=== PATIENT | female | born 1935 | race Caucasian/White ===

== ENCOUNTER 2019-02-15 20:57 | Emergency (ER) | payer MEDICARE ==
[2019-02-15] MEDS ORDERED: ONDANSETRON 4 MG/2 ML VIAL IVP STA (21:10)
[2019-02-15] MEDS ORDERED: MECLIZINE 12.5 MG TAB PO STA (21:29)
--- NOTE | 2019-02-15 21:36 | ED ---
Dizziness HPI - General Chief Complaint: Dizziness Stated Complaint: NVD Time Seen by Provider: 02/15/19 21:09 Source: EMS Mode of arrival: EMS Limitations: no limitations - History of Present Illness Initial Comments: This patient is 83-year-old woman who presents with complaint that she is having a severe feeling of spinning that started tonight. She states that it has caused her to have multiple rounds of vomiting as well as nausea. She does feel better if she closes her eyes remains still. She states that symptoms are worse if she moves her head. The patient states that she had moved into a new residence earlier today and she states she has been little fatigued over the past couple days. Patient denies headache. She denies any other neurologic symptoms. She has not had change in vision, speech or swallowing, hearing, any weakness or numbness of the extremities. No fever or chills. No chest or abdominal pain. No change in bowel movements or urination. MD Complaint: dizziness -: hour(s) Timing: sudden onset Description: "room spinning", off-balance, nausea History of Same: No History of Trauma: Yes (Patient had fall with head injury approximately 2 weeks ago) Severity: severe Improves With: remaining still Worsens With: movement Associated Symptoms: denies other symptoms - Related Data Home Medications Medication Instructions Recorded Confirmed ALPRAZolam [Xanax] 0.25 mg PO DAILY PRN 02/15/19 02/15/19 Atorvastatin [Lipitor] 20 mg PO DAILY 02/15/19 02/15/19 Carvedilol [Coreg] 25 mg PO BID-W/MEALS 02/15/19 02/15/19 FLUoxetine HCL [PROzac] 40 mg PO DAILY 02/15/19 02/15/19 Gabapentin 800 mg PO QID 02/15/19 02/15/19 Levothyroxine Sodium [Synthroid] 100 mcg PO DAILY 02/15/19 02/15/19 Lisinopril [Prinivil] 10 mg PO DAILY 02/15/19 02/15/19 Pantoprazole [Protonix] 40 mg PO BID 02/15/19 02/15/19 Primidone [Mysoline] 100 mg PO HS 02/15/19 02/15/19 cloNIDine HCL [Catapres] 0.1 mg PO HS 02/15/19 02/15/19 metFORMIN HCL 500 mg PO BID 02/15/19 02/15/19 Previous Rx's Medication Instructions Recorded Meclizine [Antivert] 25 mg PO TID PRN #15 tab 02/16/19 Allergies Allergy/AdvReac Type Severity Reaction Status Date / Time No Known Allergies Allergy Verified 02/15/19 23:20 Review of Systems ROS Statement: Those systems with pertinent positive or pertinent negative responses have been documented in the HPI. ROS Other: All systems not noted in ROS Statement are negative. Constitutional: Denies: fever, chills Eyes: Denies: vision change Respiratory: Denies: cough, dyspnea, wheezes Cardiovascular: Denies: chest pain, palpitations, edema Gastrointestinal: Reports: nausea, vomiting. Denies: abdominal pain, diarrhea, constipation, hematemesis Genitourinary: Denies: dysuria, frequency Musculoskeletal: Denies: back pain Skin: Denies: rash Neurological: Reports: vertigo. Denies: headache, weakness, numbness, paresthesias, confusion General Exam Limitations: no limitations General appearance: alert, in no apparent distress Head exam: Present: atraumatic, normocephalic Eye exam: Present: normal appearance. Absent: scleral icterus, conjunctival injection ENT exam: Present: normal oropharynx Neck exam: Present: normal inspection, full ROM. Absent: tenderness, meningismus Respiratory exam: Present: normal lung sounds bilaterally. Absent: respiratory distress, wheezes, rales, rhonchi, stridor Cardiovascular Exam: Present: regular rate, irregular rhythm, normal heart sounds. Absent: systolic murmur, diastolic murmur, rubs, gallop GI/Abdominal exam: Present: soft. Absent: distended, tenderness, guarding, rebound, rigid, mass Extremities exam: Present: normal inspection, normal capillary refill. Absent: pedal edema, calf tenderness Back exam: Present: normal inspection. Absent: CVA tenderness (R), CVA tenderness (L) Neurological exam: Present: alert, oriented X3, CN II-XII intact. Absent: motor sensory deficit Skin exam: Present: warm, dry, intact, normal color. Absent: rash Course Vital Signs 02/15/19 02/15/19 20:58 22:10 Temperature 97.8 F 98.6 F Pulse Rate 80 88 Respiratory 18 18 Rate Blood Pressure 122/68 129/87 O2 Sat by Pulse 92 L 98 Oximetry EKG Findings - EKG Results: EKG: interpreted by ERMD, normal axis EKG shows: atrial fibrillation (Rate approximately 83 bpm.) - Blocks, [place], Hypertrophy, ST Abn: Repolarization changes or abnormalities: nonspecific abnormality, ST segment, and/or T wave, Q-T interval prolongation Medical Decision Making - Lab Data Result diagrams: 02/15/19 21:32 02/15/19 21:32 Lab Results 02/15/19 02/15/19 02/15/19 Range/Units 21:32 21:32 23:50 WBC 6.2 (3.8-10.6) k/uL RBC 3.68 L (3.80-5.40) m/uL Hgb 8.7 L (11.4-16.0) gm/dL Hct 28.6 L (34.0-46.0) % MCV 77.9 L (80.0-100.0) fL MCH 23.8 L (25.0-35.0) pg MCHC 30.5 L (31.0-37.0) g/dL RDW 16.6 H (11.5-15.5) % Plt Count 157 (150-450) k/uL Neutrophils % 78 % Lymphocytes % 11 % Monocytes % 7 % Eosinophils % 2 % Basophils % 1 % Neutrophils # 4.9 (1.3-7.7) k/uL Lymphocytes # 0.7 L (1.0-4.8) k/uL Monocytes # 0.4 (0-1.0) k/uL Eosinophils # 0.1 (0-0.7) k/uL Basophils # 0.0 (0-0.2) k/uL Hypochromasia Marked Anisocytosis Slight Microcytosis Slight Sodium 140 (137-145) mmol/L Potassium 4.1 (3.5-5.1) mmol/L Chloride 107 (98-107) mmol/L Carbon Dioxide 27 (22-30) mmol/L Anion Gap 6 mmol/L BUN 19 H (7-17) mg/dL Creatinine 0.75 (0.52-1.04) mg/dL Est GFR (CKD-EPI)AfAm 84 (>60 ml/min/1.73 sqM) Est GFR (CKD-EPI)NonAf 73 (>60 ml/min/1.73 sqM) Glucose 149 H (74-99) mg/dL Calcium 8.6 (8.4-10.2) mg/dL Total Bilirubin 0.4 (0.2-1.3) mg/dL AST 24 (14-36) U/L ALT 28 (9-52) U/L Alkaline Phosphatase 56 (38-126) U/L Total Protein 6.4 (6.3-8.2) g/dL Albumin 3.8 (3.5-5.0) g/dL Amylase <30 L (30-110) U/L Lipase 105 (23-300) U/L Urine Color Yellow Urine Appearance Clear (Clear) Urine pH 5.5 (5.0-8.0) Ur Specific [place] 1.016 (1.001-1.035) Urine Protein Negative (Negative) Urine Glucose (UA) Negative (Negative) Urine Ketones Negative (Negative) Urine Blood Negative (Negative) Urine Nitrite Negative (Negative) Urine Bilirubin Negative (Negative) Urine Urobilinogen <2.0 (<2.0) mg/dL Ur Leukocyte Esterase Negative (Negative) Disposition Clinical Impression: Vertigo Disposition: HOME SELF-CARE Condition: Fair Instructions (If sedation given, give patient instructions): Vertigo (ED) Prescriptions: Meclizine [Antivert] 25 mg PO TID PRN #15 tab PRN Reason: Vertigo Is patient prescribed a controlled substance at d/c from ED?: No Referrals: None,Stated [Primary Care Provider] - 1-2 days Ching Chan MD [STAFF PHYSICIAN] - 1-2 days Shahid Christopher MD [STAFF PHYSICIAN] - 1-2 days
--- NOTE | 2019-02-15 21:45 | XR ---
EXAMINATION TYPE: XR chest 1V portable DATE OF EXAM: 02/15/2019 COMPARISON: NONE HISTORY: Dizziness TECHNIQUE: Single frontal view of the chest is obtained. FINDINGS: There is no heart failure nor confluent pneumonic infiltrate. Heart is enlarged. There are sternal wires. There are chest leads. There is no definite pleural effusion. IMPRESSION: Mild cardiomegaly. No acute lung disease.
[2019-02-15 21:50] LABS: Anisocytosis Slight; Basophils % (A) 1 %; Eosinophils # (A) 0.1 k/uL (0-0.7); Eosinophils % (A) 2 %; HCT 28.6 % (34.0-46.0); HGB 8.7 gm/dL (11.4-16.0); Hypochromasia Marked; Lymphocytes # (A) 0.7 k/uL (1.0-4.8); Lymphocytes % (A) 11 %; MCH 23.8 pg (25.0-35.0); MCHC 30.5 g/dL (31.0-37.0); MCV 77.9 fL (80.0-100.0); Mean Platelet Volume 6.8; Microcytosis Slight; Monocytes # (A) 0.4 k/uL (0-1.0); Monocytes % (A) 7 %; Neutrophils # (A) 4.9 k/uL (1.3-7.7); Neutrophils % (A) 78 %; Platelet Count 157 k/uL (150-450); RBC 3.68 m/uL (3.80-5.40); RDW 16.6 % (11.5-15.5); WBC 6.2 k/uL (3.8-10.6)
[2019-02-15 21:59] LABS: ALT 28 U/L (9-52); AST 24 U/L (14-36); African American GFR (CKD) 84 (>60 ml/min/1.73 sqM); Albumin 3.8 g/dL (3.5-5.0); Alkaline Phosphatase 56 U/L (38-126); Amylase <30 U/L (30-110); Anion Gap 6 mmol/L; Blood Urea Nitrogen 19 mg/dL (7-17); Calcium 8.6 mg/dL (8.4-10.2); Carbon Dioxide 27 mmol/L (22-30); Chloride 107 mmol/L (98-107); Glucose 149 mg/dL (74-99); Potassium 4.1 mmol/L (3.5-5.1); Sodium 140 mmol/L (137-145); Total Bilirubin 0.4 mg/dL (0.2-1.3); Total Protein 6.4 g/dL (6.3-8.2)
[2019-02-15 23:59] LABS: Appearance,Urine Clear (Clear); Bilirubin,Urine Negative (Negative); Blood,Urine Negative (Negative); Color,Urine Yellow; Glucose,Urine (UA) Negative (Negative); Ketones,Urine Negative (Negative); Leukocyte Esterase,Urine Negative (Negative); Nitrite,Urine Negative (Negative); PH, Urine 5.5 (5.0-8.0); Protein,Urine Negative (Negative); Specific Gravity,Urine 1.016 (1.001-1.035); Urobilinogen,Urine <2.0 mg/dL (<2.0)
--- NOTE | 2019-02-16 00:43 | CT ---
EXAMINATION TYPE: CT angio head DATE OF EXAM: 02/16/2019 COMPARISON: None HISTORY: vertigo CT DLP: 2110.9 mGycm Automated exposure control for dose reduction was used. CONTRAST: Performed with IV Contrast, patient injected with 100 mL of Isovue 370. FINDINGS: There are 3-D post processed images. There is arterial flow in the vertebrobasilar artery system. The re is arterial flow in both distal vertebral arteries. There is arterial flow in the distal internal carotid arteries bilaterally. There is arterial flow in the anterior middle and posterior cerebral ar teries. I see no evidence of hemodynamic stenosis. There is no mass effect. There is no evidence of i ntracranial aneurysm or neovascularity. There is normal contrast opacification of the venous sinuses. IMPRESSION: NEGATIVE CT ANGIOGRAM OF THE BRAIN.
[2019-02-16 02:30] VITALS: BP 120/73; PULSE 80; RESP 17; TEMP 97.6
== END 2019-02-16 03:45 | disposition home or self-care (01) ==
LOC: EC 20:57
DX: R42 Dizziness and giddiness (principal); R11.2 Nausea with vomiting, unspecified; R53.83 Other fatigue; Z79.890 Hormone replacement therapy; Z79.84 Long term (current) use of oral hypoglycemic drugs; Z79.899 Other long term (current) drug therapy
CPT/HCPCS: 36415; 80053; 82150; 83690; 85025; 81003; 71045; 70496; 99285; 96374; J2405; Q9967

== ENCOUNTER → 2019-03-18 | Outpatient (CLI) | payer MEDICARE ==
--- NOTE | 2019-03-18 13:05 | MR ---
EXAMINATION TYPE: MR brain wo/w con DATE OF EXAM: 03/18/2019 COMPARISON: CT angiogram of the head dated 02/16/2019 HISTORY: ezra carotid disease TECHNIQUE: Multiplanar, multisequence images of the brain and brainstem is performed without and with IV contras t, utilizing 9 mL intravenous Gadavist . FINDINGS: Exam limited by motion and artifact. Diffusion weighted images demonstrate no evidence of a recent infarct or other diffusion abnormality. There is is a intraconal lesion of the right orbit with enhancement along the medial margin measuring 1.2 cm. Cavernous sinus enhances symmetrically. There is mild to moderate generalized degenerative change. Diffuse periventricular and multiple focal areas of abnormal signal are seen in the white matter bilaterally which are nonspecific. No enhancem ent. Mild to moderate generalized degenerative changes. Abnormal signal in the basal ganglia may been the basis of prominent Virchow-Alex spaces or tiny rem ote lacunar infarctions. Changes of chronic sinusitis are noted. No midline shift or mass effect. Craniocervical junction is m aintained and sella turcica has a normal appearance. Intracranial atherosclerotic changes are suspect ed within the cavernous segment of the bilateral internal carotid artery. Degenerative disc disease C 2-C3 hypertrophic spurring. IMPRESSION: 1. There is a intraconal right orbital enhancing lesion measuring 1.2 cm along the medial margin of t he right orbit. 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 Other etiologies not excluded. MRI of the orbits recommended to exclude mass. 2. Intracranial atherosclerotic changes with no evidence of acute ischemia. 3. Degenerative and nonspecific white matter changes most typical remote microvascular ischemia.
--- NOTE | 2019-03-18 13:20 | MR ---
EXAMINATION TYPE: MR angio head wo DATE OF EXAM: 03/18/2019 COMPARISON: CTA 02/16/2019 HISTORY: Stenosis TECHNIQUE: Utilizing 3-D [id number] intracranial MRA of the [place] was performed. FINDINGS: The vertebrobasilar and carotid systems are patent. There is no sizable aneurysm or vascular malform ation. There is intracranial atherosclerotic disease. Intermediate signal along the medial margin the right orbit again noted. A varix versus neoplasm in the differential diagnosis. IMPRESSION: 1. No evidence of vascular malformation or sizable aneurysm. Intracranial atherosclerotic changes of the cavernous segment of the internal carotid arteries bilaterally. 2. There appears to be a 1.2 cm mass along the medial margin of the right orbit. EXAMINATION TYPE: MR angio neck wo/w con DATE OF EXAM: 03/18/2019 COMPARISON: CT 02/16/2019 HISTORY: Stenosis CONTRAST: Standard multiplanar, multisequence MRI departmental protocol utilizing 9 mL intravenous Gadavist darlyn olinium contrast. FINDINGS: Exam limited by motion artifact. There is atherosclerotic change of the left carotid bifurcation and proximal 60-70% stenosis. There i s additional atherosclerotic disease involving the mid and distal left common carotid artery with ecc entric 40-50% stenosis. IMPRESSION: 1. The level the left carotid bifurcation there is an approximate 60-70% stenosis. Correlation with c arotid Doppler ultrasound recommended. Additional atherosclerotic changes are seen eccentrically invo lving the mid and distal common carotid artery on the left measuring 50% or less.
== END | disposition home or self-care (01) ==
LOC: RADMRIMAIN 09:06
PROVIDERS: ATTEND Internal Medicine Cardiovascular Disease
DX: I65.23 Occlusion and stenosis of bilateral carotid arteries (principal); I67.82 Cerebral ischemia; R09.89 Other specified symptoms and signs involving the circulatory and respiratory systems; G93.89 Other specified disorders of brain; R22.0 Localized swelling, mass and lump, head
CPT/HCPCS: 70544; 70549; 70553; A9585

== ENCOUNTER → 2019-04-01 | Outpatient (CLI) | payer MEDICARE ==
--- NOTE | 2019-04-01 13:32 | MR ---
EXAMINATION TYPE: MR orbits wo/w con DATE OF EXAM: 04/01/2019 COMPARISON: MR brain dated 03/18/2019 HISTORY: Rt. orbital mass TECHNIQUE: Multiplanar, multisequence images of the orbits is performed without and with IV contrast, utilizing 9 mL intravenous Gadavist . FINDINGS: There is redemonstration of a T2 isointense and T1 isointense intraconal 1.2 cm enhancing oval mass j ust inferior to the medial rectus muscle. This does not demonstrate a flow void. There is homogeneous enhancement throughout with avid enhancement. Enhancement is similar to the degree of the extraocula r muscles. There is slight mass effect on the orbital nerve. There is no dilation of the superior oph thalmic veins. Extraocular muscles are symmetric. In the visualized portions of the brain there is symmetric atrophy demonstrated with multiple promine nt perivascular spaces at the level of the inferior basal ganglia. Scant mucosal thickening of the et hmoid and sinuses. 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 CT orbits with Valsalva could demonstrate increased s ize of a varix with Valsalva maneuver confirming varix as an etiology.
== END | disposition home or self-care (01) ==
LOC: RADMRIMAIN 11:37
PROVIDERS: ATTEND Internal Medicine Cardiovascular Disease
DX: R22.0 Localized swelling, mass and lump, head (principal); G45.9 Transient cerebral ischemic attack, unspecified
CPT/HCPCS: 70543; A9585

== ENCOUNTER 2019-05-23 10:03 | Inpatient (IN) | payer MEDICARE ==
[2019-05-23] MEDS ORDERED: SODIUM CHLORIDE 0.9% 1,000 ML IV STA ×2 (10:32)
[2019-05-23] MEDS ORDERED: GABAPENTIN 300 MG CAP PO STA (10:33)
--- NOTE | 2019-05-23 10:36 | ED ---
Weakness HPI - General Chief complaint: Weakness Stated complaint: Weakness Time Seen by Provider: 05/23/19 10:21 Source: patient, RN notes reviewed, old records reviewed Mode of arrival: EMS Limitations: no limitations - History of Present Illness Initial comments: Patient is an 83-year-old female who presents emergency department today with chief complaint of generalized weakness and shakiness over the past week. Patient reports that she initially attributed this to decreasing her Neurontin prescription. She states she normally would take it 4 times a day but was running about out of her prescription. She states that she none decided to take it just once a day. Patient states that she is concerned that she is going through withdrawals as regards her shakiness. She states that she's had has had some near falling episodes that she's had lower extremity weakness. Patient states that she has had no specific pains including chest pain or abdominal pain. Denies any saddle anesthesias. Patient states that she has no headache. Patient reports that she has not a primary care doctor locally at this time and she is recently moved into her daughter's home within the past few months. 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 [place] [facility] [place] states she has history of A. fib. Did not s imply prescribes her medications including Neurontin. Patient states that she was unable to get her prescription filled due to the holiday and her prescriber being on vacation. - Related Data Home Medications Medication Instructions Recorded Confirmed ALPRAZolam [Xanax] 0.25 mg PO DAILY PRN 02/15/19 02/15/19 Atorvastatin [Lipitor] 20 mg PO DAILY 02/15/19 02/15/19 Carvedilol [Coreg] 25 mg PO BID-W/MEALS 02/15/19 02/15/19 FLUoxetine HCL [PROzac] 40 mg PO DAILY 02/15/19 02/15/19 Gabapentin 800 mg PO QID 02/15/19 02/15/19 Levothyroxine Sodium [Synthroid] 100 mcg PO DAILY 02/15/19 02/15/19 Lisinopril [Prinivil] 10 mg PO DAILY 02/15/19 02/15/19 Pantoprazole [Protonix] 40 mg PO BID 02/15/19 02/15/19 Primidone [Mysoline] 100 mg PO HS 02/15/19 02/15/19 cloNIDine HCL [Catapres] 0.1 mg PO HS 02/15/19 02/15/19 metFORMIN HCL 500 mg PO BID 02/15/19 02/15/19 Previous Rx's Medication Instructions Recorded Meclizine [Antivert] 25 mg PO TID PRN #15 tab 02/16/19 Allergies Allergy/AdvReac Type Severity Reaction Status Date / Time No Known Allergies Allergy Verified 02/15/19 23:20 Review of Systems ROS Statement: Those systems with pertinent positive or pertinent negative responses have been documented in the HPI. ROS Other: All systems not noted in ROS Statement are negative. 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 History of Any Multi-Drug Resistant Organisms: None Reported Past Psychological History: Depression Smoking Status: Current every day smoker Past Alcohol Use History: None Reported Past Drug Use History: None Reported General Exam - General Exam Comments Initial Comments: Pleasant 83-year-old female. Alert and oriented 3. Limitations: no limitations General appearance: alert, in no apparent distress Head exam: Present: atraumatic, normocephalic, normal inspection Eye exam: Present: normal appearance, PERRL, EOMI. Absent: scleral icterus, conjunctival injection, periorbital swelling ENT exam: Present: normal exam, mucous membranes moist Neck exam: Present: normal inspection. Absent: tenderness, meningismus, lymphadenopathy Respiratory exam: Present: normal lung sounds bilaterally. Absent: respiratory distress, wheezes, rales, rhonchi, stridor Cardiovascular Exam: Present: regular rate, normal rhythm, normal heart sounds. Absent: systolic murmur, diastolic murmur, rubs, gallop, clicks GI/Abdominal exam: Present: soft, normal bowel sounds. Absent: distended, tenderness, guarding, rebound, rigid Extremities exam: Present: normal inspection, full ROM, normal capillary refill, other (Mak has tremor in upper and lower extremity.). Absent: tenderness, pedal edema, joint swelling, calf tenderness Back exam: Present: normal inspection Neurological exam: Present: alert, oriented X3, CN II-XII intact Expanded Patient oriented to: Present: person, place, time Speech: Present: fluid speech Cranial nerves: EOM's Intact: Normal, Facial Sensation: Normal Cerebellar function: Finger to Nose: Normal Upper motor neuron: Henry Neglect: Normal Sensory exam: Upper Extremity Light Touch: Normal, Lower Extremity Light Touch: Normal Motor strength exam: RUE: 4 (tremors, shaking), LUE: 5, RLE: 4 (tremor), LLE: 5 Eye Response: (4) open spontaneously Motor Response: (6) obeys commands Verbal Response: (5) oriented [place] Total: 15 Psychiatric exam: Present: normal affect, normal mood Skin exam: Present: warm, dry, intact, normal color. Absent: rash Course Vital Signs 05/23/19 05/23/19 05/23/19 10:05 11:27 13:03 Temperature 98.2 F Pulse Rate 66 87 104 H Respiratory 18 16 16 Rate Blood Pressure 154/131 149/84 170/96 O2 Sat by Pulse 94 L 94 L 96 Oximetry - Reevaluation(s) Reevaluation #1: 05/23/19 12:18 Patient required full cyst to get to the bathroom. She was able to transfer short distance. Medical Decision Making - Medical Decision Making Patient is an afebrile female presents today with progressive weakness shakiness or the past week. She initially thought related to her decreasing her Neurontin. At this time Patient does have some tremors. No focal neurological deficits. At this time Patient has CT of her brain which was negative for any acute process. Blood work was reviewed and unremarkable. Patient did require 2 people assist with ambulation due to her unsteadiness on her legs and shaking. I discussed could be related to withdrawal from Neurontin. I discussed case with Dr. Muhammad. Ventilator discussed the case with Dr. Ortega does accept admission for falls, inability to ambulate tremors. Patient is and family are agreeable to treatment plan. - Lab Data Result diagrams: 05/23/19 10:23 05/23/19 10:23 Lab Results 05/23/19 05/23/19 05/23/19 Range/Units 10:23 10:23 10:23 WBC 5.4 (3.8-10.6) k/uL RBC 4.58 (3.80-5.40) m/uL Hgb 10.0 L (11.4-16.0) gm/dL Hct 35.2 (34.0-46.0) % MCV 76.8 L (80.0-100.0) fL MCH 21.8 L (25.0-35.0) pg MCHC 28.4 L (31.0-37.0) g/dL RDW 15.4 (11.5-15.5) % Plt Count 217 (150-450) k/uL Neutrophils % 79 % Lymphocytes % 12 % Monocytes % 6 % Eosinophils % 1 % Basophils % 1 % Neutrophils # 4.3 (1.3-7.7) k/uL Lymphocytes # 0.6 L (1.0-4.8) k/uL Monocytes # 0.3 (0-1.0) k/uL Eosinophils # 0.0 (0-0.7) k/uL Basophils # 0.0 (0-0.2) k/uL Hypochromasia Marked Microcytosis Slight PT (9.0-12.0) sec INR (<1.2) APTT (22.0-30.0) sec Sodium 142 (137-145) mmol/L Potassium 4.3 (3.5-5.1) mmol/L Chloride 109 H (98-107) mmol/L Carbon Dioxide 25 (22-30) mmol/L Anion Gap 8 mmol/L BUN 15 (7-17) mg/dL Creatinine 0.74 (0.52-1.04) mg/dL Est GFR (CKD-EPI)AfAm 86 (>60 ml/min/1.73 sqM) Est GFR (CKD-EPI)NonAf 75 (>60 ml/min/1.73 sqM) Glucose 133 H (74-99) mg/dL Plasma Lactic Acid Doug 1.3 (0.7-2.0) mmol/L Calcium 9.2 (8.4-10.2) mg/dL Magnesium 1.5 L (1.6-2.3) mg/dL Total Bilirubin 0.7 (0.2-1.3) mg/dL AST 24 (14-36) U/L ALT 12 (4-34) U/L Alkaline Phosphatase 62 (38-126) U/L Troponin I (0.000-0.034) ng/mL Total Protein 6.8 (6.3-8.2) g/dL Albumin 4.1 (3.5-5.0) g/dL Urine Color Urine Appearance (Clear) Urine pH (5.0-8.0) Ur Specific [place] (1.001-1.035) Urine Protein (Negative) Urine Glucose (UA) (Negative) Urine Ketones (Negative) Urine Blood (Negative) Urine Nitrite (Negative) Urine Bilirubin (Negative) Urine Urobilinogen (<2.0) mg/dL Ur Leukocyte Esterase (Negative) Urine WBC (0-5) /hpf Urine Bacteria (None) /hpf Hyaline Casts (0-2) /lpf Urine Mucus (None) /hpf 05/23/19 05/23/19 05/23/19 Range/Units 10:23 10:23 13:01 WBC (3.8-10.6) k/uL RBC (3.80-5.40) m/uL Hgb (11.4-16.0) gm/dL Hct (34.0-46.0) % MCV (80.0-100.0) fL MCH (25.0-35.0) pg MCHC (31.0-37.0) g/dL RDW (11.5-15.5) % Plt Count (150-450) k/uL Neutrophils % % Lymphocytes % % Monocytes % % Eosinophils % % Basophils % % Neutrophils # (1.3-7.7) k/uL Lymphocytes # (1.0-4.8) k/uL Monocytes # (0-1.0) k/uL Eosinophils # (0-0.7) k/uL Basophils # (0-0.2) k/uL Hypochromasia Microcytosis PT 11.5 (9.0-12.0) sec INR 1.1 (<1.2) APTT 27.4 (22.0-30.0) sec Sodium (137-145) mmol/L Potassium (3.5-5.1) mmol/L Chloride (98-107) mmol/L Carbon Dioxide (22-30) mmol/L Anion Gap mmol/L BUN (7-17) mg/dL Creatinine (0.52-1.04) mg/dL Est GFR (CKD-EPI)AfAm (>60 ml/min/1.73 sqM) Est GFR (CKD-EPI)NonAf (>60 ml/min/1.73 sqM) Glucose (74-99) mg/dL Plasma Lactic Acid Doug (0.7-2.0) mmol/L Calcium (8.4-10.2) mg/dL Magnesium (1.6-2.3) mg/dL Total Bilirubin (0.2-1.3) mg/dL AST (14-36) U/L ALT (4-34) U/L Alkaline Phosphatase (38-126) U/L Troponin I <0.012 (0.000-0.034) ng/mL Total Protein (6.3-8.2) g/dL Albumin (3.5-5.0) g/dL Urine Color Yellow Urine Appearance Clear (Clear) Urine pH 6.5 (5.0-8.0) Ur Specific [place] 1.015 (1.001-1.035) Urine Protein Negative (Negative) Urine Glucose (UA) Negative (Negative) Urine Ketones Trace H (Negative) Urine Blood Negative (Negative) Urine Nitrite Negative (Negative) Urine Bilirubin Negative (Negative) Urine Urobilinogen <2.0 (<2.0) mg/dL Ur Leukocyte Esterase Trace H (Negative) Urine WBC 1 (0-5) /hpf Urine Bacteria Moderate H (None) /hpf Hyaline Casts 1 (0-2) /lpf Urine Mucus Rare H (None) /hpf 05/23/19 10:35 EKG shows atrial fibrillation with RVR, nonspecific ST and amount. 104 beats are minute ventricular rate. Normal distal checked. She adventist 90 no seconds. QT QTc is 362/476 most seconds. - Radiology Data Radiology results: report reviewed Chest x-ray shows mild cardiomegaly. Possible underlying COPD. Interstitial changes appear in part chronic. Correlate for possible bronchitis or asthma. CT of the brain shows no acute intracranial abnormality seen. No evidence of hemorrhage mass changes. No effacement or sulci. Paranasal sinuses and mastoid air cells. Normal. Benign basal ganglionic calcifications are present. Vascular spaces. Neither old lacunar infarcts within the by bilateral basal ganglia change from prior. Disposition Clinical Impression: Shakiness, Generalized weakness, History of atrial fibrillation, Drug withdrawal Disposition: ADMITTED IP TO THIS HOSP Condition: Stable Is patient prescribed a controlled substance at d/c from ED?: No Referrals: None,Stated [Primary Care Provider] - 1-2 days Time of Disposition: 15:16
[2019-05-23 10:56] LABS: Basophils % (A) 1 %; Eosinophils % (A) 1 %; HCT 35.2 % (34.0-46.0); Hypochromasia Marked; Lymphocytes # (A) 0.6 k/uL (1.0-4.8); Lymphocytes % (A) 12 %; MCH 21.8 pg (25.0-35.0); MCHC 28.4 g/dL (31.0-37.0); MCV 76.8 fL (80.0-100.0); Mean Platelet Volume 7.3; Microcytosis Slight; Monocytes # (A) 0.3 k/uL (0-1.0); Monocytes % (A) 6 %; Neutrophils # (A) 4.3 k/uL (1.3-7.7); Neutrophils % (A) 79 %; Platelet Count 217 k/uL (150-450); RBC 4.58 m/uL (3.80-5.40); RDW 15.4 % (11.5-15.5); WBC 5.4 k/uL (3.8-10.6)
--- NOTE | 2019-05-23 10:56 | XR ---
EXAMINATION TYPE: XR chest 2V DATE OF EXAM: 05/23/2019 COMPARISON: 02/15/2019 HISTORY: 83-year-old female with weakness TECHNIQUE: AP and lateral views FINDINGS: Median sternotomy wires are present. Annuloplasty ring. Heart mildly enlarged. Diffuse interstitial p rominence and mild hyperinflation. No consolidation or pleural effusion. IMPRESSION: 1. Mild cardiomegaly. 2. Possible underlying COPD. 3. Interstitial changes appear in part chronic. Correlate for possible bronchitis or asthma.
[2019-05-23 11:00] LABS: Albumin 4.1 g/dL (3.5-5.0); Calcium 9.2 mg/dL (8.4-10.2); Magnesium 1.5 mg/dL (1.6-2.3); Potassium 4.3 mmol/L (3.5-5.1); Total Bilirubin 0.7 mg/dL (0.2-1.3); Total Protein 6.8 g/dL (6.3-8.2)
[2019-05-23 11:35] LABS: INR 1.1 (<1.2); Partial Thromboplastin Time 27.4 sec (22.0-30.0); Prothrombin Time 11.5 sec (9.0-12.0)
[2019-05-23 13:24] LABS: Appearance,Urine Clear (Clear); Bacteria,Urine Moderate /hpf; Bilirubin,Urine Negative (Negative); Blood,Urine Negative (Negative); Color,Urine Yellow; Glucose,Urine (UA) Negative (Negative); Hyaline Casts,Urine 1 /lpf (0-2); Ketones,Urine Trace (Negative); Leukocyte Esterase,Urine Trace (Negative); Mucus,Urine Rare /hpf; Nitrite,Urine Negative (Negative); PH, Urine 6.5 (5.0-8.0); Protein,Urine Negative (Negative); Specific Gravity,Urine 1.015 (1.001-1.035); Urobilinogen,Urine <2.0 mg/dL (<2.0); WBC,Urine 1 /hpf (0-5)
--- NOTE | 2019-05-23 14:23 | CT ---
EXAMINATION TYPE: CT brain wo con DATE OF EXAM: 05/23/2019 COMPARISON: 02/16/2019 HISTORY: 83-year-old female Neuro deficit, acute, stroke TECHNIQUE: Examination was done in axial plane without intravenous contrast. Coronal and sagittal r econstructions performed. CT DLP: 1114.4 mGycm Automated exposure control for dose reduction was used. FINDINGS: There is no evidence of acute intracranial hemorrhage, acute ischemic changes, mass, mass-effect, or extra-axial fluid collection. There is no effacement of cerebral sulci or basal subarachnoid cister ns. There is no hydrocephalus. There is no midline shift. Salas-white matter distinction is preserv ed. Paranasal sinuses and mastoid air cells well pneumatized. Orbits and globes are intact. Benign basal ganglionic calcifications or prominent perivascular spaces. Neither old lacunar infarcts within the bilateral basal ganglia, unchanged from prior. IMPRESSION: No acute intracranial abnormality seen.
[2019-05-23] MEDS ORDERED: MORPHINE SULFATE 4 MG/ML SYRINGE IV PRN (15:17)
[2019-05-23] MEDS ORDERED: ONDANSETRON 4 MG/2 ML VIAL IVP PRN (15:17)
[2019-05-23] MEDS ORDERED: KETOROLAC 30 MG/ML 1 ML VIAL IVP PRN (15:17)
[2019-05-23] MEDS ORDERED: ACETAMINOPHEN TAB 325 MG TAB PO PRN (15:17)
[2019-05-23] MEDS ORDERED: NALOXONE 0.4 MG/ML 1 ML VIAL IV PRN (15:17)
[2019-05-23] MEDS ORDERED: IBUPROFEN 400 MG TAB PO PRN (15:17)
[2019-05-23] MEDS ORDERED: MECLIZINE 25 MG TAB PO PRN (15:19)
[2019-05-23] MEDS ORDERED: ALPRAZolam 0.25 MG TAB PO PRN (15:19)
[2019-05-23] MEDS ORDERED: SODIUM CHLORIDE 0.9% 1,000 ML IV SCH (15:30)
[2019-05-23] MEDS ORDERED: Magnesium Replacement Protocol 1 EACH MISC MISCELLANE PRN (16:45)
[2019-05-23] MEDS ORDERED: Potassium Replacement Protocol 1 EACH MISC MISCELLANE PRN (16:45)
[2019-05-23] MEDS ORDERED: HYDROcodone/APAP 5-325MG 1 EACH TAB PO PRN (16:47)
[2019-05-23] MEDS: SODIUM CHLORIDE 0.9% 1,000 ML IV SCH (17:40)
[2019-05-23 17:53] LABS: Glucose,Whole Blood 97 mg/dL (75-99)
[2019-05-23] MEDS ORDERED: guaiFENesin 600 MG TABLET.ER PO PRN (18:39)
[2019-05-23] MEDS ORDERED: traMADol 50 MG TAB PO PRN (18:39)
[2019-05-23] MEDS ORDERED: cloNIDine HCL 0.1 MG TAB PO PRN (18:41)
[2019-05-23] MEDS: INSULIN ASPART (NovoLOG) 100 UNIT/ML VIAL SQ SCH ×2 (18:50→21:35)
[2019-05-23] MEDS: APIXABAN 2.5 MG TABLET PO SCH (19:05)
[2019-05-23] MEDS: CARVEDILOL 12.5 MG TAB PO SCH (19:05)
[2019-05-23] MEDS: GABAPENTIN 400 MG CAP PO SCH ×2 (19:05→23:20)
[2019-05-23] MEDS: metFORMIN 500 MG TAB PO SCH (19:05)
[2019-05-23] MEDS: PANTOPRAZOLE 40 MG TABLET PO SCH (19:05)
--- NOTE | 2019-05-23 19:47 | HP ---
HISTORY AND PHYSICAL DATE OF SERVICE: 05/23/2019. CHIEF COMPLAINTS: Increasing weakness. HISTORY OF PRESENT ILLNESS: This 83-year-old woman with a past medical history of multiple medical problems including atrial fibrillation, diabetes, hypertension, hyperlipidemia, Guillain Orosi syndrome, depression, history of DJD, history of nicotine dependence, being followed by primary physician elsewhere, was recently moved with her daughter in [place]. The patient had cardiology, Dr. Shay and the patient recently apparently diagnosed to have Guillain Orosi syndrome. Patient also taking Neurontin high dose about 800 mg 4 times a day for the last several months per the primary physician, which the patient has not taken for the last 2 weeks. Currently the patient is complaining of weakness, tiredness and increased inability to walk and shakiness. The patient was admitted for further evaluation and treatment. Partial withdrawal syndrome is considered. There is no history any fever, rigors or chills. No history of headache, loss of consciousness or seizures. PAST MEDICAL HISTORY: Atrial fibrillation, history of diabetes type 2, hypertension, hyperlipidemia, Guillain Orosi syndrome, depression, nicotine dependence. MEDICATIONS: Home medications are: 1. Metformin 500 mg p.o. b.i.d. 2. Clonidine 0.1 mg q.h.s. 3. Mysoline 100 mg q.h.s. 4. Protonix 40 mg p.o. b.i.d. 5. Antivert 25 mg t.i.d. p.r.n. 6. Prinivil 10 mg p.o. daily. 7. Synthroid 100 mcg p.o. daily. 8. Gabapentin 800 mg p.o. q.i.d. 9. Prozac 40 mg p.o. daily. 10.Coreg 25 mg b.i.d. with meals. 11.Lipitor 20 mg p.o. daily. 12.Xanax 0.5 daily p.r.n. ALLERGIES: None. FAMILY HISTORY: No history of heart disease or strokes in the family. SOCIAL HISTORY: History of smoking, ongoing. REVIEW OF SYSTEMS: ENT: Diminished vision. Diminished hearing. CARDIOVASCULAR: No angina or palpitations. RESPIRATION: No cough or hemoptysis. GI no nausea or vomiting. no dysuria or hematuria. NERVOUS SYSTEM: As mentioned earlier. ALLERGY/IMMUNOLOGY: No asthma or hayfever. MUSCULOSKELETAL as mentioned earlier. HEMATOLOGY/ONCOLOGY: No history of anemia. ENDOCRINE: Hypothyroidism and diabetes. CONSTITUTIONAL: As mentioned earlier. DERMATOLOGY: Negative. RHEUMATOLOGY: Negative. PSYCHIATRIC: As mentioned earlier. PHYSICAL EXAMINATION: Alert and oriented times three. Pulse is 102. Blood pressure 171/68, respiration 16, temperature 97.9, pulse ox 97% on room air. HEENT: Conjunctivae normal. Oral mucosa moist. NECK is no jugular venous distention. No carotid bruit. No lymph node enlargement. Facial puffiness present. CARDIOVASCULAR: S1, S2 muffled. RESPIRATORY: Breath sounds diminished in the bases. Scattered rhonchi. No crackles. ABDOMEN: Soft, obese, nontender. No mass palpable. LEGS no edema. No swelling. NERVOUS SYSTEM higher functions as mentioned earlier. Moves all 4 limbs. Mild diffuse weakness. Mild diffuse tremors also present. LYMPHATICS: No lymph nodes palpable in the neck, axillae or groin. SKIN: No ulcers. No rashes and no bleeding. JOINTS: No active deforming arthropathy. LAB STUDIES: WBC 5.5, hemoglobin is 10, MCV 76.8, sodium 142, potassium 4.3, glucose 133, magnesium 1.5. UA noted. ASSESSMENT: 1. Generalized gait dysfunction and weakness possibly gabapentin withdrawal. 2. Rule out Guillain Orosi syndrome exacerbation. 3. Hypertension. 4. Anemia, microcytic anemia of chronic disease of undetermined etiology. 5. Hypomagnesemia. 6. Severe degenerative joint disease. 7. Gait dysfunction. 8. Obesity. 9. Atrial fibrillation, chronic. 10.Diabetes mellitus type 2. 11.Hypertension. 12.Hyperlipidemia. 13.History of depression. 14.History of continued ongoing nicotine dependence. 15.FULL CODE. RECOMMENDATIONS AND DISCUSSION: In this 83-year-old woman who presented with multiple complex medical issues, we will monitor the patient closely, continue the current medications, symptomatic treatment, management and we will initiate home medication including Neurontin. Otherwise monitor blood sugars closely. PT/OT evaluation. I would also monitor blood pressure closely. The Catapres will be reinitiated. P.r.n. medication also will be used. Prognosis guarded because of multiple complex medical issues. Cut down the IV fluids. I would also obtain a Cardiology consultation for evaluation of the atrial fibrillation. The patient was taking Eliquis before according to her. Once again, the prognosis guarded. Further recommendations to follow. Also recommend the patient follow up with primary physician closely after discharge also. MMODL / IJN: [id number] /
[2019-05-23] MEDS ORDERED: HEPARIN SODIUM,PORCINE 5,000 UNIT/ML 1 ML VIAL SQ SCH (21:00)
[2019-05-23 21:32] LABS: Glucose,Whole Blood 100 mg/dL (75-99)
[2019-05-23] MEDS: LISINOPRIL 10 MG TAB PO SCH (21:35)
[2019-05-23] MEDS: PRIMIDONE 50 MG TAB PO SCH (21:35)
[2019-05-23] MEDS: ARTIFICIAL TEARS-HYPROMELLOSE DROPS 15 ML BTL BOTH EYES SCH (21:35)
[2019-05-23] MEDS: cloNIDine HCL 0.1 MG TAB PO SCH (21:35)
[2019-05-24 07:10] LABS: Glucose,Whole Blood 126 mg/dL (75-99)
[2019-05-24 08:11] LABS: Basophils % (A) 0 %; Eosinophils # (A) 0.1 k/uL (0-0.7); Eosinophils % (A) 1 %; HCT 32.4 % (34.0-46.0); Hypochromasia Marked; Lymphocytes % (A) 22 %; MCH 21.9 pg (25.0-35.0); MCHC 27.9 g/dL (31.0-37.0); MCV 78.5 fL (80.0-100.0); Mean Platelet Volume 8.2; Monocytes # (A) 0.3 k/uL (0-1.0); Monocytes % (A) 6 %; Neutrophils % (A) 67 %; Platelet Count 188 k/uL (150-450); RBC 4.13 m/uL (3.80-5.40); RDW 15.5 % (11.5-15.5); WBC 4.5 k/uL (3.8-10.6)
[2019-05-24 08:24] LABS: Calcium 8.7 mg/dL (8.4-10.2); Magnesium 1.6 mg/dL (1.6-2.3); Potassium 3.9 mmol/L (3.5-5.1)
[2019-05-24] MEDS: INSULIN ASPART (NovoLOG) 100 UNIT/ML VIAL SQ SCH ×4 (08:41→21:50)
[2019-05-24] MEDS ORDERED: LISINOPRIL 10 MG TAB PO SCH (09:00)
[2019-05-24] MEDS: LISINOPRIL 10 MG TAB PO SCH (09:37)
[2019-05-24] MEDS: THIAMINE 100 MG TAB PO SCH (09:37)
[2019-05-24] MEDS: FOLIC ACID 1 MG TAB PO SCH (09:37)
[2019-05-24] MEDS: PANTOPRAZOLE 40 MG TABLET PO SCH ×2 (09:37→17:59)
[2019-05-24] MEDS: ATORVASTATIN 20 MG TAB PO SCH (09:37)
[2019-05-24] MEDS: metFORMIN 500 MG TAB PO SCH ×2 (09:38→17:59)
[2019-05-24] MEDS: APIXABAN 2.5 MG TABLET PO SCH ×2 (09:38→21:50)
[2019-05-24] MEDS: GABAPENTIN 400 MG CAP PO SCH ×4 (09:38→21:50)
[2019-05-24] MEDS: MULTIVITAMINS, THERA 1 EACH TAB PO SCH (09:38)
[2019-05-24] MEDS: FLUoxetine HCL 20 MG CAP PO SCH (09:39)
[2019-05-24] MEDS: CARVEDILOL 12.5 MG TAB PO SCH ×2 (09:41→17:59)
[2019-05-24] MEDS: ARTIFICIAL TEARS-HYPROMELLOSE DROPS 15 ML BTL BOTH EYES SCH ×3 (09:47→21:50)
[2019-05-24] MEDS: LEVOTHYROXINE 100 MCG TAB PO SCH (09:48)
[2019-05-24 11:04] LABS: Glucose,Whole Blood 136 mg/dL (75-99)
--- NOTE | 2019-05-24 13:31 | P.CRDCN ---
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 Patient presented to [facility] emergency center due to generalized weakness and feeling tired but is been going on for the past week. Patient apparently was running out of her Neurontin in assisted is taking it 4 times a day cut down to one time per day. She apparently had some falling as well at home due to lower extremity weakness. EKG atrial fibrillation with rate controlled. CAT scan of the brain showed no acute intracranial abnormalities. Chest x-ray showed mild cardiomegaly, possible COPD, interstitial changes appear chronic. Correlate for bronchitis or asthma. WBC 5.4, hemoglobin 10, creatinine 0.74, troponin negative on one draw. Patient was admitted to the [facility] floor and cardiology consult requested for atrial fibrillation. Review Of Systems: Constitutional: No fever, no chills, no night sweats. No weight change. Reports generalized weakness. Reports daytime sleepiness. EENT: No headache. No blurred vision or double vision, no loss of vision. No loss of Hearing, no ringing in the ears, no dizziness. No nasal drainage or congestion. No epistaxis. No sore throat. Lungs: No shortness of breath, cough, no sputum production. No wheezing. Cardiovascular: No chest pain, no lower extremity edema. No palpitations. No paroxysmal nocturnal dyspnea. No orthopnea. No lightheadedness or dizziness. No syncopal episodes. Abdominal: No abdominal pain. No nausea, vomiting. No diarrhea. No constipation. No bloody or tarry stools.. No loss of appetite. Genitourinary: No dysuria, increased frequency, urgency. No urinary retention. Musculoskeletal: No myalgias. No muscle weakness, no gait dysfunction, no frequent falls. No back pain. No neck pain. Integumentary: No wounds, no lesions. No rash or pruritus. No unusual bruisi ng. No change in hair or nails. Neurologic: No aphasia. No facial droop. No change in mentation. No head injury. No headache. No paralysis. No paresthesia. Psychiatric: No depression. No anxiety. No mood swings. Endocrine: No abnormal blood sugars. No weight change. No excessive sweating or thirst. No cold intolerance. No weight change. Gen: This is an 83-year-old female. Patient is sleeping a recliner awakens easily to verbal stimuli. HEENT: Head is atraumatic, normocephalic. Pupils equal, round. Sclerae is anicteric. NECK: Supple. No JVD. No lymphadenopathy. No thyromegaly. LUNGS: Clear to auscultation. No wheezes or rhonchi. No intercostal retractions. HEART: Irregularly irregular rate and rhythm. No murmur. ABDOMEN: Soft. Bowel sounds are present. No masses. No tenderness. EXTREMITIES: Trace bilateral pedal edema. No calf tenderness. Dorsalis pedis +2 bilaterally. NEUROLOGICAL: Patient is awake, alert and oriented x3. Cranial nerves 2 through 12 are grossly intact. Assessment: Chronic atrial fibrillation, rate controlled Diabetes mellitus type 2 Hypertension Hyperlipidemia Hypothyroidism [place] for a History of ovarian cancer status post hysterectomy Tobacco use and dependence Plan: Continue eliquis 2.5 mg twice daily, Coreg 25 mg twice daily, lisinopril 10 mg daily, continue pravastatin Patient will have follow-up with Dr. Shay Further recommendations to follow based upon clinical course. Nurse practitioner note has been reviewed, I agree with documented findings and plan of care. Patient was seen and examined. Past Medical History Past Medical History: Atrial Fibrillation, Diabetes Mellitus, Hyperlipidemia, Hypertension, Neurologic Disorder, Thyroid Disorder Additional Past Medical History / Comment(s): guillain-barre syndrome. ovarian cancer with hysterectomy History of Any Multi-Drug Resistant Organisms: None Reported Past Surgical History: Hysterectomy, Orthopedic Surgery Additional Past Surgical History / Comment(s): bilateral knee surgery , right rotor cuff surgery, Past Anesthesia/Blood Transfusion Reactions: No Reported Reaction Past Psychological History: Depression Smoking Status: Current every day smoker Past Alcohol Use History: None Reported Past Drug Use History: None Reported - Past Family History Sister(s) Family Medical History: Cancer Medications and Allergies Home Medications Medication Instructions Recorded Confirmed Type ALPRAZolam [Xanax] 0.25 mg PO DAILY PRN 02/15/19 05/23/19 History Carvedilol [Coreg] 25 mg PO BID 02/15/19 05/23/19 History FLUoxetine HCL [PROzac] 40 mg PO DAILY 02/15/19 05/23/19 History Gabapentin 800 mg PO QID 02/15/19 05/23/19 History Levothyroxine Sodium [Synthroid] 100 mcg PO HS 02/15/19 05/23/19 History Lisinopril [Prinivil] 10 mg PO HS 02/15/19 05/23/19 History Pantoprazole [Protonix] 40 mg PO BID 02/15/19 05/23/19 History Primidone [Mysoline] 100 mg PO HS 02/15/19 05/23/19 History cloNIDine HCL [Catapres] 0.1 mg PO HS 02/15/19 05/23/19 History metFORMIN HCL 500 mg PO BID 02/15/19 05/23/19 History Apixaban [Eliquis] 2.5 mg PO BID 05/23/19 05/23/19 History Artificial Tears-Hypromellose 1 drops BOTH EYES TID 05/23/19 05/23/19 History [Artificial Tear Drops] Pravastatin Sodium [Pravachol] 80 mg PO HS 05/23/19 05/23/19 History guaiFENesin 400 mg PO Q4H PRN 05/23/19 05/23/19 History traMADol HCL 50 mg PO Q8H PRN 05/23/19 05/23/19 History Allergies Allergy/AdvReac Type Severity Reaction Status Date / Time No Known Allergies Allergy Verified 02/15/19 23:20 Physical Exam Vitals: Vital Signs Temp Pulse Pulse Resp BP BP Pulse Ox 05/24/19 11:20 97.7 F 66 16 119/62 97 05/24/19 08:00 128/56 05/24/19 07:30 16 05/24/19 05:58 96.3 F L 71 16 109/62 99 05/23/19 21:34 97.9 F 95 18 175/77 97 05/23/19 18:26 102 H 16 05/23/19 16:41 97.9 F 102 H 16 162/77 97 05/23/19 16:00 102 H 16 171/68 96 05/23/19 13:03 104 H 16 170/96 96 Intake and Output 05/23/19 05/24/19 05/24/19 22:59 06:59 14:59 Intake Total 540 450 Balance 540 450 Intake: Intake, IV Titration 450 Amount Sodium Chloride 0.9% 1, 450 000 ml @ 50 mls/hr IV . Q20H [facility] Rx#:[id number] Oral 540 Other: Voiding Method Bedpan Bedpan Bedpan # Voids 1 1 Weight 88.451 kg Results 05/24/19 07:41 05/24/19 07:41 CBC 05/24/19 Range/Units 07:41 WBC 4.5 (3.8-10.6) k/uL RBC 4.13 (3.80-5.40) m/uL Hgb 9.0 L (11.4-16.0) gm/dL Hct 32.4 L (34.0-46.0) % Plt Count 188 (150-450) k/uL Comprehensive Metabolic Panel 05/24/19 Range/Units 07:41 Sodium 143 (137-145) mmol/L Potassium 3.9 (3.5-5.1) mmol/L Chloride 110 H (98-107) mmol/L Carbon Dioxide 28 (22-30) mmol/L BUN 14 (7-17) mg/dL Creatinine 0.81 (0.52-1.04) mg/dL Glucose 117 H (74-99) mg/dL Calcium 8.7 (8.4-10.2) mg/dL Current Medications Generic Name Dose Route Start Last Admin Trade Name Freq PRN Reason Stop Dose Admin Acetaminophen 650 mg 05/23/19 15:17 Tylenol Tab PO Q6HR PRN Mild Pain or Fever > 100.5 Hydrocodone Bitart/Acetaminophen 1 each 05/23/19 16:47 [place] 5-325 PO Q6HR PRN Pain Alprazolam 0.25 mg 05/23/19 15:19 Xanax PO DAILY PRN Anxiety Apixaban 2.5 mg 05/23/19 21:00 05/24/19 09:38 Eliquis PO 2.5 mg BID [facility] Administration Artificial Tears 1 drops 05/23/19 22:00 05/24/19 09:47 Artificial Tear Drops BOTH EYES Not Given TID [facility] Atorvastatin Calcium 20 mg 05/24/19 09:00 05/24/19 09:37 Lipitor PO 20 mg DAILY [facility] Administration Carvedilol 25 mg 05/23/19 17:30 05/24/19 09:41 Coreg PO 12.5 mg BID-W/MEALS [facility] Administration Clonidine 0.1 mg 05/23/19 21:00 05/23/19 21:35 Catapres PO 0.1 mg HS [facility] Administration Clonidine 0.1 mg 05/23/19 18:41 Catapres PO Q4HR PRN Hypertension Fluoxetine HCl 40 mg 05/24/19 09:00 05/24/19 09:39 Prozac PO 40 mg DAILY [facility] Administration Folic Acid 1 mg 05/24/19 12:00 05/24/19 09:37 Folic Acid PO 1 mg DAILY@1200 [facility] Administration Gabapentin 800 mg 05/23/19 18:00 05/24/19 09:38 Neurontin PO 800 mg QID [facility] Administration Guaifenesin 600 mg 05/23/19 18:39 Mucinex PO Q12H PRN Congestion Sodium Chloride 1,000 mls @ 50 mls/hr 05/23/19 17:15 05/23/19 17:40 Saline 0.9% IV 50 mls/hr .Q20H [facility] Administration Ibuprofen 400 mg 05/23/19 15:17 Motrin PO Q6HR PRN Mild Pain or Fever > 100.5 Insulin Aspart 0 unit 05/23/19 17:30 05/24/19 11:33 Novolog SQ Not Given ACHS [facility] Protocol Ketorolac Tromethamine 30 mg 05/23/19 15:17 Toradol IVP 05/28/19 15:18 Q6HR PRN Moderate Pain Levothyroxine Sodium 100 mcg 05/24/19 09:00 05/24/19 09:48 Synthroid PO 100 mcg DAILY@0630 [facility] Administration Lisinopril 10 mg 05/25/19 09:00 Zestril PO DAILY [facility] Meclizine HCl 25 mg 05/23/19 15:19 Antivert PO TID PRN Vertigo Metformin HCl 500 mg 05/23/19 21:00 05/24/19 09:38 Glucophage PO 500 mg BID-W/MEALS [facility] Administration Miscellaneous Information 1 each 05/23/19 16:45 Magnesium Per Protocol MISCELLANE DAILY PRN Per Protocol Protocol Miscellaneous Information 1 each 05/23/19 16:45 Potassium Per Protocol MISCELLANE DAILY PRN Per Protocol Protocol Morphine Sulfate 4 mg 05/23/19 15:17 Morphine Sulfate (Inj) IV Q4HR PRN Severe Pain Multivitamins 1 each 05/24/19 12:00 05/24/19 09:38 Theragran PO 1 each DAILY@1200 [facility] Administration Naloxone HCl 0.2 mg 05/23/19 15:17 Narcan IV Q2M PRN Opioid Reversal Ondansetron HCl 4 mg 05/23/19 15:17 Zofran IVP Q8HR PRN Nausea And Vomiting Pantoprazole Sodium 40 mg 05/23/19 17:30 05/24/19 09:37 Protonix PO 40 mg AC-BID [facility] Administration Primidone 100 mg 05/23/19 21:00 05/23/19 21:35 Mysoline PO 100 mg HS [facility] Administration Thiamine HCl 100 mg 05/24/19 12:00 05/24/19 09:37 Vitamin B-1 PO 100 mg DAILY@1200 [facility] Administration Tramadol HCl 50 mg 05/23/19 18:39 Ultram PO Q8H PRN Pain Intake and Output 05/23/19 05/24/19 05/24/19 22:59 06:59 14:59 Intake Total 540 450 Balance 540 450 Intake: Intake, IV Titration 450 Amount Sodium Chloride 0.9% 1, 450 000 ml @ 50 mls/hr IV . Q20H [facility] Rx#:[id number] Oral 540 Other: Voiding Method Bedpan Bedpan Bedpan # Voids 1 1 Weight 88.451 kg 05/24/19 07:41 05/24/19 07:41
[2019-05-24] MEDS: SODIUM CHLORIDE 0.9% 1,000 ML IV SCH (15:21)
--- NOTE | 2019-05-24 16:29 | PN ---
PROGRESS NOTE DATE OF SERVICE: 05/24/2019 This 83-year-old woman was admitted with increased weakness, has possibly gabapentin withdrawals. The patient was significantly tremulous and weak yesterday. The patient also seen by Cardiology at this time. A CT scan of the brain was also done. Cardiology has recommended rate control of the chronic atrial fibrillation and recommend to continue with Eliquis, Coreg and lisinopril at this time. The PT/OT is evaluating the patient closely. The patient has recently moved to the area and does not have the primary physician established yet at this time. PAST MEDICAL HISTORY: Reviewed. REVIEW OF SYSTEMS: CARDIOVASCULAR SYSTEM: No angina. RESPIRATORY: As mentioned earlier. GI: As mentioned earlier. : No dysuria. NERVOUS SYSTEM: No numbness, weakness. CURRENT MEDICATIONS: 1. Tylenol 650 q.6h p.r.n. 2. [place] 5 mg q.6h. 3. Xanax 0.25 daily. 4. Eliquis 2.5 mg b.i.d. 5. Artificial Tears. 6. Lipitor 20 mg daily. 7. Coreg 25 mg p.o. b.i.d. 8. Catapres 0.1 q.4h p.r.n. 9. Prozac 40 mg. 10.Folic acid 1 mg. 11.Neurontin 800 mg q.i.d. 12.Mucinex 600 mg p.o. b.i.d. 13.Motrin 400 mg q.6h p.r.n. 14.Toradol. 15.Synthroid 100 mg mcg p.o. daily. 16.Zestril 10 mg p.o. daily. 17.Antivert. 18.Glucophage. 19.Narcan. 20.Protonix 40 mg. 21.Mysoline. 22.Vitamin B1. 23.Ultram. PHYSICAL EXAM: Patient is alert, oriented x3. Pulse 66, blood pressure 119/60, respirations 16, temperature 97.7, pulse ox 97% on room air. HEENT: Conjunctivae normal. Oral mucosa moist. NECK: No jugular venous distention. No lymph node enlargement. CARDIOVASCULAR: S1, S2. RESPIRATORY: Diminished breath sounds at the bases. Scattered rhonchi and crackles. ABDOMEN: Soft, nontender. LEGS: No edema, no swelling. NERVOUS SYSTEM: No focal deficits. LABS: WBC 4.2, hemoglobin is 9, MCV 78.5. ASSESSMENT: 1. Generalized gait dysfunction and weakness, possibly gabapentin withdrawal. 2. Rule out Guillain-[place] syndrome acute exacerbation. 3. Hypertension. 4. Anemia, microcytic anemia of chronic disease of undetermined etiology. 5. Atrial fibrillation, chronic rate controlled. 6. Hypomagnesemia. 7. Severe degenerative joint disease. 8. Gait dysfunction. 9. Obesity. 10.Diabetes mellitus type 2. 11.Hypertension. 12.History of depression. 13.History of continued ongoing nicotine dependence. 14.FULL CODE. RECOMMENDATIONS AND DISCUSSION: I recommend to continue current medications, continue symptomatic treatment. Continue with current dose of gabapentin and will continue to monitor. Other than that, DVT prophylaxis, PT/OT evaluation, possible ECF rehab. Guarded prognosis because of multiple complex medical issues. Further recommendations to follow. MMLINDSAYL / FRANCKN: [id number] /
[2019-05-24 16:59] LABS: Glucose,Whole Blood 95 mg/dL (75-99)
[2019-05-24 20:22] LABS: Glucose,Whole Blood 140 mg/dL (75-99)
[2019-05-24] MEDS: PRIMIDONE 50 MG TAB PO SCH (21:49)
[2019-05-24] MEDS: cloNIDine HCL 0.1 MG TAB PO SCH (21:50)
[2019-05-25] MEDS: LEVOTHYROXINE 100 MCG TAB PO SCH (05:51)
[2019-05-25 07:07] LABS: Glucose,Whole Blood 104 mg/dL (75-99)
[2019-05-25] MEDS: CARVEDILOL 12.5 MG TAB PO SCH ×2 (08:07→18:00)
[2019-05-25] MEDS: INSULIN ASPART (NovoLOG) 100 UNIT/ML VIAL SQ SCH ×4 (08:07→21:13)
[2019-05-25] MEDS: FLUoxetine HCL 20 MG CAP PO SCH (08:08)
[2019-05-25] MEDS: APIXABAN 2.5 MG TABLET PO SCH ×2 (08:08→21:21)
[2019-05-25] MEDS: ATORVASTATIN 20 MG TAB PO SCH (08:08)
[2019-05-25] MEDS: PANTOPRAZOLE 40 MG TABLET PO SCH ×2 (08:08→18:06)
[2019-05-25] MEDS: ARTIFICIAL TEARS-HYPROMELLOSE DROPS 15 ML BTL BOTH EYES SCH ×3 (08:08→21:22)
[2019-05-25] MEDS: metFORMIN 500 MG TAB PO SCH ×2 (08:08→18:06)
[2019-05-25] MEDS: GABAPENTIN 400 MG CAP PO SCH ×3 (08:09→22:27)
[2019-05-25] MEDS: LISINOPRIL 10 MG TAB PO SCH (08:09)
[2019-05-25 08:28] LABS: African American GFR (CKD) >90 (>60 ml/min/1.73 sqM); Anion Gap 7 mmol/L; Blood Urea Nitrogen 16 mg/dL (7-17); Calcium 9.2 mg/dL (8.4-10.2); Carbon Dioxide 27 mmol/L (22-30); Chloride 106 mmol/L (98-107); Glucose 107 mg/dL (74-99); Non-African American GFR(CKD) 79 (>60 ml/min/1.73 sqM); Potassium 4.2 mmol/L (3.5-5.1); Sodium 140 mmol/L (137-145)
[2019-05-25 08:57] LABS: Basophils % (A) 1 %; Eosinophils # (A) 0.1 k/uL (0-0.7); Eosinophils % (A) 3 %; HCT 35.8 % (34.0-46.0); HGB 10.3 gm/dL (11.4-16.0); Hypochromasia Marked; Lymphocytes # (A) 1.2 k/uL (1.0-4.8); Lymphocytes % (A) 23 %; MCHC 28.6 g/dL (31.0-37.0); MCV 76.9 fL (80.0-100.0); Mean Platelet Volume 8.3; Microcytosis Slight; Monocytes # (A) 0.4 k/uL (0-1.0); Monocytes % (A) 7 %; Neutrophils # (A) 3.2 k/uL (1.3-7.7); Neutrophils % (A) 63 %; Platelet Count 188 k/uL (150-450); RBC 4.66 m/uL (3.80-5.40); RDW 15.7 % (11.5-15.5); WBC 5.1 k/uL (3.8-10.6)
[2019-05-25 09:30] LABS: Anisocytosis (M) Present; Crenated RBC Present; Poikilocytosis (M) Present; RBC Fragments Present
[2019-05-25 11:28] LABS: Glucose,Whole Blood 122 mg/dL (75-99)
[2019-05-25] MEDS: MULTIVITAMINS, THERA 1 EACH TAB PO SCH (12:34)
[2019-05-25] MEDS: THIAMINE 100 MG TAB PO SCH (12:34)
[2019-05-25] MEDS: FOLIC ACID 1 MG TAB PO SCH (12:34)
[2019-05-25 17:19] LABS: Glucose,Whole Blood 107 mg/dL (75-99)
--- NOTE | 2019-05-25 17:41 | PN ---
PROGRESS NOTE DATE OF SERVICE: 05/25/2019 This 83-year-old woman who was admitted with generalized gait dysfunction, weakness, possible gabapentin withdrawal is being closely monitored. Patient also had a previous Guillain [place] syndrome history. Cardiology following the patient closely. PT/OT evaluating the patient. No chest pain. No palpitations. No fever. The patient has recently moved to the area. EXAM: Alert and oriented x3. Pulse 66, blood pressure 135/64, respirations 16, temp 98 degrees, pulse ox 99% on room air. HEENT: Conjunctivae normal. NECK: No JVD. CARDIOVASCULAR: S1, S2 muffled. RESPIRATORY: Breath sounds diminished at the bases. A few scattered rhonchi and crackles. ABDOMEN is soft, nontender. LEGS are no edema. No swelling. CENTRAL NERVOUS SYSTEM: Diffusely weak. Mild tremors present. LABS: WBC 5.2, hemoglobin 10.3. UA noted. Cultures are negative so far. ASSESSMENT: 1. Generalized gait dysfunction and weakness possibly gabapentin withdrawal. 2. Rule out Guillain [place], acute exacerbation. 3. Change in mental status acute metabolic encephalopathy, multifactorial. 4. Hypertension. 5. Anemia, microcytic anemia of chronic disease of undetermined etiology. 6. Atrial fibrillation, chronic rate controlled. 7. Hypomagnesemia. 8. Severe degenerative joint disease. 9. Gait dysfunction. 10.Obesity. 11.Diabetes mellitus type 2. 12.Hypertension. 13.History of depression. 14.History of continued ongoing nicotine dependence. 15.FULL CODE. RECOMMENDATIONS AND DISCUSSION: In this 83-year-old woman who presented with multiple complex medical issues, we will monitor the patient closely, continue the current medications. Continue symptomatic treatment. Otherwise, gabapentin has been restarted at a lower dose. PT/OT evaluation, possible ECF rehab. Guarded prognosis because of multiple complex medical issues. DVT prophylaxis. Further recommendations to follow. MMODL / IJN: [id number] /
[2019-05-25 19:53] LABS: Glucose,Whole Blood 114 mg/dL (75-99)
[2019-05-25] MEDS: PRIMIDONE 50 MG TAB PO SCH (21:21)
[2019-05-25] MEDS: cloNIDine HCL 0.1 MG TAB PO SCH (21:21)
[2019-05-26] MEDS: LEVOTHYROXINE 100 MCG TAB PO SCH (05:36)
[2019-05-26 07:18] LABS: Glucose,Whole Blood 108 mg/dL (75-99)
[2019-05-26] MEDS: INSULIN ASPART (NovoLOG) 100 UNIT/ML VIAL SQ SCH ×4 (07:48→20:18)
[2019-05-26] MEDS: PANTOPRAZOLE 40 MG TABLET PO SCH ×2 (07:52→17:47)
[2019-05-26] MEDS: CARVEDILOL 12.5 MG TAB PO SCH ×2 (07:52→17:47)
[2019-05-26] MEDS: metFORMIN 500 MG TAB PO SCH ×2 (07:52→17:47)
[2019-05-26] MEDS: ATORVASTATIN 20 MG TAB PO SCH (07:52)
[2019-05-26] MEDS: ARTIFICIAL TEARS-HYPROMELLOSE DROPS 15 ML BTL BOTH EYES SCH ×3 (07:52→21:44)
[2019-05-26] MEDS: GABAPENTIN 400 MG CAP PO SCH ×3 (07:52→21:44)
[2019-05-26] MEDS: FLUoxetine HCL 20 MG CAP PO SCH (07:52)
[2019-05-26] MEDS: APIXABAN 2.5 MG TABLET PO SCH ×2 (07:52→20:18)
[2019-05-26] MEDS: LISINOPRIL 10 MG TAB PO SCH (07:52)
[2019-05-26 09:13] LABS: Basophils % (A) 1 %; Eosinophils # (A) 0.1 k/uL (0-0.7); Eosinophils % (A) 2 %; HCT 32.5 % (34.0-46.0); HGB 9.3 gm/dL (11.4-16.0); Hypochromasia Marked; Lymphocytes # (A) 0.8 k/uL (1.0-4.8); Lymphocytes % (A) 21 %; MCH 22.2 pg (25.0-35.0); MCHC 28.5 g/dL (31.0-37.0); MCV 78.1 fL (80.0-100.0); Mean Platelet Volume 8.7; Microcytosis Slight; Monocytes # (A) 0.3 k/uL (0-1.0); Monocytes % (A) 7 %; Neutrophils # (A) 2.5 k/uL (1.3-7.7); Neutrophils % (A) 66 %; Platelet Count 173 k/uL (150-450); RBC 4.16 m/uL (3.80-5.40); RDW 15.6 % (11.5-15.5); WBC 3.8 k/uL (3.8-10.6)
[2019-05-26 09:38] LABS: African American GFR (CKD) >90 (>60 ml/min/1.73 sqM); Anion Gap 6 mmol/L; Blood Urea Nitrogen 16 mg/dL (7-17); Calcium 8.8 mg/dL (8.4-10.2); Carbon Dioxide 27 mmol/L (22-30); Chloride 106 mmol/L (98-107); Glucose 134 mg/dL (74-99); Non-African American GFR(CKD) 81 (>60 ml/min/1.73 sqM); Potassium 4.2 mmol/L (3.5-5.1); Sodium 139 mmol/L (137-145)
[2019-05-26 11:53] LABS: Glucose,Whole Blood 95 mg/dL (75-99)
[2019-05-26] MEDS: THIAMINE 100 MG TAB PO SCH (13:02)
[2019-05-26] MEDS: MULTIVITAMINS, THERA 1 EACH TAB PO SCH (13:02)
[2019-05-26] MEDS: FOLIC ACID 1 MG TAB PO SCH (13:02)
[2019-05-26 17:25] LABS: Glucose,Whole Blood 143 mg/dL (75-99)
--- NOTE | 2019-05-26 19:39 | PN ---
PROGRESS NOTE DATE OF SERVICE: 05/26/2019 This 83-year-old woman was admitted with generalized gait dysfunction, possibly gabapentin withdrawal, has been restarted on a lower dose of gabapentin. Patient has less significant gait dysfunction and tremors also. The patient also complains of restless leg syndrome. The ECF rehab is being considered. No chest pain. No palpitations. Cardiology is following the patient closely. EXAM: Alert oriented, oriented x2. Pulse 65, blood pressure 143/77, respirations 16, temperature 97.9, pulse ox 97% on room air. HEENT: Conjunctivae normal. Oral mucosa moist. NECK: No jugular venous distention. No lymph node enlargement. CARDIOVASCULAR: S1, S2. RESPIRATORY: Diminished breath sounds at the bases. Scattered rhonchi and crackles. ABDOMEN: Soft, obese, nontender. LEGS: No edema, no swelling. NERVOUS SYSTEM: No focal deficits. LABS: WBC 3.8, hemoglobin 9.3 sodium 139, potassium 4.2. ASSESSMENT: 1. Generalized gait dysfunction, weakness, possibly gabapentin withdrawal. 2. History of Guillain-[place]. No evidence of an acute exacerbation. 3. Change in mental status, acute metabolic encephalopathy, multifactorial. 4. Hypertension. 5. Anemia, microcytic anemia of chronic disease, undetermined etiology. 6. Atrial fibrillation, chronic, rate controlled. 7. Hypomagnesemia. 8. History of severe degenerative joint disease. 9. Gait dysfunction. 10.Obesity. 11.Diabetes mellitus type 2. 12.Hypertension. 13.History of depression. 14.History of continued ongoing nicotine dependence. 15.FULL CODE. RECOMMENDATIONS AND DISCUSSION: I recommend to continue current medications, continue to monitor, symptomatic treatment. Otherwise, at this time I recommend repeat labs, increase ambulation with PT, OT. Possible ECF rehab. Guarded prognosis. Further recommendation: MMODL / IJN: [id number] /
[2019-05-26] MEDS: cloNIDine HCL 0.1 MG TAB PO SCH (20:18)
[2019-05-26] MEDS: PRIMIDONE 50 MG TAB PO SCH (20:18)
[2019-05-27] MEDS: LEVOTHYROXINE 100 MCG TAB PO SCH (06:07)
[2019-05-27 07:02] LABS: Glucose,Whole Blood 109 mg/dL (75-99)
[2019-05-27] MEDS: INSULIN ASPART (NovoLOG) 100 UNIT/ML VIAL SQ SCH ×4 (07:10→21:30)
[2019-05-27] MEDS: GABAPENTIN 400 MG CAP PO SCH ×3 (09:23→21:29)
[2019-05-27] MEDS: THIAMINE 100 MG TAB PO SCH (09:24)
[2019-05-27] MEDS: MULTIVITAMINS, THERA 1 EACH TAB PO SCH (09:24)
[2019-05-27] MEDS: LISINOPRIL 10 MG TAB PO SCH (09:24)
[2019-05-27] MEDS: FOLIC ACID 1 MG TAB PO SCH (09:24)
[2019-05-27] MEDS: FLUoxetine HCL 20 MG CAP PO SCH (09:24)
[2019-05-27] MEDS: CARVEDILOL 12.5 MG TAB PO SCH ×2 (09:24→17:31)
[2019-05-27] MEDS: PANTOPRAZOLE 40 MG TABLET PO SCH ×2 (09:24→17:30)
[2019-05-27] MEDS: ARTIFICIAL TEARS-HYPROMELLOSE DROPS 15 ML BTL BOTH EYES SCH ×3 (09:25→21:30)
[2019-05-27] MEDS: APIXABAN 2.5 MG TABLET PO SCH ×2 (09:25→21:29)
[2019-05-27] MEDS: metFORMIN 500 MG TAB PO SCH ×2 (09:25→17:31)
[2019-05-27] MEDS: ATORVASTATIN 20 MG TAB PO SCH (09:25)
[2019-05-27 11:27] LABS: Glucose,Whole Blood 93 mg/dL (75-99)
--- NOTE | 2019-05-27 14:04 | PN ---
PROGRESS NOTE DATE OF SERVICE: 05/27/2019 This is an 83-year-old woman who was admitted with generalized gait dysfunction and possibly gabapentin withdrawal is being closely monitored. No chest pain. No palpitations. No fever. ECF rehab is being planned. PHYSICAL EXAMINATION: Alert and oriented x3. Pulse is 81, blood pressure 124/50, respirations 16, temperature 98 degrees, pulse ox 98% on room air. HEENT: Conjunctivae normal. NECK: No jugular venous distension. CARDIOVASCULAR SYSTEM: S1,S2, muffled. RESPIRATORY SYSTEM: Breath sounds diminished at the bases, scattered rhonchi, no crackles. ABDOMEN: Soft, nontender. LEGS: No edema. No swelling. NERVOUS SYSTEM: No focal deficits. LABS: WBC 3.8, hemoglobin is 9.3, glucose 143. ASSESSMENT: 1. Generalized gait dysfunction and weakness with possible acute gabapentin withdrawal. 2. History of Guillain [place]. No evidence of an acute exacerbation. 3. Change in mental status with acute metabolic encephalopathy, multifactorial. 4. Hypertension. 5. Severe gait dysfunction. 6. Anemia, microcytic anemia of chronic disease of undetermined etiology. 7. Atrial fibrillation, chronic rate controlled. 8. Hypomagnesemia. 9. History of severe degenerative joint disease. 10.Gait dysfunction. 11.Obesity. 12.Diabetes mellitus type 2. 13.Hypertension. 14.History of depression. 15.History of continued ongoing nicotine dependence. 16.FULL CODE. RECOMMENDATION AND DISCUSSION: Recommend to continue current management and symptomatic treatment. Otherwise, at this time I recommend continue with current medications. I would also recommend Gastric evaluation as outpatient for microcytic anemia. Otherwise PT, OT evaluation. Continue to monitor. Guarded prognosis. Further recommendations to follow. MMODL / IJN: [id number] /
[2019-05-27 16:56] LABS: Glucose,Whole Blood 121 mg/dL (75-99)
[2019-05-27 19:59] LABS: Glucose,Whole Blood 134 mg/dL (75-99)
[2019-05-27] MEDS: cloNIDine HCL 0.1 MG TAB PO SCH (21:14)
[2019-05-27] MEDS: PRIMIDONE 50 MG TAB PO SCH (21:29)
[2019-05-28] MEDS: LEVOTHYROXINE 100 MCG TAB PO SCH (05:57)
--- NOTE | 2019-05-28 06:41 | CONS ---
CONSULTATION DATE OF SERVICE: 05/27/2019. REASON FOR CONSULTATION: Microcytic anemia. HISTORY OF PRESENT ILLNESS: The patient is an 83-year-old pleasant white female admitted to the hospital because of weakness, fatigue, unable to walk and shakiness for the last few days duration. 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 During this hospitalization, she was noted to have anemia with microcytosis and hence we are consulted in regards to this issue. The patient denies any abdominal pain. Reports no nausea, vomiting. Denies any rectal bleeding or melena. At the time of admission the hospital 3 days ago, she was noted to have a hemoglobin that was 10 g/dL and today is 9.8 g/dL. She was noted to have decreased MCV consistent with microcytosis. She recalls being admitted to [facility] in September of this year and underwent an upper endoscopy as well as colonoscopy, but does not recall any details. She thinks her endoscopic workup was negative. PAST MEDICAL HISTORY: Significant for Guillain-Peetz syndrome diagnosed recently, history of hypertension, diabetes mellitus, hyperlipidemia, degenerative joint disease, anxiety and depression. MEDICATIONS: Medications at home include metformin, clonidine, Neurontin, Prozac, Coreg, Lipitor, Xanax, Synthroid, Prinivil, Antivert, Protonix, Mysoline. ALLERGIES: None. SOCIAL HISTORY: No smoking. No alcohol use. FAMILY HISTORY: Mother had CVA. Father had coronary artery disease. REVIEW OF SYSTEMS: CARDIOPULMONARY: She denies any chest pain or shortness of breath. GENITOURINARY: No dysuria or hematuria. MUSCULOSKELETAL: Unremarkable. SKIN: Unremarkable. ENDOCRINE: Unremarkable. PSYCHIATRIC: Unremarkable. NEUROLOGY: Gait disturbance. ENT/VISION: Unremarkable. CONSTITUTIONAL: No recent weight loss. No fever, chills or night sweats. PHYSICAL EXAMINATION: On physical examination, she appears comfortable. No apparent distress. VITAL SIGNS: Are stable. Blood pressure is 124/57, pulse rate 81, temperature 98. HEENT EXAMINATION: Unremarkable. Conjunctivae pink. Sclerae anicteric. Oral cavity no lesions. NECK: No JVD or lymph node enlargement. CHEST: Clear to auscultation. HEART: Regular rate and rhythm. ABDOMEN: Soft. Bowel sounds are positive. No organomegaly. EXTREMITIES: No pedal edema. SKIN: No rashes. NEURO: Alert and oriented x3. LABS: Labs done at the time of admission to the hospital: WBC 5.4, hemoglobin 10, MCV 76, platelets normal. Basic metabolic panel is within normal limits. PT/INR is within normal limits. BUN and creatinine are normal. IMPRESSION: 1. Microcytic anemia with clinically no evidence of active ongoing bleeding, possibly iron deficiency, but other etiologies need to be considered. 2. History of Guillian-Peetz syndrome with lower extremity weakness. 3. History of hypertension and diabetes mellitus. RECOMMENDATIONS: 1. Will obtain iron studies to see for iron deficiency anemia. 2. Will request for records from [facility] as patient stated that she had an upper endoscopy as well as colonoscopy done in September of this year. 3. Based on the iron studies and after reviewing her old medical records, further recommendations will follow. At this time we have no plans on any endoscopic intervention at the present time. Thank you for this consultation. JUAN JOSE / FRANCKN: [id number] /
[2019-05-28 06:57] LABS: Glucose,Whole Blood 116 mg/dL (75-99)
[2019-05-28 09:01] LABS: Basophils % (A) 1 %; Eosinophils # (A) 0.1 k/uL (0-0.7); Eosinophils % (A) 2 %; HCT 34.2 % (34.0-46.0); HGB 9.7 gm/dL (11.4-16.0); Hypochromasia Marked; Lymphocytes % (A) 22 %; MCH 21.6 pg (25.0-35.0); MCHC 28.4 g/dL (31.0-37.0); MCV 76.3 fL (80.0-100.0); Mean Platelet Volume 8.5; Microcytosis Slight; Monocytes # (A) 0.3 k/uL (0-1.0); Monocytes % (A) 8 %; Neutrophils # (A) 2.8 k/uL (1.3-7.7); Neutrophils % (A) 65 %; Platelet Count 180 k/uL (150-450); RBC 4.48 m/uL (3.80-5.40); WBC 4.3 k/uL (3.8-10.6)
[2019-05-28] MEDS: INSULIN ASPART (NovoLOG) 100 UNIT/ML VIAL SQ SCH ×2 (09:43→13:02)
[2019-05-28] MEDS: CARVEDILOL 12.5 MG TAB PO SCH (09:51)
[2019-05-28] MEDS: FLUoxetine HCL 20 MG CAP PO SCH (09:51)
[2019-05-28] MEDS: LISINOPRIL 10 MG TAB PO SCH (09:52)
[2019-05-28] MEDS: FOLIC ACID 1 MG TAB PO SCH (09:52)
[2019-05-28] MEDS: THIAMINE 100 MG TAB PO SCH (09:52)
[2019-05-28] MEDS: MULTIVITAMINS, THERA 1 EACH TAB PO SCH (09:52)
[2019-05-28] MEDS: PANTOPRAZOLE 40 MG TABLET PO SCH (09:52)
[2019-05-28] MEDS: GABAPENTIN 400 MG CAP PO SCH (09:52)
[2019-05-28] MEDS: metFORMIN 500 MG TAB PO SCH (09:52)
[2019-05-28] MEDS: ATORVASTATIN 20 MG TAB PO SCH (09:52)
[2019-05-28] MEDS: APIXABAN 2.5 MG TABLET PO SCH (09:52)
[2019-05-28] MEDS: ARTIFICIAL TEARS-HYPROMELLOSE DROPS 15 ML BTL BOTH EYES SCH (09:56)
[2019-05-28 11:31] LABS: Glucose,Whole Blood 109 mg/dL (75-99)
--- NOTE | 2019-05-28 11:48 | P.DS ---
Providers Date of admission: 05/25/19 09:20 Attending physician: Claritza Dent Consults: 05/23/19 16:48 Consult Physician Routine Consulting Provider: Curtis Rivera Consult Reason/Comments: afib Do you want consulting provider notified?: Yes 05/27/19 13:05 Consult Physician Routine Consulting Provider: Cheli Edwards Consult Reason/Comments: MICROCYTIC ANEMIA Do you want consulting provider notified?: Yes Primary care physician: Stated None Hospital Course: Final diagnosis Generalized gait dysfunction and weakness with a possible acute gabapentin withdrawal History of Guillain-[place] no evidence of acute exacerbation Change in mental status acute metabolic considerably multifactorial Hypertension Severe gait dysfunction Anemia microcytic of possibly chronic disease of undetermined etiology Atrial fibrillation chronic rate controlled Hypomagnesemia History of severe DJD Gait dysfunction Obesity Diabetes mellitus type 2 Hypertension History depression History of continue ongoing nicotine dependence Full code Discharge disposition patient be discharged in a stable condition with guarded prognosis to [facility] total time taken is 35 minutes History of present illness This 83-year-old woman with a past medical history multiple medical pulse admitted with the gabapentin withdrawal with tremors and weakness and multiple symptoms. Gabapentin was reinstituted the the lowER dose and the patient responded significantly. PTOT was evaluated. ECF rehab is recommended. Also the patient was noted to have microcyte anemia . Dr. Bailey from GI has been consulted rule out the possibility GI bleed. At this time hemoglobin stable. Would recommend to check serial hemoglobin in the ECF and follow up with Dr. Bailey is outpatient for evaluation regarding the possible GI bleed including endoscopes at this time. I would also recommend the outpatient neurology workup because of the we not have a neurologist on the staff this week. Otherwise overall prognosis guarded currently patient is stable. The patient be discharged in a stable condition with guarded prognosis and Dr. Flo Coles will follow in the outpatient setting. Please refer to the medication reconciliation sheet for the list of medications. Patient Condition at Discharge: Stable Plan - Discharge Summary Discharge Rx Participant: Yes New Discharge Prescriptions: New Meclizine [Antivert] 25 mg PO TID PRN tab PRN Reason: Vertigo Folic Acid 1 mg PO DAILY@1200 tab Multivitamins, Thera [Multivitamin (formulary)] 1 each PO DAILY@1200 tab Gabapentin [Neurontin] 400 mg PO TID #12 cap INSULIN ASPART (NovoLOG) [NovoLOG (formulary)] 0 unit SQ ACHS vial Acetaminophen Tab [Tylenol] 650 mg PO Q6HR PRN tab PRN Reason: Mild Pain Or Fever > 100.5 Thiamine [Vitamin B-1] 100 mg PO DAILY@1200 tab Continue Primidone [Mysoline] 100 mg PO HS metFORMIN HCL 500 mg PO BID Pantoprazole [Protonix] 40 mg PO BID Lisinopril [Prinivil] 10 mg PO HS Levothyroxine Sodium [Synthroid] 100 mcg PO HS cloNIDine HCL [Catapres] 0.1 mg PO HS FLUoxetine HCL [PROzac] 40 mg PO DAILY Carvedilol [Coreg] 25 mg PO BID ALPRAZolam [Xanax] 0.25 mg PO DAILY PRN PRN Reason: Anxiety guaiFENesin 400 mg PO Q4H PRN PRN Reason: Congestion Apixaban [Eliquis] 2.5 mg PO BID Pravastatin Sodium [Pravachol] 80 mg PO HS Artificial Tears-Hypromellose [Artificial Tear Drops] 1 drops BOTH EYES TID traMADol HCL 50 mg PO Q8H PRN #10 tab PRN Reason: Pain Discontinued Gabapentin 800 mg PO QID Discharge Medication List ALPRAZolam [Xanax] 0.25 mg PO DAILY PRN 02/15/19 [History] Carvedilol [Coreg] 25 mg PO BID 02/15/19 [History] FLUoxetine HCL [PROzac] 40 mg PO DAILY 02/15/19 [History] Levothyroxine Sodium [Synthroid] 100 mcg PO HS 02/15/19 [History] Lisinopril [Prinivil] 10 mg PO HS 02/15/19 [History] Pantoprazole [Protonix] 40 mg PO BID 02/15/19 [History] Primidone [Mysoline] 100 mg PO HS 02/15/19 [History] cloNIDine HCL [Catapres] 0.1 mg PO HS 02/15/19 [History] metFORMIN HCL 500 mg PO BID 02/15/19 [History] Apixaban [Eliquis] 2.5 mg PO BID 05/23/19 [History] Artificial Tears-Hypromellose [Artificial Tear Drops] 1 drops BOTH EYES TID 05/23/19 [History] Pravastatin Sodium [Pravachol] 80 mg PO HS 05/23/19 [History] guaiFENesin 400 mg PO Q4H PRN 05/23/19 [History] Acetaminophen Tab [Tylenol] 650 mg PO Q6HR PRN tab 05/28/19 [Rx] Folic Acid 1 mg PO DAILY@1200 tab 05/28/19 [Rx] Gabapentin [Neurontin] 400 mg PO TID #12 cap 05/28/19 [Rx] INSULIN ASPART (NovoLOG) [NovoLOG (formulary)] 0 unit SQ ACHS vial 05/28/19 [Rx] Meclizine [Antivert] 25 mg PO TID PRN tab 05/28/19 [Rx] Multivitamins, Thera [Multivitamin (formulary)] 1 each PO DAILY@1200 tab 05/28/19 [Rx] Thiamine [Vitamin B-1] 100 mg PO DAILY@1200 tab 05/28/19 [Rx] traMADol HCL 50 mg PO Q8H PRN #10 tab 05/28/19 [Rx] Follow up Appointment(s)/Referral(s): None,Stated [Primary Care Provider] - 1-2 days Activity/Diet/Wound Care/Special Instructions: Follow up with Dr. Shay in 1-2 weeks after discharge. Diet cardiac Activity as tolerated Follow-up with Dr. Coles on Dr. Rossi in the F
[2019-05-28 12:03] VITALS: BP 128/65; PULSE 72; RESP 17; TEMP 98.3
--- NOTE | 2019-05-28 12:29 | ECHOF ---
Referral Reason:afib MEASUREMENTS -------- HEIGHT: 172.7 cm WEIGHT: 88.5 kg BP: 132/75 RVIDd: 3.8 cm (< 3.3) IVSd: 1.1 cm (0.6 - 1.1) LVIDd: 4.8 cm (3.9 - 5.3) LVPWd: 1.2 cm (0.6 - 1.1) IVSs: 1.4 cm LVIDs: 3.3 cm LVPWs: 1.8 cm LA Diam: 4.4 cm (2.7 - 3.8) LAESV Index (A-L): 41.62 ml/m Ao Diam: 3.4 cm (2.0 - 3.7) AV Cusp: 1.4 cm (1.5 - 2.6) LA Diam: 4.4 cm (2.7 - 3.8) MV EXCURSION: 17.354 mm (> 18.000) MV EF SLOPE: 79 mm/s (70 - 150) EPSS: 0.6 cm MV E Casey: 1.12 m/s MV DecT: 166 ms MV A Casey: 0.00 m/s MV E/A Ratio: 1101 AV maxP.41 mmHg AV meanP.13 mmHg RAP: 5.00 mmHg RVSP: 36.98 mmHg FINDINGS -------- Atrial fibrillation. This was a technically adequate study. The left ventricular size is normal. There is mild concentric left ventricular hypertrophy. Overa ll left ventricular systolic function is low-normal with, an EF between 50 - 55 %. Left ventricular fillimg pressure cannot be estimated due to Atrial fibrillation. The right ventricle is normal in size. The left atrium is markedly dilated. LA is severely dilated >40 ml/m2 The right atrial size is normal. Peak/mean gradient across the Aortic Valve is 31.41mmHg / 16.13mmHg. Normally functioning bioprosth etic valve. 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 There is mild thicknin g of the bioprosthetic aortic valve. Mild mitral annular calcification present. Moderate mitral regurgitation is present. Mild tricuspid regurgitation present. There is mild pulmonary hypertension. The right ventricular systolic pressure, as measured by Doppler, is 36.98mmHg. Trace/mild (physiologic) pulmonic regurgitation. The aortic root size is normal. Echo free space indicative of a pericardial fat pad. CONCLUSIONS -------- 1. Atrial fibrillation. 2. This was a technically adequate study. 3. The left ventricular size is normal. 4. There is mild concentric left ventricular hypertrophy. 5. Overall left ventricular systolic function is low-normal with, an EF between 50 - 55 %. 6. Left ventricular fillimg pressure cannot be estimated due to Atrial fibrillation. 7. The right ventricle is normal in size. 8. The left atrium is markedly dilated. 9. LA is severely dilated >40 ml/m2 10. The right atrial size is normal. 11. Peak/mean gradient across the Aortic Valve is 31.41mmHg / 16.13mmHg. 12. Normally functioning bioprosthetic valve. 13. 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 14. Mild mitral annular calcification present. 15. Moderate mitral regurgitation is present. 16. Mild tricuspid regurgitation present. 17. There is mild pulmonary hypertension. 18. The right ventricular systolic pressure, as measured by Doppler, is 36.98mmHg. 19. Trace/mild (physiologic) pulmonic regurgitation. 20. The aortic root size is normal. 21. Echo free space indicative of a pericardial fat pad. RESEARCH CHEMICAL ENGINEER: Pat Alexander RDCS
[2019-05-28 17:23] LABS: % Iron Saturation 5.36 (12.00-45.00); Ferritin 8.6 ng/mL (10.0-291.0); Folate, Serum 16.6 ng/mL
== END 2019-05-28 15:45 | DRG 896 ==
LOC: EC 10:03 → 5NMEDONC 15:26 → OBSVTOIN 05-25 09:20
PROVIDERS: ADMIT Internal Medicine; ATTEND Internal Medicine
DX: F19.939 Other psychoactive substance use, unspecified with withdrawal, unspecified (principal); G93.41 Metabolic encephalopathy; G61.0 Guillain-Barre syndrome; I48.20 Chronic atrial fibrillation, unspecified; D63.8 Anemia in other chronic diseases classified elsewhere; D50.9 Iron deficiency anemia, unspecified; E03.9 Hypothyroidism, unspecified; E11.9 Type 2 diabetes mellitus without complications; E66.9 Obesity, unspecified; Z68.29 Body mass index [BMI] 29.0-29.9, adult; E78.5 Hyperlipidemia, unspecified; E83.42 Hypomagnesemia; F17.200 Nicotine dependence, unspecified, uncomplicated; G25.81 Restless legs syndrome; I10 Essential (primary) hypertension; M19.90 Unspecified osteoarthritis, unspecified site; R29.6 Repeated falls; Z79.01 Long term (current) use of anticoagulants; Z79.84 Long term (current) use of oral hypoglycemic drugs; Z79.890 Hormone replacement therapy; Z79.899 Other long term (current) drug therapy; Z82.3 Family history of stroke; Z82.49 Family history of ischemic heart disease and other diseases of the circulatory system; Z85.43 Personal history of malignant neoplasm of ovary; Z90.710 Acquired absence of both cervix and uterus; Z79.1 Long term (current) use of non-steroidal anti-inflammatories (NSAID)
CPT/HCPCS: 36415; 70450; 71046; 80048; 80053; 81001; 82607; 82728; 82746; 83540; 83550; 83605; 83735; 84484; 85025; 85610; 85730; 93005; 93306; 96360; 96361; 99285

== ENCOUNTER 2019-06-19 17:00 | Inpatient (IN) | payer MEDICARE ==
[2019-06-19 17:52] LABS: Anisocytosis Slight; Basophils # (A) 0.1 k/uL (0-0.2); Basophils % (A) 1 %; Eosinophils # (A) 0.1 k/uL (0-0.7); Eosinophils % (A) 1 %; HCT 29.1 % (34.0-46.0); HGB 8.6 gm/dL (11.4-16.0); Hypochromasia Marked; Lymphocytes # (A) 0.8 k/uL (1.0-4.8); Lymphocytes % (A) 18 %; MCH 22.4 pg (25.0-35.0); MCHC 29.5 g/dL (31.0-37.0); Mean Platelet Volume 7.3; Microcytosis Slight; Monocytes # (A) 0.4 k/uL (0-1.0); Monocytes % (A) 9 %; Neutrophils # (A) 3.2 k/uL (1.3-7.7); Neutrophils % (A) 67 %; Platelet Count 191 k/uL (150-450); RBC 3.82 m/uL (3.80-5.40); WBC 4.7 k/uL (3.8-10.6)
[2019-06-19 18:00] LABS: INR 1.1 (<1.2); Partial Thromboplastin Time 25.7 sec (22.0-30.0); Prothrombin Time 11.1 sec (9.0-12.0)
[2019-06-19 18:01] LABS: ALT 15 U/L (4-34); AST 23 U/L (14-36); African American GFR (CKD) >90 (>60 ml/min/1.73 sqM); Albumin 3.7 g/dL (3.5-5.0); Alkaline Phosphatase 47 U/L (38-126); Anion Gap 5 mmol/L; Blood Urea Nitrogen 15 mg/dL (7-17); Calcium 8.9 mg/dL (8.4-10.2); Carbon Dioxide 27 mmol/L (22-30); Chloride 106 mmol/L (98-107); Glucose 114 mg/dL (74-99); Non-African American GFR(CKD) 81 (>60 ml/min/1.73 sqM); Potassium 4.4 mmol/L (3.5-5.1); Sodium 138 mmol/L (137-145); Total Bilirubin 0.3 mg/dL (0.2-1.3); Total Protein 6.3 g/dL (6.3-8.2)
--- NOTE | 2019-06-19 20:02 | ED ---
GI Bleed HPI - General Chief complaint: GI Bleed Stated complaint: Low Hemoglobin Time Seen by Provider: 06/19/19 17:26 Source: patient, RN notes reviewed Mode of arrival: ambulatory Limitations: no limitations - History of Present Illness Initial comments: This is a 83-year-old female who was [facility] in from her [facility] with suspicion of GI bleed. She's been trending down and her hemoglobin level is from the tens earlier this month thousand 7.6 today. He denies any abdominal pain lightheadedness dizziness fevers chills nausea vomiting sweats or other symptoms she has not noticed any blood or black colored stools. No other modifying factors at this time. Apparently a Hemoccult was done at the [facility] she presented [facility] at and did show heme positive by guaiac no other modifying factors at this time - Related Data Home Medications Medication Instructions Recorded Confirmed ALPRAZolam [Xanax] 0.25 mg PO DAILY PRN 02/15/19 05/23/19 Carvedilol [Coreg] 25 mg PO BID 02/15/19 05/23/19 FLUoxetine HCL [PROzac] 40 mg PO DAILY 02/15/19 05/23/19 Levothyroxine Sodium [Synthroid] 100 mcg PO HS 02/15/19 05/23/19 Lisinopril [Prinivil] 10 mg PO HS 02/15/19 05/23/19 Pantoprazole [Protonix] 40 mg PO BID 02/15/19 05/23/19 Primidone [Mysoline] 100 mg PO HS 02/15/19 05/23/19 cloNIDine HCL [Catapres] 0.1 mg PO HS 02/15/19 05/23/19 metFORMIN HCL 500 mg PO BID 02/15/19 05/23/19 Apixaban [Eliquis] 2.5 mg PO BID 05/23/19 05/23/19 Artificial Tears-Hypromellose 1 drops BOTH EYES TID 05/23/19 05/23/19 [Artificial Tear Drops] Pravastatin Sodium [Pravachol] 80 mg PO HS 05/23/19 05/23/19 guaiFENesin 400 mg PO Q4H PRN 05/23/19 05/23/19 Previous Rx's Medication Instructions Recorded Acetaminophen Tab [Tylenol] 650 mg PO Q6HR PRN tab 05/28/19 Folic Acid 1 mg PO DAILY@1200 tab 05/28/19 Gabapentin [Neurontin] 400 mg PO TID #12 cap 05/28/19 INSULIN ASPART (NovoLOG) [NovoLOG 0 unit SQ ACHS vial 05/28/19 (formulary)] Meclizine [Antivert] 25 mg PO TID PRN tab 05/28/19 Multivitamins, Thera [Multivitamin 1 each PO DAILY@1200 tab 05/28/19 (formulary)] Thiamine [Vitamin B-1] 100 mg PO DAILY@1200 tab 05/28/19 traMADol HCL 50 mg PO Q8H PRN #10 tab 05/28/19 Allergies Allergy/AdvReac Type Severity Reaction Status Date / Time adhesive tape Allergy Rash/Hives Verified 06/19/19 17:11 influenza virus vaccine, Allergy Unknown Verified 06/19/19 17:11 specific Review of Systems ROS Statement: Those systems with pertinent positive or pertinent negative responses have been documented in the HPI. ROS Other: All systems not noted in ROS Statement are negative. Past Medical History Past Medical History: Atrial Fibrillation, Diabetes Mellitus, GI Bleed, Hyperlipidemia, Hypertension, Neurologic Disorder, Thyroid Disorder Additional Past Medical History / Comment(s): guillain-barre syndrome. ovarian cancer with hysterectomy History of Any Multi-Drug Resistant Organisms: None Reported Past Surgical History: Hysterectomy, Orthopedic Surgery Additional Past Surgical History / Comment(s): bilateral knee surgery , right rotor cuff surgery, Past Anesthesia/Blood Transfusion Reactions: No Reported Reaction Past Psychological History: Depression Smoking Status: Former smoker Past Alcohol Use History: None Reported Past Drug Use History: None Reported - Past Family History Sister(s) Family Medical History: Cancer General Exam - General Exam Comments Initial Comments: This is a well-developed well-nourished awake alert oriented 3 female Limitations: no limitations General appearance: alert, in no apparent distress Head exam: Present: atraumatic, normocephalic, normal inspection Eye exam: Present: normal appearance, PERRL, EOMI. Absent: scleral icterus, conjunctival injection, periorbital swelling ENT exam: Present: normal exam, mucous membranes moist Neck exam: Present: normal inspection. Absent: tenderness, meningismus, lymphadenopathy Respiratory exam: Present: normal lung sounds bilaterally. Absent: respiratory distress, wheezes, rales, rhonchi, stridor Cardiovascular Exam: Present: normal rhythm, tachycardia, normal heart sounds. Absent: systolic murmur, diastolic murmur, rubs, gallop, clicks GI/Abdominal exam: Present: soft, normal bowel sounds. Absent: distended, tenderness, guarding, rebound, rigid Rectal exam: Present: normal inspection (Bleeding hemorrhoids brown stool is heme positive), heme (+) stool Extremities exam: Present: normal inspection, full ROM, normal capillary refill. Absent: tenderness, pedal edema, joint swelling, calf tenderness Back exam: Present: normal inspection Neurological exam: Present: alert, oriented X3, CN II-XII intact Psychiatric exam: Present: normal affect, normal mood Skin exam: Present: warm, dry, intact, normal color. Absent: rash Course Vital Signs 06/19/19 17:12 Temperature 97.5 F L Pulse Rate 104 H Respiratory 18 Rate Blood Pressure 130/66 O2 Sat by Pulse 98 Oximetry Medical Decision Making - Medical Decision Making I did discuss findings with the patient family members. Patient will be admitted case is discussed with Dr. Paz. GI will be consulted the hemoglobin was 8.6 on her examination. Serial ABCs will be accomplished. - Lab Data Result diagrams: 06/19/19 17:30 06/19/19 17:30 Lab Results 06/19/19 06/19/19 06/19/19 Range/Units 17:30 17:30 17:30 WBC 4.7 (3.8-10.6) k/uL RBC 3.82 (3.80-5.40) m/uL Hgb 8.6 L (11.4-16.0) gm/dL Hct 29.1 L (34.0-46.0) % MCV 76.0 L (80.0-100.0) fL MCH 22.4 L (25.0-35.0) pg MCHC 29.5 L (31.0-37.0) g/dL RDW 18.0 H (11.5-15.5) % Plt Count 191 (150-450) k/uL Neutrophils % 67 % Lymphocytes % 18 % Monocytes % 9 % Eosinophils % 1 % Basophils % 1 % Neutrophils # 3.2 (1.3-7.7) k/uL Lymphocytes # 0.8 L (1.0-4.8) k/uL Monocytes # 0.4 (0-1.0) k/uL Eosinophils # 0.1 (0-0.7) k/uL Basophils # 0.1 (0-0.2) k/uL Hypochromasia Marked Anisocytosis Slight Microcytosis Slight PT 11.1 (9.0-12.0) sec INR 1.1 (<1.2) APTT 25.7 (22.0-30.0) sec Sodium (137-145) mmol/L Potassium (3.5-5.1) mmol/L Chloride (98-107) mmol/L Carbon Dioxide (22-30) mmol/L Anion Gap mmol/L BUN (7-17) mg/dL Creatinine (0.52-1.04) mg/dL Est GFR (CKD-EPI)AfAm (>60 ml/min/1.73 sqM) Est GFR (CKD-EPI)NonAf (>60 ml/min/1.73 sqM) Glucose (74-99) mg/dL Calcium (8.4-10.2) mg/dL Total Bilirubin (0.2-1.3) mg/dL AST (14-36) U/L ALT (4-34) U/L Alkaline Phosphatase (38-126) U/L Total Protein (6.3-8.2) g/dL Albumin (3.5-5.0) g/dL Stool Occult Blood (Negative) Blood Type A Negative Blood Type Confirm Blood Type Recheck No Previous Record Bld Type Recheck Status CABO Indicated Antibody Screen POSITIVE Direct Antiglob Test Negative Spec Expiration Date 06/22/2019 - 232906/19/19 06/19/19 06/19/19 Range/Units 17:30 17:40 18:40 WBC (3.8-10.6) k/uL RBC (3.80-5.40) m/uL Hgb (11.4-16.0) gm/dL Hct (34.0-46.0) % MCV (80.0-100.0) fL MCH (25.0-35.0) pg MCHC (31.0-37.0) g/dL RDW (11.5-15.5) % Plt Count (150-450) k/uL Neutrophils % % Lymphocytes % % Monocytes % % Eosinophils % % Basophils % % Neutrophils # (1.3-7.7) k/uL Lymphocytes # (1.0-4.8) k/uL Monocytes # (0-1.0) k/uL Eosinophils # (0-0.7) k/uL Basophils # (0-0.2) k/uL Hypochromasia Anisocytosis Microcytosis PT (9.0-12.0) sec INR (<1.2) APTT (22.0-30.0) sec Sodium 138 (137-145) mmol/L Potassium 4.4 (3.5-5.1) mmol/L Chloride 106 (98-107) mmol/L Carbon Dioxide 27 (22-30) mmol/L Anion Gap 5 mmol/L BUN 15 (7-17) mg/dL Creatinine 0.67 (0.52-1.04) mg/dL Est GFR (CKD-EPI)AfAm >90 (>60 ml/min/1.73 sqM) Est GFR (CKD-EPI)NonAf 81 (>60 ml/min/1.73 sqM) Glucose 114 H (74-99) mg/dL Calcium 8.9 (8.4-10.2) mg/dL Total Bilirubin 0.3 (0.2-1.3) mg/dL AST 23 (14-36) U/L ALT 15 (4-34) U/L Alkaline Phosphatase 47 (38-126) U/L Total Protein 6.3 (6.3-8.2) g/dL Albumin 3.7 (3.5-5.0) g/dL Stool Occult Blood Positive H (Negative) Blood Type Blood Type Confirm A Negative Blood Type Recheck Bld Type Recheck Status Antibody Screen Direct Antiglob Test Spec Expiration Date Disposition Clinical Impression: GI bleed, Anemia Disposition: ADMITTED IP TO THIS [facility] Condition: Fair Referrals: Victor Hugo Coles DO [Primary Care Provider] - 1-2 days
[2019-06-19] MEDS ORDERED: NALOXONE 0.4 MG/ML 1 ML VIAL IV PRN (20:03)
[2019-06-19] MEDS ORDERED: ONDANSETRON 4 MG/2 ML VIAL IVP PRN (20:03)
[2019-06-19] MEDS ORDERED: MECLIZINE 25 MG TAB PO PRN (20:06)
[2019-06-19] MEDS ORDERED: guaiFENesin SYRUP 100MG/5ML 200 MG/10 ML CUP PO PRN (20:06)
[2019-06-19] MEDS ORDERED: traMADol 50 MG TAB PO PRN (20:06)
[2019-06-19] MEDS ORDERED: ACETAMINOPHEN TAB 325 MG TAB PO PRN (20:06)
[2019-06-19] MEDS: SODIUM CHLORIDE 0.9% 1,000 ML IV SCH (20:15)
[2019-06-19 20:30] LABS: Anisocytosis Slight; Basophils % (A) 1 %; Eosinophils # (A) 0.1 k/uL (0-0.7); Eosinophils % (A) 2 %; Hypochromasia Marked; Lymphocytes # (A) 0.8 k/uL (1.0-4.8); Lymphocytes % (A) 18 %; MCH 22.1 pg (25.0-35.0); MCHC 29.4 g/dL (31.0-37.0); MCV 75.2 fL (80.0-100.0); Mean Platelet Volume 7.2; Microcytosis Slight; Monocytes # (A) 0.4 k/uL (0-1.0); Monocytes % (A) 10 %; Neutrophils % (A) 66 %; Platelet Count 198 k/uL (150-450); RBC 3.59 m/uL (3.80-5.40); RDW 17.9 % (11.5-15.5); WBC 4.6 k/uL (3.8-10.6)
[2019-06-19] MEDS: GABAPENTIN 400 MG CAP PO SCH (23:24)
[2019-06-19] MEDS: PRIMIDONE 50 MG TAB PO SCH (23:24)
[2019-06-19] MEDS: cloNIDine HCL 0.1 MG TAB PO SCH (23:25)
[2019-06-19] MEDS: ARTIFICIAL TEARS-HYPROMELLOSE DROPS 15 ML BTL BOTH EYES SCH (23:25)
[2019-06-19] MEDS: ALPRAZolam 0.25 MG TAB PO PRN (23:25)
[2019-06-19] MEDS: CARVEDILOL 12.5 MG TAB PO SCH (23:25)
[2019-06-19] MEDS: LEVOTHYROXINE 100 MCG TAB PO SCH (23:25)
[2019-06-19] MEDS: LISINOPRIL 10 MG TAB PO SCH (23:25)
[2019-06-19] MEDS: PRAVASTATIN SODIUM 80 MG TAB PO SCH (23:25)
[2019-06-19] MEDS: PANTOPRAZOLE 40 MG/10 ML VIAL IV SCH (23:26)
[2019-06-19 23:39] LABS: Glucose,Whole Blood 109 mg/dL (75-99)
[2019-06-20] MEDS: INSULIN ASPART (NovoLOG) 100 UNIT/ML VIAL SQ SCH ×5 (00:11→21:14)
[2019-06-20 07:09] LABS: Glucose,Whole Blood 109 mg/dL (75-99)
[2019-06-20] MEDS: THIAMINE 100 MG TAB PO SCH (09:22)
[2019-06-20] MEDS: FOLIC ACID 1 MG TAB PO SCH (09:22)
[2019-06-20] MEDS: FLUoxetine HCL 20 MG CAP PO SCH (09:22)
[2019-06-20] MEDS: MULTIVITAMINS, THERA 1 EACH TAB PO SCH (09:22)
[2019-06-20] MEDS: PANTOPRAZOLE 40 MG/10 ML VIAL IV SCH ×2 (09:23→20:06)
[2019-06-20] MEDS: CARVEDILOL 12.5 MG TAB PO SCH ×2 (09:23→16:26)
[2019-06-20] MEDS: ARTIFICIAL TEARS-HYPROMELLOSE DROPS 15 ML BTL BOTH EYES SCH ×3 (09:24→20:10)
[2019-06-20] MEDS: GABAPENTIN 400 MG CAP PO SCH ×3 (09:24→21:14)
[2019-06-20] MEDS: SODIUM CHLORIDE 0.9% 1,000 ML IV SCH ×2 (09:26→16:26)
[2019-06-20 11:26] LABS: Glucose,Whole Blood 136 mg/dL (75-99)
--- NOTE | 2019-06-20 11:34 | CONS ---
CONSULTATION DATE OF DICTATION: 06/20/2019 REASON FOR CONSULTATION: Severe symptomatic anemia. HISTORY OF PRESENT ILLNESS: The patient is an 83-year-old pleasant white female who was admitted to the hospital after she was notified by Dr. Coles that her hemoglobin was Apparently she had labs done on an outpatient basis and her hemoglobin 7.6 g/dL. She came into the emergency room complaining of fatigue, lightheadedness, dizziness and some shortness of breath. She denies any abdominal pain. No nausea, vomiting. No rectal bleeding or melena. She recently moved to this area about a year ago. About a year ago she had an acute GI bleed. She was admitted to [facility] in the [place] area and underwent an upper endoscopy as well as colonoscopy, and to her recollection it was unremarkable. She denies any recent NSAID use. No prior history of peptic ulcer disease. PAST MEDICAL HISTORY: Her past medical history is significant for hypertension, hyperlipidemia, GI bleed a year ago, diabetes mellitus, atrial fibrillation, on Eliquis, hypothyroidism, history of Guallian-Smilax syndrome. PAST SURGICAL HISTORY: Hysterectomy for ovarian cancer, bilateral knee surgery, right rotator cuff surgery. MEDICATIONS: Medications at home include Xanax, Coreg, Prozac, Synthroid, Prinivil, Protonix, Mysoline, catapres, Eliquis, metformin, Pravachol and guaifenesin. ALLERGIES: INFLUENZA VACCINE and SOCIAL HISTORY: No smoking. No alcohol use. FAMILY HISTORY: Sister had some kind of cancer. REVIEW OF SYSTEMS: CARDIOPULMONARY: No chest pain or shortness of breath. GENITOURINARY: No dysuria or hematuria. MUSCULOSKELETAL: Unremarkable. SKIN: Unremarkable. ENDOCRINE: Unremarkable. PSYCHIATRIC: Unremarkable. NEUROLOGY: Unremarkable. ENT/VISION: Unremarkable. CONSTITUTIONAL: No recent weight loss. No fever, chills, night sweats. PHYSICAL EXAMINATION: She appears comfortable, in no apparent distress. Blood pressure 132/70, pulse rate 76, temperature 97.9. HEENT examination unremarkable. Conjunctivae pink. Sclerae anicteric. Oral cavity no lesions. NECK: No JVD or lymph node enlargement. CHEST: Clear to auscultation. HEART: Regular rate and rhythm. ABDOMEN: Soft. Bowel sounds are positive. No organomegaly. EXTREMITIES: No pedal edema. SKIN: No rashes. NEUROLOGIC: She is alert and oriented x3. No focal deficits. LABS: Labs done today show WBC 4.6, hemoglobin 8, platelets 198, MCV 75. ALT, AST, T- bilirubin and alkaline phosphatase are normal. PT/INR is within normal limits. Stool occult blood was positive. IMPRESSION: 1. Microcytic hypochromic anemia consistent with iron deficiency secondary to occult gastrointestinal blood loss. Stool Hemoccult was positive. Patient denies any active GI bleeding. No GI symptoms. She states that about a year ago she had an acute GI bleed, for which she underwent an EGD and colonoscopy at [facility] in the [place] area and according to her, it was unremarkable. Clinically she has no active bleeding currently. 2. History of atrial fibrillation, on Eliquis, currently on hold. Her last dose was yesterday. 3. History of coronary artery disease. RECOMMENDATIONS: 1. Clear liquid diet. 2. Since the patient already had an EGD and colonoscopy a year ago, will consider proceeding with a small bowel capsule endoscopy to evaluate further. 3. Continue to hold Eliquis. 4. Repeat CBC in the morning. 5. Obtain iron studies. 6. Will follow with you closely. Thank you for this consultation. MMODL / IJN: [id number] /
--- NOTE | 2019-06-20 17:38 | P.HPIM ---
History of Present Illness H&P Date: 06/20/19 Chief Complaint: Possible GI bleed History of presenting complaint: This is a very pleasant 83-year-old patient of Dr. Coles. Resident of [facility]. Chronic stable medical conditions include atrial fibrillation on eliquis, diabetes, hyperlipidemia, hypertension, Guillain-Preciado syndrome with lower extremity weakness, hypothyroid. At the [facility] patient's h emoglobin has been drifting down slowly. Was a question about positive guaiac stools may be some dark stools. Has patient was sent in for further workup. Per Dr. Leo Hickey patient did have an EGD". About a year ago at [facility] reportedly unremarkable. Patient admitted for the same. Denies any abdominal pain. Review of systems: GEN.: Tired EYES: None HEENT: None NECK: None RESPIRATORY: None CARDIOVASCULAR: None GASTROINTESTINAL: None GENITOURINARY: None MUSCULOSKELETAL: Joint pains LYMPHATICS: None HEMATOLOGICAL: None PSYCHIATRY: None NEUROLOGICAL: Lower extremity weakness Past medical history to include: Atrial fibrillation, diabetes, hyperlipidemia, hypertension, hypothyroid, Guillain-Preciado syndrome, ovarian cancer with hysterectomy in 1972, anemia, depression Social history: Lives at [facility] [place], stopped smoking recently no alcohol Physical examination: VITAL SIGNS: 97.5, 104, 18, 130/66, 98% room air GENERAL: BMI 28.1, laying in bed comfortable. EYES: Pupils equal. Conjunctiva normal. HEENT: External appearance of nose and ears normal, oral cavity grossly normal. NECK: JVD not raised; masses not palpable. HEART: First and second heart sounds are normal; no edema. LUNGS: Respiratory rate normal; clear to auscultation. ABDOMEN: Soft, nontender, liver spleen not palpable, no masses palpable. PSYCH: Alert and oriented x3; mood and affect normal. NEUROLOGICAL: [Cranial nerves grossly intact; no facial asymmetry, weakness of both lower extremities LYMPHATICS: No lymph nodes palpable in the axilla and neck INVESTIGATIONS, reviewed in the clinical context: White count 4.6 hemoglobin 8.6 stool occult blood positive Potassium 4.4 bun 15 creatinine 0.67 Assessment: -Acute on possible chronic GI bleed. Patient did have EEG colonoscope. About a year ago at [facility]. Reportedly negative. 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 The plan is for small bowel capsule study. Other medications are to continue. Eliquis has been held off. Follow H&H. He was discussed with the patient question answered. Past Medical History Past Medical History: Atrial Fibrillation, Diabetes Mellitus, GI Bleed, Hyperlipidemia, Hypertension, Neurologic Disorder, Thyroid Disorder Additional Past Medical History / Comment(s): guillain-barre syndrome. ovarian cancer with hysterectomy 1972. anemia History of Any Multi-Drug Resistant Organisms: None Reported Past Surgical History: Hysterectomy, Orthopedic Surgery Additional Past Surgical History / Comment(s): bilateral knee surgery , right rotor cuff surgery, Past Anesthesia/Blood Transfusion Reactions: No Reported Reaction Past Psychological History: Depression Smoking Status: Former smoker Past Alcohol Use History: None Reported Additional Past Alcohol Use History / Comment(s): Patient quit smoking prior to 05/23/2019 hospital admission Past Drug Use History: None Reported - Past Family History Sister(s) Family Medical History: Cancer Medications and Allergies Home Medications Medication Instructions Recorded Confirmed Type Carvedilol [Coreg] 25 mg PO BID@0800,169902/15/19 06/19/19 History FLUoxetine HCL [PROzac] 40 mg PO DAILY@169902/15/19 06/19/19 History Levothyroxine Sodium [Synthroid] 100 mcg PO DAILY@209902/15/19 06/19/19 History Lisinopril [Prinivil] 10 mg PO DAILY@209902/15/19 06/19/19 History Pantoprazole [Protonix] 40 mg PO BID@0800,169902/15/19 06/19/19 History Primidone [Mysoline] 100 mg PO DAILY@209902/15/19 06/19/19 History cloNIDine HCL [Catapres] 0.1 mg PO DAILY@209902/15/19 06/19/19 History metFORMIN HCL 500 mg PO BID@0800,169902/15/19 06/19/19 History Apixaban [Eliquis] 2.5 mg PO BID@0800,1700 05/23/19 06/19/19 History Artificial Tears-Hypromellose 1 drops BOTH EYES 05/23/19 06/19/19 History [Artificial Tear Drops] TID@0800,1200,1700 Pravastatin Sodium [Pravachol] 80 mg PO DAILY@2100 05/23/19 06/19/19 History guaiFENesin 400 mg PO Q4H PRN 05/23/19 06/19/19 History Acetaminophen Tab [Tylenol] 650 mg PO Q6HR PRN tab 05/28/19 06/19/19 Rx Meclizine [Antivert] 25 mg PO TID PRN tab 05/28/19 06/19/19 Rx Multivitamins, Thera [Multivitamin 1 each PO DAILY@1200 tab 05/28/19 06/19/19 Rx (formulary)] Thiamine [Vitamin B-1] 100 mg PO DAILY@1200 tab 05/28/19 06/19/19 Rx traMADol HCL 50 mg PO Q8H PRN #10 tab 05/28/19 06/19/19 Rx Bisacodyl 10 mg RECTAL DAILY PRN 06/19/19 06/19/19 History Ferrous Sulfate [Feosol] 325 mg PO DAILY@1700 06/19/19 06/19/19 History Folic Acid 1 mg PO DAILY@1700 06/19/19 06/19/19 History Gabapentin [Neurontin] 400 mg PO TID@0600,1400,2200 06/19/19 06/19/19 History INSULIN ASPART (NovoLOG) [NovoLOG See Protocol SQ QID 06/19/19 06/19/19 History (formulary)] Magnesium Hydroxide [Milk of 2,400 mg PO DAILY PRN 06/19/19 06/19/19 History Magnesia] Na Phos,M-B/Na Phos,Di-Ba [Fleet 133 ml RECTAL ONCE PRN 06/19/19 06/19/19 History Adult] Allergies Allergy/AdvReac Type Severity Reaction Status Date / Time adhesive tape Allergy Rash/Hives Verified 06/19/19 22:21 influenza virus vaccine, Allergy Unknown Verified 06/19/19 22:21 specific Physical Exam Vitals: Vital Signs Temp Pulse Pulse Resp BP BP Pulse Ox 06/20/19 05:12 97.9 F 76 16 132/70 96 06/19/19 21:46 97.7 F 107 H 16 172/91 06/19/19 21:02 84 18 146/74 97 06/19/19 17:12 97.5 F L 104 H 18 130/66 98 Intake and Output 06/19/19 06/20/19 06/20/19 22:59 06:59 14:59 Intake Total 100 800 Balance 100 800 Intake: Intake, IV Titration 100 800 Amount Sodium Chloride 0.9% 1, 100 800 000 ml @ 100 mls/hr IV . Q10H [facility]TRAN Rx#:[id number] Other: Voiding Method Toilet Toilet # Voids 1 1 Weight 86.183 kg Results CBC & Chem 7: 06/19/19 20:20 06/19/19 17:30 Labs: Abnormal Lab Results - Last 24 Hours (Table) 06/19/19 06/19/19 06/19/19 Range/Units 17:30 17:30 18:40 RBC (3.80-5.40) m/uL Hgb 8.6 L (11.4-16.0) gm/dL Hct 29.1 L (34.0-46.0) % MCV 76.0 L (80.0-100.0) fL MCH 22.4 L (25.0-35.0) pg MCHC 29.5 L (31.0-37.0) g/dL RDW 18.0 H (11.5-15.5) % Lymphocytes # 0.8 L (1.0-4.8) k/uL Glucose 114 H (74-99) mg/dL POC Glucose (mg/dL) (75-99) mg/dL Stool Occult Blood Positive H (Negative) 06/19/19 06/19/19 06/20/19 Range/Units 20:20 23:38 07:07 RBC 3.59 L (3.80-5.40) m/uL Hgb 8.0 L (11.4-16.0) gm/dL Hct 27.0 L (34.0-46.0) % MCV 75.2 L (80.0-100.0) fL MCH 22.1 L (25.0-35.0) pg MCHC 29.4 L (31.0-37.0) g/dL RDW 17.9 H (11.5-15.5) % Lymphocytes # 0.8 L (1.0-4.8) k/uL Glucose (74-99) mg/dL POC Glucose (mg/dL) 109 H 109 H (75-99) mg/dL Stool Occult Blood (Negative) Thrombosis Risk Factor Assmnt - Choose All That Apply Any of the Below Risk Factors Present?: Yes Each Factor Represents 1 point: Obesity (BMI >25) Other Risk Factors: Yes Each Risk Factor Represents 3 Points: Age 75 years or older Other congenital or acquired thrombophilia - If yes, enter type in comment: No Thrombosis Risk Factor Assessment Total Risk Factor Score: 4 Thrombosis Risk Factor Assessment Level: Moderate Risk
[2019-06-20 17:45] LABS: Glucose,Whole Blood 98 mg/dL (75-99)
[2019-06-20] MEDS ORDERED: MAGNESIUM CITRATE 296 ML BOTTLE PO ONE (19:00)
[2019-06-20] MEDS: LISINOPRIL 10 MG TAB PO SCH (20:06)
[2019-06-20] MEDS: cloNIDine HCL 0.1 MG TAB PO SCH (20:06)
[2019-06-20] MEDS: LEVOTHYROXINE 100 MCG TAB PO SCH (20:07)
[2019-06-20] MEDS: PRIMIDONE 50 MG TAB PO SCH (20:07)
[2019-06-20] MEDS: PRAVASTATIN SODIUM 80 MG TAB PO SCH (20:07)
[2019-06-20 20:50] LABS: Glucose,Whole Blood 155 mg/dL (75-99)
[2019-06-21] MEDS: SODIUM CHLORIDE 0.9% 1,000 ML IV SCH ×3 (00:20→23:52)
[2019-06-21 07:03] LABS: Glucose,Whole Blood 119 mg/dL (75-99)
[2019-06-21] MEDS: INSULIN ASPART (NovoLOG) 100 UNIT/ML VIAL SQ SCH ×4 (07:43→21:09)
[2019-06-21 08:34] LABS: Anisocytosis Slight; Basophils % (A) 1 %; Eosinophils # (A) 0.1 k/uL (0-0.7); Eosinophils % (A) 2 %; HCT 28.7 % (34.0-46.0); HGB 8.2 gm/dL (11.4-16.0); Hypochromasia Marked; Lymphocytes # (A) 0.6 k/uL (1.0-4.8); Lymphocytes % (A) 15 %; MCH 21.9 pg (25.0-35.0); MCHC 28.4 g/dL (31.0-37.0); MCV 77.1 fL (80.0-100.0); Mean Platelet Volume 8.7; Microcytosis Slight; Monocytes # (A) 0.3 k/uL (0-1.0); Monocytes % (A) 8 %; Neutrophils # (A) 2.9 k/uL (1.3-7.7); Neutrophils % (A) 71 %; Platelet Count 164 k/uL (150-450); RBC 3.72 m/uL (3.80-5.40); RDW 17.9 % (11.5-15.5)
[2019-06-21] MEDS: ARTIFICIAL TEARS-HYPROMELLOSE DROPS 15 ML BTL BOTH EYES SCH ×4 (09:36→21:58)
[2019-06-21] MEDS: CARVEDILOL 12.5 MG TAB PO SCH ×3 (09:36→17:16)
[2019-06-21] MEDS: GABAPENTIN 400 MG CAP PO SCH ×3 (09:36→21:58)
--- NOTE | 2019-06-21 10:12 | PN ---
PROGRESS NOTE The patient is an 83-year-old pleasant white female admitted to the hospital with severe symptomatic anemia, severe symptomatic hypochromic microcytic anemia consistent with iron deficiency. She had an EGD and colonoscopy done at [facility] in [place] a year ago and according to the patient was unremarkable. She is hence scheduled for a small bowel capsule endoscopy to evaluate this further. The patient has been on Eliquis for chronic atrial fibrillation, which is on hold for the last 2 days. She is undergoing small bowel capsule endoscopy today. She denies any symptoms. PHYSICAL EXAMINATION: Appears comfortable. No apparent distress. Vital signs stable. Blood pressure 150/68, pulse rate 76, temperature 98.5. HEENT examination unremarkable. Conjunctivae pink. Sclerae anicteric. Oral cavity no lesions. NECK: No JVD or lymph node enlargement. Chest was clear to auscultation. HEART: Regular rate and rhythm. ABDOMEN: Soft. Bowel sounds are positive. No organomegaly. EXTREMITIES: No pedal edema. SKIN no rashes. NEUROLOGIC: Alert and oriented x3. No focal deficits. LABS: From today WBC 4, hemoglobin 8.2, platelets are normal. Basic metabolic panel is within normal limits. Stool occult blood was positive. IMPRESSION: 1. Hypochromic microcytic anemia consistent with iron deficiency most likely secondary to occult gastrointestinal blood loss. EGD and colonoscopy done about a year ago according to the patient at [facility] was negative. She is scheduled for a small bowel capsule endoscopy to evaluate this further. 2. Atrial fibrillation on Eliquis, currently on hold. 3. History of diabetes mellitus/hypertension/hypercholesteremia which are stable. RECOMMENDATIONS: 1. The patient is scheduled for a small bowel capsule endoscopy today. 2. Continue to hold Eliquis for now. 3. Monitor CBC on a daily basis. 4. Obtain iron studies. 5. We will follow with you closely. Thank you for this consultation. MMODL / IJN: [id number] /
[2019-06-21] MEDS ORDERED: SIMETHICONE 40 MG/0.6 ML DROPS 2,000 MG/30 ML BOTTLE PO ONE (10:16)
[2019-06-21] MEDS: PANTOPRAZOLE 40 MG/10 ML VIAL IV SCH ×2 (10:27→21:58)
[2019-06-21 11:38] LABS: Glucose,Whole Blood 99 mg/dL (75-99)
[2019-06-21] MEDS: FOLIC ACID 1 MG TAB PO SCH (13:29)
[2019-06-21] MEDS: THIAMINE 100 MG TAB PO SCH (13:30)
[2019-06-21] MEDS: FLUoxetine HCL 20 MG CAP PO SCH (13:30)
[2019-06-21] MEDS: MULTIVITAMINS, THERA 1 EACH TAB PO SCH (13:30)
[2019-06-21 14:10] VITALS: BMI 28.0
[2019-06-21 17:13] LABS: Glucose,Whole Blood 97 mg/dL (75-99)
[2019-06-21 20:13] LABS: Glucose,Whole Blood 93 mg/dL (75-99)
[2019-06-21] MEDS: PRAVASTATIN SODIUM 80 MG TAB PO SCH (21:58)
[2019-06-21] MEDS: cloNIDine HCL 0.1 MG TAB PO SCH (21:58)
[2019-06-21] MEDS: LISINOPRIL 10 MG TAB PO SCH (21:58)
[2019-06-21] MEDS: ALPRAZolam 0.25 MG TAB PO PRN (21:58)
[2019-06-21] MEDS: PRIMIDONE 50 MG TAB PO SCH (21:58)
[2019-06-21] MEDS: LEVOTHYROXINE 100 MCG TAB PO SCH (21:58)
--- NOTE | 2019-06-21 22:53 | P.PN ---
Progress Note - Text Progress Note Date: 06/21/19 Chief Complaint: Possible GI bleed History of presenting complaint: This is a very pleasant 83-year-old patient of Dr. Coles. Resident of [facility]. Chronic stable medical conditions include atrial fibrillation on eliquis, diabetes, hyperlipidemia, hypertension, Guillain-Preciado syndrome with lower extremity weakness, hypothyroid. At the [facility] patient's hemoglobin has been drifting down slowly. Was a question about positive guaiac stools may be some dark stools. Has patient was sent in for further workup. Per Dr. Leo Hickey patient did have an EGD". About a year ago at [facility] reportedly unremarkable. Patient admitted for the same. Denies any abdominal pain. today-getting a small capsule endoscopy. No outward GI bleed. Sitting up. No abdominal pain. Review of systems: Was done for constitutional, cardiovascular, GI, pulmonary. relevant finding as above Active Medications Acetaminophen (Tylenol Tab) 650 mg PO Q6HR PRN PRN Reason: Mild Pain or Fever > 100.5 Alprazolam (Xanax) 0.25 mg PO DAILY PRN PRN Reason: Anxiety Last Admin: 06/21/19 21:58 Dose: 0.25 mg Documented by: Artificial Tears (Artificial Tear Drops) 1 drops BOTH EYES TID [facility] Last Admin: 06/21/19 21:58 Dose: 1 drops Documented by: Carvedilol (Coreg) 25 mg PO BID-W/MEALS [facility] Last Admin: 06/21/19 17:16 Dose: 25 mg Documented by: Clonidine (Catapres) 0.1 mg PO HS [facility] Last Admin: 06/21/19 21:58 Dose: 0.1 mg Documented by: Fluoxetine HCl (Prozac) 40 mg PO DAILY [facility] Last Admin: 06/21/19 13:30 Dose: 40 mg Documented by: Folic Acid (Folic Acid) 1 mg PO DAILY@1200 [facility] Last Admin: 06/21/19 13:29 Dose: 1 mg Documented by: Gabapentin (Neurontin) 400 mg PO TID [facility] Last Admin: 06/21/19 21:58 Dose: 400 mg Documented by: Guaifenesin (Robitussin) 400 mg PO Q4H PRN PRN Reason: Congestion Sodium Chloride (Saline 0.9%) 1,000 mls @ 100 mls/hr IV .Q10H [facility] Last Admin: 06/21/19 13:30 Dose: 100 mls/hr Documented by: Insulin Aspart (Novolog) 0 unit SQ [facility]; Protocol Last Admin: 06/21/19 21:09 Dose: Not Given Documented by: Levothyroxine Sodium (Synthroid) 100 mcg PO [facility] Last Admin: 06/21/19 21:58 Dose: 100 mcg Documented by: Lisinopril (Zestril) 10 mg PO [facility] Last Admin: 06/21/19 21:58 Dose: 10 mg Documented by: Meclizine HCl (Antivert) 25 mg PO TID PRN PRN Reason: Vertigo Multivitamins (Theragran) 1 each PO DAILY@1200 [facility] Last Admin: 06/21/19 13:30 Dose: 1 each Documented by: Naloxone HCl (Narcan) 0.2 mg IV Q2M PRN PRN Reason: Opioid Reversal Ondansetron HCl (Zofran) 4 mg IVP Q8HR PRN PRN Reason: Nausea And Vomiting Pantoprazole Sodium (Protonix) 40 mg IV BID [facility] Last Admin: 06/21/19 21:58 Dose: 40 mg Documented by: Pravastatin Sodium (Pravachol) 80 mg PO [facility] Last Admin: 06/21/19 21:58 Dose: 80 mg Documented by: Primidone (Mysoline) 100 mg PO [facility] Last Admin: 06/21/19 21:58 Dose: 100 mg Documented by: Thiamine HCl (Vitamin B-1) 100 mg PO DAILY@1200 [facility] Last Admin: 06/21/19 13:30 Dose: 100 mg Documented by: Tramadol HCl (Ultram) 50 mg PO Q8H PRN PRN Reason: Pain Physical examination: VITAL SIGNS: 98.5-76-17-150/68-96% on room air GENERAL:laying in bed, comfortable, capsule lEndoscopy Apparatus Is on EYES: Pupils equal. Conjunctiva normal. HEENT: External appearance of nose and ears normal, oral cavity grossly normal. NECK: JVD not raised; masses not palpable. HEART: First and second heart sounds are normal; no edema. LUNGS: Respiratory rate normal; clear to auscultation. ABDOMEN: Soft, nontender, liver spleen not palpable, no masses palpable. PSYCH: Alert and oriented x3; mood and affect normal. NEUROLOGICAL:, weakness of both lower extremities INVESTIGATIONS, reviewed in the clinical context: White count 4 hemoglobin 8.2 Previous testing White count 4.6 hemoglobin 8.6 stool occult blood positive Potassium 4.4 bun 15 creatinine 0.67 Assessment: -Acute on possible chronic GI bleed. Patient did haveEGD and colonoscope. About a year ago at [facility]. 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 Discussed with the patient. Other medications to continue. Follow
[2019-06-22 06:56] LABS: Glucose,Whole Blood 114 mg/dL (75-99)
[2019-06-22] MEDS: INSULIN ASPART (NovoLOG) 100 UNIT/ML VIAL SQ SCH ×2 (07:19→12:54)
[2019-06-22] MEDS: CARVEDILOL 12.5 MG TAB PO SCH (08:43)
[2019-06-22] MEDS: GABAPENTIN 400 MG CAP PO SCH (08:43)
[2019-06-22] MEDS: FLUoxetine HCL 20 MG CAP PO SCH (08:43)
[2019-06-22] MEDS: PANTOPRAZOLE 40 MG/10 ML VIAL IV SCH (08:44)
[2019-06-22] MEDS: ARTIFICIAL TEARS-HYPROMELLOSE DROPS 15 ML BTL BOTH EYES SCH (08:45)
[2019-06-22] MEDS: SODIUM CHLORIDE 0.9% 1,000 ML IV SCH (08:46)
[2019-06-22 09:48] LABS: % Iron Saturation 6.61 (12.00-45.00); Ferritin 9.6 ng/mL (10.0-291.0)
[2019-06-22 11:06] LABS: Glucose,Whole Blood 140 mg/dL (75-99)
[2019-06-22 11:36] VITALS: BP 137/64; PULSE 82; RESP 18; TEMP 98.2
[2019-06-22] MEDS: THIAMINE 100 MG TAB PO SCH (12:54)
[2019-06-22] MEDS: MULTIVITAMINS, THERA 1 EACH TAB PO SCH (12:54)
[2019-06-22] MEDS: FOLIC ACID 1 MG TAB PO SCH (12:54)
--- NOTE | 2019-06-22 16:14 | PN ---
PROGRESS NOTE DATE OF DICTATION: June 22, 2019 Patient is an 83-year-old pleasant white female admitted to the hospital with severe symptomatic anemia and hemoglobin of 7.5 g/dL. She did have labs done that show iron of 24, TIBC of 368, iron saturation of 6% and ferritin of 9.6. All consistent with iron deficiency anemia. Stool Hemoccult was positive. EGD and colonoscopy about a year ago done in [facility] was unremarkable according to the patient. She is scheduled for a small bowel capsule endoscopy yesterday, Eliquis has been on hold. The patient denies any symptoms. PHYSICAL EXAMINATION: She appears comfortable. No apparent distress. Vital signs stable. Blood pressure 137/64, pulse rate 82, temperature 98.2. HEENT examination unremarkable. Conjunctivae pink. Sclerae anicteric. Oral cavity no lesions. NECK: No JVD. Mild lymph node enlargement. CHEST: Clear to auscultation. HEART: Regular rate and rhythm. ABDOMEN: Soft. Bowel sounds are positive. No organomegaly. EXTREMITIES: No pedal edema. SKIN: No rashes. NEURO: She is alert and oriented x3. No focal deficits. LABS: Done WBC 8.4, hemoglobin 8.2, platelets normal. Basic metabolic panel is within normal limits. IMPRESSION: 1. Iron deficiency anemia with clinically no evidence of active ongoing bleeding. She does have occult blood, most likely related to occult gastrointestinal blood loss, EGD, colonoscopy, according to the patient, at [facility] a year ago was unremarkable. She did have a small bowel capsule endoscopy done yesterday and the results were reviewed. There was no evidence of active bleeding or oozing noted in the small bowel and there was no evidence of angioectasia or any other mucosal pathology. However, most likely we are dealing with occult gastrointestinal blood loss with no obvious sources identified. 2. Atrial fibrillation on Eliquis, currently on hold. RECOMMENDATIONS: Since there is no evidence of active bleeding noted on recent small bowel capsule endoscopy, I suggested that she can resume Eliquis. She can be started on iron supplements twice daily. Monitor CBC on a monthly basis and she was advised to follow up in office in 2 weeks. Thank you for this consultation. MMODL / IJN: [id number] /
--- NOTE | 2019-06-22 22:03 | P.DS ---
Providers Date of admission: 06/20/19 13:58 Expected date of discharge: 06/22/19 Attending physician: Esvin Paz Consults: 06/19/19 20:04 Consult Physician Routine Consulting Provider: Cheli Edwards Consult Reason/Comments: GI bleed Do you want consulting provider notified?: Yes Primary care physician: [facility] Course: Chief Complaint: Possible GI bleed History of presenting complaint: This is a very pleasant 83-year-old patient of Dr. Coles. Resident of [facility]. Chronic stable medical conditions include atrial fibrillation on eliquis, diabetes, hyperlipidemia, hypertension, Guillain-Preciado syndrome with lower extremity weakness, hypothyroid. At the [facility] patient's hemoglobin has been drifting down slowly. Was a question about positive guaiac stools may be some dark stools. Has patient was sent in for further workup. Per Dr. Bailey , patient did have an EGD" colonoscopy,. About a year ago at [facility] reportedly unremarkable. Patient admitted for the same. Denies any abdominal pain. small capsule endoscopy.-Negative for any bleed.. Suspect patient did have a slow GI bleed. Okay to resume anticoagulation. Consultation: Dr. Arnav Edwards from GI Physical examination: VITAL SIGNS: 98.2, 82, 18, 137/64, 93% on room air GENERAL: Laying, comfortable EYES: Pupils equal. Conjunctiva normal. HEENT: External appearance of nose and ears normal, oral cavity grossly normal. NECK: JVD not raised; masses not palpable. HEART: First and second heart sounds are normal; no edema. LUNGS: Respiratory rate normal; clear to auscultation. ABDOMEN: Soft, nontender, liver spleen not palpable, no masses palpable. PSYCH: Alert and oriented x3; mood and affect normal. NEUROLOGICAL:, weakness of both lower extremities INVESTIGATIONS, reviewed in the clinical context: White count 4 hemoglobin 8.2 Previous testing White count 4.6 hemoglobin 8.6 stool occult blood positive Potassium 4.4 bun 15 creatinine 0.67 Assessment: -Possible slow, intermittent GI bleed. Small bowel capsule study negative. 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 -Depression otherwise specified Disposition: Home Patient Condition at Discharge: Fair Plan - Discharge Summary Discharge Rx Participant: No New Discharge Prescriptions: Continue Primidone [Mysoline] 100 mg PO DAILY@2100 metFORMIN HCL 500 mg PO BID@0800,1700 Pantoprazole [Protonix] 40 mg PO BID@0800,1700 Lisinopril [Prinivil] 10 mg PO DAILY@2100 Levothyroxine Sodium [Synthroid] 100 mcg PO DAILY@2100 cloNIDine HCL [Catapres] 0.1 mg PO DAILY@2100 FLUoxetine HCL [PROzac] 40 mg PO DAILY@1700 Carvedilol [Coreg] 25 mg PO BID@0800,1700 guaiFENesin 400 mg PO Q4H PRN PRN Reason: Congestion Apixaban [Eliquis] 2.5 mg PO BID@0800,1700 Pravastatin Sodium [Pravachol] 80 mg PO DAILY@2100 Artificial Tears-Hypromellose [Artificial Tear Drops] 1 drops BOTH EYES TID@ 0800,1200,1700 Meclizine [Antivert] 25 mg PO TID PRN tab PRN Reason: Vertigo Multivitamins, Thera [Multivitamin (formulary)] 1 each PO DAILY@1200 tab Acetaminophen Tab [Tylenol] 650 mg PO Q6HR PRN tab PRN Reason: Mild Pain Or Fever > 100.5 Thiamine [Vitamin B-1] 100 mg PO DAILY@1200 tab traMADol HCL 50 mg PO Q8H PRN #10 tab PRN Reason: Pain Na Phos,M-B/Na Phos,Di-Ba [Fleet Adult] 133 ml RECTAL ONCE PRN PRN Reason: Constipation Bisacodyl 10 mg RECTAL DAILY PRN PRN Reason: Constipation INSULIN ASPART (NovoLOG) [NovoLOG (formulary)] See Protocol SQ QID Gabapentin [Neurontin] 400 mg PO TID@0600,1400,2200 Ferrous Sulfate [Feosol] 325 mg PO DAILY@1700 Folic Acid 1 mg PO DAILY@1700 Magnesium Hydroxide [Milk of Magnesia] 2,400 mg PO DAILY PRN PRN Reason: Constipation Discharge Medication List Carvedilol [Coreg] 25 mg PO BID@0800,1700 02/15/19 [History] FLUoxetine HCL [PROzac] 40 mg PO DAILY@1700 02/15/19 [History] Levothyroxine Sodium [Synthroid] 100 mcg PO DAILY@209902/15/19 [History] Lisinopril [Prinivil] 10 mg PO DAILY@209902/15/19 [History] Pantoprazole [Protonix] 40 mg PO BID@0800,169902/15/19 [History] Primidone [Mysoline] 100 mg PO DAILY@209902/15/19 [History] cloNIDine HCL [Catapres] 0.1 mg PO DAILY@209902/15/19 [History] metFORMIN HCL 500 mg PO BID@0800,169902/15/19 [History] Apixaban [Eliquis] 2.5 mg PO BID@0800,169905/23/19 [History] Artificial Tears-Hypromellose [Artificial Tear Drops] 1 drops BOTH EYES TID@0800,1200,169905/23/19 [History] Pravastatin Sodium [Pravachol] 80 mg PO DAILY@209905/23/19 [History] guaiFENesin 400 mg PO Q4H PRN 05/23/19 [History] Acetaminophen Tab [Tylenol] 650 mg PO Q6HR PRN tab 05/28/19 [Rx] Meclizine [Antivert] 25 mg PO TID PRN tab 05/28/19 [Rx] Multivitamins, Thera [Multivitamin (formulary)] 1 each PO DAILY@1200 tab 05/28/19 [Rx] Thiamine [Vitamin B-1] 100 mg PO DAILY@1200 tab 05/28/19 [Rx] traMADol HCL 50 mg PO Q8H PRN #10 tab 05/28/19 [Rx] Bisacodyl 10 mg RECTAL DAILY PRN 06/19/19 [History] Ferrous Sulfate [Feosol] 325 mg PO DAILY@169906/19/19 [History] Folic Acid 1 mg PO DAILY@169906/19/19 [History] Gabapentin [Neurontin] 400 mg PO TID@0600,1400,22006/19/19 [History] INSULIN ASPART (NovoLOG) [NovoLOG (formulary)] See Protocol SQ QID 06/19/19 [History] Magnesium Hydroxide [Milk of Magnesia] 2,400 mg PO DAILY PRN 06/19/19 [History] Na Phos,M-B/Na Phos,Di-Ba [Fleet Adult] 133 ml RECTAL ONCE PRN 06/19/19 [History] Follow up Appointment(s)/Referral(s): Victor Hugo Coles DO [Primary Care Provider] - 1-2 days Cheli Edwards MD [STAFF PHYSICIAN] - 3 Weeks Patient Instructions/Handouts: Gastrointestinal Bleeding (DC), Anemia (DC) Activity/Diet/Wound Care/Special Instructions: CBC-1 week Discharge Disposition: TRANSFER TO SNF/ECF
== END 2019-06-22 17:53 | DRG 378 ==
LOC: EC 17:00 → 5NMEDONC 20:08 → OBSVTOIN 06-20 13:58
PROVIDERS: ADMIT Hospitalist; ATTEND Hospitalist
DX: K92.2 Gastrointestinal hemorrhage, unspecified (principal); G61.0 Guillain-Barre syndrome; I48.19 Other persistent atrial fibrillation; G83.14 Monoplegia of lower limb affecting left nondominant side; G83.13 Monoplegia of lower limb affecting right nondominant side; F32.9 Major depressive disorder, single episode, unspecified; E78.00 Pure hypercholesterolemia, unspecified; E03.9 Hypothyroidism, unspecified; E11.9 Type 2 diabetes mellitus without complications; D50.9 Iron deficiency anemia, unspecified; E78.5 Hyperlipidemia, unspecified; I10 Essential (primary) hypertension; I25.10 Atherosclerotic heart disease of native coronary artery without angina pectoris; Z85.43 Personal history of malignant neoplasm of ovary; Z79.899 Other long term (current) drug therapy; Z90.710 Acquired absence of both cervix and uterus; Z79.890 Hormone replacement therapy; Z79.4 Long term (current) use of insulin; Z87.891 Personal history of nicotine dependence; Z79.01 Long term (current) use of anticoagulants; Z88.7 Allergy status to serum and vaccine; Z88.8 Allergy status to other drugs, medicaments and biological substances; Z80.8 Family history of malignant neoplasm of other organs or systems
CPT/HCPCS: 36415; 80053; 82272; 82728; 83540; 83550; 85025; 85610; 85730; 86850; 86870; 86880; 86900; 86901; 91110; 99284

== ENCOUNTER 2019-08-28 17:13 | Inpatient (IN) | payer MEDICARE, OTHER ==
[2019-08-28] MEDS ORDERED: IBUPROFEN 600 MG TAB PO STA (17:43)
--- NOTE | 2019-08-28 17:49 | ED ---
General Adult HPI - General Chief complaint: Fever Stated complaint: Fever Time Seen by Provider: 08/28/19 17:14 Source: patient, EMS, RN notes reviewed Mode of arrival: EMS Limitations: no limitations - History of Present Illness Initial comments: Patient is a pleasant 83-year-old female presenting to the emergency department from [facility] for fever. Onset was yesterday. Patient does have mild cough. No dyspnea. Patient's only complaint is fatigue. Patient was tested negative for code red as well as flu earlier today. Patient was given Tylenol a few hours ago. Patient denies dyspnea. Patient does have history of atrial fibrillation. Patient denies any chest pain or palpitations. No leg pain or leg swelling. - Related Data Home Medications Medication Instructions Recorded Confirmed Carvedilol [Coreg] 25 mg PO BID@0800,169902/15/19 08/28/19 FLUoxetine HCL [PROzac] 40 mg PO DAILY@169902/15/19 08/28/19 Levothyroxine Sodium [Synthroid] 100 mcg PO DAILY@209902/15/19 08/28/19 Lisinopril [Prinivil] 10 mg PO DAILY@209902/15/19 08/28/19 Pantoprazole [Protonix] 40 mg PO BID@0800,169902/15/19 08/28/19 Primidone [Mysoline] 100 mg PO DAILY@209902/15/19 08/28/19 cloNIDine HCL [Catapres] 0.1 mg PO DAILY@209902/15/19 08/28/19 metFORMIN HCL 500 mg PO BID@0800,169902/15/19 08/28/19 Apixaban [Eliquis] 2.5 mg PO BID@0800,169905/23/19 08/28/19 Artificial Tears-Hypromellose 1 drops BOTH EYES 05/23/19 08/28/19 [Artificial Tear Drops] TID@0800,1200,1700 Pravastatin Sodium [Pravachol] 80 mg PO DAILY@209905/23/19 08/28/19 guaiFENesin 400 mg PO Q4H PRN 05/23/19 08/28/19 Bisacodyl 10 mg RECTAL DAILY PRN 06/19/19 08/28/19 Ferrous Sulfate [Feosol] 325 mg PO BID@0800,209906/19/19 08/28/19 Folic Acid 1 mg PO DAILY@1700 06/19/19 08/28/19 Gabapentin [Neurontin] 400 mg PO QID@06,12,1700,209906/19/19 08/28/19 Magnesium Hydroxide [Milk of 2,400 mg PO DAILY PRN 06/19/19 08/28/19 Magnesia] Na Phos,M-B/Na Phos,Di-Ba [Fleet 133 ml RECTAL DAILY PRN 06/19/19 08/28/19 Adult] ALPRAZolam [Xanax] 0.25 mg PO DAILY PRN 08/28/19 08/28/19 Ammonium Lactate Cream [Lac-Hydrin 1 applic TOPICAL DAILY PRN 08/28/19 08/28/19 12% Cream] Primidone [Mysoline] 25 mg PO DAILY@0800 08/28/19 08/28/19 Primidone [Mysoline] 25 mg PO ONCE PRN 08/28/19 08/28/19 Previous Rx's Medication Instructions Recorded Acetaminophen Tab [Tylenol] 650 mg PO Q6HR PRN tab 05/28/19 Meclizine [Antivert] 25 mg PO TID PRN tab 05/28/19 Multivitamins, Thera [Multivitamin 1 each PO DAILY@1200 tab 05/28/19 (formulary)] Thiamine [Vitamin B-1] 100 mg PO DAILY@1200 tab 05/28/19 traMADol HCL 50 mg PO Q8H PRN #10 tab 05/28/19 Allergies Allergy/AdvReac Type Severity Reaction Status Date / Time adhesive tape Allergy Rash/Hives Verified 08/28/19 18:09 influenza virus vaccine, Allergy Unknown Verified 08/28/19 18:09 specific Review of Systems ROS Statement: Those systems with pertinent positive or pertinent negative responses have been documented in the HPI. ROS Other: All systems not noted in ROS Statement are negative. Constitutional: Reports: as per HPI, fever Eyes: Denies: eye pain ENT: Denies: ear pain Respiratory: Reports: cough. Denies: dyspnea Cardiovascular: Denies: chest pain, palpitations Endocrine: Reports: fatigue Gastrointestinal: Denies: abdominal pain, nausea, vomiting Genitourinary: Denies: dysuria Musculoskeletal: Denies: back pain Skin: Denies: rash Neurological: Denies: weakness Past Medical History Past Medical History: Atrial Fibrillation, Diabetes Mellitus, GI Bleed, Hyp erlipidemia, Hypertension, Neurologic Disorder, Thyroid Disorder Additional Past Medical History / Comment(s): guillain-barre syndrome. ovarian cancer with hysterectomy 1972. anemia History of Any Multi-Drug Resistant Organisms: None Reported Past Surgical History: Hysterectomy, Orthopedic Surgery Additional Past Surgical History / Comment(s): bilateral knee surgery , right rotor cuff surgery, Past Anesthesia/Blood Transfusion Reactions: No Reported Reaction Past Psychological History: Depression Smoking Status: Former smoker Past Alcohol Use History: None Reported Past Drug Use History: None Reported - Past Family History Sister(s) Family Medical History: Cancer General Exam Limitations: no limitations General appearance: alert, in no apparent distress Head exam: Present: normocephalic Eye exam: Present: normal appearance Neck exam: Present: normal inspection. Absent: meningismus Respiratory exam: Present: normal lung sounds bilaterally Cardiovascular Exam: Present: tachycardia GI/Abdominal exam: Present: soft. Absent: tenderness Extremities exam: Present: normal inspection. Absent: pedal edema, calf tenderness Back exam: Present: normal inspection Neurological exam: Present: alert Psychiatric exam: Present: normal affect, normal mood Skin exam: Present: normal color Course Vital Signs 08/28/19 08/28/19 08/28/19 17:23 19:09 20:25 Temperature 103.1 F H 101.2 F H Pulse Rate 170 H 150 H 118 H Respiratory 26 H 18 18 Rate Blood Pressure 104/71 86/40 74/54 O2 Sat by Pulse 98 99 100 Oximetry 08/28/19 08/28/19 20:48 21:19 Temperature 98.6 F Pulse Rate 120 H 97 Respiratory 18 18 Rate Blood Pressure 88/46 87/46 O2 Sat by Pulse 100 99 Oximetry - Reevaluation(s) Reevaluation #1: 08/28/19 21:26 Case was discussed with Dr. Paz, who will admit for Dr. Coles. He does request plaquinil. Case also discussed with Dr. Saldaña secondary to borderline blood pressures. He does recommend treating patient has sepsis at this point and recommends Zosyn and Levaquin. He would like fluid bolus to be done. Fluid bolus calculated based of ideal body weight is 66 kg of 2 L normal saline has been ordered. Blood culture and lactic acid have been ordered. IV antibiotics have been ordered. Despite negative covid testing I still have moderate to high suspicion for patient being covid Infected. EKG Findings - EKG Comments: EKG Findings:: A. fib with RVR, rate 145. QRS 92. QT to 70. QTc 419. Left axis. Normal QRS. Nonspecific ST Procedures - Central Line Placement Right Femoral Consent Obtained: verbal consent Patient Placed on Monitor/Pulse Ox: Yes MD Prep: mask, gown, gloves Central Line Prep: Chlorhexidine scrub Local Anesthesia Used: Lidocaine 1% Ultrasound Used for Placement: No Central Line Position: good blood return, all ports aspirated, flushed, capped, sutured in place with 3-0 nylon Dressing Applied: Tegaderm Patient Tolerated Procedure: well Complications: none Medical Decision Making - Lab Data Result diagrams: 08/28/19 17:30 08/28/19 17:30 Lab Results 08/28/19 08/28/19 08/28/19 Range/Units 17:30 17:30 17:30 WBC 6.8 (3.8-10.6) k/uL RBC 3.60 L (3.80-5.40) m/uL Hgb 9.1 L (11.4-16.0) gm/dL Hct 29.5 L (34.0-46.0) % MCV 81.9 (80.0-100.0) fL MCH 25.2 (25.0-35.0) pg MCHC 30.7 L (31.0-37.0) g/dL RDW 16.7 H (11.5-15.5) % Plt Count 169 (150-450) k/uL Neutrophils % 92 % Lymphocytes % 3 % Monocytes % 4 % Eosinophils % 0 % Basophils % 0 % Neutrophils # 6.2 (1.3-7.7) k/uL Lymphocytes # 0.2 L (1.0-4.8) k/uL Monocytes # 0.3 (0-1.0) k/uL Eosinophils # 0.0 (0-0.7) k/uL Basophils # 0.0 (0-0.2) k/uL Hypochromasia Marked Anisocytosis Slight Microcytosis Slight PT 11.2 (9.0-12.0) sec INR 1.1 (<1.2) APTT 25.4 (22.0-30.0) sec D-Dimer 1.79 H (<0.60) mg/L FEU Sodium 133 L (137-145) mmol/L Potassium 4.6 (3.5-5.1) mmol/L Chloride 99 (98-107) mmol/L Carbon Dioxide 25 (22-30) mmol/L Anion Gap 9 mmol/L BUN 24 H (7-17) mg/dL Creatinine 0.69 (0.52-1.04) mg/dL Est GFR (CKD-EPI)AfAm >90 (>60 ml/min/1.73 sqM) Est GFR (CKD-EPI)NonAf 80 (>60 ml/min/1.73 sqM) Glucose 123 H (74-99) mg/dL Plasma Lactic Acid Doug (0.7-2.0) mmol/L Calcium 8.8 (8.4-10.2) mg/dL Magnesium 1.6 (1.6-2.3) mg/dL Total Bilirubin 0.6 (0.2-1.3) mg/dL AST 31 (14-36) U/L ALT 24 (4-34) U/L Alkaline Phosphatase 72 (38-126) U/L Lactate Dehydrogenase 645 H (313-618) U/L C-Reactive Protein 136.1 H (<10.0) mg/L Total Protein 6.5 (6.3-8.2) g/dL Albumin 3.8 (3.5-5.0) g/dL Urine Color Urine Appearance (Clear) Urine pH (5.0-8.0) Ur Specific Clarence (1.001-1.035) Urine Protein (Negative) Urine Glucose (UA) (Negative) Urine Ketones (Negative) Urine Blood (Negative) Urine Nitrite (Negative) Urine Bilirubin (Negative) Urine Urobilinogen (<2.0) mg/dL Ur Leukocyte Esterase (Negative) Urine RBC (0-5) /hpf Urine WBC (0-5) /hpf Amorphous Sediment (None) /hpf Urine Bacteria (None) /hpf Hyaline Casts (0-2) /lpf Urine Mucus (None) /hpf Coronavirus (PCR) (Not Detectd) 08/28/19 08/28/19 08/28/19 Range/Units 17:30 17:30 20:22 WBC (3.8-10.6) k/uL RBC (3.80-5.40) m/uL Hgb (11.4-16.0) gm/dL Hct (34.0-46.0) % MCV (80.0-100.0) fL MCH (25.0-35.0) pg MCHC (31.0-37.0) g/dL RDW (11.5-15.5) % Plt Count (150-450) k/uL Neutrophils % % Lymphocytes % % Monocytes % % Eosinophils % % Basophils % % Neutrophils # (1.3-7.7) k/uL Lymphocytes # (1.0-4.8) k/uL Monocytes # (0-1.0) k/uL Eosinophils # (0-0.7) k/uL Basophils # (0-0.2) k/uL Hypochromasia Anisocytosis Microcytosis PT (9.0-12.0) sec INR (<1.2) APTT (22.0-30.0) sec D-Dimer (<0.60) mg/L FEU Sodium (137-145) mmol/L Potassium (3.5-5.1) mmol/L Chloride (98-107) mmol/L Carbon Dioxide (22-30) mmol/L Anion Gap mmol/L BUN (7-17) mg/dL Creatinine (0.52-1.04) mg/dL Est GFR (CKD-EPI)AfAm (>60 ml/min/1.73 sqM) Est GFR (CKD-EPI)NonAf (>60 ml/min/1.73 sqM) Glucose (74-99) mg/dL Plasma Lactic Acid Doug 1.2 (0.7-2.0) mmol/L Calcium (8.4-10.2) mg/dL Magnesium (1.6-2.3) mg/dL Total Bilirubin (0.2-1.3) mg/dL AST (14-36) U/L ALT (4-34) U/L Alkaline Phosphatase (38-126) U/L Lactate Dehydrogenase (313-618) U/L C-Reactive Protein (<10.0) mg/L Total Protein (6.3-8.2) g/dL Albumin (3.5-5.0) g/dL Urine Color Yellow Urine Appearance Cloudy H (Clear) Urine pH 5.5 (5.0-8.0) Ur Specific Clarence 1.021 (1.001-1.035) Urine Protein 1+ H (Negative) Urine Glucose (UA) Negative (Negative) Urine Ketones Negative (Negative) Urine Blood Negative (Negative) Urine Nitrite Negative (Negative) Urine Bilirubin Negative (Negative) Urine Urobilinogen 3.0 (<2.0) mg/dL Ur Leukocyte Esterase Small H (Negative) Urine RBC <1 (0-5) /hpf Urine WBC 4 (0-5) /hpf Amorphous Sediment Rare H (None) /hpf Urine Bacteria Moderate H (None) /hpf Hyaline Casts 2 (0-2) /lpf Urine Mucus Rare H (None) /hpf Coronavirus (PCR) Not Detected (Not Detectd) - Radiology Data Radiology results: report reviewed (Computed tomography scan shows no definite pulmonary embolus. COPD. Possible mild vascular congestion. Right upper lobe pulmonary nodule.), image reviewed (Chest x-ray shows very mild increased lung markings.) Critical Care Time Critical Care Time: Yes Total Critical Care Time: 36 Disposition Clinical Impression: Atrial fibrillation with RVR, Sepsis Disposition: ADMITTED IP TO THIS [facility] Condition: Serious Is patient prescribed a controlled substance at d/c from ED?: No Referrals: Victor Hugo Coles DO [Primary Care Provider] - 1-2 days Decision Time: 21:28
--- NOTE | 2019-08-28 18:08 | XR ---
EXAMINATION TYPE: XR chest 1V portable DATE OF EXAM: 08/28/2019 COMPARISON: 05/23/2019 INDICATION: Suspected Covid 19 pneumonia, fever weakness cough TECHNIQUE: Single frontal view of the chest is obtained. FINDINGS: The heart size is mildly prominent. Sternotomy wires from prior cardiac surgery is evident.. The pulmonary vasculature is normal. Very subtle increased lung markings may be present. A suspicious focal consolidation is not identifie d at this time. IMPRESSION: 1. Very mild increased lung markings diffusely slightly greater upper lung bowman. 2. Cardiomegaly
[2019-08-28] MEDS: DILTIAZEM 125 MG in SODIUM CHLORIDE 0.9% 100 ML IV SCH (18:13)
[2019-08-28 18:19] LABS: Anisocytosis Slight; Basophils % (A) 0 %; Eosinophils % (A) 0 %; HCT 29.5 % (34.0-46.0); HGB 9.1 gm/dL (11.4-16.0); Hypochromasia Marked; Lymphocytes # (A) 0.2 k/uL (1.0-4.8); Lymphocytes % (A) 3 %; MCH 25.2 pg (25.0-35.0); MCHC 30.7 g/dL (31.0-37.0); MCV 81.9 fL (80.0-100.0); Mean Platelet Volume 8.3; Microcytosis Slight; Monocytes # (A) 0.3 k/uL (0-1.0); Monocytes % (A) 4 %; Neutrophils # (A) 6.2 k/uL (1.3-7.7); Neutrophils % (A) 92 %; Platelet Count 169 k/uL (150-450); RDW 16.7 % (11.5-15.5); WBC 6.8 k/uL (3.8-10.6)
[2019-08-28 18:28] LABS: ALT 24 U/L (4-34); AST 31 U/L (14-36); African American GFR (CKD) >90 (>60 ml/min/1.73 sqM); Albumin 3.8 g/dL (3.5-5.0); Alkaline Phosphatase 72 U/L (38-126); Anion Gap 9 mmol/L; Blood Urea Nitrogen 24 mg/dL (7-17); Calcium 8.8 mg/dL (8.4-10.2); Carbon Dioxide 25 mmol/L (22-30); Chloride 99 mmol/L (98-107); Glucose 123 mg/dL (74-99); LDH 645 U/L (313-618); Magnesium 1.6 mg/dL (1.6-2.3); Non-African American GFR(CKD) 80 (>60 ml/min/1.73 sqM); Potassium 4.6 mmol/L (3.5-5.1); Sodium 133 mmol/L (137-145); Total Bilirubin 0.6 mg/dL (0.2-1.3); Total Protein 6.5 g/dL (6.3-8.2)
[2019-08-28 18:29] LABS: INR 1.1 (<1.2); Partial Thromboplastin Time 25.4 sec (22.0-30.0); Prothrombin Time 11.2 sec (9.0-12.0)
[2019-08-28 18:34] LABS: D-Dimer 1.79 mg/L FEU (<0.60)
[2019-08-28 18:52] LABS: C Reactive Protein 136.1 mg/L (<10.0)
[2019-08-28] MEDS: ACETAMINOPHEN TAB 325 MG TAB PO PRN (19:04)
[2019-08-28] MEDS ORDERED: SODIUM CHLORIDE 0.9% 1,000 ML IV ONE (20:29)
[2019-08-28 20:37] LABS: Amorphous Sediment,Urine Rare /hpf; Appearance,Urine Cloudy (Clear); Bacteria,Urine Moderate /hpf; Bilirubin,Urine Negative (Negative); Blood,Urine Negative (Negative); Color,Urine Yellow; Glucose,Urine (UA) Negative (Negative); Hyaline Casts,Urine 2 /lpf (0-2); Ketones,Urine Negative (Negative); Leukocyte Esterase,Urine Small (Negative); Mucus,Urine Rare /hpf; Nitrite,Urine Negative (Negative); PH, Urine 5.5 (5.0-8.0); Protein,Urine 1+ (Negative); RBC,Urine <1 /hpf (0-5); Specific Gravity,Urine 1.021 (1.001-1.035); WBC,Urine 4 /hpf (0-5)
--- NOTE | 2019-08-28 21:04 | CT ---
EXAMINATION TYPE: CT angio chest DATE OF EXAM: 08/28/2019 COMPARISON: Chest radiograph same day HISTORY: 83-year-old female shortness of breath, dyspnea, r/o PE TECHNIQUE: Contiguous axial scanning of the chest performed with IV Contrast, patient injected with 1 00 mL of Isovue 370. Coronal/sagittal MIP reconstructions performed. CT DLP: 501.8 mGycm Automated exposure control for dose reduction was used. FINDINGS: Median sternotomy wires are present with prosthetic aortic valve. Heart is mildly enlarged without pe ricardial effusion. No flattening of the interventricular septum. Aorta normal caliber with moderate atherosclerotic arch calcifications and conventional branching jose maria renata. Scattered nonenlarged mediastinal lymph nodes are present measuring up to 7 mm in the AP window and 1 .3 cm in the subcarinal region. Some prominent but nonenlarged hilar lymph nodes measure up to 7 mm. Mildly enlarged caliber to the main right and the pulmonary arteries measuring up to 2.8 cm suggestin g underlying pulmonary arterial hypertension. Satisfactory opacification of the pulmonary arterial sy stem but with mild motion artifact. No definite pulmonary embolus. Mild emphysematous change. Scattered septal lines in the upper and lower lungs and some subpleural re ticulations throughout. Dependent atelectasis bilaterally. No consolidation or pleural effusion. 4 mm peripheral right upper lobe pulmonary nodule, axial image 40. Bones: Degenerative change of the bilateral shoulders. Full-thickness rotator cuff tears on both side s and moderate degenerative disc disease throughout the thoracic spine. IMPRESSION: 1. SOME MILD BREATHING MOTION. NO DEFINITE PULMONARY EMBOLUS. 2. COPD WITH MILD EMPHYSEMA. PULMONARY ARTERIAL HYPERTENSION IS SUGGESTED. 3. CARDIOMEGALY. GIVEN SOME SMOOTH SEPTAL THICKENING, CORRELATE TO EXCLUDE MILD PULMONARY VASCULAR CO NGESTION. 4. SIX-MONTH FOLLOW-UP CT RECOMMENDED TO REASSESS A 4 MM RIGHT UPPER LOBE PULMONARY NODULE.
[2019-08-28] MEDS ORDERED: SODIUM CHLORIDE 0.9% 1,000 ML IV STA (21:23)
[2019-08-28] MEDS ORDERED: PIPERACILLIN-TAZOBACTAM 3.375 GM in SODIUM CHLORIDE 0.9% 100 ML IVPB STA (21:24)
[2019-08-28] MEDS ORDERED: LEVOFLOXACIN 750MG-D5W PMX 750 MG in DEXTROSE/WATER 1 150ML.BAG IVPB STA (21:24)
[2019-08-28] MEDS ORDERED: PNEUMONIA PROTOCOL UTILIZED 1 EACH MISC PO PRN (21:24)
[2019-08-28] MEDS ORDERED: NALOXONE 0.4 MG/ML 1 ML VIAL IV PRN (22:27)
--- NOTE | 2019-08-28 22:32 | ED ---
Medical Decision Making - Lab Data Result diagrams: 08/28/19 17:30 08/28/19 17:30 Lab Results 08/28/19 08/28/19 08/28/19 Range/Units 17:30 17:30 17:30 WBC 6.8 (3.8-10.6) k/uL RBC 3.60 L (3.80-5.40) m/uL Hgb 9.1 L (11.4-16.0) gm/dL Hct 29.5 L (34.0-46.0) % MCV 81.9 (80.0-100.0) fL MCH 25.2 (25.0-35.0) pg MCHC 30.7 L (31.0-37.0) g/dL RDW 16.7 H (11.5-15.5) % Plt Count 169 (150-450) k/uL Neutrophils % 92 % Lymphocytes % 3 % Monocytes % 4 % Eosinophils % 0 % Basophils % 0 % Neutrophils # 6.2 (1.3-7.7) k/uL Lymphocytes # 0.2 L (1.0-4.8) k/uL Monocytes # 0.3 (0-1.0) k/uL Eosinophils # 0.0 (0-0.7) k/uL Basophils # 0.0 (0-0.2) k/uL Hypochromasia Marked Anisocytosis Slight Microcytosis Slight PT 11.2 (9.0-12.0) sec INR 1.1 (<1.2) APTT 25.4 (22.0-30.0) sec D-Dimer 1.79 H (<0.60) mg/L FEU Sodium 133 L (137-145) mmol/L Potassium 4.6 (3.5-5.1) mmol/L Chloride 99 (98-107) mmol/L Carbon Dioxide 25 (22-30) mmol/L Anion Gap 9 mmol/L BUN 24 H (7-17) mg/dL Creatinine 0.69 (0.52-1.04) mg/dL Est GFR (CKD-EPI)AfAm >90 (>60 ml/min/1.73 sqM) Est GFR (CKD-EPI)NonAf 80 (>60 ml/min/1.73 sqM) Glucose 123 H (74-99) mg/dL Plasma Lactic Acid Doug (0.7-2.0) mmol/L Calcium 8.8 (8.4-10.2) mg/dL Magnesium 1.6 (1.6-2.3) mg/dL Total Bilirubin 0.6 (0.2-1.3) mg/dL AST 31 (14-36) U/L ALT 24 (4-34) U/L Alkaline Phosphatase 72 (38-126) U/L Lactate Dehydrogenase 645 H (313-618) U/L C-Reactive Protein 136.1 H (<10.0) mg/L Total Protein 6.5 (6.3-8.2) g/dL Albumin 3.8 (3.5-5.0) g/dL Urine Color Urine Appearance (Clear) Urine pH (5.0-8.0) Ur Specific [place] (1.001-1.035) Urine Protein (Negative) Urine Glucose (UA) (Negative) Urine Ketones (Negative) Urine Blood (Negative) Urine Nitrite (Negative) Urine Bilirubin (Negative) Urine Urobilinogen (<2.0) mg/dL Ur Leukocyte Esterase (Negative) Urine RBC (0-5) /hpf Urine WBC (0-5) /hpf Amorphous Sediment (None) /hpf Urine Bacteria (None) /hpf Hyaline Casts (0-2) /lpf Urine Mucus (None) /hpf Coronavirus (PCR) (Not Detectd) 08/28/19 08/28/19 08/28/19 Range/Units 17:30 17:30 20:22 WBC (3.8-10.6) k/uL RBC (3.80-5.40) m/uL Hgb (11.4-16.0) gm/dL Hct (34.0-46.0) % MCV (80.0-100.0) fL MCH (25.0-35.0) pg MCHC (31.0-37.0) g/dL RDW (11.5-15.5) % Plt Count (150-450) k/uL Neutrophils % % Lymphocytes % % Monocytes % % Eosinophils % % Basophils % % Neutrophils # (1.3-7.7) k/uL Lymphocytes # (1.0-4.8) k/uL Monocytes # (0-1.0) k/uL Eosinophils # (0-0.7) k/uL Basophils # (0-0.2) k/uL Hypochromasia Anisocytosis Microcytosis PT (9.0-12.0) sec INR (<1.2) APTT (22.0-30.0) sec D-Dimer (<0.60) mg/L FEU Sodium (137-145) mmol/L Potassium (3.5-5.1) mmol/L Chloride (98-107) mmol/L Carbon Dioxide (22-30) mmol/L Anion Gap mmol/L BUN (7-17) mg/dL Creatinine (0.52-1.04) mg/dL Est GFR (CKD-EPI)AfAm (>60 ml/min/1.73 sqM) Est GFR (CKD-EPI)NonAf (>60 ml/min/1.73 sqM) Glucose (74-99) mg/dL Plasma Lactic Acid Doug 1.2 (0.7-2.0) mmol/L Calcium (8.4-10.2) mg/dL Magnesium (1.6-2.3) mg/dL Total Bilirubin (0.2-1.3) mg/dL AST (14-36) U/L ALT (4-34) U/L Alkaline Phosphatase (38-126) U/L Lactate Dehydrogenase (313-618) U/L C-Reactive Protein (<10.0) mg/L Total Protein (6.3-8.2) g/dL Albumin (3.5-5.0) g/dL Urine Color Yellow Urine Appearance Cloudy H (Clear) Urine pH 5.5 (5.0-8.0) Ur Specific [place] 1.021 (1.001-1.035) Urine Protein 1+ H (Negative) Urine Glucose (UA) Negative (Negative) Urine Ketones Negative (Negative) Urine Blood Negative (Negative) Urine Nitrite Negative (Negative) Urine Bilirubin Negative (Negative) Urine Urobilinogen 3.0 (<2.0) mg/dL Ur Leukocyte Esterase Small H (Negative) Urine RBC <1 (0-5) /hpf Urine WBC 4 (0-5) /hpf Amorphous Sediment Rare H (None) /hpf Urine Bacteria Moderate H (None) /hpf Hyaline Casts 2 (0-2) /lpf Urine Mucus Rare H (None) /hpf Coronavirus (PCR) Not Detected (Not Detectd) Disposition Clinical Impression: Atrial fibrillation with RVR, Sepsis Disposition: ADMITTED IP TO THIS HOSP Condition: Serious Is patient prescribed a controlled substance at d/c from ED?: No Referrals: Victor Hugo Coles DO [Primary Care Provider] - 1-2 days Procedures - [place] Protocol (Time Out) Procedure Performed:: cental line insertion Performing Provider: Juan Muhammad Nurse: Rachel Bates Patient Identification (2 identifiers required): Verbal, Arm Band, Name, Birthdate Patient/Legal Director Style has Confirmed: Identity, Site, Procedure, Consent Site: femoral Site Marked: Not Applicable Final Confirmation: Procedure - Sepsis Sepsis Focused Exam #1 Time Sepsis Criteria Met: 21:20 Sepsis Focused Exam Date: 08/28/19 Sepsis Focused Exam Time: 22:31 Sepsis Focused Exam Complete: Yes Vital Signs & RN Notes Reviewed: Yes Capillary Refill: < 2 Seconds: Fingers, Toes Peripheral Pulses: Normal: Radial (R), Radial (L) Skin Color: Normal for Patient Respiratory Exam: normal lung sounds Cardiovascular Exam: tachycardia
[2019-08-28 23:25] LABS: Ferritin 50.6 ng/mL (10.0-291.0)
[2019-08-28 23:39] LABS: Glucose,Whole Blood 160 mg/dL (75-99)
[2019-08-29] MEDS: HYDROXYCHLOROQUINE SULFATE 200 MG TAB PO SCH ×2 (00:07→08:28)
[2019-08-29] MEDS ORDERED: Magnesium Replacement Protocol 1 EACH MISC MISCELLANE PRN (01:00)
[2019-08-29] MEDS: MAGNESIUM SULFATE-D5W PMX 1 GM in DEXTROSE/WATER 1 100ML.BAG IVPB SCH ×2 (01:50→02:42)
[2019-08-29] MEDS: ALPRAZolam 0.25 MG TAB PO PRN ×2 (01:50→19:11)
[2019-08-29] MEDS: SODIUM CHLORIDE 0.9% 1,000 ML IV SCH (01:50)
[2019-08-29] MEDS: PIPERACILLIN-TAZOBACTAM 3.375 GM in SODIUM CHLORIDE 0.9% 100 ML IVPB SCH ×3 (05:03→21:16)
[2019-08-29 05:27] LABS: Anisocytosis Slight; Basophils % (A) 0 %; Eosinophils # (A) 0.1 k/uL (0-0.7); Eosinophils % (A) 1 %; HCT 25.8 % (34.0-46.0); HGB 7.7 gm/dL (11.4-16.0); Hypochromasia Marked; Lymphocytes # (A) 0.7 k/uL (1.0-4.8); Lymphocytes % (A) 7 %; MCH 25.2 pg (25.0-35.0); MCHC 29.9 g/dL (31.0-37.0); MCV 84.3 fL (80.0-100.0); Mean Platelet Volume 8.6; Monocytes # (A) 0.7 k/uL (0-1.0); Monocytes % (A) 7 %; Neutrophils # (A) 8.6 k/uL (1.3-7.7); Neutrophils % (A) 82 %; Platelet Count 156 k/uL (150-450); RBC 3.06 m/uL (3.80-5.40); RDW 16.7 % (11.5-15.5); WBC 10.4 k/uL (3.8-10.6)
[2019-08-29 05:37] LABS: African American GFR (CKD) >90 (>60 ml/min/1.73 sqM); Albumin 3.1 g/dL (3.5-5.0); Anion Gap 7 mmol/L; Blood Urea Nitrogen 22 mg/dL (7-17); Carbon Dioxide 26 mmol/L (22-30); Chloride 101 mmol/L (98-107); Glucose 133 mg/dL (74-99); Non-African American GFR(CKD) 79 (>60 ml/min/1.73 sqM); Potassium 4.3 mmol/L (3.5-5.1); Sodium 134 mmol/L (137-145); Total Protein 5.5 g/dL (6.3-8.2)
[2019-08-29 05:41] LABS: ALT 21 U/L (4-34); AST 29 U/L (14-36); Alkaline Phosphatase 57 U/L (38-126); Creatine Kinase 206 U/L (30-135); LDH 541 U/L (313-618); Total Bilirubin 0.4 mg/dL (0.2-1.3)
[2019-08-29 06:15] LABS: C Reactive Protein 155.5 mg/L (<10.0)
[2019-08-29 06:45] LABS: Glucose,Whole Blood 132 mg/dL (75-99)
--- NOTE | 2019-08-29 06:50 | XR ---
EXAMINATION TYPE: XR chest 1V DATE OF EXAM: 08/29/2019 HISTORY: pneumonia. REFERENCE: Previous study dated 08/28/2019. FINDINGS: There has been a midline sternotomy. The heart is enlarged. There is mild increased interstitial change. This is unchanged from previous. No lobar consolidation is seen. No pleural fluid is seen. IMPRESSION: 1. CARDIOMEGALY. 2. MILD INCREASED INTERSTITIAL PROMINENCE.
[2019-08-29] MEDS ORDERED: VANCOMYCIN IV PER PHARMACY 1 EACH MISC MISCELLANE PRN (07:17)
[2019-08-29] MEDS ORDERED: VANCOMYCIN 1,750 MG in SODIUM CHLORIDE 0.9% 500 ML 500 ML IVPB ONE (08:00)
[2019-08-29] MEDS ORDERED: PANTOPRAZOLE 40 MG/10 ML VIAL IV SCH (09:00)
--- NOTE | 2019-08-29 09:22 | P.CRDCN ---
History of Present Illness History of present illness: HISTORY OF PRESENTING ILLNESS This is a pleasant 83-year-old female past medical history significant for chronic persistent atrial fibrillation on long-term anticoagulation, valvul ar heart disease status post aortic valve replacement 5 years ago, diabetes mellitus, hypertension, dyslipidemia and chronic nicotine dependence. She follows in the office with Dr. Prather. We have been asked to see in consultation for atrial fibrillation with rapid ventricular response. She was sent to the emergency room from [facility] facility for new onset fever, cough and generalized weakness and fatigue. Covera 19 testing negative although high suspicion for disease and she has been initiated on treatment with hydroxychloroquine as well as IV antibiotics for sepsis. She was started on Cardizem infusion the emergency department and her heart rate has come down nicely. She continues to be in atrial fibrillation rates between 80 and 90. She denies chest pain, shortness of breath, dizziness or palpitations. She continues to cough at the upper respiratory type congestion. DIAGNOSTICS EKG reveals atrial fibrillation with rapid ventricular response heart rate 145, left axis deviation. Chest xray on admission reveals increased lung markings, repeat today reveals mild increased interstitial prominence. CTA of the chest reveals no pulmonary embolism, COPD, cardiomegaly and 4 mm right upper lobe pulmonary nodule. Laboratory reviewed, WBC 10.4, hemoglobin 7.7, platelets 156, d-dimer on admission 1.7 9 repeat today 1.09, sodium 134, potassium 4.3, creatinine 0.7, magnesium 1.6, lactate on admission 640 5 repeat today 541, CK 206, C-reactive protein 155 and Propulsid tone and 4.86. Current cardiac medications include Eliquis 2.5 mg twice a day, carvedilol 25 mg twice a day, pravastatin 80 mg daily, lisinopril 10 mg daily and clonidine 0.1 mg daily. Most recent echocardiogram obtained May 2019 reveals preserved LV systolic function with ejection fraction 50-55%, normally functioning bioprosthetic aortic valve, mild aortic stenosis with a mean gradient of 16 mmHg, moderate mitral regurgitation and mild tricuspid regurgitation. REVIEW OF SYSTEMS At the time of my exam: CONSTITUTIONAL: Denies fever or chills. CARDIOVASCULAR: Denies chest pain, shortness of breath, orthopnea, PND or palpitations. RESPIRATORY: Denies cough. GASTROINTESTINAL: Denies abdominal pain, diarrhea, constipation, nausea or vomiting. MUSCULOSKELETAL: Denies myalgias. NEUROLOGIC: Denies numbness, tingling or weakness. ENDOCRINE: Denies fatigue, weight change, polydipsia or polyurina. GENITOURINARY: Denies burning, hematuria or urgency with micturation. HEMATOLOGIC: Denies history of anemia or bleeding. PHYSICAL EXAMINATION Blood pressure 107/67 heart rate 92 afebrile and maintaining oxygen saturation on nasal cannula. CONSTITUTIONAL: No apparent distress. HEENT: Head is normocephalic. Pupils are equal, round. Sclerae anicteric. Mucous membranes of the mouth are moist. No JVD. No carotid bruit. CHEST EXAMINATION: Lungs are clear to auscultation. No chest wall tenderness is noted on palpation or with deep breathing. HEART EXAMINATION: Irregular rate and rhythm. S1, S2 heard. Systolic ejection murmur at the base and left sternal border, no gallops or rub. ABDOMEN: Soft, nontender. Positive bowel sounds. EXTREMITIES: 2+ peripheral pulses, no lower extremity edema and no calf tenderness. NEUROLOGIC EXAMINATION: Patient is awake, alert and oriented x3. ASSESSMENT Atrial fibrillation with rapid ventricular response, chronic persistent. Rates have improved with Cardizem infusion Febrile illness Valvular heart disease status post aortic valve replacement Hypertension Dyslipidemia Diabetes mellitus PLAN Resume Coreg for rate control. Cardizem may be weaned down. Continue with lisinopril, pravastatin and Eliquis as previously ordered. Thank you kindly for this consultation. Nurse Practitioner note has been reviewed, I agree with a documented findings and plan of care. Patient was seen and examined. Past Medical History Past Medical History: Atrial Fibrillation, Diabetes Mellitus, GI Bleed, Hyperlipidemia, Hypertension, Neurologic Disorder, Thyroid Disorder Additional Past Medical History / Comment(s): guillain-barre syndrome. ovarian cancer with hysterectomy 1972. anemia History of Any Multi-Drug Resistant Organisms: None Reported Past Surgical History: Hysterectomy, Orthopedic Surgery Additional Past Surgical History / Comment(s): bilateral knee surgery , right rotor cuff surgery, Past Anesthesia/Blood Transfusion Reactions: No Reported Reaction Past Psychological History: Depression Smoking Status: Former smoker Past Alcohol Use History: None Reported Additional Past Alcohol Use History / Comment(s): Patient quit smoking prior to 05/23/2019 hospital admission Past Drug Use History: None Reported - Past Family History Sister(s) Family Medical History: Cancer Medications and Allergies Home Medications Medication Instructions Recorded Confirmed Type Carvedilol [Coreg] 25 mg PO BID@0800,169902/15/19 08/28/19 History FLUoxetine HCL [PROzac] 40 mg PO DAILY@169902/15/19 08/28/19 History Levothyroxine Sodium [Synthroid] 100 mcg PO DAILY@209902/15/19 08/28/19 History Lisinopril [Prinivil] 10 mg PO DAILY@209902/15/19 08/28/19 History Pantoprazole [Protonix] 40 mg PO BID@0800,169902/15/19 08/28/19 History Primidone [Mysoline] 100 mg PO DAILY@209902/15/19 08/28/19 History cloNIDine HCL [Catapres] 0.1 mg PO DAILY@209902/15/19 08/28/19 History metFORMIN HCL 500 mg PO BID@0800,169902/15/19 08/28/19 History Apixaban [Eliquis] 2.5 mg PO BID@0800,169905/23/19 08/28/19 History Artificial Tears-Hypromellose 1 drops BOTH EYES 05/23/19 08/28/19 History [Artificial Tear Drops] TID@0800,1200,1700 Pravastatin Sodium [Pravachol] 80 mg PO DAILY@209905/23/19 08/28/19 History guaiFENesin 400 mg PO Q4H PRN 05/23/19 08/28/19 History Acetaminophen Tab [Tylenol] 650 mg PO Q6HR PRN tab 05/28/19 08/28/19 Rx Meclizine [Antivert] 25 mg PO TID PRN tab 05/28/19 08/28/19 Rx Multivitamins, Thera [Multivitamin 1 each PO DAILY@1200 tab 05/28/19 08/28/19 Rx (formulary)] Thiamine [Vitamin B-1] 100 mg PO DAILY@1200 tab 05/28/19 08/28/19 Rx traMADol HCL 50 mg PO Q8H PRN #10 tab 05/28/19 08/28/19 Rx Bisacodyl 10 mg RECTAL DAILY PRN 06/19/19 08/28/19 History Ferrous Sulfate [Feosol] 325 mg PO BID@0800,209906/19/19 08/28/19 History Folic Acid 1 mg PO DAILY@1700 06/19/19 08/28/19 History Gabapentin [Neurontin] 400 mg PO QID@06,12,1700,2100 06/19/19 08/28/19 History Magnesium Hydroxide [Milk of 2,400 mg PO DAILY PRN 06/19/19 08/28/19 History Magnesia] Na Phos,M-B/Na Phos,Di-Ba [Fleet 133 ml RECTAL DAILY PRN 06/19/19 08/28/19 History Adult] ALPRAZolam [Xanax] 0.25 mg PO DAILY PRN 08/28/19 08/28/19 History Ammonium Lactate Cream [Lac-Hydrin 1 applic TOPICAL DAILY PRN 08/28/19 08/28/19 History 12% Cream] Primidone [Mysoline] 25 mg PO DAILY@0800 08/28/19 08/28/19 History Primidone [Mysoline] 25 mg PO ONCE PRN 08/28/19 08/28/19 History Allergies Allergy/AdvReac Type Severity Reaction Status Date / Time adhesive tape Allergy Rash/Hives Verified 08/28/19 18:09 influenza virus vaccine, Allergy Unknown Verified 08/28/19 18:09 specific Physical Exam Vitals: Vital Signs Temp Pulse Resp BP Pulse Ox 08/29/19 07:00 92 19 107/67 99 08/29/19 06:00 81 16 111/61 97 08/29/19 05:00 87 14 108/59 99 08/29/19 04:00 97.6 F 75 20 112/62 96 08/29/19 03:00 78 74 H 106/61 100 08/29/19 02:00 80 14 103/57 94 L 08/29/19 01:00 88 20 115/59 100 08/29/19 00:54 98 08/29/19 00:00 97.2 F L 104 H 18 111/59 100 08/28/19 23:12 98.9 F 99 22 98/56 94 L 08/28/19 22:26 98.4 F 96 17 99/60 97 08/28/19 21:19 97 18 87/46 99 08/28/19 20:48 98.6 F 120 H 18 88/46 100 08/28/19 20:25 118 H 18 74/54 100 08/28/19 19:09 101.2 F H 150 H 18 86/40 99 08/28/19 17:23 103.1 F H 170 H 26 H 104/71 98 Intake and Output 08/28/19 08/29/19 08/29/19 22:59 06:59 14:59 Intake Total 140 20 Output Total 760 100 Balance -620 -80 Intake: IV 140 20 0.9 140 20 Output: Urine 760 100 Other: Voiding Method Indwelling Catheter Weight 89.811 kg 93.2 kg Results 08/29/19 05:02 08/29/19 05:02 Cardiac Enzymes 08/28/19 08/29/19 Range/Units 17:30 05:02 AST 31 29 (14-36) U/L Lactate Dehydrogenase 645 H 541 (313-618) U/L Coagulation 08/28/19 Range/Units 17:30 PT 11.2 (9.0-12.0) sec APTT 25.4 (22.0-30.0) sec CBC 08/28/19 08/29/19 Range/Units 17:30 05:02 WBC 6.8 10.4 (3.8-10.6) k/uL RBC 3.60 L 3.06 L (3.80-5.40) m/uL Hgb 9.1 L 7.7 L (11.4-16.0) gm/dL Hct 29.5 L 25.8 L (34.0-46.0) % Plt Count 169 156 (150-450) k/uL Comprehensive Metabolic Panel 08/28/19 08/29/19 Range/Units 17:30 05:02 Sodium 133 L 134 L (137-145) mmol/L Potassium 4.6 4.3 (3.5-5.1) mmol/L Chloride 99 101 (98-107) mmol/L Carbon Dioxide 25 26 (22-30) mmol/L BUN 24 H 22 H (7-17) mg/dL Creatinine 0.69 0.70 (0.52-1.04) mg/dL Glucose 123 H 133 H (74-99) mg/dL Calcium 8.8 8.0 L (8.4-10.2) mg/dL AST 31 29 (14-36) U/L ALT 24 21 (4-34) U/L Alkaline Phosphatase 72 57 (38-126) U/L Total Protein 6.5 5.5 L (6.3-8.2) g/dL Albumin 3.8 3.1 L (3.5-5.0) g/dL Current Medications Generic Name Dose Route Start Last Admin Trade Name Freq PRN Reason Stop Dose Admin Acetaminophen 650 mg 08/28/19 17:41 08/28/19 19:04 Tylenol Tab PO 650 mg Q4HR PRN Administration Fever>101 Alprazolam 0.25 mg 08/29/19 01:46 08/29/19 01:50 Xanax PO 0.25 mg DAILY PRN Administration Anxiety Hydroxychloroquine Sulfate 400 mg 08/28/19 22:30 08/29/19 08:28 Plaquenil PO 08/29/19 09:01 400 mg BID BELTRAN Administration Hydroxychloroquine Sulfate 200 mg 08/29/19 21:00 Plaquenil PO 09/03/19 09:01 BID BELTRAN Diltiazem HCl 125 mg/ Sodium 125 mls @ 5 mls/hr 08/28/19 17:45 08/28/19 18:13 Chloride IV 5 mg/hr .Q24H BELTRAN 5 mls/hr Administration 5 MG/HR Piperacillin Sod/Tazobactam 100 mls @ 25 mls/hr 08/29/19 06:00 08/29/19 05:03 Sod 3.375 gm/ Sodium Chloride IVPB 25 mls/hr Q8H BELTRAN Administration Sodium Chloride 1,000 mls @ 20 mls/hr 08/29/19 01:15 08/29/19 01:50 Saline 0.9% IV 20 mls/hr .Q24H BELTRAN Administration Vancomycin HCl 1,750 mg/ 500 mls @ 167 mls/hr 08/29/19 08:00 08/29/19 08:28 Sodium Chloride IVPB 08/29/19 10:59 167 mls/hr ONCE ONE Administration Miscellaneous Information 1 each 08/28/19 21:24 Pneumonia Protocol Utilized PO ONCE PRN Per Protocol Miscellaneous Information 1 each 08/29/19 01:00 Magnesium Per Protocol MISCELLANE DAILY PRN Per Protocol Protocol Miscellaneous Information 1 each 08/29/19 07:17 Pharmacy To Dose Iv Vancomycin MISCELLANE DIRECTED PRN Per Protocol Protocol Naloxone HCl 0.2 mg 04/10/20 22:27 Narcan IV Q2M PRN Opioid Reversal Pantoprazole Sodium 40 mg 08/29/19 09:00 08/29/19 08:28 Protonix IV 40 mg DAILY BELTRAN Administration Intake and Output 08/28/19 08/29/19 08/29/19 22:59 06:59 14:59 Intake Total 140 20 Output Total 760 100 Balance -620 -80 Intake: IV 140 20 0.9 140 20 Output: Urine 760 100 Other: Voiding Method Indwelling Catheter Weight 89.811 kg 93.2 kg 08/29/19 05:02 08/29/19 05:02
[2019-08-29 11:41] LABS: Glucose,Whole Blood 122 mg/dL (75-99)
--- NOTE | 2019-08-29 12:31 | P.CNPUL ---
History of Present Illness Consult date: 08/29/19 Requesting physician: Esvin Paz Reason for consult: other (fever, sepsis, bacteremia) Chief complaint: fever. History of present illness: this is an 83-year-old female with history of multiple medical problems including chronic atrial fibrillation, on long-term anticoagulation therapy, valvular heart disease and previous aortic valve replacement 5 years ago. No history of hypertension, diabetes, dyslipidemia, chronic nicotine dependence. Patient was sent to the emergency room from [facility] for fever in the last few days. No other symptoms except for generalized weakness fatigue, and occasional cough. Patient was tested covid 19, and the tests came back negative.in the ER, patient was noted to be hypotensive, hence CT angiogram of the chest was done, and it showedno evidence of pulmonary embolism, there was however evidence of cardiomegaly, mild pulmonary vascular congestion, and COPD/emphysema with possible pulmonary arterial hypertension. No evidence of infiltrate was noted on the chest x-ray or CT angiogram of the chest. Patient was given fluid boluses, she was placed on antibiotics empirically, and she was admitted to the intensive care unit. Did not require any pressors. However she was given fluids, and when I evaluated the patient, she remained hemodynamically stable, and she was in no distress. Patient had mostly symptoms of fever for the last few days. But no other symptoms. No headache no blurred vision no dizziness. She had occasional cough, no chest pain, no orthopnea, no PND, she does have history of chronic atrial fibrillation, had no nausea no vomiting no abdominal pain no melena no hematemesis, no dysuria and no frequency no urgency and no hematuria.considering the patient was in atrial fibrillation with RVR, she was placed on Cardizem drip at 5 mg per hour. This morning, her blood cultures were positive for gram-positive cocci in chains. Her pro calcitonin level was 4.86. Patient is presently on 2 L nasal cannula. Review of Systems CONSTITUTIONAL: as noted in HPI, fever, no chills, no weight loss. CARDIOVASCULAR: denies any chest pain orthopnea or PND. RESPIRATORY: ascribes occasional cough.. GASTROINTESTINAL: denies nausea vomiting abdominal pain melena or hematemesis. MUSCULOSKELETAL: no arthralgia, no myalgia. NEUROLOGIC: denies headache blurred vision or dizziness. ENDOCRINE: denies heat or cold intolerance. GENITOURINARY: denies dysuria frequency urgency or hematuria. HEMATOLOGIC: denies any clotting bleeding or bruising. Psychiatric: Denies any depression. Skin: Denies any rashes or ulcers. Past Medical History Past Medical History: Atrial Fibrillation, Diabetes Mellitus, GI Bleed, Hyperlipidemia, Hypertension, Neurologic Disorder, Thyroid Disorder Additional Past Medical History / Comment(s): guillain-barre syndrome. ovarian cancer with hysterectomy 1972. anemia History of Any Multi-Drug Resistant Organisms: None Reported Past Surgical History: Hysterectomy, Orthopedic Surgery Additional Past Surgical History / Comment(s): bilateral knee surgery , right rotor cuff surgery, Past Anesthesia/Blood Transfusion Reactions: No Reported Reaction Past Psychological History: Depression Smoking Status: Former smoker Past Alcohol Use History: None Reported Additional Past Alcohol Use History / Comment(s): Patient quit smoking prior to 05/23/2019 hospital admission Past Drug Use History: None Reported - Past Family History Sister(s) Family Medical History: Cancer Medications and Allergies Home Medications Medication Instructions Recorded Confirmed Type Carvedilol [Coreg] 25 mg PO BID@0800,169902/15/19 08/28/19 History FLUoxetine HCL [PROzac] 40 mg PO DAILY@169902/15/19 08/28/19 History Levothyroxine Sodium [Synthroid] 100 mcg PO DAILY@209902/15/19 08/28/19 History Lisinopril [Prinivil] 10 mg PO DAILY@209902/15/19 08/28/19 History Pantoprazole [Protonix] 40 mg PO BID@0800,169902/15/19 08/28/19 History Primidone [Mysoline] 100 mg PO DAILY@209902/15/19 08/28/19 History cloNIDine HCL [Catapres] 0.1 mg PO DAILY@209902/15/19 08/28/19 History metFORMIN HCL 500 mg PO BID@0800,169902/15/19 08/28/19 History Apixaban [Eliquis] 2.5 mg PO BID@0800,169905/23/19 08/28/19 History Artificial Tears-Hypromellose 1 drops BOTH EYES 05/23/19 08/28/19 History [Artificial Tear Drops] TID@0800,1200,1700 Pravastatin Sodium [Pravachol] 80 mg PO DAILY@209905/23/19 08/28/19 History guaiFENesin 400 mg PO Q4H PRN 05/23/19 08/28/19 History Acetaminophen Tab [Tylenol] 650 mg PO Q6HR PRN tab 05/28/19 08/28/19 Rx Meclizine [Antivert] 25 mg PO TID PRN tab 05/28/19 08/28/19 Rx Multivitamins, Thera [Multivitamin 1 each PO DAILY@1200 tab 05/28/19 08/28/19 Rx (formulary)] Thiamine [Vitamin B-1] 100 mg PO DAILY@1200 tab 05/28/19 08/28/19 Rx traMADol HCL 50 mg PO Q8H PRN #10 tab 05/28/19 08/28/19 Rx Bisacodyl 10 mg RECTAL DAILY PRN 06/19/19 08/28/19 History Ferrous Sulfate [Feosol] 325 mg PO BID@0800,2100 06/19/19 08/28/19 History Folic Acid 1 mg PO DAILY@1700 06/19/19 08/28/19 History Gabapentin [Neurontin] 400 mg PO QID@06,12,1700,209906/19/19 08/28/19 History Magnesium Hydroxide [Milk of 2,400 mg PO DAILY PRN 06/19/19 08/28/19 History Magnesia] Na Phos,M-B/Na Phos,Di-Ba [Fleet 133 ml RECTAL DAILY PRN 06/19/19 08/28/19 History Adult] ALPRAZolam [Xanax] 0.25 mg PO DAILY PRN 08/28/19 08/28/19 History Ammonium Lactate Cream [Lac-Hydrin 1 applic TOPICAL DAILY PRN 08/28/19 08/28/19 History 12% Cream] Primidone [Mysoline] 25 mg PO DAILY@0800 08/28/19 08/28/19 History Primidone [Mysoline] 25 mg PO ONCE PRN 08/28/19 08/28/19 History Allergies Allergy/AdvReac Type Severity Reaction Status Date / Time adhesive tape Allergy Rash/Hives Verified 08/28/19 18:09 influenza virus vaccine, Allergy Unknown Verified 08/28/19 18:09 specific Physical Exam Vitals: Vital Signs Temp Pulse Resp BP Pulse Ox 08/29/19 10:00 80 9 L 120/68 97 08/29/19 09:00 85 11 L 120/76 98 08/29/19 08:00 97.6 F 78 14 121/72 98 08/29/19 07:00 92 19 107/67 99 08/29/19 06:00 81 16 111/61 97 08/29/19 05:00 87 14 108/59 99 08/29/19 04:00 97.6 F 75 20 112/62 96 08/29/19 03:00 78 74 H 106/61 100 08/29/19 02:00 80 14 103/57 94 L 08/29/19 01:00 88 20 115/59 100 08/29/19 00:54 98 08/29/19 00:00 97.2 F L 104 H 18 111/59 100 08/28/19 23:12 98.9 F 99 22 98/56 94 L 08/28/19 22:26 98.4 F 96 17 99/60 97 08/28/19 21:19 97 18 87/46 99 08/28/19 20:48 98.6 F 120 H 18 88/46 100 08/28/19 20:25 118 H 18 74/54 100 08/28/19 19:09 101.2 F H 150 H 18 86/40 99 08/28/19 17:23 103.1 F H 170 H 26 H 104/71 98 Intake and Output 08/28/19 08/29/19 08/29/19 22:59 06:59 14:59 Intake Total 140 540 Output Total 760 450 Balance -620 90 Intake: IV 140 540 0.9 140 40 Vancomycin 1,750 mg In 500 Sodium Chloride 0.9% 500 ml 500 ml @ 167 mls/hr IVPB ONCE ONE Rx#: [id number] Output: Urine 760 450 Other: Voiding Method Indwelling Catheter Indwelling Catheter Weight 89.811 kg 93.2 kg Physical Exam: Revealed 83-year-old female, pleasant, in no form of respiratory distress. Head: Atraumatic, normocephalic. HEENT:[Neck is supple.] [No neck masses.] [No thyromegaly.] [No JVD.]PERRLA, EOMI, no icterus, moist mucous membranes. Chest: [symmetrical chest expansion, clear throughout no crackles or rhonchi or wheezes. Cardiac Exam:irregular irregular rhythm. [Normal S1 and S2, no S3 gallop, 2/6 systolic murmur thought the precordium. Abdomen: obese,[Soft, nontender, no megaly, no rebound, no guarding, normal bowel sounds.] Extremities: [No clubbing, no edema, no cyanosis.] Neurological Exam: [No focal neurologic deficit.]alert and oriented 3. Psychiatric: Normal mood, affect and normal mental status examination. Skin: No rashes. Lymphatics: No lymphadenopathy. Results - Laboratory Findings CBC and BMP: 08/29/19 05:02 08/29/19 05:02 PT/INR, D-dimer PT 11.2 sec (9.0-12.0) 08/28/19 17:30 INR 1.1 (<1.2) 08/28/19 17:30 D-Dimer 1.09 mg/L FEU (<0.60) H 08/29/19 05:02 Abnormal lab findings: Abnormal Labs 08/28/19 08/28/19 08/28/19 17:30 17:30 17:30 RBC 3.60 L Hgb 9.1 L Hct 29.5 L MCHC 30.7 L RDW 16.7 H Neutrophils # Lymphocytes # 0.2 L D-Dimer 1.79 H Sodium 133 L BUN 24 H Glucose 123 H POC Glucose (mg/dL) Calcium Lactate Dehydrogenase 645 H Creatine Kinase C-Reactive Protein 136.1 H Total Protein Albumin Procalcitonin Urine Appearance Urine Protein Ur Leukocyte Esterase Amorphous Sediment Urine Bacteria Urine Mucus 08/28/19 08/28/19 08/28/19 17:30 20:22 23:38 RBC Hgb Hct MCHC RDW Neutrophils # Lymphocytes # D-Dimer Sodium BUN Glucose POC Glucose (mg/dL) 160 H Calcium Lactate Dehydrogenase Creatine Kinase C-Reactive Protein Total Protein Albumin Procalcitonin 4.86 H Urine Appearance Cloudy H Urine Protein 1+ H Ur Leukocyte Esterase Small H Amorphous Sediment Rare H Urine Bacteria Moderate H Urine Mucus Rare H 08/29/19 08/29/19 08/29/19 05:02 05:02 05:02 RBC 3.06 L Hgb 7.7 L Hct 25.8 L MCHC 29.9 L RDW 16.7 H Neutrophils # 8.6 H Lymphocytes # 0.7 L D-Dimer 1.09 H Sodium 134 L BUN 22 H Glucose 133 H POC Glucose (mg/dL) Calcium 8.0 L Lactate Dehydrogenase Creatine Kinase 206 H C-Reactive Protein 155.5 H Total Protein 5.5 L Albumin 3.1 L Procalcitonin Urine Appearance Urine Protein Ur Leukocyte Esterase Amorphous Sediment Urine Bacteria Urine Mucus 08/29/19 08/29/19 06:44 11:40 RBC Hgb Hct MCHC RDW Neutrophils # Lymphocytes # D-Dimer Sodium BUN Glucose POC Glucose (mg/dL) 132 H 122 H Calcium Lactate Dehydrogenase Creatine Kinase C-Reactive Protein Total Protein Albumin Procalcitonin Urine Appearance Urine Protein Ur Leukocyte Esterase Amorphous Sediment Urine Bacteria Urine Mucus - Diagnostic Findings CT scan - chest: image reviewed (as noted in HPI.) Assessment and Plan Assessment: impression: Acute febrile illness with gram-positive bacteremia, exact source is not clear, and it is yet to be determined. Atrial fibrillation with RVR. Gram-positive bacteremia. Acute gram-positive sepsis History of valvular heart disease and previous aortic valve replacement, patient may need to have echocardiogram to look into the possibility of endocarditis. This is being addressed by cardiology. history of moderate mitral regurgitation. Benign essential hypertension. Type 2 diabetes. Dyslipidemia. recommendation: Discontinue hydroxychloroquine. Continue Zosyn and vancomycin. Await final report on the blood cultures. Continue Cardizem as per cardiology or switched to oral treatment of her A. fib with RVR. Consider repeat echocardiogram although she had one in May especially if her cultures come back again positive. Continue to monitor the patient in the intensive care unit Repeat blood cultures in the next 24 hours. GI and DVT prophylaxis. Patient is already on long-term anticoagulations therapy for underlying atrial fibrillation. Resume home meds. We'll continue to follow. Time with Patient: Greater than 30
[2019-08-29] MEDS ORDERED: guaiFENesin SYRUP 100MG/5ML 200 MG/10 ML CUP PO PRN (14:47)
[2019-08-29] MEDS ORDERED: AMMONIUM LACTATE 12% CREAM 140 GM TUBE TOPICAL PRN (14:47)
[2019-08-29] MEDS ORDERED: MAGNESIUM HYDROXIDE 2,400 MG/10 ML CUP PO PRN (14:47)
--- NOTE | 2019-08-29 14:50 | P.HPIM ---
History of Present Illness H&P Date: 08/29/19 Chief Complaint: Fever History of presenting complaint: This is a very pleasant 83-year-old patient of Dr. Coles. Resident of [facility]. Chronic stable medical conditions include atrial fibrillation on eliquis,, hyperlipidemia, hypertension, Guillain-Preciado syndrome with lower extremity weakness, hypothyroid. Patient now presents with 2 weeks of fever or off. Appetite is okay. No change in bowel habits. Has slight dry cough. 2 weeks ago she did fall and has a bump on her head. Patient smoked about a pack and half day for many years stopped ab out a month ago ago. A. fib with a rapid ventricular rate on presentation. Put on a Cardizem drip. Denies any obvious urinary symptoms. No headaches no dizziness. No change in vision. Initial coronavirus PCR was negative. Review of systems: GEN.: Tired, fever EYES: None HEENT: None NECK: None RESPIRATORY: Bit of a dry cough CARDIOVASCULAR: None GASTROINTESTINAL: None GENITOURINARY: None MUSCULOSKELETAL: Joint pains LYMPHATICS: None HEMATOLOGICAL: None PSYCHIATRY: None NEUROLOGICAL: Lower extremity weakness Past medical history to include: Atrial fibrillation, hyperlipidemia, hypertension, hypothyroid, Guillain-Preciado syndrome, ovarian cancer with hysterectomy in 1972, anemia, depression Social history: Lives at [facility], smoked on and off for about 58 years averaged about a pack and half a day. Physical examination: VITAL SIGNS: T-max 103.1, 170, 26, 104/71, 98% on 2 L GENERAL: BMI 30.3, laying in bed a bit tired. EYES: Pupils equal. Conjunctiva normal. HEENT: External appearance of nose and ears normal, oral cavity grossly normal. NECK: JVD not raised; masses not palpable. HEART: Irregular heart sounds; no edema. LUNGS: Respiratory rate increased, decreased breath sounds. Prolonged expiration ABDOMEN: Soft, nontender, liver spleen not palpable, no masses palpable. PSYCH: Alert and oriented x3; mood and affect tired NEUROLOGICAL: [Cranial nerves grossly intact; no facial asymmetry, weakness of both lower extremities LYMPHATICS: No lymph nodes palpable in the axilla and neck INVESTIGATIONS, reviewed in the clinical context: White count 6.8 hemoglobin 9.1 platelets 129 potassium 4.6 creatinine 0.69 d- dimer 1.79 LDH 643 CRP 136 pro calcitonin 4.86 Coronavirus [id number] Chest x-ray film personally reviewed by me--scattered infiltrates EKG tracing personally reviewed by me-atrial fibrillation rate uncontrolled CT chest-negative for PE right upper lobe 4 mm pulmonary nodule Blood cultures positive for gram-positive cocci in chains Assessment: -Sepsis picture, with symptoms present for 2 weeks, with scattered infiltrates on chest x-ray strongly suspicious for COVID 19 pneumonia. Initial PCR test was negative. Strongly suspect this to be false negative. Often times this could be the mechanism with the sample was obtained. 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 Spoke to the nurse to do a repeat nasopharyngeal swab for COVID 19 PCR. Technique was discussed. Home medications reviewed. Patient put on IV Cardizem drip. Pulmonary and cardiology were consulted. Patient started and IV vancomycin, IV Zosyn. Continue eliquis. Cardizem drip. Discussed with patient. Past Medical History Past Medical History: Atrial Fibrillation, Diabetes Mellitus, GI Bleed, Hyperlipidemia, Hypertension, Neurologic Disorder, Thyroid Disorder Additional Past Medical History / Comment(s): guillain-barre syndrome. ovarian cancer with hysterectomy 1972. anemia History of Any Multi-Drug Resistant Organisms: None Reported Past Surgical History: Hysterectomy, Orthopedic Surgery Additional Past Surgical History / Comment(s): bilateral knee surgery , right rotor cuff surgery, Past Anesthesia/Blood Transfusion Reactions: No Reported Reaction Past Psychological History: Depression Smoking Status: Former smoker Past Alcohol Use History: None Reported Additional Past Alcohol Use History / Comment(s): Patient quit smoking prior to 05/23/2019 hospital admission Past Drug Use History: None Reported - Past Family History Sister(s) Family Medical History: Cancer Medications and Allergies Home Medications Medication Instructions Recorded Confirmed Type Carvedilol [Coreg] 25 mg PO BID@0800,1700 02/15/19 08/28/19 History FLUoxetine HCL [PROzac] 40 mg PO DAILY@17002/15/19 08/28/19 History Levothyroxine Sodium [Synthroid] 100 mcg PO DAILY@209902/15/19 08/28/19 History Lisinopril [Prinivil] 10 mg PO DAILY@209902/15/19 08/28/19 History Pantoprazole [Protonix] 40 mg PO BID@0800,169902/15/19 08/28/19 History Primidone [Mysoline] 100 mg PO DAILY@209902/15/19 08/28/19 History cloNIDine HCL [Catapres] 0.1 mg PO DAILY@209902/15/19 08/28/19 History metFORMIN HCL 500 mg PO BID@0800,169902/15/19 08/28/19 History Apixaban [Eliquis] 2.5 mg PO BID@0800,17005/23/19 08/28/19 History Artificial Tears-Hypromellose 1 drops BOTH EYES 05/23/19 08/28/19 History [Artificial Tear Drops] TID@0800,1200,1700 Pravastatin Sodium [Pravachol] 80 mg PO DAILY@209905/23/19 08/28/19 History guaiFENesin 400 mg PO Q4H PRN 05/23/19 08/28/19 History Acetaminophen Tab [Tylenol] 650 mg PO Q6HR PRN tab 05/28/19 08/28/19 Rx Meclizine [Antivert] 25 mg PO TID PRN tab 05/28/19 08/28/19 Rx Multivitamins, Thera [Multivitamin 1 each PO DAILY@1200 tab 05/28/19 08/28/19 Rx (formulary)] Thiamine [Vitamin B-1] 100 mg PO DAILY@1200 tab 05/28/19 08/28/19 Rx traMADol HCL 50 mg PO Q8H PRN #10 tab 05/28/19 08/28/19 Rx Bisacodyl 10 mg RECTAL DAILY PRN 06/19/19 08/28/19 History Ferrous Sulfate [Feosol] 325 mg PO BID@0800,209906/19/19 08/28/19 History Folic Acid 1 mg PO DAILY@169906/19/19 08/28/19 History Gabapentin [Neurontin] 400 mg PO QID@06,12,1700,209906/19/19 08/28/19 History Magnesium Hydroxide [Milk of 2,400 mg PO DAILY PRN 06/19/19 08/28/19 History Magnesia] Na Phos,M-B/Na Phos,Di-Ba [Fleet 133 ml RECTAL DAILY PRN 06/19/19 08/28/19 History Adult] ALPRAZolam [Xanax] 0.25 mg PO DAILY PRN 08/28/19 08/28/19 History Ammonium Lactate Cream [Lac-Hydrin 1 applic TOPICAL DAILY PRN 08/28/19 08/28/19 History 12% Cream] Primidone [Mysoline] 25 mg PO DAILY@0800 08/28/19 08/28/19 History Primidone [Mysoline] 25 mg PO ONCE PRN 08/28/19 08/28/19 History Allergies Allergy/AdvReac Type Severity Reaction Status Date / Time adhesive tape Allergy Rash/Hives Verified 08/28/19 18:09 influenza virus vaccine, Allergy Unknown Verified 08/28/19 18:09 specific Physical Exam Vitals: Vital Signs Temp Pulse Resp BP Pulse Ox 08/29/19 10:00 80 9 L 120/68 97 08/29/19 09:00 85 11 L 120/76 98 08/29/19 08:00 97.6 F 78 14 121/72 98 08/29/19 07:00 92 19 107/67 99 08/29/19 06:00 81 16 111/61 97 08/29/19 05:00 87 14 108/59 99 08/29/19 04:00 97.6 F 75 20 112/62 96 08/29/19 03:00 78 74 H 106/61 100 08/29/19 02:00 80 14 103/57 94 L 08/29/19 01:00 88 20 115/59 100 08/29/19 00:54 98 08/29/19 00:00 97.2 F L 104 H 18 111/59 100 08/28/19 23:12 98.9 F 99 22 98/56 94 L 08/28/19 22:26 98.4 F 96 17 99/60 97 08/28/19 21:19 97 18 87/46 99 08/28/19 20:48 98.6 F 120 H 18 88/46 100 08/28/19 20:25 118 H 18 74/54 100 08/28/19 19:09 101.2 F H 150 H 18 86/40 99 08/28/19 17:23 103.1 F H 170 H 26 H 104/71 98 Intake and Output 08/28/19 08/29/19 08/29/19 22:59 06:59 14:59 Intake Total 140 520 Output Total 760 350 Balance -620 170 Intake: IV 140 520 0.9 140 20 Vancomycin 1,750 mg In 500 Sodium Chloride 0.9% 500 ml 500 ml @ 167 mls/hr IVPB ONCE ONE Rx#: [id number] Output: Urine 760 350 Other: Voiding Method Indwelling Catheter Indwelling Catheter Weight 89.811 kg 93.2 kg Results CBC & Chem 7: 08/29/19 05:02 08/29/19 05:02 Labs: Abnormal Lab Results - Last 24 Hours (Table) 08/28/19 08/28/19 08/28/19 Range/Units 17:30 17:30 17:30 RBC 3.60 L (3.80-5.40) m/uL Hgb 9.1 L (11.4-16.0) gm/dL Hct 29.5 L (34.0-46.0) % MCHC 30.7 L (31.0-37.0) g/dL RDW 16.7 H (11.5-15.5) % Neutrophils # (1.3-7.7) k/uL Lymphocytes # 0.2 L (1.0-4.8) k/uL D-Dimer 1.79 H (<0.60) mg/L FEU Sodium 133 L (137-145) mmol/L BUN 24 H (7-17) mg/dL Glucose 123 H (74-99) mg/dL POC Glucose (mg/dL) (75-99) mg/dL Calcium (8.4-10.2) mg/dL Lactate Dehydrogenase 645 H (313-618) U/L Creatine Kinase (30-135) U/L C-Reactive Protein 136.1 H (<10.0) mg/L Total Protein (6.3-8.2) g/dL Albumin (3.5-5.0) g/dL Procalcitonin (0.02-0.09) ng/mL Urine Appearance (Clear) Urine Protein (Negative) Ur Leukocyte Esterase (Negative) Amorphous Sediment (None) /hpf Urine Bacteria (None) /hpf Urine Mucus (None) /hpf 08/28/19 08/28/1920 Range/Units 17:30 20:22 23:38 RBC (3.80-5.40) m/uL Hgb (11.4-16.0) gm/dL Hct (34.0-46.0) % MCHC (31.0-37.0) g/dL RDW (11.5-15.5) % Neutrophils # (1.3-7.7) k/uL Lymphocytes # (1.0-4.8) k/uL D-Dimer (<0.60) mg/L FEU Sodium (137-145) mmol/L BUN (7-17) mg/dL Glucose (74-99) mg/dL POC Glucose (mg/dL) 160 H (75-99) mg/dL Calcium (8.4-10.2) mg/dL Lactate Dehydrogenase (313-618) U/L Creatine Kinase (30-135) U/L C-Reactive Protein (<10.0) mg/L Total Protein (6.3-8.2) g/dL Albumin (3.5-5.0) g/dL Procalcitonin 4.86 H (0.02-0.09) ng/mL Urine Appearance Cloudy H (Clear) Urine Protein 1+ H (Negative) Ur Leukocyte Esterase Small H (Negative) Amorphous Sediment Rare H (None) /hpf Urine Bacteria Moderate H (None) /hpf Urine Mucus Rare H (None) /hpf 08/29/19 08/29/19 08/29/19 Range/Units 05:02 05:02 05:02 RBC 3.06 L (3.80-5.40) m/uL Hgb 7.7 L (11.4-16.0) gm/dL Hct 25.8 L (34.0-46.0) % MCHC 29.9 L (31.0-37.0) g/dL RDW 16.7 H (11.5-15.5) % Neutrophils # 8.6 H (1.3-7.7) k/uL Lymphocytes # 0.7 L (1.0-4.8) k/uL D-Dimer 1.09 H (<0.60) mg/L FEU Sodium 134 L (137-145) mmol/L BUN 22 H (7-17) mg/dL Glucose 133 H (74-99) mg/dL POC Glucose (mg/dL) (75-99) mg/dL Calcium 8.0 L (8.4-10.2) mg/dL Lactate Dehydrogenase (313-618) U/L Creatine Kinase 206 H (30-135) U/L C-Reactive Protein 155.5 H (<10.0) mg/L Total Protein 5.5 L (6.3-8.2) g/dL Albumin 3.1 L (3.5-5.0) g/dL Procalcitonin (0.02-0.09) ng/mL Urine Appearance (Clear) Urine Protein (Negative) Ur Leukocyte Esterase (Negative) Amorphous Sediment (None) /hpf Urine Bacteria (None) /hpf Urine Mucus (None) /hpf 08/29/19 Range/Units 06:44 RBC (3.80-5.40) m/uL Hgb (11.4-16.0) gm/dL Hct (34.0-46.0) % MCHC (31.0-37.0) g/dL RDW (11.5-15.5) % Neutrophils # (1.3-7.7) k/uL Lymphocytes # (1.0-4.8) k/uL D-Dimer (<0.60) mg/L FEU Sodium (137-145) mmol/L BUN (7-17) mg/dL Glucose (74-99) mg/dL POC Glucose (mg/dL) 132 H (75-99) mg/dL Calcium (8.4-10.2) mg/dL Lactate Dehydrogenase (313-618) U/L Creatine Kinase (30-135) U/L C-Reactive Protein (<10.0) mg/L Total Protein (6.3-8.2) g/dL Albumin (3.5-5.0) g/dL Procalcitonin (0.02-0.09) ng/mL Urine Appearance (Clear) Urine Protein (Negative) Ur Leukocyte Esterase (Negative) Amorphous Sediment (None) /hpf Urine Bacteria (None) /hpf Urine Mucus (None) /hpf Microbiology - Last 24 Hours (Table) 08/28/19 17:30 Blood Culture Gram Stain - Preliminary Blood 08/28/19 17:30 Blood Culture - Final Blood Thrombosis Risk Factor Assmnt - Choose All That Apply Each Factor Represents 1 point: Obesity (BMI >25), Sepsis (< 1month) Other Risk Factors: No Other congenital or acquired thrombophilia - If yes, enter type in comment: No Thrombosis Risk Factor Assessment Total Risk Factor Score: 2 Thrombosis Risk Factor Assessment Level: Low Risk
[2019-08-29] MEDS: ACETAMINOPHEN TAB 325 MG TAB PO PRN (14:56)
[2019-08-29 16:48] LABS: Glucose,Whole Blood 190 mg/dL (75-99)
[2019-08-29 17:14] LABS: Ferritin 54.3 ng/mL (10.0-291.0)
[2019-08-29] MEDS: APIXABAN 2.5 MG TABLET PO SCH (17:16)
[2019-08-29] MEDS: CARVEDILOL 12.5 MG TAB PO SCH (17:16)
[2019-08-29] MEDS: FOLIC ACID 1 MG TAB PO SCH (17:16)
[2019-08-29] MEDS: metFORMIN 500 MG TAB PO SCH (17:17)
[2019-08-29] MEDS: GABAPENTIN 400 MG CAP PO SCH ×2 (17:17→20:01)
[2019-08-29] MEDS: FLUoxetine HCL 20 MG CAP PO SCH (17:17)
[2019-08-29] MEDS: PANTOPRAZOLE 40 MG TABLET PO SCH (17:17)
[2019-08-29] MEDS: ARTIFICIAL TEARS-HYPROMELLOSE DROPS 15 ML BTL BOTH EYES SCH (17:17)
[2019-08-29] MEDS: DILTIAZEM 125 MG in SODIUM CHLORIDE 0.9% 100 ML IV SCH ×2 (18:11→19:59)
[2019-08-29] MEDS: traMADol 50 MG TAB PO PRN (19:11)
[2019-08-29] MEDS: FERROUS SULFATE 325 MG TAB PO SCH (20:01)
[2019-08-29] MEDS: PRIMIDONE 50 MG TAB PO SCH (20:01)
[2019-08-29] MEDS: PRAVASTATIN SODIUM 80 MG TAB PO SCH (20:01)
[2019-08-29] MEDS: LISINOPRIL 10 MG TAB PO SCH (20:01)
[2019-08-29] MEDS ORDERED: HYDROXYCHLOROQUINE SULFATE 200 MG TAB PO SCH (21:00)
[2019-08-29 21:22] LABS: Glucose,Whole Blood 169 mg/dL (75-99)
[2019-08-29] MEDS ORDERED: LEVOFLOXACIN 750MG-D5W PMX 750 MG in DEXTROSE/WATER 1 150ML.BAG IVPB SCH (21:30)
[2019-08-30] MEDS: SODIUM CHLORIDE 0.9% 1,000 ML IV SCH (01:15)
[2019-08-30 05:21] LABS: Anisocytosis Slight; Basophils % (A) 0 %; Eosinophils % (A) 0 %; HCT 26.3 % (34.0-46.0); HGB 7.9 gm/dL (11.4-16.0); Hypochromasia Marked; Lymphocytes # (A) 0.7 k/uL (1.0-4.8); Lymphocytes % (A) 7 %; MCH 25.3 pg (25.0-35.0); MCHC 29.9 g/dL (31.0-37.0); MCV 84.4 fL (80.0-100.0); Mean Platelet Volume 8.9; Monocytes # (A) 0.6 k/uL (0-1.0); Monocytes % (A) 6 %; Neutrophils # (A) 8.2 k/uL (1.3-7.7); Neutrophils % (A) 83 %; Platelet Count 174 k/uL (150-450); RBC 3.12 m/uL (3.80-5.40); RDW 16.8 % (11.5-15.5); WBC 9.8 k/uL (3.8-10.6)
[2019-08-30 05:34] LABS: ALT 22 U/L (4-34); AST 28 U/L (14-36); African American GFR (CKD) >90 (>60 ml/min/1.73 sqM); Albumin 3.1 g/dL (3.5-5.0); Alkaline Phosphatase 64 U/L (38-126); Anion Gap 7 mmol/L; Blood Urea Nitrogen 15 mg/dL (7-17); Calcium 8.2 mg/dL (8.4-10.2); Carbon Dioxide 24 mmol/L (22-30); Chloride 104 mmol/L (98-107); Creatine Kinase 90 U/L (30-135); Glucose 110 mg/dL (74-99); LDH 598 U/L (313-618); Magnesium 2.2 mg/dL (1.6-2.3); Non-African American GFR(CKD) 82 (>60 ml/min/1.73 sqM); Potassium 4.2 mmol/L (3.5-5.1); Sodium 135 mmol/L (137-145); Total Bilirubin 0.5 mg/dL (0.2-1.3); Total Protein 5.7 g/dL (6.3-8.2)
[2019-08-30 05:47] LABS: C Reactive Protein 166.7 mg/L (<10.0)
[2019-08-30] MEDS: GABAPENTIN 400 MG CAP PO SCH ×4 (06:22→20:08)
[2019-08-30] MEDS: LEVOTHYROXINE 100 MCG TAB PO SCH (06:22)
[2019-08-30] MEDS: PIPERACILLIN-TAZOBACTAM 3.375 GM in SODIUM CHLORIDE 0.9% 100 ML IVPB SCH ×3 (06:23→22:07)
[2019-08-30 06:59] LABS: Glucose,Whole Blood 111 mg/dL (75-99)
--- NOTE | 2019-08-30 07:03 | XR ---
EXAMINATION TYPE: XR chest 1V portable DATE OF EXAM: 08/30/2019 HISTORY: Follow up . REFERENCE: Previous study dated 08/29/2019. FINDINGS: Lung volumes are prominent. The heart is enlarged. There are some increased interstitial ma rkings. These increased slightly since yesterday's examination particularly on the right. There is mi nimal blunting of the CP angles. I could not exclude small effusions. Incidental note is made of a previous midline sternotomy. IMPRESSION: 1. CARDIOMEGALY. 2. WORSENING INTERSTITIAL PROMINENCE ON THE RIGHT. 3. I SUSPECT UNDERLYING COPD.
[2019-08-30] MEDS: metFORMIN 500 MG TAB PO SCH ×2 (08:11→16:33)
[2019-08-30] MEDS: APIXABAN 2.5 MG TABLET PO SCH ×2 (08:12→16:33)
[2019-08-30] MEDS: ARTIFICIAL TEARS-HYPROMELLOSE DROPS 15 ML BTL BOTH EYES SCH ×3 (08:12→16:34)
[2019-08-30] MEDS: FERROUS SULFATE 325 MG TAB PO SCH ×2 (08:12→20:08)
[2019-08-30] MEDS: PANTOPRAZOLE 40 MG TABLET PO SCH ×2 (08:12→16:33)
[2019-08-30] MEDS: CARVEDILOL 12.5 MG TAB PO SCH ×2 (08:12→16:32)
[2019-08-30] MEDS: PRIMIDONE 25 MG TAB PO SCH (09:36)
[2019-08-30] MEDS: DILTIAZEM ORAL 30 MG TAB PO SCH ×3 (09:36→22:04)
[2019-08-30 11:50] LABS: Glucose,Whole Blood 103 mg/dL (75-99)
--- NOTE | 2019-08-30 11:51 | P.PN ---
Subjective Progress Note Date: 08/30/19 Principal diagnosis: Acute gram-positive sepsis and bacteremia this is an 83-year-old female with history of multiple medical problems including chronic atrial fibrillation, on long-term anticoagulation therapy, valvular heart disease and previous aortic valve replacement 5 years ago. No history of hypertension, diabetes, dyslipidemia, chronic nicotine dependence. Patient was sent to the emergency room from [facility] for fever in the last few days. No other symptoms except for generalized weakness fatigue, and occasional cough. Patient was tested covid 19, and the tests came back negative.in the ER, patient was noted to be hypotensive, hence CT angiogram of the chest was done, and it showedno evidence of pulmonary embolism, there was however evidence of cardiomegaly, mild pulmonary vascular congestion, and COPD/emphysema with possible pulmonary arterial hypertension. No evidence of infiltrate was noted on the chest x-ray or CT angiogram of the chest. Patient was given fluid boluses, she was placed on antibiotics empirically, and she was admitted to the intensive care unit. Did not require any pressors. However she was given fluids, and when I evaluated the patient, she remained hemodynamically stable, and she was in no distress. Patient had mostly symptoms of fever for the last few days. But no other symptoms. No headache no blurred vision no dizziness. She had occasional cough, no chest pain, no orthopnea, no PND, she does have history of chronic atrial fibrillation, had no nausea no vomiting no abdominal pain no melena no hematemesis, no dysuria and no frequency no urgency and no hematuria.considering the patient was in atrial fibrillation with RVR, she was placed on Cardizem drip at 5 mg per hour. This morning, her blood cultures were positive for gram-positive cocci in chains. Her pro calcitonin level was 4.86. Patient is presently on 2 L nasal cannula. Patient was reevaluated today on 08/30/19, remains in the ICU, however she is on 2 L nasal cannula, asymptomatic, not requiring any pressors. She is on Cardizem at 5 mg per hour which I plan to switch to oral Cardizem at 30 mg by mouth 3 times a day. IV fluid is at 20 mL per hour. Patient is basically asymptomatic. She denies any headache or blurred vision or dizziness denies any cough wheezing or shortness of breath denies any nausea vomiting abdominal pain denies any dysuria frequency or urgency. Denies any hematuria. Denies any skin ulceration or any areas of cellulitis or swelling. Overall the patient looks great. Remains on antibiotics in the form of vancomycin and Zosyn until the final blood culture becomes available, and adjust her antibiotics accordingly. Chest x-ray showed cardiomegaly and minimal interstitial prominence on the rig ht. No clear-cut evidence of pneumonia. Although her pro calcitonin level was elevated on admission. CBC is basically normal except for hemoglobin of 2.9. D-dimer is 2.70. Electrolytes and renal profile are normal. Objective - Vital Signs Vital signs: Vital Signs Temp 97.9 F 08/30/19 08:00 Pulse 79 08/30/19 11:00 Resp 16 08/30/19 11:00 BP 107/71 08/30/19 11:00 Pulse Ox 96 08/30/19 11:00 Intake & Output 08/29/19 08/30/19 08/30/19 18:59 06:59 18:59 Intake Total 231.998 4423 374.209 Output Total 975 920 160 Balance -75.167 435 214.209 Weight 94.5 kg Intake: IV 780 550 200 0.9 180 200 100 Piperacillin-Tazobactam 3 100 100 100 .375 gm In Sodium Chloride 0.9% 100 ml @ 25 mls/hr IVPB Q8H [facility] Rx#: [id number] Vancomycin 1,500 mg In 250 Sodium Chloride 0.9% 250 ml @ 125 mls/hr IVPB Q16H [facility] Rx#:[id number] Vancomycin 1,750 mg In 500 Sodium Chloride 0.9% 500 ml 500 ml @ 167 mls/hr IVPB ONCE ONE Rx#: [id number] Intake, IV Titration 119.833 5 74.209 Amount Diltiazem 125 mg In 119.833 5 74.209 Sodium Chloride 0.9% 100 ml @ 5 MG/HR 5 mls/hr IV .Q24H [facility] Rx#:[id number] Oral 800 100 Output: Urine 975 920 160 Other: Voiding Method Indwelling Catheter Indwelling Catheter Indwelling Catheter - Exam Physical Exam: Revealed 83-year-old female, pleasant, in no form of respiratory distress. On 2 L nasal cannula. Head: Atraumatic, normocephalic. HEENT:[Neck is supple.] [No neck masses.] [No thyromegaly.] [No JVD.]PERRLA, EOMI, no icterus, moist mucous membranes. Chest: [symmetrical chest expansion, clear throughout no crackles or rhonchi or wheezes. Cardiac Exam:irregular irregular rhythm. [Normal S1 and S2, no S3 gallop, 2/6 systolic murmur thought the precordium. Abdomen: obese,[Soft, nontender, no megaly, no rebound, no guarding, normal bowel sounds.] Extremities: [No clubbing, no edema, no cyanosis.] Neurological Exam: [No focal neurologic deficit.]alert and oriented 3. Psychiatric: Normal mood, affect and normal mental status examination. Skin: No rashes. Lymphatics: No lymphadenopathy. - Labs CBC & Chem 7: 08/30/19 04:08/30/19 04:29 Labs: Abnormal Lab Results - Last 24 Hours (Table) 08/29/19 08/29/19 08/30/19 Range/Units 16:45 21:20 04:29 RBC 3.12 L (3.80-5.40) m/uL Hgb 7.9 L (11.4-16.0) gm/dL Hct 26.3 L (34.0-46.0) % MCHC 29.9 L (31.0-37.0) g/dL RDW 16.8 H (11.5-15.5) % Neutrophils # 8.2 H (1.3-7.7) k/uL Lymphocytes # 0.7 L (1.0-4.8) k/uL D-Dimer (<0.60) mg/L FEU Sodium (137-145) mmol/L Glucose (74-99) mg/dL POC Glucose (mg/dL) 190 H 169 H (75-99) mg/dL Calcium (8.4-10.2) mg/dL C-Reactive Protein (<10.0) mg/L Total Protein (6.3-8.2) g/dL Albumin (3.5-5.0) g/dL 08/30/19 08/30/19 08/30/19 Range/Units 04:29 04:29 06:57 RBC (3.80-5.40) m/uL Hgb (11.4-16.0) gm/dL Hct (34.0-46.0) % MCHC (31.0-37.0) g/dL RDW (11.5-15.5) % Neutrophils # (1.3-7.7) k/uL Lymphocytes # (1.0-4.8) k/uL D-Dimer 2.70 H (<0.60) mg/L FEU Sodium 135 L (137-145) mmol/L Glucose 110 H (74-99) mg/dL POC Glucose (mg/dL) 111 H (75-99) mg/dL Calcium 8.2 L (8.4-10.2) mg/dL C-Reactive Protein 166.7 H (<10.0) mg/L Total Protein 5.7 L (6.3-8.2) g/dL Albumin 3.1 L (3.5-5.0) g/dL Microbiology - Last 24 Hours (Table) 08/28/19 17:30 Blood Culture Gram Stain - Preliminary Blood Assessment and Plan Assessment: impression: Acute febrile illness , sepsis with gram-positive bacteremia, exact source is not clear, and it is yet to be determined. Atrial fibrillation with RVR. Gram-positive bacteremia. Acute gram-positive sepsis History of valvular heart disease and previous aortic valve replacement, patient may need to have echocardiogram to look into the possibility of endocarditis. This is being addressed by cardiology. history of moderate mitral regurgitation. Benign essential hypertension. Type 2 diabetes. Dyslipidemia. recommendation: Discontinue hydroxychloroquine. Continue Zosyn and vancomycin. For now until the final culture is available. Continue Cardizem, switched to oral Cardizem 30 mg by mouth 3 times a day and discontinue IV Cardizem. Consider repeat echocardiogram although she had one in May especially if her cultures come back again positive. Continue to monitor the patient in the intensive care unit for the next 24 hours. Repeat blood cultures in the next 24 hours. GI and DVT prophylaxis. Patient is already on long-term anticoagulations therapy for underlying atrial fibrillation. We'll continue to follow. Time with Patient: Less than 30
[2019-08-30] MEDS: THIAMINE 100 MG TAB PO SCH (11:58)
[2019-08-30] MEDS: MULTIVITAMINS, THERA 1 EACH TAB PO SCH (11:58)
[2019-08-30] MEDS ORDERED: VANCOMYCIN 1,500 MG in SODIUM CHLORIDE 0.9% 250 ML IVPB SCH ×3 (12:00)
[2019-08-30] MEDS: traMADol 50 MG TAB PO PRN ×2 (12:09→22:04)
--- NOTE | 2019-08-30 12:11 | PN ---
PROGRESS NOTE Narda is an 83-year-old lady who is admitted to the hospital with suspected Covid even though her PCR test is negative. Because of strong suspicion based on the chest x-ray, she is being treated as Covid. she had atrial fibrillation with poorly controlled ventricular rate. We evaluated her yesterday. She is on intravenous Cardizem and the rates have improved. The patient has history of aortic valve replacement, hypertension, dyslipidemia. This morning she remains in atrial fibrillation with somewhat of a better controlled ventricular rate. She is on IV Cardizem which can be stopped now. Continue the Coreg 25 b.i.d. and give her Cardizem 30 q8 and continue the Eliquis 2.5 b.i.d. PHYSICAL EXAM: Shows that the heart rate is 80 beats per minute. Blood pressure is 109/70, respiratory rate is 16, O2 sat is 98%. LABS: Showed that the hemoglobin is 7.9, creatinine is 0.6. ASSESSMENT: Permanent atrial fibrillation with controlled ventricular rate. PLAN: Continue Coreg 25 b.i.d., Cardizem 30 q.8h. Stop the IV Cardizem. Continue the Eliquis. MMODL / IJN: [id number] /
--- NOTE | 2019-08-30 14:14 | P.PN ---
Progress Note - Text Progress Note Date: 08/30/19 Chief Complaint: Fever History of presenting complaint: This is a very pleasant 83-year-old patient of Dr. Coles. Resident of [facility]. Chronic stable medical conditions include atrial fibrillation on eliquis,, hyperlipidemia, hypertension, Guillain-Preciado syndrome with lower extremity weakness, hypothyroid. Patient now presents with 2 weeks of fever or off. Appetite is okay. No change in bowel habits. Has slight dry cough. 2 weeks ago she did fall and has a bump on her head. Patient smoked about a pack and half day for many years stopped about a month ago ago. A. fib with a rapid ventricular rate on presentation. Put on a Cardizem drip. Denies any obvious urinary symptoms. No headaches no dizziness. No change in vision. Initial coronavirus PCR was negative. Admitted with-pneumonia with blood cultures positive. Also atrial fibrillation with rapid ventricular rate. Started on IV vancomycin and IV Zosyn. IV Cardizem drip. Today-in the ICU. Cardizem drip was discontinued and started on oral Cardizem. Patient feels much better. Had 25% of breakfast Review of systems: Was done for constitutional, cardiovascular, GI, pulmonary. relevant finding as above Active Medications Acetaminophen (Tylenol Tab) 650 mg PO Q4HR PRN PRN Reason: Fever>101 Last Admin: 08/29/19 14:56 Dose: 650 mg Documented by: Alprazolam (Xanax) 0.25 mg PO DAILY PRN PRN Reason: Anxiety Last Admin: 08/29/19 19:11 Dose: 0.25 mg Documented by: Apixaban (Eliquis) 2.5 mg PO BID@0800,1700 [facility] Last Admin: 08/30/19 08:12 Dose: 2.5 mg Documented by: Artificial Tears (Artificial Tear Drops) 1 drops BOTH EYES TID@0800,1200,1700 [facility] Last Admin: 08/30/19 12:00 Dose: 1 drops Documented by: Carvedilol (Coreg) 25 mg PO BID@0800,1700 [facility] Last Admin: 08/30/19 08:12 Dose: 25 mg Documented by: Diltiazem HCl (Cardizem Oral) 30 mg PO TID [facility] Last Admin: 08/30/19 09:36 Dose: 30 mg Documented by: Ferrous Sulfate (Feosol) 325 mg PO BID@0800,2100 [facility] Last Admin: 08/30/19 08:12 Dose: 325 mg Documented by: Fluoxetine HCl (Prozac) 40 mg PO DAILY@170 [facility] Last Admin: 08/29/19 17:17 Dose: 40 mg Documented by: Folic Acid (Folic Acid) 1 mg PO DAILY@1700 [facility] Last Admin: 08/29/19 17:16 Dose: 1 mg Documented by: Gabapentin (Neurontin) 400 mg PO QID@06,12,170,2099 [facility] Last Admin: 08/30/19 12:00 Dose: 400 mg Documented by: Guaifenesin (Robitussin) 400 mg PO Q4H PRN PRN Reason: Congestion Diltiazem HCl 125 mg/ Sodium (Chloride) 125 mls @ 5 mls/hr IV .Q24H [facility] Last Infusion: 08/30/19 11:20 Dose: 0 mg/hr, 0 mls/hr Documented by: Piperacillin Sod/Tazobactam (Sod 3.375 gm/ Sodium Chloride) 100 mls @ 25 mls/hr IVPB Q8H [facility] Last Admin: 08/30/19 14:09 Dose: 25 mls/hr Documented by: Sodium Chloride (Saline 0.9%) 1,000 mls @ 20 mls/hr IV .Q24H [facility] Last Admin: 08/30/19 01:15 Dose: 20 mls/hr Documented by: Vancomycin HCl 1,500 mg/ (Sodium Chloride) 250 mls @ 125 mls/hr IVPB Q12H [facility] Last Admin: 08/30/19 11:59 Dose: 125 mls/hr Documented by: Lactic Acid (Ammonium Lactate) 1 applic TOPICAL DAILY PRN PRN Reason: dry skin on feet Levothyroxine Sodium (Synthroid) 100 mcg PO 0630 [facility] Last Admin: 08/30/19 06:22 Dose: 100 mcg Documented by: Lisinopril (Zestril) 10 mg PO DAILY@2099 [facility] Last Admin: 08/29/19 20:01 Dose: 10 mg Documented by: Magnesium Hydroxide (Milk Of Magnesia) 2,400 mg PO DAILY PRN PRN Reason: Constipation Metformin HCl (Glucophage) 500 mg PO BID@0800,1700 [facility] Last Admin: 08/30/19 08:11 Dose: 500 mg Documented by: Miscellaneous Information (Pneumonia Protocol Utilized) 1 each PO ONCE PRN PRN Reason: Per Protocol Miscellaneous Information (Magnesium Per Protocol) 1 each MISCELLANE DAILY PRN; Protocol PRN Reason: Per Protocol Miscellaneous Information (Vancomycin Trough Due) 1 each MISCELLANE ONCE ONE Stop: 08/31/19 11:01 Multivitamins (Theragran) 1 each PO DAILY@1200 [facility] Last Admin: 08/30/19 11:58 Dose: 1 each Documented by: Naloxone HCl (Narcan) 0.2 mg IV Q2M PRN PRN Reason: Opioid Reversal Pantoprazole Sodium (Protonix) 40 mg PO BID@0800,1700 [facility] Last Admin: 08/30/19 08:12 Dose: 40 mg Documented by: Pravastatin Sodium (Pravachol) 80 mg PO DAILY@2100 [facility] Last Admin: 08/29/19 20:01 Dose: 80 mg Documented by: Primidone (Mysoline) 25 mg PO DAILY@0800 [facility] Last Admin: 08/30/19 09:36 Dose: 25 mg Documented by: Primidone (Mysoline) 100 mg PO DAILY@2100 [facility] Last Admin: 08/29/19 20:01 Dose: 100 mg Documented by: Thiamine HCl (Vitamin B-1) 100 mg PO DAILY@1200 [facility] Last Admin: 08/30/19 11:58 Dose: 100 mg Documented by: Tramadol HCl (Ultram) 50 mg PO Q8H PRN PRN Reason: Pain Last Admin: 08/30/19 12:09 Dose: 50 mg Documented by: Physical examination: VITAL SIGNS: Afebrile, 70, 12, 120 10 69, 40% on 2 L GENERAL: Propped up in bed, looking better. EYES: Pupils equal. Conjunctiva normal. HEENT: External appearance of nose and ears normal, oral cavity grossly normal. NECK: JVD not raised; masses not palpable. HEART: Irregular heart sounds; no edema. LUNGS: Respiratory rate increased, decreased breath sounds. ABDOMEN: Soft, nontender, liver spleen not palpable, no masses palpable. PSYCH: Alert and oriented x3; mood and affect tired INVESTIGATIONS, reviewed in the clinical context: Blood cultures-alpha hemolytic strep Previous testing White count 6.8 hemoglobin 9.1 platelets 129 potassium 4.6 creatinine 0.69 d- dimer 1.79 LDH 643 CRP 136 pro calcitonin 4.86 Coronavirus [id number] Chest x-ray film personally reviewed by me--scattered infiltrates EKG tracing personally reviewed by me-atrial fibrillation rate uncontrolled CT chest-negative for PE right upper lobe 4 mm pulmonary nodule Blood cultures positive for gram-positive cocci in chains Assessment: -Sepsis picture, with symptoms present for 2 weeks, with scattered infiltrates on chest x-ray strongly suspicious for COVID 19 pneumonia. Initial PCR test was negative. Strongly suspect this to be false negative. Often times this could be the mechanism with the sample was obtained. Positive blood culture- alphahemolytic streptococcus. 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 Switched to oral Cardizem. We'll DC vancomycin. Keep on Zosyn. Discussed with patient.
[2019-08-30] MEDS: FLUoxetine HCL 20 MG CAP PO SCH (16:32)
[2019-08-30] MEDS: FOLIC ACID 1 MG TAB PO SCH (16:33)
[2019-08-30 16:40] LABS: Glucose,Whole Blood 124 mg/dL (75-99)
[2019-08-30] MEDS: LISINOPRIL 10 MG TAB PO SCH (20:08)
[2019-08-30] MEDS: PRAVASTATIN SODIUM 80 MG TAB PO SCH (20:08)
[2019-08-30] MEDS: PRIMIDONE 50 MG TAB PO SCH (20:08)
[2019-08-30 20:22] LABS: Glucose,Whole Blood 173 mg/dL (75-99)
[2019-08-30] MEDS: ALPRAZolam 0.25 MG TAB PO PRN (22:05)
[2019-08-31] MEDS: SODIUM CHLORIDE 0.9% 1,000 ML IV SCH (01:14)
[2019-08-31 04:22] LABS: Anisocytosis Slight; Basophils % (A) 1 %; Eosinophils # (A) 0.1 k/uL (0-0.7); Eosinophils % (A) 1 %; HCT 26.6 % (34.0-46.0); HGB 7.8 gm/dL (11.4-16.0); Hypochromasia Marked; Lymphocytes # (A) 0.7 k/uL (1.0-4.8); Lymphocytes % (A) 10 %; MCH 24.9 pg (25.0-35.0); MCHC 29.3 g/dL (31.0-37.0); MCV 85.1 fL (80.0-100.0); Mean Platelet Volume 8.3; Monocytes # (A) 0.5 k/uL (0-1.0); Monocytes % (A) 7 %; Neutrophils # (A) 5.7 k/uL (1.3-7.7); Neutrophils % (A) 79 %; Platelet Count 174 k/uL (150-450); RBC 3.12 m/uL (3.80-5.40); RDW 16.8 % (11.5-15.5); WBC 7.2 k/uL (3.8-10.6)
[2019-08-31 04:35] LABS: ALT 21 U/L (4-34); AST 25 U/L (14-36); African American GFR (CKD) >90 (>60 ml/min/1.73 sqM); Alkaline Phosphatase 57 U/L (38-126); Anion Gap 5 mmol/L; Blood Urea Nitrogen 13 mg/dL (7-17); Calcium 8.2 mg/dL (8.4-10.2); Carbon Dioxide 27 mmol/L (22-30); Chloride 104 mmol/L (98-107); Creatine Kinase 41 U/L (30-135); Glucose 92 mg/dL (74-99); LDH 530 U/L (313-618); Non-African American GFR(CKD) 85 (>60 ml/min/1.73 sqM); Potassium 3.9 mmol/L (3.5-5.1); Sodium 136 mmol/L (137-145); Total Bilirubin 0.4 mg/dL (0.2-1.3); Total Protein 5.6 g/dL (6.3-8.2)
[2019-08-31 05:01] LABS: C Reactive Protein 132.9 mg/L (<10.0)
[2019-08-31] MEDS: LEVOTHYROXINE 100 MCG TAB PO SCH (05:47)
[2019-08-31] MEDS: GABAPENTIN 400 MG CAP PO SCH ×4 (05:47→20:15)
[2019-08-31] MEDS: PIPERACILLIN-TAZOBACTAM 3.375 GM in SODIUM CHLORIDE 0.9% 100 ML IVPB SCH ×3 (05:47→22:07)
[2019-08-31 06:35] LABS: Glucose,Whole Blood 116 mg/dL (75-99)
--- NOTE | 2019-08-31 07:30 | XR ---
EXAMINATION TYPE: XR chest 1V portable DATE OF EXAM: 08/31/2019 HISTORY: Shortness of breath. COMPARISON: 08/30/2019 TECHNIQUE: Single view of the chest is submitted. FINDINGS: Demonstrated are scattered senescent parenchymal change. Scattered interstitial infiltrates persist without significant change. The heart is stable. Hilar and mediastinal structures are within normal limits. Degenerative changes are seen of the dorsal spine. IMPRESSION: 1. Scattered interstitial infiltrates persist without significant change.
[2019-08-31] MEDS: DILTIAZEM ORAL 30 MG TAB PO SCH ×3 (09:37→20:16)
[2019-08-31] MEDS: ARTIFICIAL TEARS-HYPROMELLOSE DROPS 15 ML BTL BOTH EYES SCH ×3 (09:37→17:10)
[2019-08-31] MEDS: FERROUS SULFATE 325 MG TAB PO SCH ×2 (09:37→20:15)
[2019-08-31] MEDS: CARVEDILOL 12.5 MG TAB PO SCH ×2 (09:37→17:09)
[2019-08-31] MEDS: PRIMIDONE 25 MG TAB PO SCH (09:37)
[2019-08-31] MEDS: APIXABAN 2.5 MG TABLET PO SCH ×2 (09:38→17:09)
[2019-08-31] MEDS: metFORMIN 500 MG TAB PO SCH ×2 (09:38→17:09)
[2019-08-31] MEDS: PANTOPRAZOLE 40 MG TABLET PO SCH ×2 (09:38→17:09)
[2019-08-31 10:26] LABS: Ferritin 60.8 ng/mL (10.0-291.0)
[2019-08-31] MEDS ORDERED: VANCOMYCIN TROUGH DUE 1 EACH MISC MISCELLANE ONE (11:00)
[2019-08-31 11:44] LABS: Glucose,Whole Blood 154 mg/dL (75-99)
[2019-08-31 12:27] LABS: Ferritin 62.6 ng/mL (10.0-291.0)
--- NOTE | 2019-08-31 12:33 | ECHOF ---
Referral Reason:sepsis, afib MEASUREMENTS -------- HEIGHT: 175.3 cm WEIGHT: 94.3 kg BP: 129/74 RVIDd: 3.0 cm (< 3.3) IVSd: 1.4 cm (0.6 - 1.1) LVIDd: 4.3 cm (3.9 - 5.3) LVPWd: 1.3 cm (0.6 - 1.1) IVSs: 1.7 cm LVIDs: 3.2 cm LVPWs: 1.5 cm LA Diam: 3.9 cm (2.7 - 3.8) LAESV Index (A-L): 28.27 ml/m Ao Diam: 3.2 cm (2.0 - 3.7) AV Cusp: 1.6 cm (1.5 - 2.6) MV EXCURSION: 18.547 mm (> 18.000) MV EF SLOPE: 85 mm/s (70 - 150) EPSS: 0.7 cm AV maxP.81 mmHg AV meanP.96 mmHg RAP: 15.00 mmHg RVSP: 47.86 mmHg FINDINGS -------- Atrial fibrillation. This was a technically adequate study. The left ventricular size is normal. There is moderate concentric left ventricular hypertrophy. T here is moderate global hypokinesis of LV . Overall left ventricular systolic function is mild-mode rately impaired with, an EF between 40 - 45 %. The right ventricle is normal in size. Normal LA size by volume 22+/-6 ml/m2. The right atrial size is normal. Interatrial and interventricular septum intact. Peak/mean gradient across the Aortic Valve is 39.81mmHg / 22.96mmHg. 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 The mitral valve leaflets are mild to moderately thickened. Efde-yr-rfwrrgyp mitral regurgitation is present. Rbej-nm-sulmewyf tricuspid regurgitation present. There is mild to moderate pulmonary hypertension. The right ventricular systolic pressure, as measured by Doppler, is 47.86mmHg. The pulmonic valve was not well visualized. Trace/mild (physiologic) pulmonic regurgitation. The aortic root size is normal. The inferior vena cava is dilated with poor inspiratory collapse which is consistent with estimated r ight atrial pressure of 15 mmHg. There is no pericardial effusion. CONCLUSIONS -------- 1. There is moderate concentric left ventricular hypertrophy. 2. There is moderate global hypokinesis of LV . 3. Overall left ventricular systolic function is mild-moderately impaired with, an EF between 40 - 45 %. 4. Normal LA size by volume 22+/-6 ml/m2. 5. Peak/mean gradient across the Aortic Valve is 39.81mmHg / 22.96mmHg. 6. 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 7. The mitral valve leaflets are mild to moderately thickened. 8. Food-re-ojjdliaq mitral regurgitation is present. 9. Rwkk-wm-xaagogxy tricuspid regurgitation present. 10. There is mild to moderate pulmonary hypertension. 11. Trace/mild (physiologic) pulmonic regurgitation. 12. The inferior vena cava is dilated with poor inspiratory collapse which is consistent with estimat ed right atrial pressure of 15 mmHg. MANAGER INTERFACE: Kerry Fulton RDCS
[2019-08-31] MEDS: THIAMINE 100 MG TAB PO SCH (12:46)
[2019-08-31] MEDS: MULTIVITAMINS, THERA 1 EACH TAB PO SCH (12:47)
--- NOTE | 2019-08-31 13:01 | PN ---
PROGRESS NOTE This is an 83-year-old lady with a history of sepsis, known to have chronic atrial fib and on anticoagulation. Yesterday she had a rapid ventricular rate, was seen by Dr. Edwards. This morning she is comfortable, resting. She is in atrial fib but the rate is well controlled in the 80s. She is currently on a combination of Coreg and Cardizem, which we will continue. Intravenous Cardizem has been discontinued. Her vitals are stable. Blood pressure is 130/70, pulse rate is 80 per minute. No JVD. S1, S2 heard normally with irregularity rate and rhythm. Lungs reveal bilateral scattered rhonchi. Abdomen is soft, nontender. Lower extremities reveal diminished pulses. Central nervous system grossly no focal deficits. From a cardiac standpoint, patient is stable. Her rate is very well controlled. She is currently anticoagulated with Eliquis 2.5 mg b.i.d. I am recommending that we continue the current medication for rate control and anticoagulation. I will see her as needed from a cardiac standpoint. Thank you very much for the consult. MMODL / IJN: [id number] /
--- NOTE | 2019-08-31 13:06 | P.PN ---
Subjective Progress Note Date: 08/31/19 Principal diagnosis: Acute gram-positive sepsis and bacteremia secondary to alphahemolytic strep This is an 83-year-old female with history of multiple medical problems including chronic atrial fibrillation, on long-term anticoagulation therapy, valvular heart disease and previous aortic valve replacement 5 years ago. No history of hypertension, diabetes, dyslipidemia, chronic nicotine dependence. Patient was sent to the emergency room from [facility] care facility for fever in the last few days. No other symptoms except for generalized weakness fatigue, and occasional cough. Patient was tested covid 19, and the tests came back negative.in the ER, patient was noted to be hypotensive, hence CT angiogram of the chest was done, and it showedno evidence of pulmonary embolism, there was however evidence of cardiomegaly, mild pulmonary vascular congestion, and COPD/emphysema with possible pulmonary arterial hypertension. No evidence of infiltrate was noted on the chest x-ray or CT angiogram of the chest. Patient was given fluid boluses, she was placed on antibiotics empirically, and she was admitted to the intensive care unit. Did not require any pressors. However she was given fluids, and when I evaluated the patient, she remained hemodynamically stable, and she was in no distress. Patient had mostly symptoms of fever for the last few days. But no other symptoms. No headache no blurred vision no dizziness. She had occasional cough, no chest pain, no orthopnea, no PND, she does have history of chronic atrial fibrillation, had no nausea no vomiting no abdominal pain no melena no hematemesis, no dysuria and no frequency no urgency and no hematuria.considering the patient was in atrial fibrillation with RVR, she was placed on Cardizem drip at 5 mg per hour. This morning, her blood cultures were positive for gram-positive cocci in chains. Her pro calcitonin level was 4.86. Patient is presently on 2 L nasal cannula. Patient was reevaluated today on 08/30/19, remains in the ICU, however she is on 2 L nasal cannula, asymptomatic, not requiring any pressors. She is on Cardizem at 5 mg per hour which I plan to switch to oral Cardizem at 30 mg by mouth 3 times a day. IV fluid is at 20 mL per hour. Patient is basically asymptomatic. She denies any headache or blurred vision or dizziness denies any cough wheezing or shortness of breath denies any nausea vomiting abdominal pain denies any dysuria frequency or urgency. Denies any hematuria. Denies any skin ulceration or any areas of cellulitis or swelling. Overall the patient looks g reat. Remains on antibiotics in the form of vancomycin and Zosyn until the final blood culture becomes available, and adjust her antibiotics accordingly. Chest x-ray showed cardiomegaly and minimal interstitial prominence on the right. No clear-cut evidence of pneumonia. Although her pro calcitonin level was elevated on admission. CBC is basically normal except for hemoglobin of 2.9. D-dimer is 2.70. Electrolytes and renal profile are normal. The patient is seen today 08/31/2019 in follow-up in the intensive care unit. She is currently awake and alert in no acute distress. She is maintaining O2 saturations in the 90s on 4 L/m per nasal cannula. She is a 0.9 normal saline at KVO. Blood cultures were positive for alphahemolytic strep. She is currently on Zosyn. Chest x-ray reveals scattered interstitial infiltrates without significant change. Echocardiogram revealed overall left ventricular systolic function with mild to moderately impaired ejection fraction between 40-45%. There is aydp-uv-tqqfukuk mitral regurgitation. Mild to moderate pulmonary hypertension. White count 7.2. Hemoglobin 7.8. D-dimer 1.54. Sodium 136. Potassium 3.9. Creatinine 0.57. C-reactive protein 132. LDH 530. Heart rate is better controlled. Currently on oral Cardizem. Anticoagulated with Eliquis. Objective - Vital Signs Vital signs: Vital Signs Temp 97.8 F 08/31/19 08:00 Pulse 87 08/31/19 11:00 Resp 14 08/31/19 11:00 BP 129/74 08/31/19 11:00 Pulse Ox 94 L 08/31/19 11:00 Intake & Output 08/30/19 08/31/19 08/31/19 18:59 06:59 18:59 Intake Total 1164.209 720 480 Output Total 530 520 490 Balance 634.209 200 -10 Weight 94.5 kg 94.6 kg Intake: IV 590 340 100 0.9 240 240 100 Piperacillin-Tazobactam 3 100 100 .375 gm In Sodium Chloride 0.9% 100 ml @ 25 mls/hr IVPB Q8H [facility] Rx#: [id number] Vancomycin 1,500 mg In 250 Sodium Chloride 0.9% 250 ml @ 125 mls/hr IVPB Q16H [facility] Rx#:[id number] Intake, IV Titration 74.209 Amount Diltiazem 125 mg In 74.209 Sodium Chloride 0.9% 100 ml @ 5 MG/HR 5 mls/hr IV .Q24H [facility] Rx#:[id number] Oral 500 380 380 Output: Urine 530 520 490 Other: Voiding Method Indwelling Catheter Indwelling Catheter Indwelling Catheter - Exam Physical Exam: Revealed 83-year-old female, pleasant, in no form of respiratory distress. On 2 L nasal cannula. Head: Atraumatic, normocephalic. HEENT:Neck is supple. No neck masses. No thyromegaly. No JVD. PERRLA, EOMI, no icterus, moist mucous membranes. Chest: Symmetrical chest expansion, with few scattered rhonchi bilaterally. Cardiac Exam: Irregular irregular rhythm. Normal S1 and S2, no S3 gallop, 2/6 systolic murmur thought the precordium. Abdomen: obese,Soft, nontender, no megaly, no rebound, no guarding, normal bowel sounds. Extremities: No clubbing, no edema, no cyanosis. Neurological Exam: [No focal neurologic deficit.]alert and oriented 3. Psychiatric: Normal mood, affect and normal mental status examination. Skin: No rashes. Lymphatics: No lymphadenopathy. - Labs CBC & Chem 7: 08/31/19 04:05 08/31/19 04:05 Labs: Abnormal Lab Results - Last 24 Hours (Table) 08/30/19 08/30/19 08/31/19 Range/Units 16:38 20:20 04:05 RBC 3.12 L (3.80-5.40) m/uL Hgb 7.8 L (11.4-16.0) gm/dL Hct 26.6 L (34.0-46.0) % MCH 24.9 L (25.0-35.0) pg MCHC 29.3 L (31.0-37.0) g/dL RDW 16.8 H (11.5-15.5) % Lymphocytes # 0.7 L (1.0-4.8) k/uL D-Dimer (<0.60) mg/L FEU Sodium (137-145) mmol/L POC Glucose (mg/dL) 124 H 173 H (75-99) mg/dL Calcium (8.4-10.2) mg/dL C-Reactive Protein (<10.0) mg/L Total Protein (6.3-8.2) g/dL Albumin (3.5-5.0) g/dL 08/31/19 08/31/19 08/31/19 Range/Units 04:05 04:05 06:33 RBC (3.80-5.40) m/uL Hgb (11.4-16.0) gm/dL Hct (34.0-46.0) % MCH (25.0-35.0) pg MCHC (31.0-37.0) g/dL RDW (11.5-15.5) % Lymphocytes # (1.0-4.8) k/uL D-Dimer 1.54 H (<0.60) mg/L FEU Sodium 136 L (137-145) mmol/L POC Glucose (mg/dL) 116 H (75-99) mg/dL Calcium 8.2 L (8.4-10.2) mg/dL C-Reactive Protein 132.9 H (<10.0) mg/L Total Protein 5.6 L (6.3-8.2) g/dL Albumin 3.0 L (3.5-5.0) g/dL 08/31/19 Range/Units 11:43 RBC (3.80-5.40) m/uL Hgb (11.4-16.0) gm/dL Hct (34.0-46.0) % MCH (25.0-35.0) pg MCHC (31.0-37.0) g/dL RDW (11.5-15.5) % Lymphocytes # (1.0-4.8) k/uL D-Dimer (<0.60) mg/L FEU Sodium (137-145) mmol/L POC Glucose (mg/dL) 154 H (75-99) mg/dL Calcium (8.4-10.2) mg/dL C-Reactive Protein (<10.0) mg/L Total Protein (6.3-8.2) g/dL Albumin (3.5-5.0) g/dL Microbiology - Last 24 Hours (Table) 08/30/19 04:29 Blood Culture Gram Stain - Preliminary Blood Blood Culture - Preliminary Alpha Hemolytic Streptococcus 08/28/19 17:30 Blood Culture Gram Stain - Final Blood Blood Culture - Final Alpha Hemolytic Streptococcus 08/30/19 04:29 Blood Culture - Final Blood Assessment and Plan Assessment: 1 Acute febrile illness, sepsis with gram-positive bacteremia, alphahemolytic strep, exact source is not clear, and it is yet to be determined. 2 Atrial fibrillation with RVR. 3 Gram-positive bacteremia. 4 Acute gram-positive sepsis 5 History of valvular heart disease and previous aortic valve replacement, echocardiogram does not reveal any evidence of vegetation him a mild to moderately impaired left ventricular systolic function with ejection fraction 40-45% 6 History of moderate mitral regurgitation. 7 Benign essential hypertension. 8 Type 2 diabetes. 9 Dyslipidemia. Plan: The patient was seen and evaluated by Dr. Madden. She is currently stable from the pulmonary standpoint. Titrate down the FiO2 as tolerated Continue Zosyn. Echocardiogram reviewed, no mention of vegetation Eliquis for DVT prophylaxis Can be transferred out of the ICU to [facility] if bed is needed We will continue to follow I, the cosigning physician, performed a history & physical examination of the patient. Lungs sounds with few scattered rhonchi bilaterally. Maintaining good O2 saturations in the 90s on 4 L/m per nasal cannula. I discussed the assessm ent and plan of care with my nurse practitioner, Britney Mcmahon. I attest to the above note as dictated by her. Time with Patient: Greater than 30
[2019-08-31 16:41] LABS: Glucose,Whole Blood 128 mg/dL (75-99)
[2019-08-31] MEDS: FOLIC ACID 1 MG TAB PO SCH (17:09)
[2019-08-31] MEDS: FLUoxetine HCL 20 MG CAP PO SCH (17:09)
--- NOTE | 2019-08-31 17:58 | P.PN ---
Progress Note - Text Progress Note Date: 08/31/19 Chief Complaint: Fever History of presenting complaint: This is a very pleasant 83-year-old patient of Dr. Coles. Resident of [facility]. Chronic stable medical conditions include atrial fibrillation on eliquis,, hyperlipidemia, hypertension, Guillain-Preciado syndrome with lower extremity weakness, hypothyroid. Patient now presents with 2 weeks of fever or off. Appetite is okay. No change in bowel habits. Has slight dry cough. 2 weeks ago she did fall and has a bump on her head. Patient smoked about a pack and half day for many years stopped about a month ago ago. A. fib with a rapid ventricular rate on presentation. Put on a Cardizem drip. Denies any obvious urinary symptoms. No headaches no dizziness. No change in vision. Initial coronavirus PCR was negative. Admitted with-pneumonia with blood cultures positive. Also atrial fibrillation with rapid ventricular rate. Started on IV vancomycin and IV Zosyn. IV Cardizem drip. Blood cultures showing alphahemolytic streptococcus. Vancomycin discontinued. Today-in the ICU. Heart rate better controlled. Did tolerate some diet. On antibiotics. Sitting up in bed. Review of systems: Was done for constitutional, cardiovascular, GI, pulmonary. relevant finding as above Active Medications Acetaminophen (Tylenol Tab) 650 mg PO Q4HR PRN PRN Reason: Fever>101 Last Admin: 08/29/19 14:56 Dose: 650 mg Documented by: Alprazolam (Xanax) 0.25 mg PO DAILY PRN PRN Reason: Anxiety Last Admin: 08/30/19 22:05 Dose: 0.25 mg Documented by: Apixaban (Eliquis) 2.5 mg PO BID@0800,1700 [facility] Last Admin: 08/31/19 17:09 Dose: 2.5 mg Documented by: Artificial Tears (Artificial Tear Drops) 1 drops BOTH EYES TID@0800,1200,1700 [facility] Last Admin: 08/31/19 17:10 Dose: 1 drops Documented by: Carvedilol (Coreg) 25 mg PO BID@0800,1700 [facility] Last Admin: 08/31/19 17:09 Dose: 25 mg Documented by: Diltiazem HCl (Cardizem Oral) 30 mg PO TID [facility] Last Admin: 08/31/19 17:09 Dose: 30 mg Documented by: Ferrous Sulfate (Feosol) 325 mg PO BID@0800,2100 [facility] Last Admin: 08/31/19 09:37 Dose: 325 mg Documented by: Fluoxetine HCl (Prozac) 40 mg PO DAILY@1700 [facility] Last Admin: 08/31/19 17:09 Dose: 40 mg Documented by: Folic Acid (Folic Acid) 1 mg PO DAILY@1700 [facility] Last Admin: 08/31/19 17:09 Dose: 1 mg Documented by: Gabapentin (Neurontin) 400 mg PO QID@06,12,1700,2100 [facility] Last Admin: 08/31/19 17:09 Dose: 400 mg Documented by: Guaifenesin (Robitussin) 400 mg PO Q4H PRN PRN Reason: Congestion Piperacillin Sod/Tazobactam (Sod 3.375 gm/ Sodium Chloride) 100 mls @ 25 mls/hr IVPB Q8H [facility] Last Admin: 08/31/19 15:50 Dose: 25 mls/hr Documented by: Sodium Chloride (Saline 0.9%) 1,000 mls @ 20 mls/hr IV .Q24H [facility] Last Admin: 08/31/19 01:14 Dose: 20 mls/hr Documented by: Lactic Acid (Ammonium Lactate) 1 applic TOPICAL DAILY PRN PRN Reason: dry skin on feet Levothyroxine Sodium (Synthroid) 100 mcg PO 0630 [facility] Last Admin: 08/31/19 05:47 Dose: 100 mcg Documented by: Lisinopril (Zestril) 10 mg PO DAILY@2100 [facility] Last Admin: 08/30/19 20:08 Dose: 10 mg Documented by: Magnesium Hydroxide (Milk Of Magnesia) 2,400 mg PO DAILY PRN PRN Reason: Constipation Metformin HCl (Glucophage) 500 mg PO BID@0800,1700 [facility] Last Admin: 08/31/19 17:09 Dose: 500 mg Documented by: Miscellaneous Information (Pneumonia Protocol Utilized) 1 each PO ONCE PRN PRN Reason: Per Protocol Miscellaneous Information (Magnesium Per Protocol) 1 each MISCELLANE DAILY PRN; Protocol PRN Reason: Per Protocol Multivitamins (Theragran) 1 each PO DAILY@1200 [facility] Last Admin: 08/31/19 12:47 Dose: 1 each Documented by: Naloxone HCl (Narcan) 0.2 mg IV Q2M PRN PRN Reason: Opioid Reversal Pantoprazole Sodium (Protonix) 40 mg PO BID@0800,1700 [facility] Last Admin: 08/31/19 17:09 Dose: 40 mg Documented by: Pravastatin Sodium (Pravachol) 80 mg PO DAILY@2100 [facility] Last Admin: 08/30/19 20:08 Dose: 80 mg Documented by: Primidone (Mysoline) 25 mg PO DAILY@0800 [facility] Last Admin: 08/31/19 09:37 Dose: 25 mg Documented by: Primidone (Mysoline) 100 mg PO DAILY@2100 [facility] Last Admin: 08/30/19 20:08 Dose: 100 mg Documented by: Thiamine HCl (Vitamin B-1) 100 mg PO DAILY@1200 [facility] Last Admin: 08/31/19 12:46 Dose: 100 mg Documented by: Tramadol HCl (Ultram) 50 mg PO Q8H PRN PRN Reason: Pain Last Admin: 08/30/19 22:04 Dose: 50 mg Documented by: Physical examination: VITAL SIGNS: 97.9, 88, 18, 135/73, 99% on 4 L GENERAL: Propped up in bed, comfortable. EYES: Pupils equal. Conjunctiva normal. HEENT: External appearance of nose and ears normal, oral cavity grossly normal. NECK: JVD not raised; masses not palpable. HEART: Irregular heart sounds; no edema. LUNGS: Respiratory rate increased, decreased breath sounds. ABDOMEN: Soft, nontender, liver spleen not palpable, no masses palpable. PSYCH: Alert and oriented x3; mood and affect tired INVESTIGATIONS, reviewed in the clinical context: White count 7.2 hemoglobin 7.8 potassium 3.9 creatinine 0.57 2-D echo-moderate global hypokinesis-EF 40-45% moderate mitral and tricuspid regurgitation no obvious vegetation reported Previous testing White count 6.8 hemoglobin 9.1 platelets 129 potassium 4.6 creatinine 0.69 d- dimer 1.79 LDH 643 CRP 136 pro calcitonin 4.86 Coronavirus [id number] Chest x-ray film personally reviewed by me--scattered infiltrates EKG tracing personally reviewed by me-atrial fibrillation rate uncontrolled CT chest-negative for PE right upper lobe 4 mm pulmonary nodule Blood cultures August 27 and August 29-positive for alpha hemolytic strep Assessment: -Sepsis picture, with symptoms present for 2 weeks, with scattered infiltrates on chest x-ray strongly suspicious for COVID 19 pneumonia. PCR test was negative. . Positive blood culture-alphahemolytic streptococcus. improving. 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 Remains on IV Zosyn. Heart rate better controlled. Patient does not like hospital food. Encouraged to take alternative food. Discussed with nurse. Given persistent blood cultures should need a GUILLERMNIA. We'll discuss with cardiology.
[2019-08-31] MEDS: PRIMIDONE 50 MG TAB PO SCH (20:15)
[2019-08-31] MEDS: PRAVASTATIN SODIUM 80 MG TAB PO SCH (20:15)
[2019-08-31] MEDS: LISINOPRIL 10 MG TAB PO SCH (20:15)
[2019-08-31 20:22] LABS: Glucose,Whole Blood 119 mg/dL (75-99)
[2019-09-01 04:36] LABS: Anisocytosis Slight; Basophils # (A) 0.1 k/uL (0-0.2); Basophils % (A) 1 %; Eosinophils # (A) 0.1 k/uL (0-0.7); Eosinophils % (A) 1 %; HCT 27.9 % (34.0-46.0); HGB 8.2 gm/dL (11.4-16.0); Hypochromasia Marked; Lymphocytes # (A) 0.7 k/uL (1.0-4.8); Lymphocytes % (A) 10 %; MCH 24.9 pg (25.0-35.0); MCHC 29.4 g/dL (31.0-37.0); MCV 84.6 fL (80.0-100.0); Mean Platelet Volume 8.1; Monocytes # (A) 0.4 k/uL (0-1.0); Monocytes % (A) 6 %; Neutrophils # (A) 5.1 k/uL (1.3-7.7); Neutrophils % (A) 78 %; Platelet Count 192 k/uL (150-450); RDW 17.2 % (11.5-15.5); WBC 6.5 k/uL (3.8-10.6)
[2019-09-01 04:52] LABS: African American GFR (CKD) >90 (>60 ml/min/1.73 sqM); Anion Gap 2 mmol/L; Blood Urea Nitrogen 10 mg/dL (7-17); Calcium 8.3 mg/dL (8.4-10.2); Carbon Dioxide 28 mmol/L (22-30); Chloride 105 mmol/L (98-107); Glucose 94 mg/dL (74-99); Non-African American GFR(CKD) 85 (>60 ml/min/1.73 sqM); Potassium 3.7 mmol/L (3.5-5.1); Sodium 135 mmol/L (137-145)
[2019-09-01] MEDS ORDERED: POTASSIUM CHLORIDE ER 20 MEQ TAB.ER PO SCH (06:00)
[2019-09-01] MEDS: PIPERACILLIN-TAZOBACTAM 3.375 GM in SODIUM CHLORIDE 0.9% 100 ML IVPB SCH ×2 (06:25→14:35)
[2019-09-01] MEDS: LEVOTHYROXINE 100 MCG TAB PO SCH (06:25)
[2019-09-01] MEDS: GABAPENTIN 400 MG CAP PO SCH ×4 (06:25→21:09)
[2019-09-01 06:54] LABS: Glucose,Whole Blood 117 mg/dL (75-99)
--- NOTE | 2019-09-01 07:12 | XR ---
EXAMINATION TYPE: XR chest 1V portable DATE OF EXAM: 09/01/2019 COMPARISON: 08/31/2019 HISTORY: Shortness of breath TECHNIQUE: Single frontal view of the chest is obtained. FINDINGS: Postoperative change, arthropathy of the shoulders, atherosclerotic change aorta and diffu se interstitial pattern stable. No pleural effusion or pneumothorax. No large area of consolidation. IMPRESSION: Correlate for chronic interstitial lung disease. Interstitial pneumonitis not excluded. Findings stable.
[2019-09-01] MEDS: PRIMIDONE 25 MG TAB PO SCH (09:29)
[2019-09-01] MEDS: ARTIFICIAL TEARS-HYPROMELLOSE DROPS 15 ML BTL BOTH EYES SCH ×3 (09:29→17:29)
[2019-09-01] MEDS: FERROUS SULFATE 325 MG TAB PO SCH ×2 (09:29→21:09)
[2019-09-01] MEDS: metFORMIN 500 MG TAB PO SCH ×2 (09:30→17:28)
[2019-09-01] MEDS: PANTOPRAZOLE 40 MG TABLET PO SCH ×2 (09:30→17:28)
[2019-09-01] MEDS: APIXABAN 2.5 MG TABLET PO SCH ×2 (09:30→17:28)
[2019-09-01] MEDS: DILTIAZEM ORAL 30 MG TAB PO SCH ×3 (09:30→21:09)
[2019-09-01] MEDS: CARVEDILOL 12.5 MG TAB PO SCH ×2 (09:30→17:28)
[2019-09-01] MEDS: SODIUM CHLORIDE 0.9% 1,000 ML IV SCH (10:50)
[2019-09-01] MEDS: traMADol 50 MG TAB PO PRN ×2 (10:51→22:53)
--- NOTE | 2019-09-01 11:23 | P.PN ---
Subjective Progress Note Date: 09/01/19 Principal diagnosis: Acute gram-positive sepsis and bacteremia secondary to alphahemolytic strep This is an 83-year-old female with history of multiple medical problems including chronic atrial fibrillation, on long-term anticoagulation therapy, valvular heart disease and previous aortic valve replacement 5 years ago. No history of hypertension, diabetes, dyslipidemia, chronic nicotine dependence. Patient was sent to the emergency room from [facility] care facility for fever in the last few days. No other symptoms except for generalized weakness fatigue, and occasional cough. Patient was tested covid 19, and the tests came back negative.in the ER, patient was noted to be hypotensive, hence CT angiogram of the chest was done, and it showedno evidence of pulmonary embolism, there was however evidence of cardiomegaly, mild pulmonary vascular congestion, and COPD/emphysema with possible pulmonary arterial hypertension. No evidence of infiltrate was noted on the chest x-ray or CT angiogram of the chest. Patient was given fluid boluses, she was placed on antibiotics empirically, and she was admitted to the intensive care unit. Did not require any pressors. However she was given fluids, and when I evaluated the patient, she remained hemodynamically stable, and she was in no distress. Patient had mostly symptoms of fever for the last few days. But no other symptoms. No headache no blurred vision no dizziness. She had occasional cough, no chest pain, no orthopnea, no PND, she does have history of chronic atrial fibrillation, had no nausea no vomiting no abdominal pain no melena no hematemesis, no dysuria and no frequency no urgency and no hematuria.considering the patient was in atrial fibrillation with RVR, she was placed on Cardizem drip at 5 mg per hour. This morning, her blood cultures were positive for gram-positive cocci in chains. Her pro calcitonin level was 4.86. Patient is presently on 2 L nasal cannula. Patient was reevaluated today on 08/30/19, remains in the ICU, however she is on 2 L nasal cannula, asymptomatic, not requiring any pressors. She is on Cardizem at 5 mg per hour which I plan to switch to oral Cardizem at 30 mg by mouth 3 times a day. IV fluid is at 20 mL per hour. Patient is basically asymptomatic. She denies any headache or blurred vision or dizziness denies any cough wheezing or shortness of breath denies any nausea vomiting abdominal pain denies any dysuria frequency or urgency. Denies any hematuria. Denies any skin ulceration or any areas of cellulitis or swelling. Overall the patient looks g reat. Remains on antibiotics in the form of vancomycin and Zosyn until the final blood culture becomes available, and adjust her antibiotics accordingly. Chest x-ray showed cardiomegaly and minimal interstitial prominence on the right. No clear-cut evidence of pneumonia. Although her pro calcitonin level was elevated on admission. CBC is basically normal except for hemoglobin of 2.9. D-dimer is 2.70. Electrolytes and renal profile are normal. The patient is seen today 08/31/2019 in follow-up in the intensive care unit. She is currently awake and alert in no acute distress. She is maintaining O2 saturations in the 90s on 4 L/m per nasal cannula. She is a 0.9 normal saline at KVO. Blood cultures were positive for alphahemolytic strep. She is currently on Zosyn. Chest x-ray reveals scattered interstitial infiltrates without significant change. Echocardiogram revealed overall left ventricular systolic function with mild to moderately impaired ejection fraction between 40-45%. There is eyof-bn-[id number] mitral regurgitation. Mild to moderate pulmonary hypertension. White count 7.2. Hemoglobin 7.8. D-dimer 1.54. Sodium 136. Potassium 3.9. Creatinine 0.57. C-reactive protein 132. LDH 530. Heart rate is better controlled. Currently on oral Cardizem. Anticoagulated with Eliquis. The patient is seen today 09/01/2019 in follow-up in the intensive care unit. She is sitting up in bed. Awake and alert in no acute distress. She is breathing easier today. She is on 4 L/m per nasal cannula. The staff does state she desaturates [place] the night at times with possible some sleep apnea. She is currently in atrial fibrillation with a rate in the 90s. She is a 0.9 normal saline at KVO. Her blood cultures were positive for of a hemolytic strep. She is continued on Zosyn. No worsening shortness of breath, cough or congestion. No fever chills or night sweats. No chest pain or palpitations. White count 6.5. Hemoglobin 8.2. Creatinine 0.58. Objective - Vital Signs Vital signs: Vital Signs Temp 98.7 F 09/01/19 08:00 Pulse 87 09/01/19 10:00 Resp 11 L 09/01/19 10:00 BP 137/78 09/01/19 10:00 Pulse Ox 96 09/01/19 10:00 Intake & Output 08/31/19 09/01/19 09/01/19 18:59 06:59 18:59 Intake Total 840 220 280 Output Total 920 750 420 Balance -80 -530 -140 Weight 97.3 kg Intake: IV 260 220 80 0.9 260 220 80 Oral 580 200 Output: Urine 920 750 420 Other: Voiding Method Indwelling Catheter Indwelling Catheter Indwelling Catheter - Exam Physical Exam: Revealed 83-year-old female, pleasant, in no form of respiratory distress. On 4 L nasal cannula. Head: Atraumatic, normocephalic. HEENT:Neck is supple. No neck masses. No thyromegaly. No JVD. PERRLA, EOMI, no icterus, moist mucous membranes. Chest: Symmetrical chest expansion, with few scattered rhonchi bilaterally. Cardiac Exam: Irregularly irregular rhythm. Normal S1 and S2, no S3 gallop, 2/6 systolic murmur thought the precordium. Abdomen: obese,Soft, nontender, no megaly, no rebound, no guarding, normal bowel sounds. Extremities: No clubbing, no edema, no cyanosis. Neurological Exam: [No focal neurologic deficit.]alert and oriented 3. Psychiatric: Normal mood, affect and normal mental status examination. Skin: No rashes. Lymphatics: No lymphadenopathy. - Labs CBC & Chem 7: 09/01/19 03:50 09/01/19 03:50 Labs: Abnormal Lab Results - Last 24 Hours (Table) 08/31/19 08/31/19 08/31/19 Range/Units 11:43 16:39 20:21 RBC (3.80-5.40) m/uL Hgb (11.4-16.0) gm/dL Hct (34.0-46.0) % MCH (25.0-35.0) pg MCHC (31.0-37.0) g/dL RDW (11.5-15.5) % Lymphocytes # (1.0-4.8) k/uL Sodium (137-145) mmol/L POC Glucose (mg/dL) 154 H 128 H 119 H (75-99) mg/dL Calcium (8.4-10.2) mg/dL 09/01/19 09/01/19 09/01/19 Range/Units 03:50 03:50 06:53 RBC 3.30 L (3.80-5.40) m/uL Hgb 8.2 L (11.4-16.0) gm/dL Hct 27.9 L (34.0-46.0) % MCH 24.9 L (25.0-35.0) pg MCHC 29.4 L (31.0-37.0) g/dL RDW 17.2 H (11.5-15.5) % Lymphocytes # 0.7 L (1.0-4.8) k/uL Sodium 135 L (137-145) mmol/L POC Glucose (mg/dL) 117 H (75-99) mg/dL Calcium 8.3 L (8.4-10.2) mg/dL Microbiology - Last 24 Hours (Table) 08/30/19 04:29 Blood Culture Gram Stain - Preliminary Blood Blood Culture - Preliminary Alpha Hemolytic Streptococcus 08/28/19 17:30 Blood Culture Gram Stain - Final Blood Blood Culture - Final Alpha Hemolytic Streptococcus Assessment and Plan Assessment: 1 Acute febrile illness, sepsis with gram-positive bacteremia, alphahemolytic strep, exact source is not clear 2 Atrial fibrillation with RVR. Improved. 3 Gram-positive bacteremia secondary to alphahemolytic strep. 4 Acute gram-positive sepsis 5 History of valvular heart disease and previous aortic valve replacement, echocardiogram does not reveal any evidence of vegetation him a mild to moderately impaired left ventricular systolic function with ejection fraction 4 0-45% 6 History of moderate mitral regurgitation. 7 Benign essential hypertension. 8 Type 2 diabetes. 9 Dyslipidemia. Plan: The patient was seen and evaluated by Dr. Madden. She is currently stable from the pulmonary standpoint. Titrate down the FiO2 as tolerated Continue Zosyn. Eliquis for DVT prophylaxis Can be transferred out of the ICU to selective May need an outpatient sleep study We will continue to follow I, the cosigning physician, performed a history & physical examination of the patient. Lungs sounds with few scattered rhonchi bilaterally. Maintaining good O2 saturations in the 90s on 4 L/m per nasal cannula. I discussed the assessment and plan of care with my nurse practitioner, Britney Mcmahon. I attest to the above note as dictated by her.
[2019-09-01 11:55] LABS: Glucose,Whole Blood 149 mg/dL (75-99)
[2019-09-01] MEDS: THIAMINE 100 MG TAB PO SCH (14:35)
[2019-09-01] MEDS: MULTIVITAMINS, THERA 1 EACH TAB PO SCH (14:36)
[2019-09-01] MEDS ORDERED: GENTAMICIN PER PHARMACY MISCELLANE SCH (15:00)
[2019-09-01] MEDS: AMPICILLIN 2,000 MG in SODIUM CHLORIDE 0.9% 100 ML IVPB SCH ×2 (16:01→21:09)
[2019-09-01 16:25] LABS: Glucose,Whole Blood 142 mg/dL (75-99)
--- NOTE | 2019-09-01 16:39 | CDI ---
Documentation Clarification Form Date: 09/01/2019 03:33:00 PM From: Lizz Block RN, CCDS Admit Date: 08/28/2019 10:29:00 PM Patient Name: Narda Montenegro Visit Number: [id number] ATTENTION: The Clinical Documentation Specialists (CDI) and [facility] Coding Staff appreciate your assistance in clarifying documentation. Please respond to the clarification below the line at the bottom and electronically sign. The CDI & [facility] Coding staff will review the response and follow-up if needed. Please note: Queries are made part of the Legal Health Record. If you have any questions, please contact the author of this message via ITS. Dr. Esvin Paz Anemia is documented in the PMH and requires further specificity. History/Risk Factors: Anemia, Guillain-[place] syndrome, ovarian cancer with hysterectomy Clinical indicators: Hemoglobin: 9.1/7.7/7.9/7.8/8.2 Hematocrit: 29.5/25.8/26.3/26.6/27.9 Treatment: 08/27 1 L 0.9% NS IVF bolus Feosol 325mg PO BID In order to capture the severity of condition, please clarify the type of anemia and etiology if known:. Acute on chronic blood loss anemia Chronic blood loss anemia Iron deficiency anemia Drug induced anemia Anemia due to malignancy Nutritional anemia Anemia of chronic disease Unable to determine Other, please specify (Last Form Revision: July 2019) Normocytic anemia-cause unable to determine MTDD
[2019-09-01] MEDS: FLUoxetine HCL 20 MG CAP PO SCH (17:28)
[2019-09-01] MEDS: GENTAMICIN 80 MG in SODIUM CHLORIDE 0.9% 100 ML IVPB SCH ×2 (17:28→23:19)
[2019-09-01] MEDS: FOLIC ACID 1 MG TAB PO SCH (17:28)
--- NOTE | 2019-09-01 20:22 | P.PN ---
Progress Note - Text Progress Note Date: 09/01/19 Chief Complaint: Fever History of presenting complaint: This is a very pleasant 83-year-old patient of Dr. Coles. Resident of [facility] [place]. Chronic stable medical conditions include atrial fibrillation on eliquis,, hyperlipidemia, hypertension, Guillain-Preciado syndrome with lower extremity weakness, hypothyroid. Patient now presents with 2 weeks of fever or off. Appetite is okay. No change in bowel habits. Has slight dry cough. 2 weeks ago she did fall and has a bump on her head. Patient smoked about a pack and half day for many years stopped about a month ago ago. A. fib with a rapid ventricular rate on presentation. Put on a Cardizem drip. Denies any obvious urinary symptoms. No headaches no dizziness. No change in vision. Initial coronavirus PCR was negative. Admitted with-pneumonia with blood cultures positive. Also atrial fibrillation with rapid ventricular rate. Started on IV vancomycin and IV Zosyn. IV Cardizem drip. Blood cultures showing alphahemolytic streptococcus. Vancomycin discontinued. Today-Moved out of the ICU. Resting a bit. No new issues. A bit tired. Review of systems: Was done for constitutional, cardiovascular, GI, pulmonary. relevant finding as above Active Medications Acetaminophen (Tylenol Tab) 650 mg PO Q4HR PRN PRN Reason: Fever>101 Last Admin: 08/29/19 14:56 Dose: 650 mg Documented by: Alprazolam (Xanax) 0.25 mg PO DAILY PRN PRN Reason: Anxiety Last Admin: 08/30/19 22:05 Dose: 0.25 mg Documented by: Apixaban (Eliquis) 2.5 mg PO BID@0800,1700 [facility] Last Admin: 09/01/19 17:28 Dose: 2.5 mg Documented by: Artificial Tears (Artificial Tear Drops) 1 drops BOTH EYES TID@0800,1200,1700 [facility] Last Admin: 09/01/19 17:29 Dose: 1 drops Documented by: Carvedilol (Coreg) 25 mg PO BID@0800,1700 [facility] Last Admin: 09/01/19 17:28 Dose: 25 mg Documented by: Diltiazem HCl (Cardizem Oral) 30 mg PO TID [facility] Last Admin: 09/01/19 18:39 Dose: 30 mg Documented by: Ferrous Sulfate (Feosol) 325 mg PO BID@0800,2100 [facility] Last Admin: 09/01/19 09:29 Dose: 325 mg Documented by: Fluoxetine HCl (Prozac) 40 mg PO DAILY@1700 [facility] Last Admin: 09/01/19 17:28 Dose: 40 mg Documented by: Folic Acid (Folic Acid) 1 mg PO DAILY@1700 [facility] Last Admin: 09/01/19 17:28 Dose: 1 mg Documented by: Gabapentin (Neurontin) 400 mg PO QID@06,12,1700,2100 [facility] Last Admin: 09/01/19 17:28 Dose: 400 mg Documented by: Guaifenesin (Robitussin) 400 mg PO Q4H PRN PRN Reason: Congestion Sodium Chloride (Saline 0.9%) 1,000 mls @ 20 mls/hr IV .Q24H [facility] Last Admin: 09/01/19 10:50 Dose: Not Given Documented by: Ampicillin Sodium 2,000 mg/ (Sodium Chloride) 100 mls @ 200 mls/hr IVPB Q4HR [facility] Last Admin: 09/01/19 16:01 Dose: 200 mls/hr Documented by: Gentamicin Sulfate 80 mg/ (Sodium Chloride) 102 mls @ 102 mls/hr IVPB Q8H [facility] Last Admin: 09/01/19 17:28 Dose: 102 mls/hr Documented by: Lactic Acid (Ammonium Lactate) 1 applic TOPICAL DAILY PRN PRN Reason: dry skin on feet Levothyroxine Sodium (Synthroid) 100 mcg PO 0630 [facility] Last Admin: 09/01/19 06:25 Dose: 100 mcg Documented by: Lisinopril (Zestril) 10 mg PO DAILY@2099 [facility] Last Admin: 08/31/19 20:15 Dose: 10 mg Documented by: Magnesium Hydroxide (Milk Of Magnesia) 2,400 mg PO DAILY PRN PRN Reason: Constipation Metformin HCl (Glucophage) 500 mg PO BID@0800,1700 [facility] Last Admin: 09/01/19 17:28 Dose: 500 mg Documented by: Miscellaneous Information (Pneumonia Protocol Utilized) 1 each PO ONCE PRN PRN Reason: Per Protocol Miscellaneous Information (Magnesium Per Protocol) 1 each MISCELLANE DAILY PRN; Protocol PRN Reason: Per Protocol Multivitamins (Theragran) 1 each PO DAILY@1200 [facility] Last Admin: 09/01/19 14:36 Dose: 1 each Documented by: Naloxone HCl (Narcan) 0.2 mg IV Q2M PRN PRN Reason: Opioid Reversal Pantoprazole Sodium (Protonix) 40 mg PO BID@0800,1700 [facility] Last Admin: 09/01/19 17:28 Dose: 40 mg Documented by: Pravastatin Sodium (Pravachol) 80 mg PO DAILY@2100 [facility] Last Admin: 08/31/19 20:15 Dose: 80 mg Documented by: Primidone (Mysoline) 25 mg PO DAILY@0800 [facility] Last Admin: 09/01/19 09:29 Dose: 25 mg Documented by: Primidone (Mysoline) 100 mg PO DAILY@2100 [facility] Last Admin: 08/31/19 20:15 Dose: 100 mg Documented by: Thiamine HCl (Vitamin B-1) 100 mg PO DAILY@1200 [facility] Last Admin: 09/01/19 14:35 Dose: 100 mg Documented by: Tramadol HCl (Ultram) 50 mg PO Q8H PRN PRN Reason: Pain Last Admin: 09/01/19 10:51 Dose: 50 mg Documented by: Physical examination: VITAL SIGNS: 98.4, 96, 16, 143/77, 100% on 4 L GENERAL: Laying bed, comfortable. EYES: Pupils equal. Conjunctiva normal. HEENT: External appearance of nose and ears normal, oral cavity grossly normal. NECK: JVD not raised; masses not palpable. HEART: Irregular heart sounds; no edema. LUNGS: Respiratory rate normal, decreased breath sounds. ABDOMEN: Soft, nontender, liver spleen not palpable, no masses palpable. PSYCH: Alert and oriented x3; mood and affect tired INVESTIGATIONS, reviewed in the clinical context: White count 6.5 hemoglobin 8.2 platelets 192 creatinine 0.58 Previous testing White count 6.8 hemoglobin 9.1 platelets 129 potassium 4.6 creatinine 0.69 d- dimer 1.79 LDH 643 CRP 136 pro calcitonin 4.86 Coronavirus [id number] Chest x-ray film personally reviewed by me--scattered infiltrates EKG tracing personally reviewed by me-atrial fibrillation rate uncontrolled CT chest-negative for PE right upper lobe 4 mm pulmonary nodule Blood cultures August 27 and August 29-positive for alpha hemolytic strep 2-D echo-moderate global hypokinesis-EF 40-45% moderate mitral and tricuspid regurgitation no obvious vegetation reported Assessment: -Sepsis picture, with symptoms present for 2 weeks, with scattered infiltrates on chest x-ray( COVID 19-PCR test was negative. .) Positive blood culture- alphahemolytic streptococcus. improving. 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 Cardiology consulted for-GUILLERMINA. Await input from Dr. Knowles
[2019-09-01] MEDS: PRAVASTATIN SODIUM 80 MG TAB PO SCH (21:09)
[2019-09-01] MEDS: LISINOPRIL 10 MG TAB PO SCH (21:09)
[2019-09-01] MEDS: PRIMIDONE 50 MG TAB PO SCH (21:09)
[2019-09-01 21:39] LABS: Glucose,Whole Blood 136 mg/dL (75-99)
[2019-09-01] MEDS: ALPRAZolam 0.25 MG TAB PO PRN (22:53)
--- NOTE | 2019-09-01 23:08 | CONS ---
CONSULTATION DATE OF SERVICE: 09/01/2019 REASON FOR CONSULTATION: Sepsis and bacteremia. HISTORY OF PRESENT ILLNESS: The patient is an 83-year-old female with a past medical history significant for atrial fibrillation. The patient did have aortic valve replacement. She is a custodial resident. The patient was sent to the ER at [facility] about 4 days ago on 08/28/2019 for evaluation of fever and shortness of breath. The patient's symptoms started that day. The patient said she was complaining of some rigors and chills prior to his fever starting. The patient denies having any headache or any URI symptoms. Denies having any chest pain. Did have some shortness of breath. He has a minimal cough but no sputum production. No nausea, no vomiting. No abdominal pain or any diarrhea. With these symptoms, the patient was evaluated by the ER physician. On arrival at the ER, the patient did have a fever of 103 degrees Fahrenheit. The patient had mild tachycardia at times and did have a normal white count. The patient did have lymphopenia; however, the COVID-19 testing was negative. Urine was negative. Chest x-ray showed mild congestion. She did have a CT angiogram that was negative for PE and did not show any consolidation or any ground-glass opacities. The patient was diagnosed with pneumonia and has been treated with Zosyn. The patient did have blood cultures drawn on admission that came back positive for alpha hemolytic Streptococcus. She had a repeat blood culture on August 29 which is now coming back positive for alpha hemolytic Streptococcus. That has prompted this infectious disease consultation. REVIEW OF SYSTEMS: Positive points have been mentioned in the HPI. Rest of the systems are negative. PAST MEDICAL HISTORY: Atrial fibrillation, hyperlipidemia, hypertension, hypothyroidism, Guillain-[place] syndrome. PAST SURGICAL HISTORY: Bioprosthetic aortic valve, hysterectomy for ovarian cancer. SOCIAL HISTORY: Remote history of smoking. No drinking or drug use. Currently resides at [facility]. ALLERGIES: ADHESIVE TAPE, INFLUENZA VIRUS VACCINE. MEDICATIONS: Current medications include Zosyn, Xanax, Coreg, Cardizem, iron sulfate, Prozac Synthroid, Zestril, Glucophage, Theragran, Narcan, Protonix, Pravachol, tramadol and vitamin B1. PHYSICAL EXAMINATION: Blood pressure 126/77 with a pulse of 86, temperature of 99. She is 96% on room air. General description is an elderly female lying in bed in no distress. No tachypnea or accessory muscle of respiration use. HEENT examination shows slight pallor. No scleral icterus. Oral mucosa membrane is dry. No pharyngeal erythema or thrush. NECK: Trachea is central. No thyromegaly. LUNGS: Unlabored breathing. Decreased breath sounds at the bases. No wheeze. HEART: S1, S2. Irregular rhythm. Systolic murmur. ABDOMEN: Soft. No tenderness. No guarding or rigidity. No organomegaly. EXTREMITIES: No edema of the feet. SKIN EXAMINATION: No rash or mass palpable. Neurologically the patient is awake and alert, oriented x3. Mood and affect normal. LABS: Hemoglobin is 8.2, white count 6.5. BUN of 10, creatinine 0.5. Electrolytes have been normal. Urine not positive. Coronavirus PCR negative. Blood culture with alpha hemolytic Streptococcus x2. CT angiogram did not show any pneumonia. Echocardiogram did show a moderately thickened mitral valve with functioning bioprosthetic aortic valve. DIAGNOSTIC IMPRESSION AND PLAN: Patient admitted to hospital with sepsis in this patient who did have fever and tachycardia with evidence of alpha hemolytic Streptococcus bacteremia. The patient's workup so far includes a CT angiogram that was negative for pneumonia. Urine not significantly positive. Patient's abdomen is soft on clinical examination. No evidence of any cellulitis. With concern for possible infective endocarditis involving either the mitral or the bioprosthetic aortic valve. PLAN: 1. Blood culture will be repeated today as well as tomorrow to document clearance of bacteremia. 2. Discontinue Zosyn. 3. Will start the patient on ampicillin 2 grams q.4 hours and gentamicin, Pharmacy to dose. 4. Request GUILLERMINA to rule out infective endocarditis. 5. We will follow her clinical condition and cultures to further adjust medication if needed. Thank you for this consultation. Will follow this patient along with you. MMODL / IJN: [id number] /
[2019-09-02] MEDS: AMPICILLIN 2,000 MG in SODIUM CHLORIDE 0.9% 100 ML IVPB SCH ×6 (01:27→20:33)
[2019-09-02] MEDS: SODIUM CHLORIDE 0.9% 1,000 ML IV SCH (01:28)
[2019-09-02] MEDS: GABAPENTIN 400 MG CAP PO SCH ×4 (05:56→20:33)
[2019-09-02] MEDS: LEVOTHYROXINE 100 MCG TAB PO SCH (05:56)
[2019-09-02 06:39] LABS: Glucose,Whole Blood 109 mg/dL (75-99)
[2019-09-02 08:14] LABS: African American GFR (CKD) >90 (>60 ml/min/1.73 sqM); Non-African American GFR(CKD) 87 (>60 ml/min/1.73 sqM)
[2019-09-02] MEDS: ARTIFICIAL TEARS-HYPROMELLOSE DROPS 15 ML BTL BOTH EYES SCH ×3 (08:39→17:27)
[2019-09-02] MEDS: FERROUS SULFATE 325 MG TAB PO SCH ×2 (08:40→20:34)
[2019-09-02] MEDS: APIXABAN 2.5 MG TABLET PO SCH ×2 (08:40→17:24)
[2019-09-02] MEDS: DILTIAZEM ORAL 30 MG TAB PO SCH ×4 (08:40→20:54)
[2019-09-02] MEDS: CARVEDILOL 12.5 MG TAB PO SCH ×2 (08:40→17:24)
[2019-09-02] MEDS: metFORMIN 500 MG TAB PO SCH ×2 (08:40→17:24)
[2019-09-02] MEDS: PRIMIDONE 25 MG TAB PO SCH (08:40)
[2019-09-02] MEDS: PANTOPRAZOLE 40 MG TABLET PO SCH ×2 (08:40→17:24)
[2019-09-02] MEDS: GENTAMICIN 80 MG in SODIUM CHLORIDE 0.9% 100 ML IVPB SCH ×2 (09:32→16:16)
[2019-09-02 11:13] LABS: Glucose,Whole Blood 114 mg/dL (75-99)
[2019-09-02 11:27] VITALS: BMI 31.6
[2019-09-02] MEDS: MULTIVITAMINS, THERA 1 EACH TAB PO SCH (11:34)
[2019-09-02] MEDS: THIAMINE 100 MG TAB PO SCH (11:34)
--- NOTE | 2019-09-02 13:02 | P.PN ---
Subjective Progress Note Date: 09/02/19 Principal diagnosis: Acute gram-positive sepsis and bacteremia secondary to alphahemolytic strep This is an 83-year-old female with history of multiple medical problems including chronic atrial fibrillation, on long-term anticoagulation therapy, valvular heart disease and previous aortic valve replacement 5 years ago. No history of hypertension, diabetes, dyslipidemia, chronic nicotine dependence. Patient was sent to the emergency room from [facility] care facility for fever in the last few days. No other symptoms except for generalized weakness fatigue, and occasional cough. Patient was tested covid 19, and the tests came back negative.in the ER, patient was noted to be hypotensive, hence CT angiogram of the chest was done, and it showedno evidence of pulmonary embolism, there was however evidence of cardiomegaly, mild pulmonary vascular congestion, and COPD/emphysema with possible pulmonary arterial hypertension. No evidence of infiltrate was noted on the chest x-ray or CT angiogram of the chest. Patient was given fluid boluses, she was placed on antibiotics empirically, and she was admitted to the intensive care unit. Did not require any pressors. However she was given fluids, and when I evaluated the patient, she remained hemodynamically stable, and she was in no distress. Patient had mostly symptoms of fever for the last few days. But no other symptoms. No headache no blurred vision no dizziness. She had occasional cough, no chest pain, no orthopnea, no PND, she does have history of chronic atrial fibrillation, had no nausea no vomiting no abdominal pain no melena no hematemesis, no dysuria and no frequency no urgency and no hematuria.considering the patient was in atrial fibrillation with RVR, she was placed on Cardizem drip at 5 mg per hour. This morning, her blood cultures were positive for gram-positive cocci in chains. Her pro calcitonin level was 4.86. Patient is presently on 2 L nasal cannula. Patient was reevaluated today on 08/30/19, remains in the ICU, however she is on 2 L nasal cannula, asymptomatic, not requiring any pressors. She is on Cardizem at 5 mg per hour which I plan to switch to oral Cardizem at 30 mg by mouth 3 times a day. IV fluid is at 20 mL per hour. Patient is basically asymptomatic. She denies any headache or blurred vision or dizziness denies any cough wheezing or shortness of breath denies any nausea vomiting abdominal pain denies any dysuria frequency or urgency. Denies any hematuria. Denies any skin ulceration or any areas of cellulitis or swelling. Overall the patient looks g reat. Remains on antibiotics in the form of vancomycin and Zosyn until the final blood culture becomes available, and adjust her antibiotics accordingly. Chest x-ray showed cardiomegaly and minimal interstitial prominence on the right. No clear-cut evidence of pneumonia. Although her pro calcitonin level was elevated on admission. CBC is basically normal except for hemoglobin of 2.9. D-dimer is 2.70. Electrolytes and renal profile are normal. The patient is seen today 08/31/2019 in follow-up in the intensive care unit. She is currently awake and alert in no acute distress. She is maintaining O2 saturations in the 90s on 4 L/m per nasal cannula. She is a 0.9 normal saline at KVO. Blood cultures were positive for alphahemolytic strep. She is currently on Zosyn. Chest x-ray reveals scattered interstitial infiltrates without significant change. Echocardiogram revealed overall left ventricular systolic function with mild to moderately impaired ejection fraction between 40-45%. There is [id number] mitral regurgitation. Mild to moderate pulmonary hypertension. White count 7.2. Hemoglobin 7.8. D-dimer 1.54. Sodium 136. Potassium 3.9. Creatinine 0.57. C-reactive protein 132. LDH 530. Heart rate is better controlled. Currently on oral Cardizem. Anticoagulated with Eliquis. The patient is seen today 09/01/2019 in follow-up in the intensive care unit. She is sitting up in bed. Awake and alert in no acute distress. She is breathing easier today. She is on 4 L/m per nasal cannula. The staff does state she desaturates [place] the night at times with possible some sleep apnea. She is currently in atrial fibrillation with a rate in the 90s. She is a 0.9 normal saline at KVO. Her blood cultures were positive for of a hemolytic strep. She is continued on Zosyn. No worsening shortness of breath, cough or congestion. No fever chills or night sweats. No chest pain or palpitations. White count 6.5. Hemoglobin 8.2. Creatinine 0.58. The patient was seen today 09/02/2019 on the medical surgical unit with Dr. Madden. She was sitting up in bed in no acute distress. Denies pain or any increased shortness of breath. She was on 4 L nasal cannula with oxygen saturation 99%. Remains afebrile. Hemodynamically stable. Creatinine 0.5 this morning, otherwise no labs drawn today or x-rays completed. Blood cultures demonstrate hemolytic strep, remains on IV ampicillin and gentamicin per infectious disease. No new concerns, states she feels ready to go home. Objective - Vital Signs Vital signs: Vital Signs Temp 97.5 F L 09/02/19 07:00 Pulse 95 09/02/19 07:00 Resp 16 09/02/19 08:56 BP 133/84 09/02/19 07:00 Pulse Ox 99 09/02/19 07:00 Intake & Output 09/01/19 09/02/19 09/02/19 18:59 06:59 18:59 Intake Total 540 Output Total 420 Balance 120 Weight 97.3 kg Intake: IV 80 0.9 80 Oral 460 Output: Urine 420 Other: Voiding Method Indwelling Catheter # Voids 0 1 1 # Bowel Movements 1 - Constitutional Constitutional Comment(s): Sitting up in bed, appears comfortable General appearance: Present: cooperative, no acute distress, obese - Respiratory Details: Lungs sounds diminished bilaterally with few scattered rhonchi. Respirations even, nonlabored. Currently on 4 L nasal cannula with oxygen saturation 99%, O2 turned down to 2 L nasal cannula. - Cardiovascular Details: S1, S2 present. Irregular rhythm. Palpable peripheral pulses bilaterally. 1+ bilateral lower extremity edema present. No calf pain or tenderness noted. - Gastrointestinal Gastrointestinal Comment(s): Abdomen soft, nontender, nondistended. No organomegaly present. Active bowel sounds present 4 quadrants. Tolerating diet. - Integumentary Integumentary Comment(s): Skin is warm and dry with evidence of good perfusion. - Neurologic Neurologic: Present: CNII-XII intact - Musculoskeletal Musculoskeletal: Present: generalized weakness, strength equal bilaterally - Psychiatric Psychiatric: Present: A&O x's 3, appropriate affect, intact judgment & insight - Allied health notes Allied health notes reviewed: nursing - Labs CBC & Chem 7: 09/01/19 03:50 09/02/19 07:07 Labs: Abnormal Lab Results - Last 24 Hours (Table) 09/01/19 09/01/19 09/01/19 Range/Units 15:39 15:39 16:24 ESR 36 H (0-20) mm/hr POC Glucose (mg/dL) 142 H (75-99) mg/dL C-Reactive Protein 67.5 H (<10.0) mg/L 09/01/19 09/02/19 09/02/19 Range/Units 21:37 06:38 11:11 ESR (0-20) mm/hr POC Glucose (mg/dL) 136 H 109 H 114 H (75-99) mg/dL C-Reactive Protein (<10.0) mg/L Microbiology - Last 24 Hours (Table) 08/30/19 04:29 Blood Culture Gram Stain - Final Blood Blood Culture - Final Alpha Hemolytic Streptococcus Assessment and Plan Assessment: 1 Acute febrile illness, sepsis with gram-positive bacteremia, alphahemolytic strep, exact source is not clear 2 Atrial fibrillation with RVR. Improved. 3 Gram-positive bacteremia secondary to alphahemolytic strep. 4 Acute gram-positive sepsis 5 History of valvular heart disease and previous aortic valve replacement, echocardiogram does not reveal any evidence of vegetation, mild to moderately impaired left ventricular systolic function with ejection fraction 40-45% 6 History of moderate mitral regurgitation. 7 Benign essential hypertension. 8 Type 2 diabetes. 9 Dyslipidemia. Plan: The patient was seen and evaluated by Dr. Madden. She is currently stable from the pulmonary standpoint. Titrate down the FiO2 as tolerated, decreased to 2 L this morning Continue ampicillin, gentamicin per infectious disease recommendations Eliquis for anticoagulation May need an outpatient sleep study May be discharged back to [facility] from pulmonology standpoint when okay with other services We will continue to follow while hospitalized I, the cosigning physician, performed a history & physical examination of the patient. Lungs sounds are diminished with few scattered rhonchi bilaterally. Maintaining good O2 saturations in the 90s on 4 L nasal cannula, decreased to 2 L. I discussed the assessment and plan of care with my nurse practitioner, Oralia Ramires. I attest to the above note as dictated by her. Time with Patient: Greater than 30
--- NOTE | 2019-09-02 14:57 | P.PN ---
Progress Note - Text Progress Note Date: 09/02/19 Chief Complaint: Fever History of presenting complaint: This is a very pleasant 83-year-old patient of Dr. Coles. Resident of [facility]. Chronic stable medical conditions include atrial fibrillation on eliquis,, hyperlipidemia, hypertension, Guillain-Preciado syndrome with lower extremity weakness, hypothyroid. Patient now presents with 2 weeks of fever or off. Appetite is okay. No change in bowel habits. Has slight dry cough. 2 weeks ago she did fall and has a bump on her head. Patient smoked about a pack and half day for many years stopped about a month ago ago. A. fib with a rapid ventricular rate on presentation. Put on a Cardizem drip. Denies any obvious urinary symptoms. No headaches no dizziness. No change in vision. Initial coronavirus PCR was negative. Admitted with-pneumonia with blood cultures positive. Also atrial fibrillation with rapid ventricular rate. Started on IV vancomycin and IV Zosyn. IV Cardizem drip. Blood cultures showing alphahemolytic streptococcus. Vancomycin discontinued. Today-starting a diet. No fever. Pending GUILLERMINA. On antibiotics.. Review of systems: Was done for constitutional, cardiovascular, GI, pulmonary. relevant finding as above Active Medications Acetaminophen (Tylenol Tab) 650 mg PO Q4HR PRN PRN Reason: Fever>101 Last Admin: 08/29/19 14:56 Dose: 650 mg Documented by: Alprazolam (Xanax) 0.25 mg PO DAILY PRN PRN Reason: Anxiety Last Admin: 09/01/19 22:53 Dose: 0.25 mg Documented by: Apixaban (Eliquis) 2.5 mg PO BID@0800,1700 [facility] Last Admin: 09/02/19 08:40 Dose: 2.5 mg Documented by: Artificial Tears (Artificial Tear Drops) 1 drops BOTH EYES TID@0800,1200,1700 [facility] Last Admin: 09/02/19 11:36 Dose: 1 drops Documented by: Carvedilol (Coreg) 25 mg PO BID@0800,1700 [facility] Last Admin: 09/02/19 08:40 Dose: 25 mg Documented by: Diltiazem HCl (Cardizem Oral) 30 mg PO TID [facility] Last Admin: 09/02/19 08:40 Dose: 30 mg Documented by: Ferrous Sulfate (Feosol) 325 mg PO BID@0800,2100 [facility] Last Admin: 09/02/19 08:40 Dose: 325 mg Documented by: Fluoxetine HCl (Prozac) 40 mg PO DAILY@170 [facility] Last Admin: 09/01/19 17:28 Dose: 40 mg Documented by: Folic Acid (Folic Acid) 1 mg PO DAILY@170 [facility] Last Admin: 09/01/19 17:28 Dose: 1 mg Documented by: Gabapentin (Neurontin) 400 mg PO QID@06,12,170,2099 [facility] Last Admin: 09/02/19 11:34 Dose: 400 mg Documented by: Guaifenesin (Robitussin) 400 mg PO Q4H PRN PRN Reason: Congestion Sodium Chloride (Saline 0.9%) 1,000 mls @ 20 mls/hr IV .Q24H [facility] Last Admin: 09/02/19 01:28 Dose: 20 mls/hr Documented by: Ampicillin Sodium 2,000 mg/ (Sodium Chloride) 100 mls @ 200 mls/hr IVPB Q4HR [facility] Last Admin: 09/02/19 11:33 Dose: 200 mls/hr Documented by: Gentamicin Sulfate 80 mg/ (Sodium Chloride) 102 mls @ 102 mls/hr IVPB Q8H [facility] Last Admin: 09/02/19 09:32 Dose: 102 mls/hr Documented by: Lactic Acid (Ammonium Lactate) 1 applic TOPICAL DAILY PRN PRN Reason: dry skin on feet Levothyroxine Sodium (Synthroid) 100 mcg PO 0630 [facility] Last Admin: 09/02/19 05:56 Dose: 100 mcg Documented by: Lisinopril (Zestril) 10 mg PO DAILY@2099 [facility] Last Admin: 09/01/19 21:09 Dose: 10 mg Documented by: Magnesium Hydroxide (Milk Of Magnesia) 2,400 mg PO DAILY PRN PRN Reason: Constipation Metformin HCl (Glucophage) 500 mg PO BID@0800,1700 [facility] Last Admin: 09/02/19 08:40 Dose: 500 mg Documented by: Miscellaneous Information (Pneumonia Protocol Utilized) 1 each PO ONCE PRN PRN Reason: Per Protocol Miscellaneous Information (Magnesium Per Protocol) 1 each MISCELLANE DAILY PRN; Protocol PRN Reason: Per Protocol Miscellaneous Information (Gentamicin Trough Due) 0 each MISCELLANE DIRECTED ONE Stop: 09/02/19 15:01 Miscellaneous Information (Gentamicin Peak Due) 0 each MISCELLANE DIRECTED ONE Stop: 09/02/19 17:31 Multivitamins (Theragran) 1 each PO DAILY@1200 [facility] Last Admin: 09/02/19 11:34 Dose: 1 each Documented by: Naloxone HCl (Narcan) 0.2 mg IV Q2M PRN PRN Reason: Opioid Reversal Pantoprazole Sodium (Protonix) 40 mg PO BID@0800,1700 [facility] Last Admin: 09/02/19 08:40 Dose: 40 mg Documented by: Pravastatin Sodium (Pravachol) 80 mg PO DAILY@2100 [facility] Last Admin: 09/01/19 21:09 Dose: 80 mg Documented by: Primidone (Mysoline) 25 mg PO DAILY@0800 [facility] Last Admin: 09/02/19 08:40 Dose: 25 mg Documented by: Primidone (Mysoline) 100 mg PO DAILY@2100 [facility] Last Admin: 09/01/19 21:09 Dose: 100 mg Documented by: Thiamine HCl (Vitamin B-1) 100 mg PO DAILY@1200 [facility] Last Admin: 09/02/19 11:34 Dose: 100 mg Documented by: Tramadol HCl (Ultram) 50 mg PO Q8H PRN PRN Reason: Pain Last Admin: 09/01/19 22:53 Dose: 50 mg Documented by: Physical examination: VITAL SIGNS: 97.5, 95, 16, 133/84, 99% on 4 L GENERAL: Laying bed, comfortable. EYES: Pupils equal. Conjunctiva normal. HEENT: External appearance of nose and ears normal, oral cavity grossly normal. NECK: JVD not raised; masses not palpable. HEART: Irregular heart sounds; no edema. LUNGS: Respiratory rate normal, decreased breath sounds. ABDOMEN: Soft, nontender, liver spleen not palpable, no masses palpable. PSYCH: Alert and oriented x3; mood and affect tired INVESTIGATIONS, reviewed in the clinical context: White count 6.5 hemoglobin 8.2 platelets 192 creatinine 0.58 CRP 67.5 Previous testing White count 6.8 hemoglobin 9.1 platelets 129 potassium 4.6 creatinine 0.69 d- dimer 1.79 LDH 643 CRP 136 pro calcitonin 4.86 Coronavirus [id number] Chest x-ray film personally reviewed by me--scattered infiltrates EKG tracing personally reviewed by me-atrial fibrillation rate uncontrolled CT chest-negative for PE right upper lobe 4 mm pulmonary nodule Blood cultures August 27 and August 29-positive for alpha hemolytic strep 2-D echo-moderate global hypokinesis-EF 40-45% moderate mitral and tricuspid regurgitation no obvious vegetation reported Assessment: -Sepsis picture, with symptoms present for 2 weeks, with scattered infiltrates on chest x-ray( COVID 19-PCR test was negative. .) Positive blood culture-alphahemolytic streptococcus. improving. 2-D echo not showing any vegetation. Suspicion for infective endocarditis. 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 Pending GUILLERMINA.. Discussed with Dr. Knowles from ID. Other medications to continue.
[2019-09-02] MEDS ORDERED: GENTAMICIN TROUGH DUE 1 EACH MISC MISCELLANE ONE (15:00)
[2019-09-02 16:12] LABS: Glucose,Whole Blood 143 mg/dL (75-99)
[2019-09-02] MEDS: FOLIC ACID 1 MG TAB PO SCH (17:24)
[2019-09-02] MEDS: FLUoxetine HCL 20 MG CAP PO SCH (17:24)
[2019-09-02] MEDS ORDERED: GENTAMICIN PEAK DUE 1 EACH MISC MISCELLANE ONE (17:30)
--- NOTE | 2019-09-02 17:45 | PN ---
PROGRESS NOTE DATE OF SERVICE: 09/02/2019 REASON FOR FOLLOWUP: bacteremia . INTERVAL HISTORY: The patient is currently afebrile. The patient is breathing comfortably. The patient denies having any chest pain or shortness of breath or cough. No nausea, no vomiting, no abdominal pain or diarrhea. PHYSICAL EXAMINATION: Blood pressure 116/72 with a pulse of 104, temperature 97.7. She is 91% on room air. General description is an elderly female up in the chair with no distress. RESPIRATORY SYSTEM: Unlabored breathing. Clear to auscultation anteriorly. HEART: S1, S2. Regular rate and rhythm. ABDOMEN: Soft. No tenderness. LAB: Sed rate of 36. CRP 67.5. DIAGNOSTIC IMPRESSION AND PLAN: Patient with Enterococcus bacteremia on 08/27 and 08/29 with no other obvious focus of infection. We are waiting for the GUILLERMINA. The patient is empirically on gentamycin; to continue. Blood culture repeat has been ordered. Discharge antibiotic will depend upon the GUILLERMINA results and continue with supportive care. MMODL / FRANCKN: [id number] /
[2019-09-02] MEDS: LISINOPRIL 10 MG TAB PO SCH ×2 (20:33→20:54)
[2019-09-02] MEDS: PRAVASTATIN SODIUM 80 MG TAB PO SCH (20:33)
[2019-09-02] MEDS: PRIMIDONE 50 MG TAB PO SCH (20:34)
[2019-09-02 20:37] LABS: Glucose,Whole Blood 113 mg/dL (75-99)
[2019-09-02] MEDS: traMADol 50 MG TAB PO PRN (22:37)
[2019-09-02] MEDS: ALPRAZolam 0.25 MG TAB PO PRN (22:38)
[2019-09-03] MEDS: AMPICILLIN 2,000 MG in SODIUM CHLORIDE 0.9% 100 ML IVPB SCH ×7 (01:11→23:03)
[2019-09-03] MEDS: SODIUM CHLORIDE 0.9% 1,000 ML IV SCH ×2 (03:03→10:18)
[2019-09-03] MEDS: LEVOTHYROXINE 100 MCG TAB PO SCH (04:50)
[2019-09-03] MEDS: GABAPENTIN 400 MG CAP PO SCH ×4 (04:50→20:10)
[2019-09-03] MEDS: GENTAMICIN 80 MG in SODIUM CHLORIDE 0.9% 100 ML IVPB SCH ×2 (06:26→18:58)
[2019-09-03 06:48] LABS: Glucose,Whole Blood 107 mg/dL (75-99)
[2019-09-03] MEDS: DILTIAZEM ORAL 30 MG TAB PO SCH (07:45)
[2019-09-03] MEDS: CARVEDILOL 12.5 MG TAB PO SCH ×2 (07:51→16:23)
[2019-09-03] MEDS ORDERED: fentaNYL (PF) 50 MCG/ML 2 ML AMP ONE (08:16)
[2019-09-03] MEDS ORDERED: IV FLUID CONTINUATION 300 ML IV ONE (08:40)
[2019-09-03 08:53] LABS: African American GFR (CKD) >90 (>60 ml/min/1.73 sqM); Non-African American GFR(CKD) 86 (>60 ml/min/1.73 sqM)
[2019-09-03] MEDS ORDERED: BENZOCAINE SPRAY 1 CAN MUCOUS MEM ONE (08:56)
[2019-09-03] MEDS: MIDAZOLAM 2 MG/2 ML VIAL IV ONE ×2 (08:56→09:00)
[2019-09-03] MEDS ORDERED: fentaNYL (PF) 50 MCG/ML 2 ML AMP IV ONE (08:56)
[2019-09-03] MEDS: PRIMIDONE 25 MG TAB PO SCH (09:32)
[2019-09-03] MEDS: PANTOPRAZOLE 40 MG TABLET PO SCH ×2 (09:32→16:23)
[2019-09-03] MEDS: metFORMIN 500 MG TAB PO SCH ×2 (09:32→16:23)
[2019-09-03] MEDS: FERROUS SULFATE 325 MG TAB PO SCH ×2 (09:32→20:10)
[2019-09-03] MEDS: APIXABAN 2.5 MG TABLET PO SCH ×2 (09:32→16:23)
[2019-09-03] MEDS: ARTIFICIAL TEARS-HYPROMELLOSE DROPS 15 ML BTL BOTH EYES SCH ×3 (09:33→16:24)
--- NOTE | 2019-09-03 09:33 | P.PN ---
Subjective HISTORY OF PRESENTING ILLNESS This is a pleasant 83-year-old female past medical history significant for chronic persistent atrial fibrillation on long-term anticoagulation, valvular heart disease status post aortic valve replacement 5 years ago, diabetes mellitus, hypertension, dyslipidemia and chronic nicotine dependence. She follows in the office with Dr. Prather. We have been asked to do a GUILLERMINA secondary to positive blood cultures. She initially was seen for afib with RVR on admission. Currently her rates running on the higher side of normal. She denies chest pain, shortness of breath, dizziness or palpitations. Blood pressure 141/65 heart rate 100 afebrile and maintaining oxygen saturation on nasal cannula. Currently maintained on Eliquis 2.5 mg twice a day, Coreg 25 mg twice a day, diltiazem 30 mg 3 times a day and lisinopril 10 mg daily. PHYSICAL EXAMINATION CONSTITUTIONAL: No apparent distress. HEENT: Head is normocephalic. Pupils are equal, round. Sclerae anicteric. Mucous membranes of the mouth are moist. No JVD. No carotid bruit. CHEST EXAMINATION: Lungs are clear to auscultation. No chest wall tenderness is noted on palpation or with deep breathing. HEART EXAMINATION: Irregular rate and rhythm. S1, S2 heard. Systolic ejection murmur at the base and left sternal border, no gallops or rub. EXTREMITIES: 2+ peripheral pulses, no lower extremity edema and no calf tenderness. ASSESSMENT Atrial fibrillation with rapid ventricular response, chronic persistent. Rates improved. Febrile illness Sepsis Positive blood cultures Valvular heart disease status post aortic valve replacement Hypertension Dyslipidemia Diabetes mellitus PLAN I have discussed the risks, benefits and alternative therapies for the above- mentioned procedure and for both sedation/analgesia as well as necessary blood product administration, if indicated, as they pertain to this patient. The patient has indicated understanding and acceptance of the risks and procedures discussed. GUILLERMINA will be performed this morning. Increase diltiazem to 60 mg TID for better rate control. Nurse Practitioner note has been reviewed, I agree with a documented findings and plan of care. Patient was seen and examined. Objective - Vital Signs Vital signs: Vital Signs Temp 98.8 F 09/03/19 07:00 Pulse 100 09/03/19 09:06 Resp 16 09/03/19 09:06 BP 141/65 09/03/19 09:06 Pulse Ox 95 09/03/19 09:06 Intake & Output 09/02/19 09/03/19 09/03/19 18:59 06:59 18:59 Intake Total 650 100 Balance 650 100 Weight 97.3 kg Intake: IV 100 Oral 650 Other: Voiding Method Indwelling Catheter Toilet # Voids 1 - Labs CBC & Chem 7: 09/01/19 03:50 09/03/19 07:34 Labs: Abnormal Lab Results - Last 24 Hours (Table) 09/02/19 09/02/19 09/02/19 Range/Units 11:11 16:11 20:35 POC Glucose (mg/dL) 114 H 143 H 113 H (75-99) mg/dL 09/03/19 Range/Units 06:45 POC Glucose (mg/dL) 107 H (75-99) mg/dL Microbiology - Last 24 Hours (Table) 09/01/19 15:39 Blood Culture - Preliminary Blood No Growth after 24 hours
--- NOTE | 2019-09-03 09:41 | ECHOT ---
TRANSESOPHAGEAL ECHOCARDIOGRAM INDICATION: Evaluation of bioprosthetic aortic valve for the risk of endocarditis. PROCEDURE: After explaining the procedure to the patient, its risks and the complications, blood pressure, heart rate, O2 saturation was monitored. The throat was sprayed with Cetacaine. She received 2 mg intravenous Versed, 50 mcg intravenous fentanyl. The probe was introduced in the esophagus without difficulties. Images were obtained. Following that, the probe was removed. There was no immediate complication. FINDINGS: Biatrial enlargement was noted. Left atrial appendage is normal. Left ventricular size is normal. The overall systolic function is 50% to 55%. The aortic valve is a bioprosthetic aortic valve with normal appearance and no evidence of vegetation. Mitral valve revealed mild thickening of the leaflets with no evidence of vegetation. Tricuspid valve is normal. Descending thoracic aorta revealed mild atherosclerotic changes of the descending thoracic aorta. No pericardial effusion was noted. Contrast bubble study revealed no evidence of shunting across the interatrial septum with Valsalva maneuver. The left atrial appendage is normal. Doppler pulse wave and color Doppler obtained and revealed a mild aortic with moderate mitral and mild to moderate tricuspid regurgitation. The estimated right ventricular systolic pressure was 60 mmHg consistent with moderate severe pulmonary hypertension. No shunting was noted by color Doppler study. CONCLUSION: 1. Biatrial enlargement. 2. Normal appearance left atrial appendage. 3. Normal appearance of bioprosthetic aortic valve with mild aortic regurgitation. 4. Mild thickening of the mitral valve leaflets with moderate mitral and mild to moderate tricuspid regurgitation and moderate severe pulmonary hypertension. 5. Mild atherosclerotic changes of the descending thoracic aorta. 6. No evidence of vegetations. MMODL / IJN: [id number] / [facility]#: [id number]
--- NOTE | 2019-09-03 11:40 | P.PN ---
Subjective Progress Note Date: 09/03/19 Principal diagnosis: Acute gram-positive sepsis and bacteremia secondary to alphahemolytic strep This is an 83-year-old female with history of multiple medical problems including chronic atrial fibrillation, on long-term anticoagulation therapy, valvular heart disease and previous aortic valve replacement 5 years ago. No history of hypertension, diabetes, dyslipidemia, chronic nicotine dependence. Patient was sent to the emergency room from [facility] care facility for fever in the last few days. No other symptoms except for generalized weakness fatigue, and occasional cough. Patient was tested covid 19, and the tests came back negative.in the ER, patient was noted to be hypotensive, hence CT angiogram of the chest was done, and it showedno evidence of pulmonary embolism, there was however evidence of cardiomegaly, mild pulmonary vascular congestion, and COPD/emphysema with possible pulmonary arterial hypertension. No evidence of infiltrate was noted on the chest x-ray or CT angiogram of the chest. Patient was given fluid boluses, she was placed on antibiotics empirically, and she was admitted to the intensive care unit. Did not require any pressors. However she was given fluids, and when I evaluated the patient, she remained hemodynamically stable, and she was in no distress. Patient had mostly symptoms of fever for the last few days. But no other symptoms. No headache no blurred vision no dizziness. She had occasional cough, no chest pain, no orthopnea, no PND, she does have history of chronic atrial fibrillation, had no nausea no vomiting no abdominal pain no melena no hematemesis, no dysuria and no frequency no urgency and no hematuria.considering the patient was in atrial fibrillation with RVR, she was placed on Cardizem drip at 5 mg per hour. This morning, her blood cultures were positive for gram-positive cocci in chains. Her pro calcitonin level was 4.86. Patient is presently on 2 L nasal cannula. Patient was reevaluated today on 08/30/19, remains in the ICU, however she is on 2 L nasal cannula, asymptomatic, not requiring any pressors. She is on Cardizem at 5 mg per hour which I plan to switch to oral Cardizem at 30 mg by mouth 3 times a day. IV fluid is at 20 mL per hour. Patient is basically asymptomatic. She denies any headache or blurred vision or dizziness denies any cough wheezing or shortness of breath denies any nausea vomiting abdominal pain denies any dysuria frequency or urgency. Denies any hematuria. Denies any skin ulceration or any areas of cellulitis or swelling. Overall the patient looks g reat. Remains on antibiotics in the form of vancomycin and Zosyn until the final blood culture becomes available, and adjust her antibiotics accordingly. Chest x-ray showed cardiomegaly and minimal interstitial prominence on the right. No clear-cut evidence of pneumonia. Although her pro calcitonin level was elevated on admission. CBC is basically normal except for hemoglobin of 2.9. D-dimer is 2.70. Electrolytes and renal profile are normal. The patient is seen today 08/31/2019 in follow-up in the intensive care unit. She is currently awake and alert in no acute distress. She is maintaining O2 saturations in the 90s on 4 L/m per nasal cannula. She is a 0.9 normal saline at KVO. Blood cultures were positive for alphahemolytic strep. She is currently on Zosyn. Chest x-ray reveals scattered interstitial infiltrates without significant change. Echocardiogram revealed overall left ventricular systolic function with mild to moderately impaired ejection fraction between 40-45%. There is [id number] mitral regurgitation. Mild to moderate pulmonary hypertension. White count 7.2. Hemoglobin 7.8. D-dimer 1.54. Sodium 136. Potassium 3.9. Creatinine 0.57. C-reactive protein 132. LDH 530. Heart rate is better controlled. Currently on oral Cardizem. Anticoagulated with Eliquis. The patient is seen today 09/01/2019 in follow-up in the intensive care unit. She is sitting up in bed. Awake and alert in no acute distress. She is breathing easier today. She is on 4 L/m per nasal cannula. The staff does state she desaturates [place] the night at times with possible some sleep apnea. She is currently in atrial fibrillation with a rate in the 90s. She is a 0.9 normal saline at KVO. Her blood cultures were positive for of a hemolytic strep. She is continued on Zosyn. No worsening shortness of breath, cough or congestion. No fever chills or night sweats. No chest pain or palpitations. White count 6.5. Hemoglobin 8.2. Creatinine 0.58. The patient was seen today 09/02/2019 on the medical surgical unit with Dr. Madden. She was sitting up in bed in no acute distress. Denies pain or any increased shortness of breath. She was on 4 L nasal cannula with oxygen saturation 99%. Remains afebrile. Hemodynamically stable. Creatinine 0.5 this morning, otherwise no labs drawn today or x-rays completed. Blood cultures demonstrate hemolytic strep, remains on IV ampicillin and gentamicin per infectious disease. No new concerns, states she feels ready to go home. The patient was seen today 09/03/2019 in the medical surgical unit with Dr. Rivka gamboa. She is sitting up in bed in no acute distress. Denies any pain or shortness of breath. She is currently on 2 L nasal cannula with oxygen saturation 98%. Remains afebrile. Remains slightly tachycardic with heart rate 90s to low 100s and irregular. Blood pressure stable. Creatinine 0.54 but otherwise no new labs, no x-ray this morning. Transesophageal echocardiogram was completed this point demonstrated biatrial enlargement, normally functioning bioprosthetic aortic valve with mild aortic regurgitation with no evidence of vegetation, mildly thickened mitral valve leaflets with moderate mitral regurgitation and no evidence of vegetation, mild to moderate tricuspid regurgitation with moderate to severe pulmonary hypertension, RVSP 60 mmHg. Remains on IV ampicillin and gentamicin per infectious disease. Objective - Vital Signs Vital signs: Vital Signs Temp 98.8 F 09/03/19 07:00 Pulse 101 H 09/03/19 10:49 Resp 16 09/03/19 09:06 BP 107/69 09/03/19 10:49 Pulse Ox 98 09/03/19 10:49 Intake & Output 09/02/19 09/03/19 09/03/19 18:59 06:59 18:59 Intake Total 650 100 Balance 650 100 Weight 97.3 kg Intake: IV 100 Oral 650 Other: Voiding Method Indwelling Catheter Toilet # Voids 1 - Constitutional Constitutional Comment(s): Lying in bed, appears comfortable General appearance: Present: cooperative, no acute distress - Respiratory Details: Lungs sounds diminished bilaterally. Respirations even, nonlabored. Currently on 2 L nasal cannula with oxygen saturation 98%. - Cardiovascular Details: S1, S2 present, positive systolic murmur. Irregular rhythm. Palpable peripheral pulses bilaterally. 1+ bilateral lower extremity edema present. No calf pain or tenderness noted. - Gastrointestinal Gastrointestinal Comment(s): Abdomen soft, nontender, nondistended. No organomegaly present. Active bowel sounds present 4 quadrants. Tolerating clear liquid diet. - Integumentary Integumentary Comment(s): Skin is warm and dry with evidence of good perfusion. - Neurologic Neurologic: Present: CNII-XII intact - Musculoskeletal Musculoskeletal: Present: strength equal bilaterally - Psychiatric Psychiatric: Present: A&O x's 3, appropriate affect, intact judgment & insight - Allied health notes Allied health notes reviewed: nursing - Labs CBC & Chem 7: 09/01/19 03:50 09/03/19 07:34 Labs: Abnormal Lab Results - Last 24 Hours (Table) 09/02/19 09/02/19 09/03/19 Range/Units 16:11 20:35 06:45 POC Glucose (mg/dL) 143 H 113 H 107 H (75-99) mg/dL Microbiology - Last 24 Hours (Table) 09/02/19 07:07 Blood Culture - Preliminary Blood No Growth after 24 hours 09/01/19 15:39 Blood Culture - Preliminary Blood No Growth after 24 hours Assessment and Plan Assessment: 1 Acute febrile illness, sepsis with gram-positive bacteremia, alphahemolytic strep, exact source is not clear 2 Atrial fibrillation with RVR. Improved. 3 Gram-positive bacteremia secondary to alphahemolytic strep. 4 Acute gram-positive sepsis 5 History of valvular heart disease and previous aortic valve replacement, echocardiogram does not reveal any evidence of vegetation, mild to moderately impaired left ventricular systolic function with ejection fraction 40-45%. GUILLERMINA completed today demonstrates biatrial enlargement, low to normal systolic function with EF 50-55%, normally functioning bioprosthetic aortic valve with mild aortic regurgitation, no evidence of vegetation, mild thickening of the mitral valve leaflets with moderate mitral valve regurgitation and no evidence of vegetation, mild to moderate tricuspid valve regurgitation with moderate to severe pulmonary hypertension 6 History of moderate mitral regurgitation. 7 Benign essential hypertension. 8 Type 2 diabetes. 9 Dyslipidemia. Plan: The patient was seen and evaluated by Dr. Madden. She is currently stable from the pulmonary standpoint. Wean O2 as tolerated Antibiotics per infectious disease recommendations Eliquis for anticoagulation May need an outpatient sleep study May be discharged back to [facility] from pulmonology standpoint when okay with other services We will continue to follow while hospitalized I, the cosigning physician, performed a history & physical examination of the patient. Lungs sounds are diminished bilaterally. Maintaining good O2 saturations in the 90s on 2 L nasal cannula. I discussed the assessment and plan of care with my nurse practitioner, Oralia Ramires. I attest to the above note as dictated by her. Time with Patient: Greater than 30
[2019-09-03 11:44] LABS: Glucose,Whole Blood 113 mg/dL (75-99)
[2019-09-03] MEDS: THIAMINE 100 MG TAB PO SCH (13:20)
[2019-09-03] MEDS: MULTIVITAMINS, THERA 1 EACH TAB PO SCH (13:20)
[2019-09-03 16:23] LABS: Glucose,Whole Blood 84 mg/dL (75-99)
[2019-09-03] MEDS: FLUoxetine HCL 20 MG CAP PO SCH (16:23)
[2019-09-03] MEDS: FOLIC ACID 1 MG TAB PO SCH (16:23)
[2019-09-03] MEDS: DILTIAZEM ORAL 60 MG TAB PO SCH ×2 (16:24→20:11)
--- NOTE | 2019-09-03 17:16 | P.PN ---
Progress Note - Text Progress Note Date: 09/03/19 Chief Complaint: Fever History of presenting complaint: This is a very pleasant 83-year-old patient of Dr. Coles. Resident of [facility] [place]. Chronic stable medical conditions include atrial fibrillation on eliquis,, hyperlipidemia, hypertension, Guillain-Preciado syndrome with lower extremity weakness, hypothyroid. Patient now presents with 2 weeks of fever or off. Appetite is okay. No change in bowel habits. Has slight dry cough. 2 weeks ago she did fall and has a bump on her head. Patient smoked about a pack and half day for many years stopped about a month ago ago. A. fib with a rapid ventricular rate on presentation. Put on a Cardizem drip. Denies any obvious urinary symptoms. No headaches no dizziness. No change in vision. Initial coronavirus PCR was negative. Admitted with-pneumonia with blood cultures positive. Also atrial fibrillation with rapid ventricular rate. Started on IV vancomycin and IV Zosyn. IV Cardizem drip. Blood cultures showing alphahemolytic streptococcus. Vancomycin discontinued. Today-patient earlier underwent GUILLERMINA. No vegetations reported. Laying in bed. A bit tired. Did tolerate her diet. Review of systems: Was done for constitutional, cardiovascular, GI, pulmonary. relevant finding as above Active Medications Acetaminophen (Tylenol Tab) 650 mg PO Q4HR PRN PRN Reason: Fever>101 Last Admin: 08/29/19 14:56 Dose: 650 mg Documented by: Alprazolam (Xanax) 0.25 mg PO DAILY PRN PRN Reason: Anxiety Last Admin: 09/02/19 22:38 Dose: 0.25 mg Documented by: Apixaban (Eliquis) 2.5 mg PO BID@0800,1700 [facility] Last Admin: 09/03/19 16:23 Dose: 2.5 mg Documented by: Artificial Tears (Artificial Tear Drops) 1 drops BOTH EYES TID@0800,1200,1700 [facility] Last Admin: 09/03/19 16:24 Dose: 1 drops Documented by: Carvedilol (Coreg) 25 mg PO BID@0800,1700 [facility] Last Admin: 09/03/19 16:23 Dose: 25 mg Documented by: Diltiazem HCl (Cardizem Oral) 60 mg PO TID [facility] Last Admin: 09/03/19 16:24 Dose: 60 mg Documented by: Ferrous Sulfate (Feosol) 325 mg PO BID@0800,2100 [facility] Last Admin: 09/03/19 09:32 Dose: 325 mg Documented by: Fluoxetine HCl (Prozac) 40 mg PO DAILY@1700 [facility] Last Admin: 09/03/19 16:23 Dose: 40 mg Documented by: Folic Acid (Folic Acid) 1 mg PO DAILY@1700 [facility] Last Admin: 09/03/19 16:23 Dose: 1 mg Documented by: Gabapentin (Neurontin) 400 mg PO QID@06,12,1700,2100 [facility] Last Admin: 09/03/19 16:23 Dose: 400 mg Documented by: Guaifenesin (Robitussin) 400 mg PO Q4H PRN PRN Reason: Congestion Sodium Chloride (Saline 0.9%) 1,000 mls @ 20 mls/hr IV .Q24H [facility] Last Admin: 09/03/19 03:03 Dose: Not Given Documented by: Ampicillin Sodium 2,000 mg/ (Sodium Chloride) 100 mls @ 200 mls/hr IVPB Q4HR [facility] Last Admin: 09/03/19 13:20 Dose: 200 mls/hr Documented by: Gentamicin Sulfate 80 mg/ (Sodium Chloride) 102 mls @ 102 mls/hr IVPB Q12H [facility] Last Admin: 09/03/19 06:26 Dose: 102 mls/hr Documented by: Sodium Chloride (Saline 0.9%) 1,000 mls @ 20 mls/hr IV .Q24H [facility] Last Admin: 09/03/19 10:18 Dose: Not Given Documented by: Lactic Acid (Ammonium Lactate) 1 applic TOPICAL DAILY PRN PRN Reason: dry skin on feet Levothyroxine Sodium (Synthroid) 100 mcg PO 0630 [facility] Last Admin: 09/03/19 04:50 Dose: 100 mcg Documented by: Lisinopril (Zestril) 10 mg PO DAILY@2099 [facility] Last Admin: 09/02/19 20:54 Dose: Not Given Documented by: Magnesium Hydroxide (Milk Of Magnesia) 2,400 mg PO DAILY PRN PRN Reason: Constipation Metformin HCl (Glucophage) 500 mg PO BID@0800,1700 [facility] Last Admin: 09/03/19 16:23 Dose: 500 mg Documented by: Miscellaneous Information (Pneumonia Protocol Utilized) 1 each PO ONCE PRN PRN Reason: Per Protocol Miscellaneous Information (Magnesium Per Protocol) 1 each MISCELLANE DAILY PRN; Protocol PRN Reason: Per Protocol Miscellaneous Information (Gentamicin Trough Due) 0 each MISCELLANE DIRECTED ONE Stop: 09/04/19 17:01 Miscellaneous Information (Gentamicin Peak Due) 0 each MISCELLANE DIRECTED ONE Stop: 09/04/19 19:31 Multivitamins (Theragran) 1 each PO DAILY@1200 [facility] Last Admin: 09/03/19 13:20 Dose: 1 each Documented by: Naloxone HCl (Narcan) 0.2 mg IV Q2M PRN PRN Reason: Opioid Reversal Pantoprazole Sodium (Protonix) 40 mg PO BID@0800,1700 [facility] Last Admin: 09/03/19 16:23 Dose: 40 mg Documented by: Pravastatin Sodium (Pravachol) 80 mg PO DAILY@2100 [facility] Last Admin: 09/02/19 20:33 Dose: 80 mg Documented by: Primidone (Mysoline) 25 mg PO DAILY@0800 [facility] Last Admin: 09/03/19 09:32 Dose: 25 mg Documented by: Primidone (Mysoline) 100 mg PO DAILY@2100 [facility] Last Admin: 09/02/19 20:34 Dose: 100 mg Documented by: Thiamine HCl (Vitamin B-1) 100 mg PO DAILY@1200 [facility] Last Admin: 09/03/19 13:20 Dose: 100 mg Documented by: Tramadol HCl (Ultram) 50 mg PO Q8H PRN PRN Reason: Pain Last Admin: 09/02/19 22:37 Dose: 50 mg Documented by: Physical examination: VITAL SIGNS: 98.6, 116, 16, 122/6 9, 94% GENERAL: Laying bed, comfortable. EYES: Pupils equal. Conjunctiva normal. HEENT: External appearance of nose and ears normal, oral cavity grossly normal. NECK: JVD not raised; masses not palpable. HEART: Irregular heart sounds; no edema. LUNGS: Respiratory rate normal, decreased breath sounds. ABDOMEN: Soft, nontender, liver spleen not palpable, no masses palpable. PSYCH: Alert and oriented x3; mood and affect tired INVESTIGATIONS, reviewed in the clinical context: White count 6.5 hemoglobin 8.2 platelets 192 creatinine 0.58 CRP 67.5 GUILLERMINA-no evidence of vegetation Previous testing White count 6.8 hemoglobin 9.1 platelets 129 potassium 4.6 creatinine 0.69 d- dimer 1.79 LDH 643 CRP 136 pro calcitonin 4.86 Coronavirus [id number] Chest x-ray film personally reviewed by me--scattered infiltrates EKG tracing personally reviewed by me-atrial fibrillation rate uncontrolled CT chest-negative for PE right upper lobe 4 mm pulmonary nodule Blood cultures August 27 and August 29-positive for alpha hemolytic strep 2-D echo-moderate global hypokinesis-EF 40-45% moderate mitral and tricuspid regurgitation no obvious vegetation reported Assessment: -Sepsis picture, with symptoms present for 2 weeks, with scattered infiltrates on chest x-ray( COVID 19-PCR test was negative. .) Positive blood culture- alphahemolytic streptococcus. improving. 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 Gentamicin was added today. Cardiac medications are being adjusted by cardiology. Discussed with patient.
[2019-09-03] MEDS: LISINOPRIL 10 MG TAB PO SCH (20:10)
[2019-09-03] MEDS: PRAVASTATIN SODIUM 80 MG TAB PO SCH (20:10)
[2019-09-03] MEDS: PRIMIDONE 50 MG TAB PO SCH (20:10)
[2019-09-03 20:35] LABS: Glucose,Whole Blood 87 mg/dL (75-99)
--- NOTE | 2019-09-03 21:36 | PN ---
PROGRESS NOTE DATE OF SERVICE: 09/03/2019 REASON FOR FOLLOWUP: Streptococcal bacteremia. INTERVAL HISTORY: The patient is currently afebrile. She is breathing comfortably. The patient denies having any chest pain, shortness of breath or cough. No nausea, vomiting, abdominal pain or diarrhea. PHYSICAL EXAMINATION: Blood pressure 115/58 with a pulse of 84, temperature 98.1. She is 98% on 2 L nasal cannula. General description is an elderly female lying in bed in no distress. RESPIRATORY SYSTEM: Unlabored breathing. Clear to auscultation anteriorly. HEART: S1, S2. Regular rate and rhythm. ABDOMEN: Soft. No tenderness. LABS: No new labs have been obtained today. Blood cultures from 08/31 and 09/01 have been negative. DIAGNOSTIC IMPRESSION AND PLAN: Patient with alpha hemolytic Streptococcus bacteremia. The patient did have bacteremia 72 hours and did have prosthetic aortic valve, though GUILLERMINA was negative for any vegetation. Would recommend getting a PICC line and continuation of IV antibiotic therapy in the outpatient setting, which will be adjusted to Rocephin 2 grams daily with close outpatient followup. MMODL / IJN: [id number] /
[2019-09-04] MEDS: AMPICILLIN 2,000 MG in SODIUM CHLORIDE 0.9% 100 ML IVPB SCH ×3 (03:03→11:51)
[2019-09-04] MEDS: SODIUM CHLORIDE 0.9% 1,000 ML IV SCH ×2 (03:05→11:49)
[2019-09-04] MEDS: GENTAMICIN 80 MG in SODIUM CHLORIDE 0.9% 100 ML IVPB SCH (05:18)
[2019-09-04] MEDS: LEVOTHYROXINE 100 MCG TAB PO SCH (05:18)
[2019-09-04] MEDS: GABAPENTIN 400 MG CAP PO SCH ×2 (05:18→11:52)
[2019-09-04 07:10] LABS: Glucose,Whole Blood 85 mg/dL (75-99)
[2019-09-04] MEDS: APIXABAN 2.5 MG TABLET PO SCH (07:56)
[2019-09-04] MEDS: PANTOPRAZOLE 40 MG TABLET PO SCH (08:00)
[2019-09-04] MEDS: PRIMIDONE 25 MG TAB PO SCH (08:00)
[2019-09-04] MEDS: CARVEDILOL 12.5 MG TAB PO SCH (08:00)
[2019-09-04] MEDS: DILTIAZEM ORAL 60 MG TAB PO SCH (08:00)
[2019-09-04] MEDS: FERROUS SULFATE 325 MG TAB PO SCH (08:00)
[2019-09-04] MEDS: metFORMIN 500 MG TAB PO SCH (08:00)
[2019-09-04] MEDS: ARTIFICIAL TEARS-HYPROMELLOSE DROPS 15 ML BTL BOTH EYES SCH ×2 (08:05→11:52)
--- NOTE | 2019-09-04 08:20 | P.PN ---
Subjective HISTORY OF PRESENTING ILLNESS This is a pleasant 83-year-old female past medical history significant for chronic persistent atrial fibrillation on long-term anticoagulation, valvular heart disease status post aortic valve replacement 5 years ago, diabetes mellitus, hypertension, dyslipidemia and chronic nicotine dependence. She follows in the office with Dr. Prather in [facility]. She underwent a GUILLERMINA yesterday revealing biatrial enlargement, normal appearance of the left atrial appendage, normal appearance of the bioprosthetic aortic valve with mild aortic regurgitation, mild thickening of the mitral valve leaflets with moderate tr icuspid regurgitation and moderate-severe pulmonary hypertension. No evidence of vegetations. Ejection fraction 50-55%. Blood pressure 139/75 heart rate 101. She is scheduled to have a PICC line placed today, last dose of Eliquis was yesterday at 1630. PHYSICAL EXAMINATION CONSTITUTIONAL: No apparent distress. HEENT: Head is normocephalic. Pupils are equal, round. Sclerae anicteric. Mucous membranes of the mouth are moist. No JVD. No carotid bruit. CHEST EXAMINATION: Lungs are clear to auscultation. No chest wall tenderness is noted on palpation or with deep breathing. HEART EXAMINATION: Irregular rate and rhythm. S1, S2 heard. Systolic ejection murmur at the base and left sternal border, no gallops or rub. EXTREMITIES: 2+ peripheral pulses, no lower extremity edema and no calf tender ness. ASSESSMENT Atrial fibrillation with rapid ventricular response, chronic persistent. Rates improved. Febrile illness Sepsis Positive blood cultures Valvular heart disease status post aortic valve replacement Hypertension Dyslipidemia Diabetes mellitus PLAN Heart rates stable on current regimen. Hold Eliquis this morning for PICC line placement. Resume this evening. We will continue to follow as needed, please call with further questions or concerns. Nurse Practitioner note has been reviewed, I agree with a documented findings and plan of care. Patient was seen and examined. Objective - Vital Signs Vital signs: Vital Signs Temp 98.0 F 09/04/19 07:00 Pulse 101 H 09/04/19 07:00 Resp 19 09/04/19 07:00 BP 139/75 09/04/19 07:00 Pulse Ox 96 09/04/19 07:00 Intake & Output 09/03/19 09/04/19 09/04/19 18:59 06:59 18:59 Intake Total 100 620 Balance 100 620 Intake: IV 100 Intake, IV Titration 620 Amount Ampicillin 2,000 mg In 300 Sodium Chloride 0.9% 100 ml @ 200 mls/hr IVPB Q4HR [facility] Rx#:[id number] Gentamicin 80 mg In 200 Sodium Chloride 0.9% 100 ml @ 102 mls/hr IVPB Q12H [facility] Rx#:[id number] Sodium Chloride 0.9% 1, 60 000 ml @ 20 mls/hr IV . Q24H [facility] Rx#:[id number] Sodium Chloride 0.9% 1, 60 000 ml @ 20 mls/hr IV . Q24H [facility] Rx#:[id number] Other: Voiding Method Toilet # Voids 2 2 # Bowel Movements 1 - Labs CBC & Chem 7: 09/01/19 03:50 09/03/19 07:34 Labs: Abnormal Lab Results - Last 24 Hours (Table) 09/03/19 Range/Units 11:42 POC Glucose (mg/dL) 113 H (75-99) mg/dL Microbiology - Last 24 Hours (Table) 09/01/19 15:39 Blood Culture - Preliminary Blood No Growth after 48 hours 09/02/19 07:07 Blood Culture - Preliminary Blood No Growth after 24 hours
[2019-09-04 08:56] LABS: African American GFR (CKD) >90 (>60 ml/min/1.73 sqM); Anion Gap 7 mmol/L; Blood Urea Nitrogen 6 mg/dL (7-17); Calcium 8.2 mg/dL (8.4-10.2); Carbon Dioxide 27 mmol/L (22-30); Chloride 102 mmol/L (98-107); Glucose 135 mg/dL (74-99); Non-African American GFR(CKD) 88 (>60 ml/min/1.73 sqM); Potassium 3.5 mmol/L (3.5-5.1); Sodium 136 mmol/L (137-145)
[2019-09-04 09:07] LABS: INR 1.2 (<1.2); Prothrombin Time 12.2 sec (9.0-12.0)
--- NOTE | 2019-09-04 11:25 | P.PN ---
Subjective Progress Note Date: 09/04/19 Principal diagnosis: Acute gram-positive sepsis and bacteremia secondary to alphahemolytic strep This is an 83-year-old female with history of multiple medical problems including chronic atrial fibrillation, on long-term anticoagulation therapy, valvular heart disease and previous aortic valve replacement 5 years ago. No history of hypertension, diabetes, dyslipidemia, chronic nicotine dependence. Patient was sent to the emergency room from [facility] for fever in the last few days. No other symptoms except for generalized weakness fatigue, and occasional cough. Patient was tested covid 19, and the tests came back negative.in the ER, patient was noted to be hypotensive, hence CT angiogram of the chest was done, and it showedno evidence of pulmonary embolism, there was however evidence of cardiomegaly, mild pulmonary vascular congestion, and COPD/emphysema with possible pulmonary arterial hypertension. No evidence of infiltrate was noted on the chest x-ray or CT angiogram of the chest. Patient was given fluid boluses, she was placed on antibiotics empirically, and she was admitted to the intensive care unit. Did not require any pressors. However she was given fluids, and when I evaluated the patient, she remained hemodynamically stable, and she was in no distress. Patient had mostly symptoms of fever for the last few days. But no other symptoms. No headache no blurred vision no dizziness. She had occasional cough, no chest pain, no orthopnea, no PND, she does have history of chronic atrial fibrillation, had no nausea no vomiting no abdominal pain no melena no hematemesis, no dysuria and no frequency no urgency and no hematuria.considering the patient was in atrial fibrillation with RVR, she was placed on Cardizem drip at 5 mg per hour. This morning, her blood cultures were positive for gram-positive cocci in chains. Her pro calcitonin level was 4.86. Patient is presently on 2 L nasal cannula. Patient was reevaluated today on 08/30/19, remains in the ICU, however she is on 2 L nasal cannula, asymptomatic, not requiring any pressors. She is on Cardizem at 5 mg per hour which I plan to switch to oral Cardizem at 30 mg by mouth 3 times a day. IV fluid is at 20 mL per hour. Patient is basically asymptomatic. She denies any headache or blurred vision or dizziness denies any cough wheezing or shortness of breath denies any nausea vomiting abdominal pain denies any dysuria frequency or urgency. Denies any hematuria. Denies any skin ulceration or any areas of cellulitis or swelling. Overall the patient looks g reat. Remains on antibiotics in the form of vancomycin and Zosyn until the final blood culture becomes available, and adjust her antibiotics accordingly. Chest x-ray showed cardiomegaly and minimal interstitial prominence on the right. No clear-cut evidence of pneumonia. Although her pro calcitonin level was elevated on admission. CBC is basically normal except for hemoglobin of 2.9. D-dimer is 2.70. Electrolytes and renal profile are normal. The patient is seen today 08/31/2019 in follow-up in the intensive care unit. She is currently awake and alert in no acute distress. She is maintaining O2 saturations in the 90s on 4 L/m per nasal cannula. She is a 0.9 normal saline at KVO. Blood cultures were positive for alphahemolytic strep. She is currently on Zosyn. Chest x-ray reveals scattered interstitial infiltrates without significant change. Echocardiogram revealed overall left ventricular systolic function with mild to moderately impaired ejection fraction between 40-45%. There is kgis-rj-numeeiih mitral regurgitation. Mild to moderate pulmonary hypertension. White count 7.2. Hemoglobin 7.8. D-dimer 1.54. Sodium 136. Potassium 3.9. Creatinine 0.57. C-reactive protein 132. LDH 530. Heart rate is better controlled. Currently on oral Cardizem. Anticoagulated with Eliquis. The patient is seen today 09/01/2019 in follow-up in the intensive care unit. She is sitting up in bed. Awake and alert in no acute distress. She is breathing easier today. She is on 4 L/m per nasal cannula. The staff does state she desaturates [place] the night at times with possible some sleep apnea. She is currently in atrial fibrillation with a rate in the 90s. She is a 0.9 normal saline at KVO. Her blood cultures were positive for of a hemolytic strep. She is continued on Zosyn. No worsening shortness of breath, cough or congestion. No fever chills or night sweats. No chest pain or palpitations. White count 6.5. Hemoglobin 8.2. Creatinine 0.58. The patient was seen today 09/02/2019 on the medical surgical unit with Dr. Madden. She was sitting up in bed in no acute distress. Denies pain or any increased shortness of breath. She was on 4 L nasal cannula with oxygen saturation 99%. Remains afebrile. Hemodynamically stable. Creatinine 0.5 this morning, otherwise no labs drawn today or x-rays completed. Blood cultures demonstrate hemolytic strep, remains on IV ampicillin and gentamicin per infectious disease. No new concerns, states she feels ready to go home. The patient was seen today 09/03/2019 in the medical surgical unit with Dr. Rivka gamboa. She is sitting up in bed in no acute distress. Denies any pain or shortness of breath. She is currently on 2 L nasal cannula with oxygen saturation 98%. Remains afebrile. Remains slightly tachycardic with heart rate 90s to low 100s and irregular. Blood pressure stable. Creatinine 0.54 but otherwise no new labs, no x-ray this morning. Transesophageal echocardiogram was completed this point demonstrated biatrial enlargement, normally functioning bioprosthetic aortic valve with mild aortic regurgitation with no evidence of vegetation, mildly thickened mitral valve leaflets with moderate mitral regurgitation and no evidence of vegetation, mild to moderate tricuspid regurgitation with moderate to severe pulmonary hypertension, RVSP 60 mmHg. Remains on IV ampicillin and gentamicin per infectious disease. The patient was seen and examined today 09/04/2019 on the medical surgical unit with Dr. Madden. She is sitting up in bed in no acute distress. Denies pain, shortness of breath. She is currently on 2 L nasal cannula with oxygen saturation 96%. Remains afebrile, hemodynamically stable. INR 1.2, BUN 6, creatinine 0.51. Blood cultures from August 27August 29 demonstrating alphahemolytic strep, blood cultures from August 31, , negative to date. No chest x-ray this morning. Remains on IV ampicillin and gentamicin per infectious disease. No new concerns. Objective - Vital Signs Vital signs: Vital Signs Temp 98.0 F 09/04/19 07:00 Pulse 101 H 09/04/19 07:00 Resp 19 09/04/19 07:00 BP 139/75 09/04/19 07:00 Pulse Ox 96 09/04/19 07:00 Intake & Output 09/03/19 09/04/19 09/04/19 18:59 06:59 18:59 Intake Total 100 620 Balance 100 620 Intake: IV 100 Intake, IV Titration 620 Amount Ampicillin 2,000 mg In 300 Sodium Chloride 0.9% 100 ml @ 200 mls/hr IVPB Q4HR [facility] Rx#:[id number] Gentamicin 80 mg In 200 Sodium Chloride 0.9% 100 ml @ 102 mls/hr IVPB Q12H [facility] Rx#:[id number] Sodium Chloride 0.9% 1, 60 000 ml @ 20 mls/hr IV . Q24H [facility] Rx#:[id number] Sodium Chloride 0.9% 1, 60 000 ml @ 20 mls/hr IV . Q24H [facility] Rx#:[id number] Other: Voiding Method Toilet # Voids 2 2 2 # Bowel Movements 1 1 - Constitutional Constitutional Comment(s): Sitting up in bed, appears comfortable. General appearance: Present: cooperative, no acute distress, obese - Respiratory Details: Lungs sounds diminished bilaterally. Respirations even, nonlabored. Currently on 2 L nasal cannula with oxygen saturation 96%. - Cardiovascular Details: S1, S2 present, positive systolic murmur. Irregular rhythm. Palpable peripheral pulses bilaterally. 1+ bilateral lower extremity edema present. No calf pain or tenderness noted. - Gastrointestinal Gastrointestinal Comment(s): Abdomen soft, nontender, nondistended. No organomegaly present. Active bowel sounds present 4 quadrants. Tolerating diet. - Integumentary Integumentary Comment(s): Skin is warm and dry with evidence of good perfusion. - Neurologic Neurologic: Present: CNII-XII intact - Musculoskeletal Musculoskeletal: Present: strength equal bilaterally - Psychiatric Psychiatric: Present: A&O x's 3, appropriate affect, intact judgment & insight - Allied health notes Allied health notes reviewed: nursing - Labs CBC & Chem 7: 09/01/19 03:50 09/04/19 07:51 Labs: Abnormal Lab Results - Last 24 Hours (Table) 09/03/19 09/04/19 09/04/19 Range/Units 11:42 07:51 08:47 PT 12.2 H (9.0-12.0) sec INR 1.2 H (<1.2) Sodium 136 L (137-145) mmol/L BUN 6 L (7-17) mg/dL Creatinine 0.51 L (0.52-1.04) mg/dL Glucose 135 H (74-99) mg/dL POC Glucose (mg/dL) 113 H (75-99) mg/dL Calcium 8.2 L (8.4-10.2) mg/dL Microbiology - Last 24 Hours (Table) 09/03/19 07:12 Blood Culture - Preliminary Blood No Growth after 24 hours 09/02/19 07:07 Blood Culture - Preliminary Blood No Growth after 48 hours 09/01/19 15:39 Blood Culture - Preliminary Blood No Growth after 48 hours Assessment and Plan Assessment: 1 Acute febrile illness, sepsis with gram-positive bacteremia, alphahemolytic strep, exact source is not clear 2 Atrial fibrillation with RVR. Improved. 3 Gram-positive bacteremia secondary to alphahemolytic strep. 4 Acute gram-positive sepsis 5 History of valvular heart disease and previous aortic valve replacement, echocardiogram does not reveal any evidence of vegetation, mild to moderately impaired left ventricular systolic function with ejection fraction 40-45%. GUILLERMINA completed today demonstrates biatrial enlargement, low to normal systolic function with EF 50-55%, normally functioning bioprosthetic aortic valve with mild aortic regurgitation, no evidence of vegetation, mild thickening of the mitral valve leaflets with moderate mitral valve regurgitation and no evidence of vegetation, mild to moderate tricuspid valve regurgitation with moderate to severe pulmonary hypertension 6 History of moderate mitral regurgitation. 7 Benign essential hypertension. 8 Type 2 diabetes. 9 Dyslipidemia. Plan: The patient was seen and evaluated by Dr. Madden. She is currently stable from the pulmonary standpoint. Wean O2 as tolerated Antibiotics per infectious disease recommendations. Patient to get PICC line today for IV antibiotics after discharge per infectious disease Eliquis for anticoagulation May need an outpatient sleep study May be discharged back to [facility] from pulmonology standpoint when okay with other services We will continue to follow while hospitalized I, the cosigning physician, performed a history & physical examination of the patient. Lungs sounds are diminished bilaterally. Maintaining good O2 saturations in the 90s on 2 L nasal cannula. I discussed the assessment and plan of care with my nurse practitioner, Oralia Ramires. I attest to the above note as dictated by her. Time with Patient: Greater than 30
[2019-09-04 11:29] LABS: Glucose,Whole Blood 104 mg/dL (75-99)
[2019-09-04] MEDS: THIAMINE 100 MG TAB PO SCH (11:52)
[2019-09-04] MEDS: MULTIVITAMINS, THERA 1 EACH TAB PO SCH (11:52)
--- NOTE | 2019-09-04 14:42 | P.DS ---
Providers Date of admission: 08/28/19 22:29 Expected date of discharge: 09/04/19 Attending physician: Esvin Paz Consults: 08/28/19 21:28 Consult Physician Urgent Consulting Provider: Viraj Moreno Consult Reason/Comments: a fib w rvr Do you want consulting provider notified?: Yes 08/28/19 22:27 Consult Physician Stat Consulting Provider: Harjinder Saldaña Consult Reason/Comments: critical care Do you want consulting provider notified?: Already Contacted 08/31/19 17:59 Consult Physician Routine Consulting Provider: Hamida Chamberlain Consult Reason/Comments: GUILLERMINA-repeat blood cultures also positive Do you want consulting provider notified?: Yes Consult Physician Routine Consulting Provider: Sammie Knowles Consult Reason/Comments: Repeat blood cultures also positive Do you want consulting provider notified?: Yes Primary care physician: [facility] Course: Chief Complaint: Fever History of presenting complaint: This is a very pleasant 83-year-old patient of Dr. Coles. Resident of [facility]. Chronic stable medical conditions include atrial fibrillation on eliquis,, hyperlipidemia, hypertension, Guillain-Preciado syndrome with lower extremity weakness, hypothyroid. Patient now presents with 2 weeks of fever or off. Appetite is okay. No change in bowel habits. Has slight dry cough. 2 weeks ago she did fall and has a bump on her head. Patient smoked about a pack and half day for many years stopped about a month ago ago. A. fib with a rapid ventricular rate on presentation. Put on a Cardizem drip. Denies any obvious urinary symptoms. No headaches no dizziness. No change in vision. Initial coronavirus PCR was negative. Admitted with-pneumonia with blood cultures positive. Also atrial fibrillation with rapid ventricular rate. Started on IV vancomycin and IV Zosyn. IV Cardizem drip. Blood cultures showing alphahemolytic streptococcus. Vancomycin discontinued. GUILLERMINA was negative for any vegetations. Heart rate better controlled. Repeat blood cultures from August 31-negative Today-stable. Heart rate controlled. Tolerating regular diet. PICC line to complete course of antibiotics. Discussed with the patient. Discussion and discharge planning more than 35 minutes Consultation: Dr. Saldaña current colleagues from critical care Dr. Knowles from [place] Drs. from cardiology associates Physical examination: VITAL SIGNS: 98, 101, 19, 139/75, 96% on 2 L GENERAL: Propped up, comfortable. EYES: Pupils equal. Conjunctiva normal. HEENT: External appearance of nose and ears normal, oral cavity grossly normal. NECK: JVD not raised; masses not palpable. HEART: Irregular heart sounds; no edema. LUNGS: Respiratory rate normal, decreased breath sounds. ABDOMEN: Soft, nontender, liver spleen not palpable, no masses palpable. PSYCH: Alert and oriented x3; mood and affect tired INVESTIGATIONS, reviewed in the clinical context: White count 6.5 hemoglobin 8.2 platelets 192 creatinine 0.58 CRP 67.5 GUILLERMINA-no evidence of vegetation Previous testing White count 6.8 hemoglobin 9.1 platelets 129 potassium 4.6 creatinine 0.69 d- dimer 1.79 LDH 643 CRP 136 pro calcitonin 4.86 Coronavirus [id number] Chest x-ray film personally reviewed by me--scattered infiltrates EKG tracing personally reviewed by me-atrial fibrillation rate uncontrolled CT chest-negative for PE right upper lobe 4 mm pulmonary nodule Blood cultures August 27 and August 29-positive for alpha hemolytic strep 2-D echo-moderate global hypokinesis-EF 40-45% moderate mitral and tricuspid regurgitation no obvious vegetation reported Assessment: -Sepsis picture, with symptoms present for 2 weeks, with scattered infiltrates on chest x-ray( COVID 19-PCR test was negative. .) Positive blood culture-a lphahemolytic streptococcus. improving. GUILLERMINA-negative for vegetations. Underlying diagnosis of pneumonia. 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 -Depression otherwise specified -4 mm right upper lobe lung nodule for outpatient workup Disposition: [facility] Patient Condition at Discharge: Stable Plan - Discharge Summary Discharge Rx Participant: Yes New Discharge Prescriptions: New cefTRIAXone [Rocephin] 2,000 mg IVP Q24HR #30 vial Diltiazem Oral [Cardizem*] 60 mg PO TID tab Continue Primidone [Mysoline] 100 mg PO DAILY@2100 metFORMIN HCL 500 mg PO BID@0800,1700 Pantoprazole [Protonix] 40 mg PO BID@0800,1700 Lisinopril [Prinivil] 10 mg PO DAILY@2100 Levothyroxine Sodium [Synthroid] 100 mcg PO DAILY@2100 FLUoxetine HCL [PROzac] 40 mg PO DAILY@1700 Carvedilol [Coreg] 25 mg PO BID@0800,1700 guaiFENesin 400 mg PO Q4H PRN PRN Reason: Congestion Apixaban [Eliquis] 2.5 mg PO BID@0800,1700 Pravastatin Sodium [Pravachol] 80 mg PO DAILY@2100 Artificial Tears-Hypromellose [Artificial Tear Drops] 1 drops BOTH EYES TID@0800,1200,1700 Multivitamins, Thera [Multivitamin (formulary)] 1 each PO DAILY@1200 tab Acetaminophen Tab [Tylenol] 650 mg PO Q6HR PRN tab PRN Reason: Mild Pain Or Fever > 100.5 Thiamine [Vitamin B-1] 100 mg PO DAILY@1200 tab Na Phos,M-B/Na Phos,Di-Ba [Fleet Adult] 133 ml RECTAL DAILY PRN PRN Reason: Constipation Bisacodyl 10 mg RECTAL DAILY PRN PRN Reason: Constipation Ferrous Sulfate [Feosol] 325 mg PO BID@0800,2100 Folic Acid 1 mg PO DAILY@1700 Magnesium Hydroxide [Milk of Magnesia] 2,400 mg PO DAILY PRN PRN Reason: Constipation Ammonium Lactate Cream [Lac-Hydrin 12% Cream] 1 applic TOPICAL DAILY PRN PRN Reason: dry skin on feet Primidone [Mysoline] 25 mg PO DAILY@0800 traMADol HCL 50 mg PO Q8H PRN #10 tab PRN Reason: Pain ALPRAZolam [Xanax] 0.25 mg PO DAILY PRN #3 tab PRN Reason: Anxiety Changed Gabapentin [Neurontin] 400 mg PO TID #10 cap Discontinued cloNIDine HCL [Catapres] 0.1 mg PO DAILY@2100 Meclizine [Antivert] 25 mg PO TID PRN tab PRN Reason: Vertigo Primidone [Mysoline] 25 mg PO ONCE PRN PRN Reason: tremors Discharge Medication List Carvedilol [Coreg] 25 mg PO BID@0800,1700 02/15/19 [History] FLUoxetine HCL [PROzac] 40 mg PO DAILY@1700 02/15/19 [History] Levothyroxine Sodium [Synthroid] 100 mcg PO DAILY@209902/15/19 [History] Lisinopril [Prinivil] 10 mg PO DAILY@209902/15/19 [History] Pantoprazole [Protonix] 40 mg PO BID@0800,169902/15/19 [History] Primidone [Mysoline] 100 mg PO DAILY@209902/15/19 [History] metFORMIN HCL 500 mg PO BID@0800,169902/15/19 [History] Apixaban [Eliquis] 2.5 mg PO BID@0800,169905/23/19 [History] Artificial Tears-Hypromellose [Artificial Tear Drops] 1 drops BOTH EYES TID@0800,1200,169905/23/19 [History] Pravastatin Sodium [Pravachol] 80 mg PO DAILY@209905/23/19 [History] guaiFENesin 400 mg PO Q4H PRN 05/23/19 [History] Acetaminophen Tab [Tylenol] 650 mg PO Q6HR PRN tab 05/28/19 [Rx] Multivitamins, Thera [Multivitamin (formulary)] 1 each PO DAILY@1200 tab 05/28/19 [Rx] Thiamine [Vitamin B-1] 100 mg PO DAILY@1200 tab 05/28/19 [Rx] Bisacodyl 10 mg RECTAL DAILY PRN 06/19/19 [History] Ferrous Sulfate [Feosol] 325 mg PO BID@0800,209906/19/19 [History] Folic Acid 1 mg PO DAILY@169906/19/19 [History] Magnesium Hydroxide [Milk of Magnesia] 2,400 mg PO DAILY PRN 06/19/19 [History] Na Phos,M-B/Na Phos,Di-Ba [Fleet Adult] 133 ml RECTAL DAILY PRN 06/19/19 [History] Ammonium Lactate Cream [Lac-Hydrin 12% Cream] 1 applic TOPICAL DAILY PRN 08/28/19 [History] Primidone [Mysoline] 25 mg PO DAILY@0808/28/19 [History] cefTRIAXone [Rocephin] 2,000 mg IVP Q24HR #30 vial 09/03/19 [Rx] ALPRAZolam [Xanax] 0.25 mg PO DAILY PRN #3 tab 09/04/19 [Rx] Diltiazem Oral [Cardizem*] 60 mg PO TID tab 09/04/19 [Rx] Gabapentin [Neurontin] 400 mg PO TID #10 cap 09/04/19 [Rx] traMADol HCL 50 mg PO Q8H PRN #10 tab 09/04/19 [Rx] Follow up Appointment(s)/Referral(s): Victor Hugo Coles DO [Primary Care Provider] - 1-2 days Sammie Knowles MD [STAFF PHYSICIAN] - 1 Week Eze Edwards MD [STAFF PHYSICIAN] - 4 Weeks Ambulatory/Diagnostic Orders: Basic Metabolic Panel [LAB.AMB] Location: None Selected C Reactive Protein [LAB.AMB] Location: None Selected Complete Blood Count w/diff [LAB.AMB] Location: None Selected Erythrocyte Sedimentation Rate [LAB.AMB] Location: None Selected
[2019-09-04 15:13] VITALS: BP 125/72; PULSE 105; RESP 17; TEMP 98.3
--- NOTE | 2019-09-04 16:45 | PN ---
PROGRESS NOTE DATE OF SERVICE: 09/04/2019 REASON FOR FOLLOWUP: Streptococcal bacteremia. INTERVAL HISTORY: The patient is currently afebrile. She has been breathing comfortably. Denies having any chest pain or cough. No nausea, vomiting, abdominal pain or diarrhea. PHYSICAL EXAMINATION: Blood pressure 125/72 with a pulse of 105, temperature 98.3, he is 99% on 2 L. General description is an elderly female, lying in bed in no distress. RESPIRATORY SYSTEM: Unlabored breathing, clear to auscultation anteriorly. HEART: S1, S2. Regular rhythm and rate. ABDOMEN: Soft, no tenderness. LABS: BUN of 6, creatinine 0.51. DIAGNOSTIC IMPRESSION AND PLAN: Patient with streptococcal bacteremia in this patient who did have extensive workup which has been negative so far in patient with prosthetic aortic wall and concern for endocarditis for GUILLERMINA was negative. In view of significant bacteremia, I am recommending a 4-week course of Rocephin 2 g daily and close outpatient followup. MMODL / IJN: [id number] /
[2019-09-04] MEDS ORDERED: GENTAMICIN TROUGH DUE 1 EACH MISC MISCELLANE ONE (17:00)
[2019-09-04] MEDS ORDERED: GENTAMICIN PEAK DUE 1 EACH MISC MISCELLANE ONE (19:30)
== END 2019-09-04 15:40 | DRG 871 ==
LOC: EC 17:13 → 2SICU 22:29 → 4SSUR 09-01 10:32
PROVIDERS: ADMIT Hospitalist; ATTEND Hospitalist
PROC: 06HM33Z Insertion of Infusion Device into Right Femoral Vein, Percutaneous Approach (ICD-10-PCS; principal; 2019-08-28)
PROC: B246ZZ4 Ultrasonography of Right and Left Heart, Transesophageal (ICD-10-PCS; 2019-09-03)
DX: A40.8 Other streptococcal sepsis (principal); J18.9 Pneumonia, unspecified organism; I48.19 Other persistent atrial fibrillation; G65.0 Sequelae of Guillain-Barre syndrome; I27.20 Pulmonary hypertension, unspecified; I95.9 Hypotension, unspecified; D64.9 Anemia, unspecified; E11.9 Type 2 diabetes mellitus without complications; Z20.828 Contact with and (suspected) exposure to other viral communicable diseases; G83.10 Monoplegia of lower limb affecting unspecified side; I08.1 Rheumatic disorders of both mitral and tricuspid valves; D72.810 Lymphocytopenia; I08.3 Combined rheumatic disorders of mitral, aortic and tricuspid valves; E03.9 Hypothyroidism, unspecified; J43.9 Emphysema, unspecified; E78.5 Hyperlipidemia, unspecified; I10 Essential (primary) hypertension; R91.1 Solitary pulmonary nodule; F32.9 Major depressive disorder, single episode, unspecified; E66.9 Obesity, unspecified; Z68.31 Body mass index [BMI] 31.0-31.9, adult; Z79.01 Long term (current) use of anticoagulants; Z79.890 Hormone replacement therapy; Z79.84 Long term (current) use of oral hypoglycemic drugs; Z79.899 Other long term (current) drug therapy; Z71.3 Dietary counseling and surveillance; Z87.891 Personal history of nicotine dependence; Z90.710 Acquired absence of both cervix and uterus; Z85.43 Personal history of malignant neoplasm of ovary; Z87.19 Personal history of other diseases of the digestive system; Z95.2 Presence of prosthetic heart valve; Z98.890 Other specified postprocedural states; Z88.7 Allergy status to serum and vaccine; Z91.048 Other nonmedicinal substance allergy status
CPT/HCPCS: 36415; 36556; 36573; 71045; 71275; 80048; 80053; 80170; 81001; 82550; 82565; 82728; 83605; 83615; 83735; 84145; 85025; 85379; 85610; 85652; 85730; 86140; 87040; 87077; 87186; 87635; 93005; 93306; 93312; 93320; 93325; 96360; 96365; 96366; 96368; 99291

== ENCOUNTER 2019-09-20 15:04 | Inpatient (IN) | payer MEDICARE, OTHER ==
[2019-09-20] MEDS ORDERED: SODIUM CHLORIDE 0.9% 500 ML 500 ML IV STA (15:39)
--- NOTE | 2019-09-20 15:46 | ED ---
General Adult HPI - General Chief complaint: Weakness Stated complaint: Weakness Time Seen by Provider: 09/20/19 15:10 Source: patient, EMS, RN notes reviewed, old records reviewed Mode of arrival: EMS Limitations: no limitations - History of Present Illness Initial comments: This is an 83-year-old female who presents to the emergency department from a alf. She has a past medical history significant for recent pneumonia she has a history of high blood pressure and diabetes. Staff sent her in because she's been more lethargic the last time she was seen normal was at least 24 hours ago. Patient was sent in because of her lethargy or inability to sit up straight she also has become incontinent of urine. Patient herself has no complaints however she is unable to coordinate her left arm which she does state is new but she didn't realize until asked her to move it. Patient states she is also very tired but she has no pain just the difficulty breathing she states she hasn't been vomiting or having any diarrhea. Patient is not sure why they sent her in. - Related Data Home Medications Medication Instructions Recorded Confirmed Carvedilol [Coreg] 25 mg PO BID@0800,169902/15/19 09/20/19 FLUoxetine HCL [PROzac] 40 mg PO DAILY@169902/15/19 09/20/19 Levothyroxine Sodium [Synthroid] 100 mcg PO HS@209902/15/19 09/20/19 Lisinopril [Prinivil] 10 mg PO HS@209902/15/19 09/20/19 Pantoprazole [Protonix] 40 mg PO BID@0800,169902/15/19 09/20/19 Primidone [Mysoline] 100 mg PO HS@209902/15/19 09/20/19 metFORMIN HCL 500 mg PO BID@0800,169902/15/19 09/20/19 Artificial Tears-Hypromellose 1 drops BOTH EYES 05/23/19 09/20/19 [Artificial Tear Drops] TID@0800,1200,1700 Pravastatin Sodium [Pravachol] 80 mg PO HS@209905/23/19 09/20/19 guaiFENesin 400 mg PO Q4H PRN 05/23/19 09/20/19 Bisacodyl 10 mg RECTAL DAILY PRN 06/19/19 09/20/19 Ferrous Sulfate [Feosol] 325 mg PO BID@0800,2100 06/19/19 09/20/19 Folic Acid 1 mg PO DAILY@1700 06/19/19 09/20/19 Na Phos,M-B/Na Phos,Di-Ba [Fleet 133 ml RECTAL DAILY PRN 06/19/19 09/20/19 Adult] Ammonium Lactate Cream [Lac-Hydrin 1 applic TOPICAL DAILY PRN 08/28/19 09/20/19 12% Cream] Primidone [Mysoline] 25 mg PO DAILY@0800 08/28/19 09/20/19 Acetaminophen Tab [Tylenol] 650 mg PO Q6HR PRN 09/20/19 09/20/19 Apixaban [Eliquis] 2.5 mg PO BID@0800,1700 09/20/19 09/20/19 Diltiazem Oral [Cardizem*] 60 mg PO TID@0600,1400,209909/20/19 09/20/19 Econazole 1% Cream [Spectazole] 1 applic TOPICAL BID@0800,209909/20/19 09/20/19 Gabapentin 600 mg PO QID 09/20/19 09/20/19 Magnesium Hydroxide [Milk of 7,200 mg PO Q48H PRN 09/20/19 09/20/19 Magnesia Concentrate] Multivitamins, Thera [Multivitamin 1 tab PO DAILY@1200 09/20/19 09/20/19 (formulary)] Mupirocin 2% Oint [Bactroban 2% 1 applic TOPICAL DAILY 09/20/19 09/20/19 Oint] cefTRIAXone [Rocephin] 2,000 mg IVP DAILY@0815 09/20/19 09/20/19 Previous Rx's Medication Instructions Recorded Thiamine [Vitamin B-1] 100 mg PO DAILY@1200 tab 05/28/19 ALPRAZolam [Xanax] 0.25 mg PO DAILY PRN #3 tab 09/04/19 traMADol HCL 50 mg PO Q8H PRN #10 tab 09/04/19 Allergies Allergy/AdvReac Type Severity Reaction Status Date / Time adhesive tape Allergy Rash/Hives Verified 09/20/19 17:37 influenza virus vaccine, Allergy Unknown Verified 09/20/19 17:37 specific Review of Systems ROS Statement: Those systems with pertinent positive or pertinent negative responses have been documented in the HPI. ROS Other: All systems not noted in ROS Statement are negative. Past Medical History Past Medical History: Atrial Fibrillation, Diabetes Mellitus, GI Bleed, Hyperlipidemia, Hypertension, Neurologic Disorder, Thyroid Disorder Additional Past Medical History / Comment(s): guillain-barre syndrome. ovarian cancer with hysterectomy 1972. anemia History of Any Multi-Drug Resistant Organisms: None Reported Past Surgical History: Hysterectomy, Orthopedic Surgery Additional Past Surgical History / Comment(s): bilateral knee surgery , right rotor cuff surgery, Past Anesthesia/Blood Transfusion Reactions: No Reported Reaction Past Psychological History: Depression Smoking Status: Former smoker Past Alcohol Use History: None Reported Past Drug Use History: None Reported - Past Family History Sister(s) Family Medical History: Cancer General Exam - General Exam Comments Initial Comments: GENERAL: Patient is well-developed and well-nourished. Patient is nontoxic and well- hydrated and is in no acute distress. ENT: Neck is soft and supple. No significant lymphadenopathy is noted. Oropharynx is clear. Moist mucous membranes. Neck has full range of motion without eliciting any pain. EYES: The sclera were anicteric and conjunctiva were pink and moist. Extraocular movements were intact and pupils were equal round and reactive to light. Eyelids were unremarkable. PULMONARY: Unlabored respirations. Good breath sounds bilaterally. No audible rales rhonchi or wheezing was noted. CARDIOVASCULAR: Recent has an irregular heartbeat. ABDOMEN: Soft and nontender with normal bowel sounds. No palpable organomegaly was noted. There is no palpable pulsatile mass. SKIN: Skin is clear with no lesions or rashes and otherwise unremarkable. NEUROLOGIC: Patient is alert and oriented x3. Cranial nerves II through XII are grossly intact. 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 Patient was unable to use her arm to pull herself up in bed. MUSCULOSKELETAL: Normal extremities with adequate strength and full range of motion. LYMPHATICS: No significant lymphadenopathy is noted PSYCHIATRIC: Normal psychiatric evaluation. Limitations: no limitations Course Vital Signs 09/20/19 09/20/19 09/20/19 15:06 15:30 16:00 Temperature 98.0 F Pulse Rate 92 90 96 Respiratory 18 17 15 Rate Blood Pressure 182/107 182/107 176/117 O2 Sat by Pulse 95 100 100 Oximetry 09/20/19 09/20/19 09/20/19 16:22 16:30 17:00 Temperature Pulse Rate 94 89 87 Respiratory 18 17 17 Rate Blood Pressure 178/102 178/102 150/93 O2 Sat by Pulse 98 100 100 Oximetry 09/20/19 09/20/19 17:45 18:21 Temperature Pulse Rate 99 96 Respiratory 18 18 Rate Blood Pressure 181/86 145/86 O2 Sat by Pulse 98 96 Oximetry Medical Decision Making - Medical Decision Making EKG shows atrial fibrillation at 102 bpm QRS is 90 QT interval 374 QTC is 487. EKG shows no ST segment elevation or depression. Patient is adamant that the left arm never was weak in the past however we called the alf the caregiver Ioana stated that the granddaughter stated that she always has left arm weakness from previous stroke. I assumed it was new and I did the workup. Chest x-ray showed pulmonary edema. Patient elevated troponin. She is oriented as I did not start any heparin. I did speak with Dr. Paz agreed to admit the patient admitted the patient wr ote admitting orders I consulted cardiology. I also assumed this was a stroke cited called a CVA as well. - Lab Data Result diagrams: 09/20/19 15:18 09/20/19 15:18 Lab Results 09/20/19 09/20/19 09/20/19 Range/Units 15:18 15:18 15:18 WBC 5.2 (3.8-10.6) k/uL RBC 3.51 L (3.80-5.40) m/uL Hgb 9.1 L (11.4-16.0) gm/dL Hct 30.9 L (34.0-46.0) % MCV 87.9 (80.0-100.0) fL MCH 25.8 (25.0-35.0) pg MCHC 29.4 L (31.0-37.0) g/dL RDW 18.6 H (11.5-15.5) % Plt Count 225 (150-450) k/uL Neutrophils % 71 % Lymphocytes % 14 % Monocytes % 8 % Eosinophils % 3 % Basophils % 1 % Neutrophils # 3.7 (1.3-7.7) k/uL Lymphocytes # 0.7 L (1.0-4.8) k/uL Monocytes # 0.4 (0-1.0) k/uL Eosinophils # 0.2 (0-0.7) k/uL Basophils # 0.1 (0-0.2) k/uL Hypochromasia Marked Anisocytosis Slight PT 11.6 (9.0-12.0) sec INR 1.1 (<1.2) APTT 26.5 (22.0-30.0) sec Sodium 137 (137-145) mmol/L Potassium 4.6 (3.5-5.1) mmol/L Chloride 101 (98-107) mmol/L Carbon Dioxide 30 (22-30) mmol/L Anion Gap 6 mmol/L BUN 10 (7-17) mg/dL Creatinine 0.56 (0.52-1.04) mg/dL Est GFR (CKD-EPI)AfAm >90 (>60 ml/min/1.73 sqM) Est GFR (CKD-EPI)NonAf 85 (>60 ml/min/1.73 sqM) Glucose 86 (74-99) mg/dL Plasma Lactic Acid Doug (0.7-2.0) mmol/L Calcium 9.0 (8.4-10.2) mg/dL Magnesium 1.7 (1.6-2.3) mg/dL Total Bilirubin 0.4 (0.2-1.3) mg/dL AST 26 (14-36) U/L ALT 14 (4-34) U/L Alkaline Phosphatase 56 (38-126) U/L Troponin I (0.000-0.034) ng/mL NT-Pro-B Natriuret Pep pg/mL Total Protein 6.5 (6.3-8.2) g/dL Albumin 3.8 (3.5-5.0) g/dL Urine Color Urine Appearance (Clear) Urine pH (5.0-8.0) Ur Specific Thurston (1.001-1.035) Urine Protein (Negative) Urine Glucose (UA) (Negative) Urine Ketones (Negative) Urine Blood (Negative) Urine Nitrite (Negative) Urine Bilirubin (Negative) Urine Urobilinogen (<2.0) mg/dL Ur Leukocyte Esterase (Negative) 09/20/19 09/20/19 09/20/19 Range/Units 15:18 15:18 15:18 WBC (3.8-10.6) k/uL RBC (3.80-5.40) m/uL Hgb (11.4-16.0) gm/dL Hct (34.0-46.0) % MCV (80.0-100.0) fL MCH (25.0-35.0) pg MCHC (31.0-37.0) g/dL RDW (11.5-15.5) % Plt Count (150-450) k/uL Neutrophils % % Lymphocytes % % Monocytes % % Eosinophils % % Basophils % % Neutrophils # (1.3-7.7) k/uL Lymphocytes # (1.0-4.8) k/uL Monocytes # (0-1.0) k/uL Eosinophils # (0-0.7) k/uL Basophils # (0-0.2) k/uL Hypochromasia Anisocytosis PT (9.0-12.0) sec INR (<1.2) APTT (22.0-30.0) sec Sodium (137-145) mmol/L Potassium (3.5-5.1) mmol/L Chloride (98-107) mmol/L Carbon Dioxide (22-30) mmol/L Anion Gap mmol/L BUN (7-17) mg/dL Creatinine (0.52-1.04) mg/dL Est GFR (CKD-EPI)AfAm (>60 ml/min/1.73 sqM) Est GFR (CKD-EPI)NonAf (>60 ml/min/1.73 sqM) Glucose (74-99) mg/dL Plasma Lactic Acid Doug 0.7 (0.7-2.0) mmol/L Calcium (8.4-10.2) mg/dL Magnesium (1.6-2.3) mg/dL Total Bilirubin (0.2-1.3) mg/dL AST (14-36) U/L ALT (4-34) U/L Alkaline Phosphatase (38-126) U/L Troponin I 0.361 H* (0.000-0.034) ng/mL NT-Pro-B Natriuret Pep 3540 pg/mL Total Protein (6.3-8.2) g/dL Albumin (3.5-5.0) g/dL Urine Color Urine Appearance (Clear) Urine pH (5.0-8.0) Ur Specific Thurston (1.001-1.035) Urine Protein (Negative) Urine Glucose (UA) (Negative) Urine Ketones (Negative) Urine Blood (Negative) Urine Nitrite (Negative) Urine Bilirubin (Negative) Urine Urobilinogen (<2.0) mg/dL Ur Leukocyte Esterase (Negative) 09/20/19 Range/Units 16:20 WBC (3.8-10.6) k/uL RBC (3.80-5.40) m/uL Hgb (11.4-16.0) gm/dL Hct (34.0-46.0) % MCV (80.0-100.0) fL MCH (25.0-35.0) pg MCHC (31.0-37.0) g/dL RDW (11.5-15.5) % Plt Count (150-450) k/uL Neutrophils % % Lymphocytes % % Monocytes % % Eosinophils % % Basophils % % Neutrophils # (1.3-7.7) k/uL Lymphocytes # (1.0-4.8) k/uL Monocytes # (0-1.0) k/uL Eosinophils # (0-0.7) k/uL Basophils # (0-0.2) k/uL Hypochromasia Anisocytosis PT (9.0-12.0) sec INR (<1.2) APTT (22.0-30.0) sec Sodium (137-145) mmol/L Potassium (3.5-5.1) mmol/L Chloride (98-107) mmol/L Carbon Dioxide (22-30) mmol/L Anion Gap mmol/L BUN (7-17) mg/dL Creatinine (0.52-1.04) mg/dL Est GFR (CKD-EPI)AfAm (>60 ml/min/1.73 sqM) Est GFR (CKD-EPI)NonAf (>60 ml/min/1.73 sqM) Glucose (74-99) mg/dL Plasma Lactic Acid Doug (0.7-2.0) mmol/L Calcium (8.4-10.2) mg/dL Magnesium (1.6-2.3) mg/dL Total Bilirubin (0.2-1.3) mg/dL AST (14-36) U/L ALT (4-34) U/L Alkaline Phosphatase (38-126) U/L Troponin I (0.000-0.034) ng/mL NT-Pro-B Natriuret Pep pg/mL Total Protein (6.3-8.2) g/dL Albumin (3.5-5.0) g/dL Urine Color Yellow Urine Appearance Clear (Clear) Urine pH 7.5 (5.0-8.0) Ur Specific Thurston 1.011 (1.001-1.035) Urine Protein Negative (Negative) Urine Glucose (UA) Negative (Negative) Urine Ketones Negative (Negative) Urine Blood Negative (Negative) Urine Nitrite Negative (Negative) Urine Bilirubin Negative (Negative) Urine Urobilinogen <2.0 (<2.0) mg/dL Ur Leukocyte Esterase Negative (Negative) Critical Care Time Critical Care Time: Yes Total Critical Care Time: 35 Disposition Clinical Impression: Non-STEMI (non-ST elevated myocardial infarction), CVA (cerebral vascular accident), Lethargy, Hypertension Disposition: ADMITTED IP TO THIS HOSP Referrals: Victor Hugo Coles DO [Primary Care Provider] - 1-2 days Time of Disposition: 18:38
[2019-09-20 16:05] LABS: Anisocytosis Slight; Basophils # (A) 0.1 k/uL (0-0.2); Basophils % (A) 1 %; Eosinophils # (A) 0.2 k/uL (0-0.7); Eosinophils % (A) 3 %; HCT 30.9 % (34.0-46.0); HGB 9.1 gm/dL (11.4-16.0); Hypochromasia Marked; Lymphocytes # (A) 0.7 k/uL (1.0-4.8); Lymphocytes % (A) 14 %; MCH 25.8 pg (25.0-35.0); MCHC 29.4 g/dL (31.0-37.0); MCV 87.9 fL (80.0-100.0); Mean Platelet Volume 7.8; Monocytes # (A) 0.4 k/uL (0-1.0); Monocytes % (A) 8 %; Neutrophils # (A) 3.7 k/uL (1.3-7.7); Neutrophils % (A) 71 %; Platelet Count 225 k/uL (150-450); RBC 3.51 m/uL (3.80-5.40); RDW 18.6 % (11.5-15.5); WBC 5.2 k/uL (3.8-10.6)
[2019-09-20 16:11] LABS: ALT 14 U/L (4-34); AST 26 U/L (14-36); African American GFR (CKD) >90 (>60 ml/min/1.73 sqM); Albumin 3.8 g/dL (3.5-5.0); Alkaline Phosphatase 56 U/L (38-126); Anion Gap 6 mmol/L; Blood Urea Nitrogen 10 mg/dL (7-17); Carbon Dioxide 30 mmol/L (22-30); Chloride 101 mmol/L (98-107); Glucose 86 mg/dL (74-99); Magnesium 1.7 mg/dL (1.6-2.3); Non-African American GFR(CKD) 85 (>60 ml/min/1.73 sqM); Potassium 4.6 mmol/L (3.5-5.1); Sodium 137 mmol/L (137-145); Total Bilirubin 0.4 mg/dL (0.2-1.3); Total Protein 6.5 g/dL (6.3-8.2)
[2019-09-20 16:13] LABS: INR 1.1 (<1.2); Partial Thromboplastin Time 26.5 sec (22.0-30.0); Prothrombin Time 11.6 sec (9.0-12.0)
--- NOTE | 2019-09-20 16:15 | XR ---
EXAMINATION TYPE: XR chest 2V DATE OF EXAM: 09/20/2019 COMPARISON: 09/01/2019 HISTORY: Short of breath TECHNIQUE: 2 views FINDINGS: Heart is enlarged. There is pulmonary vascular congestion. There are chest leads. Thoracic aorta is atheromatous. There are sternal wires. There is mild blunting of the posterior costophrenic angles. IMPRESSION: There is evidence of congestive heart failure with pleural effusions that is slightly wor se than last exam.
[2019-09-20] MEDS ORDERED: hydrALAZINE HCL 20 MG/ML 1 ML VIAL IVP STA (16:23)
[2019-09-20 16:29] LABS: Appearance,Urine Clear (Clear); Bilirubin,Urine Negative (Negative); Blood,Urine Negative (Negative); Color,Urine Yellow; Glucose,Urine (UA) Negative (Negative); Ketones,Urine Negative (Negative); Leukocyte Esterase,Urine Negative (Negative); Nitrite,Urine Negative (Negative); PH, Urine 7.5 (5.0-8.0); Protein,Urine Negative (Negative); Specific Gravity,Urine 1.011 (1.001-1.035); Urobilinogen,Urine <2.0 mg/dL (<2.0)
--- NOTE | 2019-09-20 17:13 | CT ---
EXAMINATION TYPE: CT brain wo con DATE OF EXAM: 09/20/2019 COMPARISON: 05/23/2019 HISTORY: WEAKNESS CT DLP: 1079.8 mGycm Automated exposure control for dose reduction was used. There is some cerebral cortical atrophy. There is no mass effect nor midline shift. There is no sign of intracranial hemorrhage. Calvarium is intact. IMPRESSION: Cerebral atrophy. No acute intracranial abnormality. No change.
--- NOTE | 2019-09-20 17:28 | CT ---
EXAMINATION TYPE: CT angio head neck DATE OF EXAM: 09/20/2019 COMPARISON: CT angiogram of the brain 02/16/2019 HISTORY: WEAKNESS CT DLP: 399.1 mGycm Automated exposure control for dose reduction was used. CONTRAST: Performed with IV Contrast, patient injected with 65 mL of Isovue 370. There are 3-D post processed images. There is normal branching pattern of the great vessels on the aortic arch. There is bilateral arteria l flow in the subclavian arteries. There is plaque formation and 50% stenosis of the occipital right subclavian artery. There is plaque formation and calcification at the origins of the great vessels. T here is bilateral arterial flow in the vertebral arteries. There is arterial flow in the common inter nal and external carotid arteries bilaterally. There is plaque formation and more than 50% stenosis a t the origin of the left external carotid artery. There is patency of the internal carotid arteries. There is no evidence of carotid or vertebral artery aneurysm or dissection. I see no evidence of hemo dynamic stenosis of the carotid arteries. There is arterial flow in the anterior middle and posterior cerebral arteries. There is normal contra st opacification of the venous sinuses. I see no intracranial hemodynamic stenosis. There is no mass effect. There is no sign of aneurysm or neovascularity. IMPRESSION: Mild atherosclerotic plaque formation as above. 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 No adverse change compared to old exam. No hemodynamic stenosis seen of the intra cranial arteries and the common and internal carotid arteries.
[2019-09-20] MEDS ORDERED: FUROSEMIDE 10 MG/ML 4 ML VIAL IV STA (18:07)
[2019-09-20] MEDS ORDERED: NITROGLYCERIN OINT 1 INCH/GM PACKET TOPICAL STA (18:08)
[2019-09-20] MEDS ORDERED: ASPIRIN 325 MG TAB PO STA (18:38)
[2019-09-20] MEDS ORDERED: KETOROLAC 30 MG/ML 1 ML VIAL IVP STA (19:00)
[2019-09-20] MEDS ORDERED: MAGNESIUM HYDROXIDE 2,400 MG/10 ML CUP PO PRN (20:09)
[2019-09-20] MEDS ORDERED: AMMONIUM LACTATE 12% CREAM 140 GM TUBE TOPICAL PRN (20:09)
[2019-09-20] MEDS ORDERED: guaiFENesin SYRUP 100MG/5ML 200 MG/10 ML CUP PO PRN (20:09)
[2019-09-20] MEDS ORDERED: traMADol 50 MG TAB PO PRN (20:09)
[2019-09-20] MEDS ORDERED: BISACODYL 10 MG SUPP RECTAL PRN (20:09)
[2019-09-20] MEDS ORDERED: ACETAMINOPHEN TAB 325 MG TAB PO PRN (20:09)
[2019-09-20] MEDS ORDERED: NA PHOS,M-B/NA PHOS,DI-BA 133 ML ENEMA RECTAL PRN (20:09)
[2019-09-20] MEDS: CLOTRIMAZOLE 1% CREAM 15 GM TUBE TOPICAL SCH (22:03)
[2019-09-20 22:04] LABS: Glucose,Whole Blood 119 mg/dL (75-99)
[2019-09-20] MEDS: FLUoxetine HCL 20 MG CAP PO SCH (22:05)
[2019-09-20] MEDS: PRIMIDONE 50 MG TAB PO SCH (22:08)
[2019-09-20] MEDS: LISINOPRIL 10 MG TAB PO SCH (22:08)
[2019-09-20] MEDS: GABAPENTIN 300 MG CAP PO SCH (22:08)
[2019-09-20] MEDS: PRAVASTATIN SODIUM 80 MG TAB PO SCH (22:09)
[2019-09-20] MEDS: LEVOTHYROXINE 100 MCG TAB PO SCH (22:09)
[2019-09-20] MEDS: INSULIN ASPART (NovoLOG) 100 UNIT/ML VIAL SQ SCH (22:09)
[2019-09-20] MEDS: FERROUS SULFATE 325 MG TAB PO SCH (22:09)
[2019-09-20] MEDS: DILTIAZEM ORAL 60 MG TAB PO SCH (22:09)
[2019-09-20] MEDS: NITROGLYCERIN OINT 1 INCH/GM PACKET TOPICAL SCH (23:33)
[2019-09-20] MEDS: FUROSEMIDE 10 MG/ML 2 ML VIAL IV SCH (23:33)
[2019-09-21 04:07] LABS: Cholesterol 161 mg/dL (<200); HDL Cholesterol 56 mg/dL (40-60); LDL Cholesterol,Calculated 91 mg/dL (0-99); Triglycerides 70 mg/dL (<150)
[2019-09-21] MEDS: NITROGLYCERIN OINT 1 INCH/GM PACKET TOPICAL SCH (05:22)
[2019-09-21] MEDS: DILTIAZEM ORAL 60 MG TAB PO SCH ×3 (05:27→21:03)
[2019-09-21 06:11] LABS: Glucose,Whole Blood 90 mg/dL (75-99)
[2019-09-21] MEDS: INSULIN ASPART (NovoLOG) 100 UNIT/ML VIAL SQ SCH ×4 (07:54→21:01)
[2019-09-21] MEDS ORDERED: NON FORMULARY DRUG (Ceftriaxone 2,000 MG) IVP SCH (08:15)
[2019-09-21] MEDS: CARVEDILOL 12.5 MG TAB PO SCH ×2 (08:56→17:11)
[2019-09-21] MEDS: APIXABAN 2.5 MG TABLET PO SCH ×2 (08:56→17:10)
[2019-09-21] MEDS: FERROUS SULFATE 325 MG TAB PO SCH ×2 (08:56→21:03)
[2019-09-21] MEDS: PRIMIDONE 25 MG TAB PO SCH (08:57)
[2019-09-21] MEDS: GABAPENTIN 300 MG CAP PO SCH ×4 (08:57→21:03)
[2019-09-21] MEDS: MULTIVITAMINS, THERA 1 EACH TAB PO SCH (08:57)
[2019-09-21] MEDS: THIAMINE 100 MG TAB PO SCH (08:57)
[2019-09-21] MEDS: PANTOPRAZOLE 40 MG TABLET PO SCH ×2 (08:57→17:11)
[2019-09-21] MEDS: metFORMIN 500 MG TAB PO SCH (08:58)
[2019-09-21] MEDS: FUROSEMIDE 10 MG/ML 2 ML VIAL IV SCH (08:58)
[2019-09-21] MEDS: CLOTRIMAZOLE 1% CREAM 15 GM TUBE TOPICAL SCH (09:03)
[2019-09-21] MEDS: ARTIFICIAL TEARS-HYPROMELLOSE DROPS 15 ML BTL BOTH EYES SCH ×3 (09:15→17:11)
--- NOTE | 2019-09-21 10:04 | P.CRDCN ---
History of Present Illness Consult date: 09/21/19 Requesting physician: Esvin Paz Reason for Consult (text): Abnormal troponins Chief complaint: Lethargy and weakness History of present illness: This is an 83-year-old female with past medical history significant for chronic persistent atrial fibrillation, on long-term anticoagulation, valvular heart disease status post bioprosthetic aortic valve 5 years ago, diabetes, hypertension, hyperlipidemia, nicotine dependence. Patient underwent a GUILLERMINA in August of this year which revealed biatrial enlargement atrial appendage was normal, normal bioprosthetic aortic valve moderate MR mild TR and severe pulmonary hypertension with no evidence of vegetation. An echocardiogram with D oppler study was also performed on that admission which revealed an ejection fraction of 40-45%, mild to moderate MR, [id number] TR, severe pulmonary hypertension. Chest x-ray on admission here showed congestive cardiac failure, brain CT did not reveal any acute abnormality, CTA of the neck showed moderate stenosis in the left carotid with no significantly hemodynamically stenosis galaviz virus not detected. EKG on presentation here showed atrial fibrillation with a heart rate in the low 100s. Blood pressure 137/70, heart rate in the 60s, respirations 18. 96% on room air. Magnesium 1.7. White blood cell count 5.2, hemoglobin 9.1, platelet count 225. Sodium 137, potassium 4.6, chloride 11, CO2 30, BUN 10, creatinine 0.5. Troponin 0.3, 0.3, 0.3. Patient's current medications here include aspirin 325 mg daily, Nitropaste, Eliquis 2-1/2 mg twice a day, Coreg 25 mg twice a day, Cardizem 60 mg 3 times a day, lisinopril 10 mg daily. We will discontinue the aspirin and Nitropaste. Past Medical History Past Medical History: Atrial Fibrillation, Diabetes Mellitus, GI Bleed, Hyperlipidemia, Hypertension, Neurologic Disorder, Thyroid Disorder Additional Past Medical History / Comment(s): guillain-barre syndrome. ovarian cancer with hysterectomy 1972. anemia History of Any Multi-Drug Resistant Organisms: None Reported Past Surgical History: Hysterectomy, Orthopedic Surgery Additional Past Surgical History / Comment(s): bilateral knee surgery , right rotor cuff surgery, Past Anesthesia/Blood Transfusion Reactions: No Reported Reaction Past Psychological History: Depression Smoking Status: Former smoker Past Alcohol Use History: None Reported Additional Past Alcohol Use History / Comment(s): Patient quit smoking prior to 05/23/2019 hospital admission Past Drug Use History: None Reported - Past Family History Sister(s) Family Medical History: Cancer Medications and Allergies Home Medications Medication Instructions Recorded Confirmed Type Carvedilol [Coreg] 25 mg PO BID@0800,1700 02/15/19 09/20/19 History FLUoxetine HCL [PROzac] 40 mg PO DAILY@169902/15/19 09/20/19 History Levothyroxine Sodium [Synthroid] 100 mcg PO HS@209902/15/19 09/20/19 History Lisinopril [Prinivil] 10 mg PO HS@209902/15/19 09/20/19 History Pantoprazole [Protonix] 40 mg PO BID@0800,169902/15/19 09/20/19 History Primidone [Mysoline] 100 mg PO HS@209902/15/19 09/20/19 History metFORMIN HCL 500 mg PO BID@0800,169902/15/19 09/20/19 History Artificial Tears-Hypromellose 1 drops BOTH EYES 05/23/19 09/20/19 History [Artificial Tear Drops] TID@0800,1200,1700 Pravastatin Sodium [Pravachol] 80 mg PO HS@209905/23/19 09/20/19 History guaiFENesin 400 mg PO Q4H PRN 05/23/19 09/20/19 History Thiamine [Vitamin B-1] 100 mg PO DAILY@1200 tab 05/28/19 09/20/19 Rx Bisacodyl 10 mg RECTAL DAILY PRN 06/19/19 09/20/19 History Ferrous Sulfate [Feosol] 325 mg PO BID@0800,209906/19/19 09/20/19 History Folic Acid 1 mg PO DAILY@0 06/19/19 09/20/19 History Na Phos,M-B/Na Phos,Di-Ba [Fleet 133 ml RECTAL DAILY PRN 06/19/19 09/20/19 History Adult] Ammonium Lactate Cream [Lac-Hydrin 1 applic TOPICAL DAILY PRN 08/28/19 09/20/19 History 12% Cream] Primidone [Mysoline] 25 mg PO DAILY@0800 08/28/19 09/20/19 History ALPRAZolam [Xanax] 0.25 mg PO DAILY PRN #3 tab 09/04/19 09/20/19 Rx traMADol HCL 50 mg PO Q8H PRN #10 tab 09/04/19 09/20/19 Rx Acetaminophen Tab [Tylenol] 650 mg PO Q6HR PRN 09/20/19 09/20/19 History Apixaban [Eliquis] 2.5 mg PO BID@0800,1700 09/20/19 09/20/19 History Diltiazem Oral [Cardizem*] 60 mg PO TID@0600,1400,2100 09/20/19 09/20/19 History Econazole 1% Cream [Spectazole] 1 applic TOPICAL BID@0800,2100 09/20/19 09/20/19 History Gabapentin 600 mg PO QID 09/20/19 09/20/19 History Magnesium Hydroxide [Milk of 7,200 mg PO Q48H PRN 09/20/19 09/20/19 History Magnesia Concentrate] Multivitamins, Thera [Multivitamin 1 tab PO DAILY@1200 09/20/19 09/20/19 History (formulary)] Mupirocin 2% Oint [Bactroban 2% 1 applic TOPICAL DAILY 09/20/19 09/20/19 History Oint] cefTRIAXone [Rocephin] 2,000 mg IVP DAILY@0815 09/20/19 09/20/19 History Allergies Allergy/AdvReac Type Severity Reaction Status Date / Time adhesive tape Allergy Rash/Hives Verified 09/20/19 17:37 influenza virus vaccine, Allergy Unknown Verified 09/20/19 17:37 specific Physical Exam Vitals: Vital Signs Temp Pulse Pulse Resp BP BP Pulse Ox 09/21/19 08:00 97.6 F 87 18 133/75 94 L 09/21/19 03:54 98 F 64 17 137/71 96 09/21/19 00:00 98.1 F 69 17 143/77 95 09/20/19 20:05 98.1 F 101 H 16 141/86 95 09/20/19 19:04 97 181 H 152/80 93 L 09/20/19 18:49 101 H 18 145/86 98 09/20/19 18:21 96 18 145/86 96 09/20/19 17:45 99 18 181/86 98 09/20/19 17:00 87 17 150/93 100 09/20/19 16:30 89 17 178/102 100 09/20/19 16:22 94 18 178/102 98 09/20/19 16:00 96 15 176/117 100 09/20/19 15:30 90 17 182/107 100 09/20/19 15:06 98.0 F 92 18 182/107 95 Intake and Output 09/20/19 09/21/19 09/21/19 22:59 06:59 14:59 Output Total 1200 Balance -1200 Output: Urine 1200 Other: Weight 89.358 kg 90 kg PHYSICAL EXAMINATION: GENERAL: 83-year-old female in no acute distress at the time of examination HEENT: Head is atraumatic, normocephalic. Pupils equal, round. Sclera anicteric. Conjunctiva are clear. Mucous membranes of the mouth are moist. N fred is supple. There is no elevated jugular venous pressure. No carotid bruit is heard. HEART EXAMINATION: Heart S1, S2 irregularly irregular systolic ejection murmur at the left sternal border . CHEST EXAMINATION: Lungs are clear to auscultation and precussion. No chest wall tenderness is noted on palpation or with deep breathing. ABDOMEN: Soft, nontender. Bowel sounds are heard. No organomegaly noted. EXTREMITIES: 2+ peripheral pulses with trace evidence of peripheral edema and no calf tenderness noted. NEUROLOGIC patient is awake, alert and oriented X3 . Results 09/20/19 15:18 09/20/19 15:18 Cardiac Enzymes 09/20/19 09/20/19 09/20/19 Range/Units 15:18 15:18 21:18 AST 26 (14-36) U/L Troponin I 0.361 H* 0.357 H* (0.000-0.034) ng/mL 09/21/19 Range/Units 03:33 AST (14-36) U/L Troponin I 0.310 H* (0.000-0.034) ng/mL Coagulation 09/20/19 Range/Units 15:18 PT 11.6 (9.0-12.0) sec APTT 26.5 (22.0-30.0) sec Lipids 09/21/19 Range/Units 03:33 Triglycerides 70 (<150) mg/dL Cholesterol 161 (<200) mg/dL HDL Cholesterol 56 (40-60) mg/dL CBC 09/20/19 Range/Units 15:18 WBC 5.2 (3.8-10.6) k/uL RBC 3.51 L (3.80-5.40) m/uL Hgb 9.1 L (11.4-16.0) gm/dL Hct 30.9 L (34.0-46.0) % Plt Count 225 (150-450) k/uL Comprehensive Metabolic Panel 09/20/19 Range/Units 15:18 Sodium 137 (137-145) mmol/L Potassium 4.6 (3.5-5.1) mmol/L Chloride 101 (98-107) mmol/L Carbon Dioxide 30 (22-30) mmol/L BUN 10 (7-17) mg/dL Creatinine 0.56 (0.52-1.04) mg/dL Glucose 86 (74-99) mg/dL Calcium 9.0 (8.4-10.2) mg/dL AST 26 (14-36) U/L ALT 14 (4-34) U/L Alkaline Phosphatase 56 (38-126) U/L Total Protein 6.5 (6.3-8.2) g/dL Albumin 3.8 (3.5-5.0) g/dL Current Medications Generic Name Dose Route Start Last Admin Trade Name Freq PRN Reason Stop Dose Admin Acetaminophen 650 mg 09/20/19 20:09 Tylenol Tab PO Q6HR PRN Mild Pain Alprazolam 0.25 mg 09/20/19 20:09 Xanax PO DAILY PRN Anxiety Apixaban 2.5 mg 09/21/19 08:00 09/21/19 08:56 Eliquis PO 2.5 mg BID@0800,1700 [facility] Administration Artificial Tears 1 drops 09/21/19 08:00 09/21/19 09:15 Artificial Tear Drops BOTH EYES Not Given TID@0800,1200,1700 [facility] Bisacodyl 10 mg 09/20/19 20:09 Dulcolax RECTAL DAILY PRN Constipation Carvedilol 25 mg 09/21/19 08:00 09/21/19 08:56 Coreg PO 25 mg BID@0800,1700 [facility] Administration Clotrimazole 1 applic 09/20/19 21:00 09/21/19 09:03 Lotrimin Cream TOPICAL 1 applic BID@0800,2099 [facility] Administration Diltiazem HCl 60 mg 09/20/19 21:00 09/21/19 05:27 Cardizem Oral PO 60 mg TID@0600,1400,2099 [facility] Administration Ferrous Sulfate 325 mg 09/20/19 21:00 09/21/19 08:56 Feosol PO 325 mg BID@0800,2100 [facility] Administration Fluoxetine HCl 40 mg 09/20/19 20:09 09/20/19 22:05 Prozac PO Not Given DAILY@1700 [facility] Folic Acid 1 mg 09/21/19 17:00 Folic Acid PO DAILY@1700 [facility] Furosemide 20 mg 09/21/19 00:00 09/21/19 08:58 Lasix IV 20 mg Q8HR [facility] Administration Gabapentin 600 mg 09/20/19 22:00 09/21/19 08:57 Neurontin PO 600 mg QID [facility] Administration Guaifenesin 400 mg 09/20/19 20:09 Robitussin PO Q4H PRN Congestion Ceftriaxone Sodium 2 gm/ 50 mls @ 100 mls/hr 09/21/19 08:00 09/21/19 09:03 Sodium Chloride IVPB 10/04/19 08:01 100 mls/hr Q24H [facility] Administration Insulin Aspart 0 unit 09/20/19 21:00 09/21/19 07:54 Novolog SQ Not Given ACHS [facility] Protocol Lactic Acid 1 applic 09/20/19 20:09 Ammonium Lactate TOPICAL DAILY PRN dry skin on feet Levothyroxine Sodium 100 mcg 09/20/19 21:00 09/20/19 22:09 Synthroid PO 100 mcg HS@2100 [facility] Administration Lisinopril 10 mg 09/20/19 21:00 09/20/19 22:08 Zestril PO 10 mg HS@2100 [facility] Administration Magnesium Hydroxide 2,400 mg 09/20/19 20:09 Milk Of Magnesia PO Q48H PRN Constipation Metformin HCl 500 mg 09/21/19 08:00 09/21/19 08:58 Glucophage PO Not Given BID@0800,1700 [facility] Multivitamins 1 each 09/21/19 12:00 09/21/19 08:57 Theragran PO 1 each DAILY@1200 [facility] Administration Mupirocin 1 applic 09/21/19 09:00 Bactroban Oint TOPICAL DAILY [facility] Pantoprazole Sodium 40 mg 09/21/19 08:00 09/21/19 08:57 Protonix PO 40 mg BID@0800,1700 [facility] Administration Pravastatin Sodium 80 mg 09/20/19 21:00 09/20/19 22:09 Pravachol PO 80 mg HS@2100 [facility] Administration Primidone 100 mg 09/20/19 21:00 09/20/19 22:08 Mysoline PO 100 mg HS@2100 [facility] Administration Primidone 25 mg 09/21/19 08:00 09/21/19 08:57 Mysoline PO 25 mg DAILY@0800 [facility] Administration Sodium Biphosphate/Sodium Phosphate 133 ml 09/20/19 20:09 Fleet Adult RECTAL DAILY PRN Constipation Thiamine HCl 100 mg 09/21/19 12:00 09/21/19 08:57 Vitamin B-1 PO 100 mg DAILY@1200 [facility] Administration Tramadol HCl 50 mg 09/20/19 20:09 Ultram PO Q8H PRN Pain Intake and Output 09/20/19 09/21/19 09/21/19 22:59 06:59 14:59 Output Total 1200 Balance -1200 Output: Urine 1200 Other: Weight 89.358 kg 90 kg 09/20/19 15:18 09/20/19 15:18 EKG Interpretations (text) EKG on presentation here showed atrial fibrillation with moderately rapid ventricular response. Assessment and Plan Plan: Assessment and plan #1 lethargy, weakness, and tiredness. Recent hospitalization for pneumonia. #2 chronic persistent atrial fibrillation #3 systolic congestive heart failure acute on chronic, mild #4 status post bioprosthetic aortic valve replacement 5 years ago #5 diabetes #6 hypertension #7 hyperlipidemia #8 nicotine dependence #9 troponin abnormality, 0.3, 0.3, 0.3, trended not consistent with acute coronary syndrome with no significant rise and fall pattern. Patient denies any chest discomfort. Plan We will discontinue the aspirin, discontinue the Nitropaste. Continue anticoagulation in the form of Eliquis 2-1/2 mg one tablet by mouth twice a day continue Coreg, Cardizem, lisinopril. Patient just had an echo performed last month we will not need to repeat an echo this admission. Troponin abnormality not consistent with acute coronary syndrome with no significant rise and fall pattern. Resume home dose of Lasix. Further recommendations to follow. DNP note has been reviewed, I agree with a documented findings and plan of care. Patient was seen and examined.
[2019-09-21] MEDS ORDERED: FUROSEMIDE 40 MG TAB PO SCH (10:30)
[2019-09-21] MEDS: MUPIROCIN 2% OINT 22 GM TUBE TOPICAL SCH (11:31)
[2019-09-21 11:56] LABS: Glucose,Whole Blood 151 mg/dL (75-99)
--- NOTE | 2019-09-21 16:43 | P.HPIM ---
History of Present Illness H&P Date: 09/21/19 Chief Complaint: Lethargic History of presenting complaint: This is a very pleasant 83-year-old patient of Dr. Coles. Resident of [facility] [place]. Chronic stable medical conditions include atrial fibrillation on eliquis,, hyperlipidemia, hypertension, Guillain-Preciado syndrome with lower extremity weakness, hypothyroid. Patient was sent in from [facility] as patient was found to be lethargic. There was question about some discoordination left arm. Patient could not tell exactly. Computed tomography scan was negative. When I spoke to the patient is morning patient feels his speech was a bit of trouble getting better. Denied any headache or change in vision. She is not sure about her extremities except that she states she's had limitation of movement of the left arm from before now she does feel tired. No fever no chills. No cough Review of systems: GEN.: Tired, EYES: None HEENT: None NECK: None RESPIRATORY: None CARDIOVASCULAR: None GASTROINTESTINAL: None GENITOURINARY: None MUSCULOSKELETAL: Joint pains, including left shoulder LYMPHATICS: None HEMATOLOGICAL: None PSYCHIATRY: None NEUROLOGICAL: Lower extremity weakness, rest as above Past medical history to include: Atrial fibrillation, hyperlipidemia, hypertension, hypothyroid, Guillain-Preciado syndrome, ovarian cancer with hysterectomy in 1972, anemia, depression Social history: Lives at [facility], smoked on and off for about 58 years averaged about a pack and half a day. Physical examination: VITAL SIGNS: 98, 92, 18, 182/107, 95% liters GENERAL: BMI 30.2, sitting up in a chair, somewhat tired EYES: Pupils equal. Conjunctiva normal. HEENT: External appearance of nose and ears normal, oral cavity grossly normal. NECK: JVD not raised; masses not palpable. HEART: Irregular heart sounds; no edema. LUNGS: Respiratory rate normal, decreased breath sounds. ABDOMEN: Soft, nontender, liver spleen not palpable, no masses palpable. PSYCH: Able to answer questions. A bit tired NEUROLOGICAL: [Cranial nerves grossly intact; no facial asymmetry, weakness of both lower extremities. MUSCULOSKELETAL: Some limitation of the left shoulder joint with limitation LYMPHATICS: No lymph nodes palpable in the axilla and neck INVESTIGATIONS, reviewed in the clinical context: White count 5.2 hemoglobin 9.1 percussion 4.6 creatinine 0.56 Troponin I 0.361, 0.357, 0.310 UA-negative, with-19 PCR-not detected EKG tracing personally reviewed by me-atrial fibrillation with a heart rate around [address] segment changes Chest x-ray film personally reviewed by me-cardiomegaly with prominent fluid in the fissure, pleural effusion GUILLERMINA from September 02-shows EF 50-55%, bioprosthetic aortic valve with normal appearance, evidence of moderate severe pulmonary hypertension ProBNP 3540 CT head and neck. Moderate stenosis of the proximal left external carotid artery Computed tomography scan of the brain without contrast-cerebral atrophy Assessment: -Acute on chronic congestive heart failure exacerbation from diastolic dysfunction EF 50-55%. 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 Follow lites closely. Home medications resumed. We'll do an EEG. Cardiology and neurology consulted. It does not appear to be an obvious new event but cannot rule out entirely. DVT prophylaxis. Past Medical History Past Medical History: Atrial Fibrillation, Diabetes Mellitus, GI Bleed, Hyperl ipidemia, Hypertension, Neurologic Disorder, Thyroid Disorder Additional Past Medical History / Comment(s): guillain-barre syndrome. ovarian cancer with hysterectomy 1972. anemia History of Any Multi-Drug Resistant Organisms: None Reported Past Surgical History: Hysterectomy, Orthopedic Surgery Additional Past Surgical History / Comment(s): bilateral knee surgery , right rotor cuff surgery, Past Anesthesia/Blood Transfusion Reactions: No Reported Reaction Past Psychological History: Depression Smoking Status: Former smoker Past Alcohol Use History: None Reported Additional Past Alcohol Use History / Comment(s): Patient quit smoking prior to 05/23/2019 hospital admission Past Drug Use History: None Reported - Past Family History Sister(s) Family Medical History: Cancer Medications and Allergies Home Medications Medication Instructions Recorded Confirmed Type Carvedilol [Coreg] 25 mg PO BID@0800,1700 02/15/19 09/20/19 History FLUoxetine HCL [PROzac] 40 mg PO DAILY@1700 02/15/19 05/03/20 History Levothyroxine Sodium [Synthroid] 100 mcg PO HS@209902/15/19 09/20/19 History Lisinopril [Prinivil] 10 mg PO HS@209902/15/19 09/20/19 History Pantoprazole [Protonix] 40 mg PO BID@0800,17002/15/19 09/20/19 History Primidone [Mysoline] 100 mg PO HS@209902/15/19 09/20/19 History metFORMIN HCL 500 mg PO BID@0800,17002/15/19 09/20/19 History Artificial Tears-Hypromellose 1 drops BOTH EYES 05/23/19 09/20/19 History [Artificial Tear Drops] TID@0800,1200,1700 Pravastatin Sodium [Pravachol] 80 mg PO HS@209905/23/19 09/20/19 History guaiFENesin 400 mg PO Q4H PRN 05/23/19 09/20/19 History Thiamine [Vitamin B-1] 100 mg PO DAILY@1200 tab 05/28/19 09/20/19 Rx Bisacodyl 10 mg RECTAL DAILY PRN 06/19/19 09/20/19 History Ferrous Sulfate [Feosol] 325 mg PO BID@0800,209906/19/19 09/20/19 History Folic Acid 1 mg PO DAILY@169906/19/19 09/20/19 History Na Phos,M-B/Na Phos,Di-Ba [Fleet 133 ml RECTAL DAILY PRN 06/19/19 09/20/19 History Adult] Ammonium Lactate Cream [Lac-Hydrin 1 applic TOPICAL DAILY PRN 08/28/19 09/20/19 History 12% Cream] Primidone [Mysoline] 25 mg PO DAILY@0800 08/28/19 09/20/19 History ALPRAZolam [Xanax] 0.25 mg PO DAILY PRN #3 tab 09/04/19 09/20/19 Rx traMADol HCL 50 mg PO Q8H PRN #10 tab 09/04/19 09/20/19 Rx Acetaminophen Tab [Tylenol] 650 mg PO Q6HR PRN 09/20/19 09/20/19 History Apixaban [Eliquis] 2.5 mg PO BID@0800,1700 09/20/19 09/20/19 History Diltiazem Oral [Cardizem*] 60 mg PO TID@0600,1400,2100 09/20/19 09/20/19 History Econazole 1% Cream [Spectazole] 1 applic TOPICAL BID@0800,2100 09/20/19 09/20/19 History Gabapentin 600 mg PO QID 09/20/19 09/20/19 History Magnesium Hydroxide [Milk of 7,200 mg PO Q48H PRN 09/20/19 09/20/19 History Magnesia Concentrate] Multivitamins, Thera [Multivitamin 1 tab PO DAILY@1200 09/20/19 09/20/19 History (formulary)] Mupirocin 2% Oint [Bactroban 2% 1 applic TOPICAL DAILY 09/20/19 09/20/19 History Oint] cefTRIAXone [Rocephin] 2,000 mg IVP DAILY@0815 09/20/19 09/20/19 History Allergies Allergy/AdvReac Type Severity Reaction Status Date / Time adhesive tape Allergy Rash/Hives Verified 09/20/19 17:37 influenza virus vaccine, Allergy Unknown Verified 09/20/19 17:37 specific Physical Exam Vitals: Vital Signs Temp Pulse Pulse Resp BP BP Pulse Ox 09/21/19 08:00 97.6 F 87 18 133/75 94 L 09/21/19 03:54 98 F 64 17 137/71 96 09/21/19 00:00 98.1 F 69 17 143/77 95 09/20/19 20:05 98.1 F 101 H 16 141/86 95 09/20/19 19:04 97 181 H 152/80 93 L 09/20/19 18:49 101 H 18 145/86 98 09/20/19 18:21 96 18 145/86 96 09/20/19 17:45 99 18 181/86 98 09/20/19 17:00 87 17 150/93 100 09/20/19 16:30 89 17 178/102 100 09/20/19 16:22 94 18 178/102 98 09/20/19 16:00 96 15 176/117 100 09/20/19 15:30 90 17 182/107 100 09/20/19 15:06 98.0 F 92 18 182/107 95 Intake and Output 09/20/19 09/21/19 09/21/19 22:59 06:59 14:59 Intake Total 50 Output Total 1200 Balance -1200 50 Intake: Intake, IV Titration 50 Amount cefTRIAXone 2 gm In 50 Sodium Chloride 0.9% 50 ml @ 100 mls/hr IVPB Q24H [facility] Rx#:[id number] Output: Urine 1200 Other: Weight 89.358 kg 90 kg Results CBC & Chem 7: 09/20/19 15:18 09/20/19 15:18 Labs: Abnormal Lab Results - Last 24 Hours (Table) 09/20/19 09/20/19 09/20/19 Range/Units 15:18 15:18 21:18 RBC 3.51 L (3.80-5.40) m/uL Hgb 9.1 L (11.4-16.0) gm/dL Hct 30.9 L (34.0-46.0) % MCHC 29.4 L (31.0-37.0) g/dL RDW 18.6 H (11.5-15.5) % Lymphocytes # 0.7 L (1.0-4.8) k/uL POC Glucose (mg/dL) (75-99) mg/dL Troponin I 0.361 H* 0.357 H* (0.000-0.034) ng/mL 09/20/19 09/21/19 Range/Units 22:03 03:33 RBC (3.80-5.40) m/uL Hgb (11.4-16.0) gm/dL Hct (34.0-46.0) % MCHC (31.0-37.0) g/dL RDW (11.5-15.5) % Lymphocytes # (1.0-4.8) k/uL POC Glucose (mg/dL) 119 H (75-99) mg/dL Troponin I 0.310 H* (0.000-0.034) ng/mL Thrombosis Risk Factor Assmnt - Choose All That Apply Any of the Below Risk Factors Present?: Yes Each Factor Represents 1 point: Medical pt on bed rest, Obesity (BMI >25) Other Risk Factors: Yes Each Risk Factor Represents 3 Points: Age 75 years or older Other congenital or acquired thrombophilia - If yes, enter type in comment: No Thrombosis Risk Factor Assessment Total Risk Factor Score: 5 Thrombosis Risk Factor Assessment Level: High Risk
[2019-09-21 16:56] LABS: Glucose,Whole Blood 131 mg/dL (75-99)
[2019-09-21] MEDS: FUROSEMIDE 10 MG/ML 4 ML VIAL IV SCH ×2 (17:04→21:03)
[2019-09-21] MEDS: FLUoxetine HCL 20 MG CAP PO SCH (17:11)
[2019-09-21] MEDS: FOLIC ACID 1 MG TAB PO SCH (17:13)
[2019-09-21] MEDS ORDERED: ASPIRIN 325 MG TAB PO SCH (18:00)
[2019-09-21 20:02] LABS: Glucose,Whole Blood 124 mg/dL (75-99)
[2019-09-21] MEDS: LEVOTHYROXINE 100 MCG TAB PO SCH (21:03)
[2019-09-21] MEDS: PRIMIDONE 50 MG TAB PO SCH (21:03)
[2019-09-21] MEDS: LISINOPRIL 10 MG TAB PO SCH (21:03)
[2019-09-21] MEDS: PRAVASTATIN SODIUM 80 MG TAB PO SCH (21:04)
[2019-09-22] MEDS: CLOTRIMAZOLE 1% CREAM 15 GM TUBE TOPICAL SCH ×3 (00:25→23:36)
[2019-09-22] MEDS: ALPRAZolam 0.25 MG TAB PO PRN ×2 (02:06→20:27)
[2019-09-22 06:06] LABS: Glucose,Whole Blood 159 mg/dL (75-99)
[2019-09-22 06:15] LABS: African American GFR (CKD) >90 (>60 ml/min/1.73 sqM); Anion Gap 7 mmol/L; Blood Urea Nitrogen 11 mg/dL (7-17); Carbon Dioxide 33 mmol/L (22-30); Chloride 97 mmol/L (98-107); Glucose 101 mg/dL (74-99); Non-African American GFR(CKD) 85 (>60 ml/min/1.73 sqM); Potassium 3.8 mmol/L (3.5-5.1); Sodium 137 mmol/L (137-145)
[2019-09-22] MEDS: INSULIN ASPART (NovoLOG) 100 UNIT/ML VIAL SQ SCH ×4 (06:40→23:36)
[2019-09-22] MEDS: DILTIAZEM ORAL 60 MG TAB PO SCH ×3 (06:40→20:23)
[2019-09-22] MEDS: FUROSEMIDE 10 MG/ML 4 ML VIAL IV SCH (08:00)
[2019-09-22] MEDS: CARVEDILOL 12.5 MG TAB PO SCH ×2 (08:00→17:42)
[2019-09-22] MEDS: GABAPENTIN 300 MG CAP PO SCH ×4 (08:00→20:24)
[2019-09-22] MEDS: metFORMIN 500 MG TAB PO SCH ×2 (08:00→17:41)
[2019-09-22] MEDS: APIXABAN 2.5 MG TABLET PO SCH ×2 (08:00→17:42)
[2019-09-22] MEDS: FERROUS SULFATE 325 MG TAB PO SCH ×2 (08:00→20:24)
[2019-09-22] MEDS: PRIMIDONE 25 MG TAB PO SCH (08:01)
[2019-09-22] MEDS: PANTOPRAZOLE 40 MG TABLET PO SCH ×2 (08:01→17:41)
[2019-09-22] MEDS: MUPIROCIN 2% OINT 22 GM TUBE TOPICAL SCH ×2 (08:02→11:01)
[2019-09-22] MEDS: ARTIFICIAL TEARS-HYPROMELLOSE DROPS 15 ML BTL BOTH EYES SCH ×3 (08:02→17:42)
[2019-09-22] MEDS: MULTIVITAMINS, THERA 1 EACH TAB PO SCH (11:01)
[2019-09-22] MEDS: THIAMINE 100 MG TAB PO SCH (11:01)
--- NOTE | 2019-09-22 11:15 | P.PN ---
Subjective Progress Note Date: 09/22/19 This is an 83-year-old female with past medical history significant for chronic persistent atrial fibrillation, on long-term anticoagulation, valvular heart disease status post bioprosthetic aortic valve 5 years ago, diabetes, hypertension, hyperlipidemia, nicotine dependence. Patient underwent a GUILLERMINA in August of this year which revealed biatrial enlargement atrial appendage was normal, normal bioprosthetic aortic valve moderate MR mild TR and severe pulmonary hypertension with no evidence of vegetation. An echocardiogram with Doppler study was also performed on that admission which revealed an ejection fraction of 40-45%, mild to moderate MR, [id number] TR, severe pulmonary hypertension. Chest x-ray on admission here showed congestive cardiac failure, brain CT did not reveal any acute abnormality, CTA of the neck showed moderate stenosis in the left carotid with no significantly hemodynamically stenosis galaviz virus not detected. EKG on presentation here showed atrial fibrillation with a heart rate in the low 100s. Blood pressure 137/70, heart rate in the 60s, respirations 18. 96% on room air. Magnesium 1.7. White blood cell count 5.2, hemoglobin 9.1, platelet count 225. Sodium 137, potassium 4.6, chloride 11, CO2 30, BUN 10, creatinine 0.5. Troponin 0.3, 0.3, 0.3. Patient's current medications here include aspirin 325 mg daily, Nitropaste, Eliquis 2-1/2 mg twice a day, Coreg 25 mg twice a day, Cardizem 60 mg 3 times a day, lisinopril 10 mg daily. We will discontinue the aspirin and Nitropaste. 09/22/2019 Patient seen and examined today, blood pressure 114/68 with a heart rate in the 70s, 96% on room air. Sodium 137, potassium 3.8, BUN 11, creatinine 0.5, BNP level 3030. Objective - Vital Signs Vital signs: Vital Signs Temp 98.1 F 09/22/19 08:00 Pulse 79 09/22/19 08:00 Resp 18 09/22/19 08:00 BP 114/69 09/22/19 08:00 Pulse Ox 96 09/22/19 08:00 Intake & Output 09/21/19 09/22/19 09/22/19 18:59 06:59 18:59 Intake Total 530 Output Total 650 1000 Balance -120 -1000 Weight 89.6 kg Intake: Intake, IV Titration 50 Amount cefTRIAXone 2 gm In 50 Sodium Chloride 0.9% 50 ml @ 100 mls/hr IVPB Q24H [facility] Rx#:[id number] Oral 480 Output: Urine 650 1000 Other: Voiding Method Urinal Urinal # Voids 1 - Exam PHYSICAL EXAMINATION: GENERAL: 83-year-old female in no acute distress at the time of examination HEENT: Head is atraumatic, normocephalic. Pupils equal, round. Sclera anicteric. Conjunctiva are clear. Mucous membranes of the mouth are moist. Neck is supple. There is no elevated jugular venous pressure. No carotid bruit is heard. HEART EXAMINATION: Heart S1, S2 irregularly irregular systolic ejection murmur at the left sternal border . CHEST EXAMINATION: Lungs are clear to auscultation and precussion. No chest wall tenderness is noted on palpation or with deep breathing. ABDOMEN: Soft, nontender. Bowel sounds are heard. No organomegaly noted. EXTREMITIES: 2+ peripheral pulses with trace evidence of peripheral edema and no calf tenderness noted. NEUROLOGIC patient is awake, alert and oriented X3 . - Labs CBC & Chem 7: 09/20/19 15:18 09/22/19 05:39 Labs: Abnormal Lab Results - Last 24 Hours (Table) 09/21/19 09/21/19 09/21/19 Range/Units 11:55 16:55 20:01 Chloride (98-107) mmol/L Carbon Dioxide (22-30) mmol/L Glucose (74-99) mg/dL POC Glucose (mg/dL) 151 H 131 H 124 H (75-99) mg/dL 09/22/19 09/22/19 Range/Units 05:39 06:05 Chloride 97 L (98-107) mmol/L Carbon Dioxide 33 H (22-30) mmol/L Glucose 101 H (74-99) mg/dL POC Glucose (mg/dL) 159 H (75-99) mg/dL Assessment and Plan Plan: Assessment and plan #1 lethargy, weakness, and tiredness. Recent hospitalization for pneumonia. #2 chronic persistent atrial fibrillation #3 systolic congestive heart failure acute on chronic, mild #4 status post bioprosthetic aortic valve replacement 5 years ago #5 diabetes #6 hypertension #7 hyperlipidemia #8 nicotine dependence #9 troponin abnormality, 0.3, 0.3, 0.3, trended not consistent with acute nathaly nary syndrome with no significant rise and fall pattern. Patient denies any chest discomfort. Plan From cardiology's perspective, we'll follow this patient along with you now on an as-needed basis only, please don't hesitate to call if you have any questions. DNP note has been reviewed, I agree with a documented findings and plan of care. Patient was seen and examined.
[2019-09-22 12:03] LABS: Glucose,Whole Blood 113 mg/dL (75-99)
--- NOTE | 2019-09-22 13:20 | XR ---
EXAMINATION TYPE: XR chest 2V DATE OF EXAM: 09/22/2019 COMPARISON: 09/20/2019 HISTORY: Shortness of breath TECHNIQUE: Frontal and lateral views of the chest are obtained. FINDINGS: Scattered senescent parenchymal changes noted. Hyperinflation compatible with COPD. Improving perihilar and basilar infiltrates. Heart size is stable. Mediastinal structures are stable and grossly unremarkable. No evidence for hilar prominence. Degenerative changes dorsal spine. IMPRESSION: 1. Improving perihilar and basilar infiltrates.
--- NOTE | 2019-09-22 13:22 | XR ---
EXAMINATION TYPE: XR shoulder complete LT DATE OF EXAM: 09/22/2019 CLINICAL HISTORY: pain COMPARISON: NONE TECHNIQUE: Three views of the left shoulder are obtained. FINDINGS: There is no acute fracture/dislocation evident. The acromioclavicular and glenohumeral pedro int spaces appear severely narrowed. Subacromial joint space narrowing. The visualized ribs are inta ct and unremarkable. IMPRESSION: 1. There is no acute fracture or dislocation. ICD 10 NO FRACTURE, INITIAL EVALUATION
--- NOTE | 2019-09-22 13:23 | XR ---
EXAMINATION TYPE: XR humerus LT DATE OF EXAM: 09/22/2019 CLINICAL HISTORY: pain TECHNIQUE: Frontal and lateral images of the left humerus are obtained. COMPARISON: None. FINDINGS: There is no acute fracture/dislocation evident. Degenerative spurring about the elbow. The overlying soft tissue appears unremarkable. IMPRESSION: There is no acute fracture or dislocation. ICD 10 NO FRACTURE, INITIAL EVALUATION
--- NOTE | 2019-09-22 16:32 | EEG ---
ELECTROENCEPHALOGRAM REPORT DATE OF SERVICE: 09/22/2019. PREAMBLE: This is an 83-year-old female who was brought to the hospital from an extended care facility after being found to be lethargic. She has atrial fibrillation. Patient is on high-dose gabapentin. EEG FINDINGS: This is a 21 channel, routine EEG recording in a patient utilizing the 10-20 international system with bipolar and referential montages. The background consists of well-developed, but moderately well regulated, predominantly 6-7 Hz theta intermixed with some low-voltage, lower theta and delta activity. The background does not seem to be reactive to eye opening and closing. Photic driving response was seen in some flash frequencies. The patient was drowsy during most of the study, but deeper stage of sleep was not clearly seen. No definitive focal or generalized epileptiform activity was seen. EKG rhythm lead revealed arrhythmia. IMPRESSION: This is an abnormal EEG due to background slowing of mild to moderate degree. This is suggestive of generalized cerebral dysfunction, as can be seen with toxic metabolic encephalopathy or due to diffuse structural brain abnormality. No definitive epileptiform activity was seen. If your suspicion for seizures is high, suggest a prolonged, sleep-deprived EEG. MMODL / IJN: [id number] /
[2019-09-22 17:23] LABS: Glucose,Whole Blood 128 mg/dL (75-99)
--- NOTE | 2019-09-22 17:30 | MR ---
"EXAMINATION TYPE: MR brain wo con DATE OF EXAM: 09/22/2019 COMPARISON: CT brain from 2 days ago HISTORY: Diplopia, Slurred Speech, limited movement of left side TECHNIQUE: Multiplanar, multisequence imaging of the brain and brainstem is performed without IV cont rast. FINDINGS: Diffusion weighted images demonstrate increased signal on diffusion weighted images with diminished s ignal on ADC mapping involving the anterior aspect right thalamus measuring 1.5 x 1.4 cm with T1 hypo intensity and T2 hyperintensity and craniocaudal length 1.4 cm coronal image 17. Second smaller focus and additional small foci involving the right external capsule and posterior aspect basal ganglia ne ar the junction of thalamus and external capsule image 128 and 120 series 305 noted. There is additio nal subcentimeter focus right parietal occipital cortex axial image 168 series 305 noted. There is no worrisome extra-axial fluid collection. Redemonstration of diffuse ventricular and sulcal prominence. Few scattered foci of T2 hyperintensity throughout the brain parenchyma bilaterally grea test at periventricular levels. T2 Star weighted images show no suspicious intraparenchymal blood pro duct. Midline structures demonstrate normal morphology. The craniocervical junction appears within normal limits. Normal vascular flow voids are present. The visualized sinuses are predominantly clear. Artif act degradation at level of nasal bridge is noted. Globes are intact bilaterally. IMPRESSION: Evolving multifocal acute right-sided infarcts with largest 1.5 cm infarct centered right thalamic level. Background mild/moderate diffuse cerebral lateral chronic small vessel ischemic lloyd ge redemonstrated. A Yellow level critical message alert has been initiated for Esvin Paz MD via the [employer] 36 0 | Critical Results System on 09/22/2019 5:28 PM. This message alert has been sent to Esvin Paz MD via the preferences provided by the clinician for the receipt of Radiology Critical Findings. Mess age ID [id number]."
[2019-09-22] MEDS: FLUoxetine HCL 20 MG CAP PO SCH (17:41)
[2019-09-22] MEDS: FOLIC ACID 1 MG TAB PO SCH (17:42)
[2019-09-22] MEDS ORDERED: ASPIRIN 81 MG PO STA (18:03)
--- NOTE | 2019-09-22 18:03 | P.CNNES ---
History of Present Illness Consult date: 09/22/19 Requesting physician: Esvin Paz Reason for Consult: Mental status change History of Present Illness: Patient is a 83-year-old female, who was brought to the hospital from a snf. She came to the hospital on 09/20/2019 3:04 PM. She has past medical history of pneumonia and has history of high blood pressure and diabetes. She was noted to be more lethargic and the last time she was normal was 24 hours pr ior to arrival. Patient was also having difficulty sitting up straight and also incontinence of urine. She was noted to have some incoordination of her left arm. Patient apparently is more concerned about her previous history of Guillain- Preciado syndrome, that she was diagnosed in 2001. At that time she had undergone right knee surgery, when she tried to walk and legs would go underneath her. P atient states that she was diagnosed with Guillain-Preciado. Patient does not remember details of the treatment although states that she was given physical therapy and aquatic therapy. She was able to function. In the last 2-3 years, she has been getting worse with legs getting more shaky. She was concerned that Jaki Preciado syndrome is coming back. She quit driving couple years ago. She feels her knees are getting weaker, and feels her knees will fold while walking. She denies any numbness in the legs, only weakness. She has been using walker for the last 2 years. Patient denies any falls although later she mentioned that she did fall on the left side, hurting her left shoulder. Patient believes her arms are also weak and has difficulty lifting. Patient had undergone CT head showed cerebral atrophy with no acute process. CTA of head and neck showed mild atherosclerotic plaque formation. There is moderate stenosis of the proximal left external carotid artery. No hemodynamic stenosis seen on the intracranial carotid arteries, in the common and internal carotid arteries. Chest x-ray shows evidence of CHF with pleural effusion, that is slightly worse than last exam. EKG shows atrial fibrillation with rapid ventricular rate, left axis deviation. Nonspecific ST and T-wave abnormality. Patient had a 2-D echo on 08/31/2019, which revealed moderate concentric LVH. Moderate global hypokinesis of left ventricle. Normal left atrial size. Mild to moderate MR and TR. Patient also had a GUILLERMINA performed on 09/03/2019, which revealed biatrial enlargement, normal appearance left atrial appendage. Normal appearance of bioprosthetic aortic valve with mild aortic regurgitation. Mild thickening of the mitral valve leaflets with moderate mitral and mild to moderate tricuspid regurgitation and moderate severe pulmonary hypertension. No evidence of vegetations. Patient is currently on Apixaban 2.5 mg twice a day, carvedilol 2-5 mg twice a day, Prozac 40 mg, folic acid, gabapentin 600 mg 4 times a day, Pravachol 80 mg, primidone 100 mg at bedtime and 25 mg daily and tramadol, besides her other medications. Patient's B12 is 530, folate 16.6, homocysteine 10.24, thyroid functions are normal. UA negative. Walls virus PCR negative. Hemoglobin A1c 5.5 on 09/09/2019. Total cholesterol 161, LDL 91, HDL 56 and triglycerides 70. Patient states she has history of diabetes for last "couple years. Review of Systems Patient denies diplopia, although while examination patient started completing of diplopia. Patient denies any chest pain shortness of breath wheezing or cough. Denies any nausea vomiting diarrhea. Complains of left shoulder pain. Patient has history of knee surgery. All other review of systems unremarkable. Past Medical History Past Medical History: Atrial Fibrillation, Diabetes Mellitus, GI Bleed, Hyperlipidemia, Hypertension, Neurologic Disorder, Thyroid Disorder Additional Past Medical History / Comment(s): guillain-barre syndrome. ovarian c ancer with hysterectomy 1972. anemia History of Any Multi-Drug Resistant Organisms: None Reported Past Surgical History: Hysterectomy, Orthopedic Surgery Additional Past Surgical History / Comment(s): bilateral knee surgery , right rotor cuff surgery, Past Anesthesia/Blood Transfusion Reactions: No Reported Reaction Past Psychological History: Depression Smoking Status: Former smoker Past Alcohol Use History: None Reported Additional Past Alcohol Use History / Comment(s): Patient quit smoking prior to 05/23/2019 hospital admission Past Drug Use History: None Reported - Past Family History Sister(s) Family Medical History: Cancer Medications and Allergies Home Medications Medication Instructions Recorded Confirmed Type Carvedilol [Coreg] 25 mg PO BID@0800,1700 02/15/19 09/20/19 History FLUoxetine HCL [PROzac] 40 mg PO DAILY@1700 02/15/19 09/20/19 History Levothyroxine Sodium [Synthroid] 100 mcg PO HS@2100 02/15/19 09/20/19 History Lisinopril [Prinivil] 10 mg PO HS@209902/15/19 09/20/19 History Pantoprazole [Protonix] 40 mg PO BID@0800,1700 02/15/19 09/20/19 History Primidone [Mysoline] 100 mg PO HS@209902/15/19 09/20/19 History metFORMIN HCL 500 mg PO BID@0800,1700 02/15/19 09/20/19 History Artificial Tears-Hypromellose 1 drops BOTH EYES 05/23/19 09/20/19 History [Artificial Tear Drops] TID@0800,1200,1700 Pravastatin Sodium [Pravachol] 80 mg PO HS@209905/23/19 09/20/19 History guaiFENesin 400 mg PO Q4H PRN 05/23/19 09/20/19 History Thiamine [Vitamin B-1] 100 mg PO DAILY@1200 tab 05/28/19 09/20/19 Rx Bisacodyl 10 mg RECTAL DAILY PRN 06/19/19 09/20/19 History Ferrous Sulfate [Feosol] 325 mg PO BID@0800,209906/19/19 09/20/19 History Folic Acid 1 mg PO DAILY@1700 06/19/19 09/20/19 History Na Phos,M-B/Na Phos,Di-Ba [Fleet 133 ml RECTAL DAILY PRN 06/19/19 09/20/19 History Adult] Ammonium Lactate Cream [Lac-Hydrin 1 applic TOPICAL DAILY PRN 08/28/19 09/20/19 History 12% Cream] Primidone [Mysoline] 25 mg PO DAILY@0800 08/28/19 09/20/19 History ALPRAZolam [Xanax] 0.25 mg PO DAILY PRN #3 tab 09/04/19 09/20/19 Rx traMADol HCL 50 mg PO Q8H PRN #10 tab 09/04/19 09/20/19 Rx Acetaminophen Tab [Tylenol] 650 mg PO Q6HR PRN 09/20/19 09/20/19 History Apixaban [Eliquis] 2.5 mg PO BID@0800,1700 09/20/19 09/20/19 History Diltiazem Oral [Cardizem*] 60 mg PO TID@0600,1400,2100 09/20/19 09/20/19 History Econazole 1% Cream [Spectazole] 1 applic TOPICAL BID@0800,2100 09/20/19 09/20/19 History Gabapentin 600 mg PO QID 09/20/19 09/20/19 History Magnesium Hydroxide [Milk of 7,200 mg PO Q48H PRN 09/20/19 09/20/19 History Magnesia Concentrate] Multivitamins, Thera [Multivitamin 1 tab PO DAILY@1200 09/20/19 09/20/19 History (formulary)] Mupirocin 2% Oint [Bactroban 2% 1 applic TOPICAL DAILY 09/20/19 09/20/19 History Oint] cefTRIAXone [Rocephin] 2,000 mg IVP DAILY@0815 09/20/19 09/20/19 History Allergies Allergy/AdvReac Type Severity Reaction Status Date / Time adhesive tape Allergy Rash/Hives Verified 09/20/19 17:37 influenza virus vaccine, Allergy Unknown Verified 09/20/19 17:37 specific Physical Examination - Vital Signs Vital Signs: Vital Signs Temp Pulse Resp BP Pulse Ox 09/22/19 11:12 98 F 95 16 111/79 95 09/22/19 08:00 98.1 F 79 18 114/69 96 09/22/19 02:20 97.2 F L 91 18 138/73 96 09/21/19 23:06 97.9 F 60 17 111/60 93 L 09/21/19 20:00 97.7 F 90 18 126/84 94 L 09/21/19 15:53 84 16 09/21/19 15:46 98.1 F 84 16 147/71 94 L Intake and Output 09/21/19 09/22/19 09/22/19 22:59 06:59 14:59 Intake Total 240 Output Total 1000 Balance 240 -1000 Intake: Oral 240 Output: Urine 1000 Other: Voiding Method Urinal Urinal Urinal # Voids 1 Weight 89.6 kg On examination patient is an elderly female, in no acute distress. Patient is alert and awake, fairly well oriented. She states it is August 2019 and that she is in [facility] in [facility]. Her speech and language functions are normal. Detail cognitive functions testing deferred. On cranial nerve examination pupils are round and reacting to light. Visual bowman appears full. Patient has definite extraocular muscles see. 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 Possible partial left third nerve palsy. Possible left ptosis. Patient was noticing diplopia by examination. Her face is symmetric and tongue protrudes the midline. On muscle strength testing patient has left pronator drift. Her deltoid is 5-on the right, painful on the left. Biceps triceps and consultant are normal bilaterally. In the lower extremities, hip flexion is 5, knee extension 5 bilaterally. Ankle dorsiflexion 3-right, 4-left. Plantarflexion is 5 on the right, 5 to 5-on the left. Reflexes are diminished. Plantars are possibly up. She to touch is equal with no neglect. Patient is ataxic on the left side. Tone and bulk of muscles normal. Gait deferred. There is no obvious bruit, S1 and S2 audible. No peripheral edema. Abdomen soft and nontender. Results - Laboratory Findings CBC and BMP: 09/20/19 15:18 09/22/19 05:39 Abnormal Lab Findings: Abnormal Labs 09/20/19 09/20/19 09/20/19 15:18 15:18 21:18 RBC 3.51 L Hgb 9.1 L Hct 30.9 L MCHC 29.4 L RDW 18.6 H Lymphocytes # 0.7 L Chloride Carbon Dioxide Glucose POC Glucose (mg/dL) Troponin I 0.361 H* 0.357 H* 09/20/19 09/21/19 09/21/19 22:03 03:33 11:55 RBC Hgb Hct MCHC RDW Lymphocytes # Chloride Carbon Dioxide Glucose POC Glucose (mg/dL) 119 H 151 H Troponin I 0.310 H* 09/21/19 09/21/19 09/22/19 16:55 20:01 05:39 RBC Hgb Hct MCHC RDW Lymphocytes # Chloride 97 L Carbon Dioxide 33 H Glucose 101 H POC Glucose (mg/dL) 131 H 124 H Troponin I 09/22/19 09/22/19 06:05 12:01 RBC Hgb Hct MCHC RDW Lymphocytes # Chloride Carbon Dioxide Glucose POC Glucose (mg/dL) 159 H 113 H Troponin I Assessment and Plan Assessment: * 83-year-old female admitted with acute onset of gait imbalance, mild left- sided weakness. 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 Rule out acute CVA. * Atrial fibrillation with rapid ventricular rate. Patient is on Apixaban 2.5 mg twice a day. Patient had a normal GUILLERMINA performed 09/03/2019. * Previous history of Jaki Preciado syndrome in 2001. Doubt recurrence of GBS at this time. More concerned about CIDP. Patient has bilateral feet weakness, left more than right. Rule out diabetic peripheral neuropathy versus CIDP. * Diabetes, well controlled. Plan: * Urgent MRI of the brain to evaluate for an acute stroke. * Patient has been on very high-dose of gabapentin 600 mg 4 times a day. We will decrease dose of gabapentin to 300 mg 4 times a day. * Patient may need an EMG and nerve conductions of bilateral lower extremities to evaluate for diabetic neuropathy versus CIDP. Addendum: MRI of the brain was performed urgently. It revealed evolving multifocal acute right-sided infarcts with largest 1.5 cm infarct centered right thalamic level. There is a second smaller focus of acute ischemia involving the right external capsule and posterior aspect of the basal ganglia near the junction of the thalamus and external capsule. There is an additional subcentimeter focus of acute ischemia involving right parieto-occipital cortex. The above areas of acute ischemia involves the right [employer] and right MCA vascular territories. These are highly suggestive of cardiac source. Patient is already on Apixaban 2.5 mg twice a day. We will add aspirin 162 mg to the regimen. May consider cardiology input, as the events are likely cardio embolic in nature. PT OT.
[2019-09-22] MEDS: PRIMIDONE 50 MG TAB PO SCH (20:23)
[2019-09-22] MEDS: LEVOTHYROXINE 100 MCG TAB PO SCH (20:24)
[2019-09-22] MEDS: LISINOPRIL 10 MG TAB PO SCH (20:24)
[2019-09-22 20:34] LABS: Glucose,Whole Blood 128 mg/dL (75-99)
--- NOTE | 2019-09-22 21:17 | P.PN ---
Progress Note - Text Progress Note Date: 09/22/19 Chief Complaint: Lethargic History of presenting complaint: This is a very pleasant 83-year-old patient of Dr. Coles. Resident of [facility] of [place]. Chronic stable medical conditions include atrial fibrillation on eliquis,, hyperlipidemia, hypertension, Guillain-Preciado syndrome with lower extremity weakness, hypothyroid. Patient was sent in from [facility] as patient was found to be lethargic. There was question about some discoordination left arm. Patient could not tell exactly. Computed tomography scan was negative. When I spoke to the patient is morning patient feels his speech was a bit of trouble getting better. Denied any headache or change in vision. She is not sure about her extremities except that she states she's had limitation of movement of the left arm from before now she does feel tired. No fever no chills. No cough Admitted with CHF exacerbation. Stroke is also being ruled out. Today-seen by me in the morning. patient feeling better. Breathing is improved. Patient still complaining of some pain in the left shoulder and left upper arm. Review of systems: Was done for constitutional, cardiovascular, GI, pulmonary. relevant finding as above Active Medications Acetaminophen (Tylenol Tab) 650 mg PO Q6HR PRN PRN Reason: Mild Pain Alprazolam (Xanax) 0.25 mg PO DAILY PRN PRN Reason: Anxiety Last Admin: 09/22/19 20:27 Dose: 0.25 mg Documented by: Apixaban (Eliquis) 2.5 mg PO BID@0800,1700 [facility] Last Admin: 09/22/19 17:42 Dose: 2.5 mg Documented by: Artificial Tears (Artificial Tear Drops) 1 drops BOTH EYES TID@0800,1200,1700 [facility] Last Admin: 09/22/19 17:42 Dose: 1 drops Documented by: Bisacodyl (Dulcolax) 10 mg RECTAL DAILY PRN PRN Reason: Constipation Carvedilol (Coreg) 25 mg PO BID@0800,1700 [facility] Last Admin: 09/22/19 17:42 Dose: 25 mg Documented by: Clotrimazole (Lotrimin Cream) 1 applic TOPICAL BID@0800,2100 [facility] Last Admin: 09/22/19 08:02 Dose: 1 applic Documented by: Diltiazem HCl (Cardizem Oral) 60 mg PO TID@0600,1400,2100 [facility] Last Admin: 09/22/19 20:23 Dose: 60 mg Documented by: Ferrous Sulfate (Feosol) 325 mg PO BID@0800,2100 [facility] Last Admin: 09/22/19 20:24 Dose: 325 mg Documented by: Fluoxetine HCl (Prozac) 40 mg PO DAILY@1700 [facility] Last Admin: 09/22/19 17:41 Dose: 40 mg Documented by: Folic Acid (Folic Acid) 1 mg PO DAILY@1700 [facility] Last Admin: 09/22/19 17:42 Dose: 1 mg Documented by: Furosemide (Lasix) 40 mg PO DAILY [facility] Gabapentin (Neurontin) 300 mg PO QID [facility] Last Admin: 09/22/19 20:24 Dose: 300 mg Documented by: Guaifenesin (Robitussin) 400 mg PO Q4H PRN PRN Reason: Congestion Ceftriaxone Sodium 2 gm/ (Sodium Chloride) 50 mls @ 100 mls/hr IVPB Q24H [facility] Stop: 10/04/19 08:01 Last Admin: 09/22/19 08:00 Dose: 100 mls/hr Documented by: Insulin Aspart (Novolog) [address] [facility]; Protocol Last Admin: 09/22/19 17:42 Dose: Not Given Documented by: Lactic Acid (Ammonium Lactate) 1 applic TOPICAL DAILY PRN PRN Reason: dry skin on feet Levothyroxine Sodium (Synthroid) 100 mcg PO HS@2100 [facility] Last Admin: 09/22/19 20:24 Dose: 100 mcg Documented by: Lisinopril (Zestril) 10 mg PO HS@2100 [facility] Last Admin: 09/22/19 20:24 Dose: 10 mg Documented by: Magnesium Hydroxide (Milk Of Magnesia) 2,400 mg PO Q48H PRN PRN Reason: Constipation Metformin HCl (Glucophage) 500 mg PO BID@0800,1700 [facility] Last Admin: 09/22/19 17:41 Dose: 500 mg Documented by: Multivitamins (Theragran) 1 each PO DAILY@1200 [facility] Last Admin: 09/22/19 11:01 Dose: 1 each Documented by: Mupirocin (Bactroban Oint) 1 applic TOPICAL DAILY [facility] Last Admin: 09/22/19 11:01 Dose: 1 applic Documented by: Pantoprazole Sodium (Protonix) 40 mg PO BID@0800,1700 [facility] Last Admin: 09/22/19 17:41 Dose: 40 mg Documented by: Pravastatin Sodium (Pravachol) 80 mg PO HS@2100 [facility] Last Admin: 09/21/19 21:04 Dose: 80 mg Documented by: Primidone (Mysoline) 100 mg PO HS@2100 [facility] Last Admin: 09/22/19 20:23 Dose: 100 mg Documented by: Primidone (Mysoline) 25 mg PO DAILY@0800 [facility] Last Admin: 09/22/19 08:01 Dose: 25 mg Documented by: Sodium Biphosphate/Sodium Phosphate (Fleet Adult) 133 ml RECTAL DAILY PRN PRN Reason: Constipation Thiamine HCl (Vitamin B-1) 100 mg PO DAILY@1200 [facility] Last Admin: 09/22/19 11:01 Dose: 100 mg Documented by: Tramadol HCl (Ultram) 50 mg PO Q8H PRN PRN Reason: Pain Last Admin: 09/22/19 18:36 Dose: 50 mg Documented by: Physical examination: VITAL SIGNS: 98, 85, 16, 103/67 98% on room air GENERAL: BMI 30.2, sitting up in a chair, tired EYES: Pupils equal. Conjunctiva normal. HEENT: External appearance of nose and ears normal, oral cavity grossly normal. NECK: JVD not raised; masses not palpable. HEART: Irregular heart sounds; no edema. LUNGS: Respiratory rate normal, decreased breath sounds. ABDOMEN: Soft, nontender, liver spleen not palpable, no masses palpable. PSYCH: Able to answer questions. tired NEUROLOGICAL: [Cranial nerves grossly intact; no facial asymmetry, weakness of both lower extremities. MUSCULOSKELETAL: Some limitation of the left shoulder joint with limitation. Also complaining of tenderness in the upper arm INVESTIGATIONS, reviewed in the clinical context: MRI brain-evolving multifocal acute right-sided infarcts with the largest center around the right thalamic level. EEG showing metabolic encephalopathy Checks v-crx-[id number] Left shoulder and left upper extremity [id number] Previous testing White count 5.2 hemoglobin 9.1 percussion 4.6 creatinine 0.56 Troponin I 0.361, 0.357, 0.310 UA-negative, with-19 PCR-not detected EKG tracing personally reviewed by me-atrial fibrillation with a heart rate around [address] segment changes Chest x-ray film personally reviewed by me-cardiomegaly with prominent fluid in the fissure, pleural effusion GUILLERMINA from September 02-shows EF 50-55%, bioprosthetic aortic valve with normal appearance, evidence of moderate severe pulmonary hypertension ProBNP 3540 CT head and neck. Moderate stenosis of the proximal left external carotid artery Computed tomography scan of the brain without contrast-cerebral atrophy Assessment: -Acute right-sided infarct multifocal-suspect embolic stroke. 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 Patient has underlying atrial fibrillation. Suspect embolic stroke. We'll consult cardiology for GUILLERMINA. Hold of anticoagulation because of the acute stroke we'll discuss with neuro.
[2019-09-22] MEDS: PRAVASTATIN SODIUM 80 MG TAB PO SCH (23:36)
[2019-09-23 06:04] LABS: Glucose,Whole Blood 114 mg/dL (75-99)
[2019-09-23] MEDS: INSULIN ASPART (NovoLOG) 100 UNIT/ML VIAL SQ SCH ×4 (06:22→20:26)
[2019-09-23] MEDS: DILTIAZEM ORAL 60 MG TAB PO SCH ×3 (06:22→19:56)
[2019-09-23] MEDS: PANTOPRAZOLE 40 MG TABLET PO SCH ×2 (07:54→17:19)
[2019-09-23] MEDS: PRIMIDONE 25 MG TAB PO SCH (07:54)
[2019-09-23] MEDS: FERROUS SULFATE 325 MG TAB PO SCH ×2 (07:54→19:56)
[2019-09-23] MEDS: ARTIFICIAL TEARS-HYPROMELLOSE DROPS 15 ML BTL BOTH EYES SCH ×3 (07:54→17:18)
[2019-09-23] MEDS: APIXABAN 2.5 MG TABLET PO SCH ×2 (07:54→17:18)
[2019-09-23] MEDS: CARVEDILOL 12.5 MG TAB PO SCH ×2 (07:54→17:17)
[2019-09-23] MEDS: metFORMIN 500 MG TAB PO SCH ×2 (07:54→17:17)
[2019-09-23] MEDS: GABAPENTIN 300 MG CAP PO SCH ×4 (09:30→19:56)
[2019-09-23] MEDS: FUROSEMIDE 40 MG TAB PO SCH (09:30)
[2019-09-23] MEDS: CLOTRIMAZOLE 1% CREAM 15 GM TUBE TOPICAL SCH ×2 (10:57→19:56)
[2019-09-23 11:20] LABS: Glucose,Whole Blood 104 mg/dL (75-99)
[2019-09-23] MEDS: ASPIRIN 81 MG PO SCH (12:07)
[2019-09-23] MEDS: MULTIVITAMINS, THERA 1 EACH TAB PO SCH (12:07)
[2019-09-23] MEDS: THIAMINE 100 MG TAB PO SCH (12:07)
[2019-09-23 15:09] LABS: Anisocytosis Slight; HGB 9.9 gm/dL (11.4-16.0); Hypochromasia Marked; MCHC 29.9 g/dL (31.0-37.0); MCV 86.9 fL (80.0-100.0); Mean Platelet Volume 7.4; Platelet Count 255 k/uL (150-450); RDW 18.4 % (11.5-15.5); WBC 6.7 k/uL (3.8-10.6)
[2019-09-23 15:20] LABS: Potassium 3.8 mmol/L (3.5-5.1)
[2019-09-23 16:19] LABS: Glucose,Whole Blood 105 mg/dL (75-99)
[2019-09-23] MEDS: FLUoxetine HCL 20 MG CAP PO SCH (17:17)
[2019-09-23] MEDS: FOLIC ACID 1 MG TAB PO SCH (17:18)
--- NOTE | 2019-09-23 17:45 | CDI ---
Documentation Clarification Form Date: 09/23/2019 05:00:00 PM From: Rebecca Couch RN, CCDS Admit Date: 09/20/2019 06:38:00 PM Patient Name: Narda Montenegro Visit Number: [id number] Discharge Date: ATTENTION: The Clinical Documentation Specialists (CDI) and [facility] Coding Staff appreciate your assistance in clarifying documentation. Please respond to the clarification below the line at the bottom and electronically sign. The CDI & [facility] Coding staff will review the response and follow-up if needed. Please note: Queries are made part of the Legal Health Record. If you have any questions, please contact the author of this message via ITS. Dr. Esvin Paz The patient presented with weakness, lethargic, inability to sit up straight and has become incontinent of urine. She has history of high blood pressure; with elevation on presentation to ED. Clinical significance is requested for patient presentation. History/Risk Factors: Hypertension, Atrial Fibrillation Diabetes Mellitus, Gulillan-Deerton' syndrome Clinical Indicators: 83-year-old female to ED on 09/19 with the following vital signs readings. There was question about some discoordination left arm. She denied any headache or change in vision 09/19 @ 15:06 182/107 92 18 09/19@ 15:30 182/107 90 17 09/19@ 16:00 176/117 09/19 CT brain: Cerebral atrophy. No acute intracranial abnormality. No change 09/21 MRI Brain: Evolving multifocal acute right-sided infarct with largest 1.5 cm infarct centered right thalamic level. CTA head/neck: mild atherosclerotic plaque formation. There is moderate stenosis of the proximal left external carotid artery. 09/21 Neurology consult: MRI brain revealed evolving multifocal acute right-sided infarcts. Treatment: Apresoline 10 mg IVP 09/19 @ 16:23 Cardizem 60 MG PO tid Coreg 25 MG PO bid Aspirin 162 mg daily In your professional opinion, can you please clarify at the time of admission sign and symptoms, blood pressure elevation were you treating? Hypertensive Emergency Hypertension Urgency Other, please specify Unable to determine (Last Revision: August 2017) Hypertensive emergency MTDD
--- NOTE | 2019-09-23 18:21 | P.PN ---
Subjective Progress Note Date: 09/23/19 Patient was seen for follow-up. Patient is very somnolent. Denies any new symptoms. Objective - Vital Signs Vital signs: Vital Signs Temp 98.2 F 09/23/19 17:00 Pulse 110 H 09/23/19 17:00 Resp 18 09/23/19 17:00 BP 132/62 09/23/19 17:00 Pulse Ox 96 09/23/19 17:00 Intake & Output 09/22/19 09/23/19 09/23/19 18:59 06:59 18:59 Intake Total 900 480 Output Total 1000 400 300 Balance -100 -400 180 Weight 82.5 kg Intake: Oral 900 480 Output: Urine 1000 400 300 Other: Voiding Method Urinal Urinal Urinal # Voids 1 - Exam Deferred due to patient being somnolent. - Labs CBC & Chem 7: 09/23/19 14:54 09/23/19 14:54 Labs: Abnormal Lab Results - Last 24 Hours (Table) 09/22/19 09/23/19 09/23/19 Range/Units 20:33 06:03 11:19 Hgb (11.4-16.0) gm/dL Hct (34.0-46.0) % MCHC (31.0-37.0) g/dL RDW (11.5-15.5) % Chloride (98-107) mmol/L Carbon Dioxide (22-30) mmol/L BUN (7-17) mg/dL Glucose (74-99) mg/dL POC Glucose (mg/dL) 128 H 114 H 104 H (75-99) mg/dL 09/23/19 09/23/19 09/23/19 Range/Units 14:54 14:54 16:17 Hgb 9.9 L (11.4-16.0) gm/dL Hct 33.0 L (34.0-46.0) % MCHC 29.9 L (31.0-37.0) g/dL RDW 18.4 H (11.5-15.5) % Chloride 96 L (98-107) mmol/L Carbon Dioxide 35 H (22-30) mmol/L BUN 19 H (7-17) mg/dL Glucose 108 H (74-99) mg/dL POC Glucose (mg/dL) 105 H (75-99) mg/dL Assessment and Plan Assessment: * Acute ischemic stroke, multifocal mainly involving right thalamus, but also smaller areas involving right external capsule, posterior aspect of the basal ganglia and in the right parieto-occipital cortex. * Atrial fibrillation with rapid ventricular rate. Patient is on Apixaban 2.5 mg twice a day. Patient had a normal GUILLERMINA performed 09/03/2019. * Previous history of Jaki Preciado syndrome in 2001. Doubt recurrence of GBS at this time. More concerned about CIDP. Patient has bilateral feet weakness, left more than right. Rule out diabetic peripheral neuropathy vers us CIDP. * Diabetes, well controlled. Plan: * Continue Apixaban 2.5 mg twice a day. Also continue aspirin 162 mg daily. * Patient may need an EMG and nerve conductions of bilateral lower extremities to evaluate for diabetic neuropathy versus CIDP. * Tried to review CTA of head and neck with the radiologist. Called multiple times, and left message with Dr. Verduzco to return call. Suspect stroke possibly related to atherosclerotic cerebrovascular disease, rather than card ioembolic. Usually antiplatelet medications work better than anticoagulation for stroke prevention related to atherosclerotic cerebrovascular disease. Continue aspirin. * PT OT, possible candidate for inpatient rehab.
[2019-09-23] MEDS: LEVOTHYROXINE 100 MCG TAB PO SCH (19:56)
[2019-09-23] MEDS: PRIMIDONE 50 MG TAB PO SCH (19:56)
[2019-09-23] MEDS: PRAVASTATIN SODIUM 80 MG TAB PO SCH (19:56)
[2019-09-23] MEDS: LISINOPRIL 10 MG TAB PO SCH (19:56)
[2019-09-23 20:09] LABS: Glucose,Whole Blood 140 mg/dL (75-99)
--- NOTE | 2019-09-23 22:53 | P.PN ---
Progress Note - Text Progress Note Date: 09/23/19 Chief Complaint: Lethargic History of presenting complaint: This is a very pleasant 83-year-old patient of Dr. Coles. Resident of [facility] of [place]. Chronic stable medical conditions include atrial fibrillation on eliquis,, hyperlipidemia, hypertension, Guillain-Preciado syndrome with lower extremity weakness, hypothyroid. Patient was sent in from [facility] as patient was found to be lethargic. There was question about some discoordination left arm. Patient could not tell exactly. Computed tomography scan was negative. When I spoke to the patient is morning patient feels his speech was a bit of trouble getting better. Denied any headache or change in vision. She is not sure about her extremities except that she states she's had limitation of movement of the left arm from before now she does feel tired. No fever no chills. No cough Admitted with CHF exacerbation.: MRI did confirm a stroke in the right hemisphere including the thalamus.. Today-patient still tired. Left arm still a bit weak. Did tolerate some diet. Unable to ambulate. Review of systems: Was done for constitutional, cardiovascular, GI, pulmonary. Neurological relevant finding as above Active Medications Acetaminophen (Tylenol Tab) 650 mg PO Q6HR PRN PRN Reason: Mild Pain Alprazolam (Xanax) 0.25 mg PO DAILY PRN PRN Reason: Anxiety Last Admin: 09/22/19 20:27 Dose: 0.25 mg Documented by: Apixaban (Eliquis) 2.5 mg PO BID@0800,1700 [facility] Last Admin: 09/23/19 17:18 Dose: 2.5 mg Documented by: Artificial Tears (Artificial Tear Drops) 1 drops BOTH EYES TID@0800,1200,1700 [facility] Last Admin: 09/23/19 17:18 Dose: 1 drops Documented by: Aspirin (Aspirin) 162 mg PO DAILY [facility] Last Admin: 09/23/19 12:07 Dose: 81 mg Documented by: Bisacodyl (Dulcolax) 10 mg RECTAL DAILY PRN PRN Reason: Constipation Carvedilol (Coreg) 25 mg PO BID@0800,1700 [facility] Last Admin: 09/23/19 17:17 Dose: 25 mg Documented by: Clotrimazole (Lotrimin Cream) 1 applic TOPICAL BID@0800,2100 [facility] Last Admin: 09/23/19 19:56 Dose: 1 applic Documented by: Diltiazem HCl (Cardizem Oral) 60 mg PO TID@0600,1400,2100 [facility] Last Admin: 09/23/19 19:56 Dose: 60 mg Documented by: Ferrous Sulfate (Feosol) 325 mg PO BID@0800,2100 [facility] Last Admin: 09/23/19 19:56 Dose: 325 mg Documented by: Fluoxetine HCl (Prozac) 40 mg PO DAILY@1700 [facility] Last Admin: 09/23/19 17:17 Dose: 40 mg Documented by: Folic Acid (Folic Acid) 1 mg PO DAILY@1700 [facility] Last Admin: 09/23/19 17:18 Dose: 1 mg Documented by: Furosemide (Lasix) 40 mg PO DAILY [facility] Last Admin: 09/23/19 09:30 Dose: 40 mg Documented by: Gabapentin (Neurontin) 300 mg PO QID [facility] Last Admin: 09/23/19 19:56 Dose: 300 mg Documented by: Guaifenesin (Robitussin) 400 mg PO Q4H PRN PRN Reason: Congestion Insulin Aspart (Novolog) 0 unit SQ [facility]; Protocol Last Admin: 09/23/19 20:26 Dose: 1 unit Documented by: Lactic Acid (Ammonium Lactate) 1 applic TOPICAL DAILY PRN PRN Reason: dry skin on feet Levothyroxine Sodium (Synthroid) 100 mcg PO HS@2100 [facility] Last Admin: 09/23/19 19:56 Dose: 100 mcg Documented by: Lisinopril (Zestril) 10 mg PO HS@2100 [facility] Last Admin: 09/23/19 19:56 Dose: 10 mg Documented by: Magnesium Hydroxide (Milk Of Magnesia) 2,400 mg PO Q48H PRN PRN Reason: Constipation Metformin HCl (Glucophage) 500 mg PO BID@0800,1700 [facility] Last Admin: 09/23/19 17:17 Dose: 500 mg Documented by: Multivitamins (Theragran) 1 each PO DAILY@1200 [facility] Last Admin: 09/23/19 12:07 Dose: 1 each Documented by: Mupirocin (Bactroban Oint) 1 applic TOPICAL DAILY [facility] Last Admin: 09/22/19 11:01 Dose: 1 applic Documented by: Pantoprazole Sodium (Protonix) 40 mg PO BID@0800,1700 [facility] Last Admin: 09/23/19 17:19 Dose: 40 mg Documented by: Pravastatin Sodium (Pravachol) 80 mg PO HS@2100 [facility] Last Admin: 09/23/19 19:56 Dose: 80 mg Documented by: Primidone (Mysoline) 100 mg PO HS@2100 [facility] Last Admin: 09/23/19 19:56 Dose: 100 mg Documented by: Primidone (Mysoline) 25 mg PO DAILY@0800 [facility] Last Admin: 09/23/19 07:54 Dose: 25 mg Documented by: Sodium Biphosphate/Sodium Phosphate (Fleet Adult) 133 ml RECTAL DAILY PRN PRN Reason: Constipation Thiamine HCl (Vitamin B-1) 100 mg PO DAILY@1200 [facility] Last Admin: 09/23/19 12:07 Dose: 100 mg Documented by: Tramadol HCl (Ultram) 50 mg PO Q8H PRN PRN Reason: Pain Last Admin: 09/22/19 18:36 Dose: 50 mg Documented by: Physical examination: VITAL SIGNS: 98.1, 76, 18, 111/57, and he 5% on room air GENERAL: sitting up in a chair, tired EYES: Pupils equal. Conjunctiva normal. HEENT: External appearance of nose and ears normal, oral cavity grossly normal. NECK: JVD not raised; masses not palpable. HEART: Irregular heart sounds; no edema. LUNGS: Respiratory rate normal, decreased breath sounds. ABDOMEN: Soft, nontender, liver spleen not palpable, no masses palpable. PSYCH: Able to answer questions. tired NEUROLOGICAL: [Cranial nerves grossly intact; no facial asymmetry, weakness of both lower extremities. Decreased coordination with left arm MUSCULOSKELETAL: Some limitation of the left shoulder joint with limitation. Also complaining of tenderness in the upper arm INVESTIGATIONS, reviewed in the clinical context: White count 6.7 hemoglobin 9.9 potassium 3.8 creatinine 0.76 Previous testing White count 5.2 hemoglobin 9.1 percussion 4.6 creatinine 0.56 Troponin I 0.361, 0.357, 0.310 UA-negative, with-19 PCR-not detected EKG tracing personally reviewed by me-atrial fibrillation with a heart rate around [address] segment changes Chest x-ray film personally reviewed by me-cardiomegaly with prominent fluid in the fissure, pleural effusion GUILLERMINA from September 02-shows EF 50-55%, bioprosthetic aortic valve with normal appearance, evidence of moderate severe pulmonary hypertension ProBNP 3540 CT head and neck. Moderate stenosis of the proximal left external carotid artery Computed tomography scan of the brain without contrast-cerebral atrophy MRI brain-evolving multifocal acute right-sided infarcts with the largest center around the right thalamic level. EEG showing metabolic encephalopathy Checks v-[id number]-fnbzojwks Left shoulder and left upper extremity h-[id number]-zjmrelgnijcu Assessment: -Acute right-sided cerebral infarct suspect shopping from the right carotid. 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 Jameson from neurology. Patient to continue with eliquis and aspirin. Patient is already on Pravachol. GUILLERMINA was done recently. Patient be returning to [facility].
[2019-09-24 05:06] VITALS: RESP 18
[2019-09-24 06:09] LABS: Glucose,Whole Blood 109 mg/dL (75-99)
[2019-09-24] MEDS: INSULIN ASPART (NovoLOG) 100 UNIT/ML VIAL SQ SCH (06:15)
[2019-09-24] MEDS: DILTIAZEM ORAL 60 MG TAB PO SCH ×2 (06:21→13:24)
[2019-09-24] MEDS: PANTOPRAZOLE 40 MG TABLET PO SCH (08:16)
[2019-09-24] MEDS: FERROUS SULFATE 325 MG TAB PO SCH (08:16)
[2019-09-24] MEDS: CARVEDILOL 12.5 MG TAB PO SCH (08:16)
[2019-09-24] MEDS: metFORMIN 500 MG TAB PO SCH (08:16)
[2019-09-24] MEDS: APIXABAN 2.5 MG TABLET PO SCH (08:16)
[2019-09-24] MEDS: PRIMIDONE 25 MG TAB PO SCH (08:17)
[2019-09-24] MEDS: CLOTRIMAZOLE 1% CREAM 15 GM TUBE TOPICAL SCH (08:17)
[2019-09-24] MEDS: ARTIFICIAL TEARS-HYPROMELLOSE DROPS 15 ML BTL BOTH EYES SCH ×2 (08:17→13:24)
[2019-09-24] MEDS: ASPIRIN 81 MG PO SCH (09:10)
[2019-09-24] MEDS: FUROSEMIDE 40 MG TAB PO SCH (09:10)
[2019-09-24] MEDS: GABAPENTIN 300 MG CAP PO SCH ×2 (09:10→13:24)
[2019-09-24] MEDS: MUPIROCIN 2% OINT 22 GM TUBE TOPICAL SCH (09:14)
--- NOTE | 2019-09-24 13:08 | P.DS ---
Providers Date of admission: 09/20/19 18:38 Expected date of discharge: 09/24/19 Attending physician: Esvin Paz Consults: 09/20/19 18:38 Consult Physician Routine Consulting Provider: [facility] Consult Reason/Comments: Pulmonary edema, non-STEMI Do you want consulting provider notified?: Yes 09/22/19 12:11 Consult Physician Routine Consulting Provider: Fitz Lyon Consult Reason/Comments: MS changes Do you want consulting provider notified?: Yes Primary care physician: Victor Hugo [facility] Course: Chief Complaint: Lethargic History of presenting complaint: This is a very pleasant 83-year-old patient of Dr. Coles. Resident of [facility] [place]. Chronic stable medical conditions include atrial fibrillation on eliquis,, hyperlipidemia, hypertension, Guillain-Preciado syndrome with lower extremity weakness, hypothyroid. Patient was sent in from [facility] as patient was found to be lethargic. There was question about some discoordination left arm. Patient could not tell exactly. Computed tomography scan was negative. When I spoke to the patient is morning patient feels his speech was a bit of trouble getting better. Denied any headache or change in vision. She is not sure about her extremities except that she states she's had limitation of movement of the left arm from before now she does feel tired. No fever no chills. No cough Admitted with CHF exacerbation.: MRI did confirm a stroke in the right hemisphere including the thalamus.. Today-patient still tired. Left arm still a bit weak. Did tolerate some diet. Unable to ambulate. Does lean over to the left side. Consultation: Dr. Jameson from neurology Dr. Murphy from cardiology Physical examination: VITAL SIGNS: 97.8, 72, 16, 146/73, 98% on room air GENERAL: sitting up in a chair, leaning on the left side EYES: Pupils equal. Conjunctiva normal. HEENT: External appearance of nose and ears normal, oral cavity grossly normal. NECK: JVD not raised; masses not palpable. HEART: Irregular heart sounds; no edema. LUNGS: Respiratory rate normal, decreased breath sounds. ABDOMEN: Soft, nontender, liver spleen not palpable, no masses palpable. PSYCH: Able answer questions. tired NEUROLOGICAL: [Cranial nerves grossly intact; no facial asymmetry, weakness of both lower extremities. Decreased coordination with left arm INVESTIGATIONS, reviewed in the clinical context: White count 6.7 hemoglobin 9.9 potassium 3.8 creatinine 0.76 Previous testing White count 5.2 hemoglobin 9.1 percussion 4.6 creatinine 0.56 Troponin I 0.361, 0.357, 0.310 UA-negative, with-19 PCR-not detected EKG tracing personally reviewed by me-atrial fibrillation with a heart rate around [address] segment changes Chest x-ray film personally reviewed by me-cardiomegaly with prominent fluid in the fissure, pleural effusion GUILLERMINA from September 02-shows EF 50-55%, bioprosthetic aortic valve with normal appearance, evidence of moderate severe pulmonary hypertension ProBNP 3540 CT head and neck. Moderate stenosis of the proximal left external carotid artery Computed tomography scan of the brain without contrast-cerebral atrophy MRI brain-evolving multifocal acute right-sided infarcts with the largest center around the right thalamic level. EEG showing metabolic encephalopathy Checks [id number] Left shoulder and left upper extremity [id number] Assessment: -Acute right-sided cerebral infarct suspect showering from the right carotid. 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 It was explained to her what happened in terms of stroke. She has multiple medical problems. Advancing age. Did discuss end-of-life discussion with her. She is agreeable not to have any CPR or intubation. She also does understand if of all the details. She wouldn't consider hospice down the road. Questions were answered Does discussion was about 20-25 minutes Patient Condition at Discharge: Undetermined Plan - Discharge Summary Discharge Rx Participant: Yes New Discharge Prescriptions: New Aspirin 162 mg PO DAILY chew Gabapentin [Neurontin] 300 mg PO QID #12 cap INSULIN ASPART (NovoLOG) [NovoLOG (formulary)] 0 unit SQ ACHS vial Furosemide [Lasix] 20 mg PO DAILY tab Continue Primidone [Mysoline] 100 mg PO HS@2100 metFORMIN HCL 500 mg PO BID@0800,1700 Pantoprazole [Protonix] 40 mg PO BID@0800,1700 Lisinopril [Prinivil] 10 mg PO HS@2100 Levothyroxine Sodium [Synthroid] 100 mcg PO HS@2100 FLUoxetine HCL [PROzac] 40 mg PO DAILY@1700 Carvedilol [Coreg] 25 mg PO BID@0800,1700 Pravastatin Sodium [Pravachol] 80 mg PO HS@2100 Artificial Tears-Hypromellose [Artificial Tear Drops] 1 drops BOTH EYES TID@0800,1200,1700 Thiamine [Vitamin B-1] 100 mg PO DAILY@1200 tab Na Phos,M-B/Na Phos,Di-Ba [Fleet Adult] 133 ml RECTAL DAILY PRN PRN Reason: Constipation Bisacodyl 10 mg RECTAL DAILY PRN PRN Reason: Constipation Ferrous Sulfate [Feosol] 325 mg PO BID@0800,2100 Folic Acid 1 mg PO DAILY@1700 Ammonium Lactate Cream [Lac-Hydrin 12% Cream] 1 applic TOPICAL DAILY PRN PRN Reason: dry skin on feet Primidone [Mysoline] 25 mg PO DAILY@0800 Apixaban [Eliquis] 2.5 mg PO BID@0800,1700 Econazole 1% Cream [Spectazole] 1 applic TOPICAL BID@0800,2100 Magnesium Hydroxide [Milk of Magnesia Concentrate] 7,200 mg PO Q48H PRN PRN Reason: Constipation Mupirocin 2% Oint [Bactroban 2% Oint] 1 applic TOPICAL DAILY Diltiazem Oral [Cardizem*] 60 mg PO TID@0600,1400,2100 Multivitamins, Thera [Multivitamin (formulary)] 1 tab PO DAILY@1200 Acetaminophen Tab [Tylenol] 650 mg PO Q6HR PRN PRN Reason: Pain traMADol HCL 50 mg PO Q8H PRN #10 tab PRN Reason: Pain ALPRAZolam [Xanax] 0.25 mg PO DAILY PRN #3 tab PRN Reason: Anxiety Discontinued guaiFENesin 400 mg PO Q4H PRN PRN Reason: Congestion Gabapentin 600 mg PO QID cefTRIAXone [Rocephin] 2,000 mg IVP DAILY@0815 Discharge Medication List Carvedilol [Coreg] 25 mg PO BID@0800,169902/15/19 [History] FLUoxetine HCL [PROzac] 40 mg PO DAILY@169902/15/19 [History] Levothyroxine Sodium [Synthroid] 100 mcg PO HS@209902/15/19 [History] Lisinopril [Prinivil] 10 mg PO HS@209902/15/19 [History] Pantoprazole [Protonix] 40 mg PO BID@0800,169902/15/19 [History] Primidone [Mysoline] 100 mg PO HS@209902/15/19 [History] metFORMIN HCL 500 mg PO BID@0800,169902/15/19 [History] Artificial Tears-Hypromellose [Artificial Tear Drops] 1 drops BOTH EYES TID@0800,1200,17005/23/19 [History] Pravastatin Sodium [Pravachol] 80 mg PO HS@209905/23/19 [History] Thiamine [Vitamin B-1] 100 mg PO DAILY@1200 tab 05/28/19 [Rx] Bisacodyl 10 mg RECTAL DAILY PRN 06/19/19 [History] Ferrous Sulfate [Feosol] 325 mg PO BID@0800,209906/19/19 [History] Folic Acid 1 mg PO DAILY@169906/19/19 [History] Na Phos,M-B/Na Phos,Di-Ba [Fleet Adult] 133 ml RECTAL DAILY PRN 06/19/19 [History] Ammonium Lactate Cream [Lac-Hydrin 12% Cream] 1 applic TOPICAL DAILY PRN 08/28/19 [History] Primidone [Mysoline] 25 mg PO DAILY@0808/28/19 [History] Acetaminophen Tab [Tylenol] 650 mg PO Q6HR PRN 09/20/19 [History] Apixaban [Eliquis] 2.5 mg PO BID@0800,169909/20/19 [History] Diltiazem Oral [Cardizem*] 60 mg PO TID@0600,1400,209909/20/19 [History] Econazole 1% Cream [Spectazole] 1 applic TOPICAL BID@0800,209909/20/19 [History] Magnesium Hydroxide [Milk of Magnesia Concentrate] 7,200 mg PO Q48H PRN 09/20/19 [History] Multivitamins, Thera [Multivitamin (formulary)] 1 tab PO DAILY@1200 09/20/19 [History] Mupirocin 2% Oint [Bactroban 2% Oint] 1 applic TOPICAL DAILY 09/20/19 [History] ALPRAZolam [Xanax] 0.25 mg PO DAILY PRN #3 tab 09/24/19 [Rx] Aspirin 162 mg PO DAILY chew 09/24/19 [Rx] Furosemide [Lasix] 20 mg PO DAILY tab 09/24/19 [Rx] Gabapentin [Neurontin] 300 mg PO QID #12 cap 09/24/19 [Rx] INSULIN ASPART (NovoLOG) [NovoLOG (formulary)] 0 unit SQ ACHS vial 09/24/19 [Rx] traMADol HCL 50 mg PO Q8H PRN #10 tab 09/24/19 [Rx] Follow up Appointment(s)/Referral(s): Victor Hugo Coles DO [Primary Care Provider] - 1-2 days
[2019-09-24 13:20] VITALS: BP 124/60; PULSE 58; TEMP 97.9
[2019-09-24] MEDS: THIAMINE 100 MG TAB PO SCH (13:24)
[2019-09-24] MEDS: MULTIVITAMINS, THERA 1 EACH TAB PO SCH (13:24)
--- NOTE | 2019-09-24 15:04 | P.PN ---
Subjective Progress Note Date: 09/24/19 This is an 83-year-old female with past medical history significant for chronic persistent atrial fibrillation, on long-term anticoagulation, valvular heart disease status post bioprosthetic aortic valve 5 years ago, diabetes, hypertension, hyperlipidemia, nicotine dependence. Patient underwent a GUILLERMINA in August of this year which revealed biatrial enlargement atrial appendage was normal, normal bioprosthetic aortic valve moderate MR mild TR and severe pulmonary hypertension with no evidence of vegetation. An echocardiogram with Doppler study was also performed on that admission which revealed an ejection fraction of 40-45%, mild to moderate MR, [id number] TR, severe pulmonary hypertension. Chest x-ray on admission here showed congestive cardiac failure, brain CT did not reveal any acute abnormality, CTA of the neck showed moderate stenosis in the left carotid with no significantly hemodynamically stenosis galaviz virus not detected. EKG on presentation here showed atrial fibrillation with a heart rate in the low 100s. Blood pressure 137/70, heart rate in the 60s, respirations 18. 96% on room air. Magnesium 1.7. White blood cell count 5.2, hemoglobin 9.1, platelet count 225. Sodium 137, potassium 4.6, chloride 11, CO2 30, BUN 10, creatinine 0.5. Troponin 0.3, 0.3, 0.3. Patient's current medications here include aspirin 325 mg daily, Nitropaste, Eliquis 2-1/2 mg twice a day, Coreg 25 mg twice a day, Cardizem 60 mg 3 times a day, lisinopril 10 mg daily. We will discontinue the aspirin and Nitropaste. 09/22/2019 Patient seen and examined today, blood pressure 114/68 with a heart rate in the 70s, 96% on room air. Sodium 137, potassium 3.8, BUN 11, creatinine 0.5, BNP level 3030. 09/24/2019 Patient seen and examined this morning, but pressure 124/60, heart rate in the 90s, 100% on room air. No lab data today. Objective - Vital Signs Vital signs: Vital Signs Temp 97.9 F 09/24/19 12:00 Pulse 58 L 09/24/19 12:00 Resp 18 09/24/19 12:00 BP 124/60 09/24/19 12:00 Pulse Ox 100 09/24/19 12:00 Intake & Output 09/23/19 09/24/19 09/24/19 18:59 06:59 18:59 Intake Total 600 240 360 Output Total 300 200 Balance 300 40 360 Weight 82 kg Intake: Oral 600 240 360 Output: Urine 300 200 Other: Voiding Method Urinal # Voids 1 1 # Bowel Movements 0 - Exam PHYSICAL EXAMINATION: GENERAL: 83-year-old female in no acute distress at the time of examination HEENT: Head is atraumatic, normocephalic. Pupils equal, round. Sclera anicteric. Conjunctiva are clear. Mucous membranes of the mouth are moist. Neck is supple. There is no elevated jugular venous pressure. No carotid bruit is heard. HEART EXAMINATION: Heart S1, S2 irregularly irregular systolic ejection murmur at the left sternal border . CHEST EXAMINATION: Lungs are clear to auscultation and precussion. No chest wall tenderness is noted on palpation or with deep breathing. ABDOMEN: Soft, nontender. Bowel sounds are heard. No organomegaly noted. EXTREMITIES: 2+ peripheral pulses with trace evidence of peripheral edema and no calf tenderness noted. NEUROLOGIC patient is awake, alert and oriented X3 . - Labs CBC & Chem 7: 09/23/19 14:54 09/23/19 14:54 Labs: Abnormal Lab Results - Last 24 Hours (Table) 09/23/19 09/23/19 09/23/19 Range/Units 14:54 14:54 16:17 Hgb 9.9 L (11.4-16.0) gm/dL Hct 33.0 L (34.0-46.0) % MCHC 29.9 L (31.0-37.0) g/dL RDW 18.4 H (11.5-15.5) % Chloride 96 L (98-107) mmol/L Carbon Dioxide 35 H (22-30) mmol/L BUN 19 H (7-17) mg/dL Glucose 108 H (74-99) mg/dL POC Glucose (mg/dL) 105 H (75-99) mg/dL 09/23/19 09/24/19 Range/Units 20:07 06:08 Hgb (11.4-16.0) gm/dL Hct (34.0-46.0) % MCHC (31.0-37.0) g/dL RDW (11.5-15.5) % Chloride (98-107) mmol/L Carbon Dioxide (22-30) mmol/L BUN (7-17) mg/dL Glucose (74-99) mg/dL POC Glucose (mg/dL) 140 H 109 H (75-99) mg/dL Assessment and Plan Plan: Assessment and plan #1 lethargy, weakness, and tiredness. Recent hospitalization for pneumonia. #2 chronic persistent atrial fibrillation #3 systolic congestive heart failure acute on chronic, mild #4 status post bioprosthetic aortic valve replacement 5 years ago #5 diabetes #6 hypertension #7 hyperlipidemia #8 nicotine dependence #9 troponin abnormality, 0.3, 0.3, 0.3, trended not consistent with acute coronary syndrome with no significant rise and fall pattern. Patient denies any chest discomfort. Plan From cardiology's perspective, we'll follow this patient along with you now on an as-needed basis only, please don't hesitate to call if you have any questions. DNP note has been reviewed, I agree with a documented findings and plan of care. Patient was seen and examined.
--- NOTE | 2019-09-24 17:50 | P.PN ---
Subjective Progress Note Date: 09/24/19 Patient was seen for follow-up. Patient is much more alert and awake. In no distress. States she is feeling "fine". Speech appears clear. Offers no complaints. Objective - Vital Signs Vital signs: Vital Signs Temp 97.9 F 09/24/19 12:00 Pulse 58 L 09/24/19 12:00 Resp 18 09/24/19 12:00 BP 124/60 09/24/19 12:00 Pulse Ox 100 09/24/19 12:00 Intake & Output 09/23/19 09/24/19 09/24/19 18:59 06:59 18:59 Intake Total 600 240 360 Output Total 300 200 Balance 300 40 360 Weight 82 kg Intake: Oral 600 240 360 Output: Urine 300 200 Other: Voiding Method Urinal # Voids 1 1 # Bowel Movements 0 - Exam Patient keeps her eyes closed. She does wake up, and answers more appropriately. Speech appears clear. 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 Patient's left eye is deviated down and in, likely due to unopp osed trochlear nerve function. Patient has weakness of the left sixth nerve, and partial third nerve. Face is symmetric. Patient has left visual field deficit. Patient has left pronator drift significant. It hits the bed. Patient has ataxia for [id number] on the left. Her left arm appears weaker than right side. - Labs CBC & Chem 7: 09/23/19 14:54 09/23/19 14:54 Labs: Abnormal Lab Results - Last 24 Hours (Table) 09/23/19 09/24/19 Range/Units 20:07 06:08 POC Glucose (mg/dL) 140 H 109 H (75-99) mg/dL Assessment and Plan Assessment: * Acute ischemic stroke, multifocal mainly involving right thalamus, but also smaller areas involving right external capsule, posterior aspect of the basal ganglia and in the right parieto-occipital cortex. * Atrial fibrillation with rapid ventricular rate. Patient is on Apixaban 2.5 mg twice a day. Patient had a normal GUILLERMINA performed 09/03/2019. * Previous history of Jaki Preciado syndrome in 2001. Doubt recurrence of GBS at this time. More concerned about CIDP. Patient has bilateral feet weakness, left more than right. Rule out diabetic peripheral neuropathy versus CIDP. * Diabetes, well controlled. Plan: * Continue Apixaban 2.5 mg twice a day. Also continue aspirin 162 mg daily. * Patient may need an EMG and nerve conductions of bilateral lower extremities to evaluate for diabetic neuropathy versus CIDP. * Suspect stroke possibly related to atherosclerotic cerebrovascular disease, rather than cardioembolic. Usually antiplatelet medications work better than anticoagulation for stroke prevention related to atherosclerotic cerebrovascular disease. Continue aspirin. * PT OT, possible candidate for inpatient rehab.
== END 2019-09-24 14:58 | DRG 64 ==
LOC: EC 15:04 → 3SCARD 18:38
PROVIDERS: ADMIT Hospitalist; ATTEND Hospitalist
DX: I63.231 Cerebral infarction due to unspecified occlusion or stenosis of right carotid arteries (principal); I50.33 Acute on chronic diastolic (congestive) heart failure; G93.41 Metabolic encephalopathy; I48.19 Other persistent atrial fibrillation; I16.1 Hypertensive emergency; I11.0 Hypertensive heart disease with heart failure; E03.9 Hypothyroidism, unspecified; E11.9 Type 2 diabetes mellitus without complications; E78.5 Hyperlipidemia, unspecified; F17.200 Nicotine dependence, unspecified, uncomplicated; F32.9 Major depressive disorder, single episode, unspecified; G83.10 Monoplegia of lower limb affecting unspecified side; I07.1 Rheumatic tricuspid insufficiency; I27.20 Pulmonary hypertension, unspecified; M19.91 Primary osteoarthritis, unspecified site; R32 Unspecified urinary incontinence; Z66 Do not resuscitate; Z20.828 Contact with and (suspected) exposure to other viral communicable diseases; Z79.01 Long term (current) use of anticoagulants; Z79.82 Long term (current) use of aspirin; Z79.84 Long term (current) use of oral hypoglycemic drugs; Z79.890 Hormone replacement therapy; Z79.899 Other long term (current) drug therapy; Z85.43 Personal history of malignant neoplasm of ovary; Z87.01 Personal history of pneumonia (recurrent); Z90.710 Acquired absence of both cervix and uterus; Z95.3 Presence of xenogenic heart valve; Z88.7 Allergy status to serum and vaccine; Z88.8 Allergy status to other drugs, medicaments and biological substances; R53.1 Weakness; G65.0 Sequelae of Guillain-Barre syndrome; R91.1 Solitary pulmonary nodule
CPT/HCPCS: 36415; 70450; 70496; 70498; 70551; 71046; 80048; 80053; 80061; 81003; 83605; 83735; 83880; 84484; 85025; 85027; 85610; 85730; 87635; 93005; 95819; 96361; 96374; 96375; 99291

== ENCOUNTER 2019-10-19 14:04 | Inpatient (IN) | payer MEDICARE, OTHER ==
[2019-10-19 14:55] LABS: Anisocytosis Slight; Basophils % (A) 1 %; Eosinophils # (A) 0.1 k/uL (0-0.7); Eosinophils % (A) 3 %; HCT 23.2 % (34.0-46.0); Hypochromasia Marked; Lymphocytes # (A) 0.7 k/uL (1.0-4.8); Lymphocytes % (A) 14 %; MCHC 29.2 g/dL (31.0-37.0); MCV 89.3 fL (80.0-100.0); Mean Platelet Volume 7.9; Monocytes # (A) 0.4 k/uL (0-1.0); Monocytes % (A) 8 %; Neutrophils # (A) 3.3 k/uL (1.3-7.7); Neutrophils % (A) 71 %; Platelet Count 206 k/uL (150-450); RDW 17.3 % (11.5-15.5); WBC 4.7 k/uL (3.8-10.6)
[2019-10-19 15:03] LABS: HGB 6.8 gm/dL (11.4-16.0)
[2019-10-19 15:06] LABS: Albumin 3.7 g/dL (3.5-5.0); Calcium 8.9 mg/dL (8.4-10.2); Potassium 5.6 mmol/L (3.5-5.1); Total Bilirubin 0.2 mg/dL (0.2-1.3); Total Protein 6.6 g/dL (6.3-8.2)
[2019-10-19 15:11] LABS: Partial Thromboplastin Time 24.1 sec (22.0-30.0); Prothrombin Time 10.5 sec (9.0-12.0)
[2019-10-19] MEDS ORDERED: NALOXONE 0.4 MG/ML 1 ML VIAL IV PRN (17:29)
--- NOTE | 2019-10-19 17:29 | ED ---
Recheck HPI - General Chief Complaint: Recheck/Abnormal Lab/Rx Stated Complaint: low hemoglobin Time Seen by Provider: 10/19/19 14:12 Source: patient, EMS, RN notes reviewed Mode of arrival: EMS Limitations: no limitations - History of Present Illness Initial Comments: This 84-year-old female who is brought in by EMS and the [facility] due to a low hemoglobin 6.3 apparently is been going progressively down and was found to have heme positive stool recently. She denies any chest pain abdominal pain fevers chills nausea vomiting sweats or other symptoms. - Related Data Home Medications Medication Instructions Recorded Confirmed Carvedilol [Coreg] 25 mg PO BID@0800,169902/15/19 09/20/19 FLUoxetine HCL [PROzac] 40 mg PO DAILY@169902/15/19 09/20/19 Levothyroxine Sodium [Synthroid] 100 mcg PO HS@209902/15/19 09/20/19 Lisinopril [Prinivil] 10 mg PO HS@209902/15/19 09/20/19 Pantoprazole [Protonix] 40 mg PO BID@0800,169902/15/19 09/20/19 Primidone [Mysoline] 100 mg PO HS@209902/15/19 09/20/19 metFORMIN HCL 500 mg PO BID@0800,169902/15/19 09/20/19 Artificial Tears-Hypromellose 1 drops BOTH EYES 05/23/19 09/20/19 [Artificial Tear Drops] TID@0800,1200,1700 Pravastatin Sodium [Pravachol] 80 mg PO HS@209905/23/19 09/20/19 Bisacodyl 10 mg RECTAL DAILY PRN 06/19/19 09/20/19 Ferrous Sulfate [Feosol] 325 mg PO BID@0800,209906/19/19 09/20/19 Folic Acid 1 mg PO DAILY@169906/19/19 09/20/19 Na Phos,M-B/Na Phos,Di-Ba [Fleet 133 ml RECTAL DAILY PRN 06/19/19 09/20/19 Adult] Ammonium Lactate Cream [Lac-Hydrin 1 applic TOPICAL DAILY PRN 08/28/19 09/20/19 12% Cream] Primidone [Mysoline] 25 mg PO DAILY@0800 08/28/19 09/20/19 Acetaminophen Tab [Tylenol] 650 mg PO Q6HR PRN 09/20/19 09/20/19 Apixaban [Eliquis] 2.5 mg PO BID@0800,1700 09/20/19 09/20/19 Diltiazem Oral [Cardizem*] 60 mg PO TID@0600,1400,2100 09/20/19 09/20/19 Econazole 1% Cream [Spectazole] 1 applic TOPICAL BID@0800,2100 09/20/19 09/20/19 Magnesium Hydroxide [Milk of 7,200 mg PO Q48H PRN 09/20/19 09/20/19 Magnesia Concentrate] Multivitamins, Thera [Multivitamin 1 tab PO DAILY@1200 09/20/19 09/20/19 (formulary)] Mupirocin 2% Oint [Bactroban 2% 1 applic TOPICAL DAILY 09/20/19 09/20/19 Oint] Previous Rx's Medication Instructions Recorded Thiamine [Vitamin B-1] 100 mg PO DAILY@1200 tab 05/28/19 ALPRAZolam [Xanax] 0.25 mg PO DAILY PRN #3 tab 09/24/19 Aspirin 162 mg PO DAILY chew 09/24/19 Furosemide [Lasix] 20 mg PO DAILY tab 09/24/19 Gabapentin [Neurontin] 300 mg PO QID #12 cap 09/24/19 INSULIN ASPART (NovoLOG) [NovoLOG 0 unit SQ ACHS vial 09/24/19 (formulary)] traMADol HCL 50 mg PO Q8H PRN #10 tab 09/24/19 Allergies Allergy/AdvReac Type Severity Reaction Status Date / Time adhesive tape Allergy Rash/Hives Verified 10/19/19 14:13 influenza virus vaccine, Allergy Unknown Verified 10/19/19 14:13 specific Review of Systems ROS Statement: Those systems with pertinent positive or pertinent negative responses have been documented in the HPI. ROS Other: All systems not noted in ROS Statement are negative. Past Medical History Past Medical History: Atrial Fibrillation, Diabetes Mellitus, GI Bleed, Hyperlipidemia, Hypertension, Neurologic Disorder, Thyroid Disorder Additional Past Medical History / Comment(s): guillain-barre syndrome. ovarian cancer with hysterectomy 1972. anemia History of Any Multi-Drug Resistant Organisms: None Reported Past Surgical History: Hysterectomy, Orthopedic Surgery Additional Past Surgical History / Comment(s): bilateral knee surgery , right rotor cuff surgery, Past Anesthesia/Blood Transfusion Reactions: No Reported Reaction Past Psychological History: Depression Smoking Status: Former smoker Past Alcohol Use History: None Reported Past Drug Use History: None Reported - Past Family History Sister(s) Family Medical History: Cancer General Exam - General Exam Comments Initial Comments: This is a well-developed well-nourished awake alert female who does appear pale Limitations: no limitations General appearance: alert, in no apparent distress Head exam: Present: atraumatic, normocephalic, normal inspection Eye exam: Present: normal appearance, PERRL, EOMI. Absent: scleral icterus, conjunctival injection, periorbital swelling ENT exam: Present: normal exam, mucous membranes moist Neck exam: Present: normal inspection, full ROM. Absent: tenderness, meningismus, lymphadenopathy Respiratory exam: Present: normal lung sounds bilaterally. Absent: respiratory distress, wheezes, rales, rhonchi, stridor Cardiovascular Exam: Present: regular rate, normal rhythm, normal heart sounds. Absent: systolic murmur, diastolic murmur, rubs, gallop, clicks GI/Abdominal exam: Present: soft, normal bowel sounds. Absent: distended, tenderness, guarding, rebound, rigid, bruit, pulsatile mass Rectal exam: Present: heme (+) stool, black stool Extremities exam: Present: normal inspection, full ROM, normal capillary refill. Absent: tenderness, pedal edema, joint swelling, calf tenderness Back exam: Present: normal inspection Neurological exam: Present: alert, oriented X3, CN II-XII intact Psychiatric exam: Present: normal affect, normal mood Skin exam: Present: warm, dry, intact, pallor. Absent: rash Course Vital Signs 10/19/19 10/19/19 10/19/19 14:11 15:33 16:41 Temperature 98.8 F Pulse Rate 77 80 96 Respiratory 18 18 18 Rate Blood Pressure 105/59 108/66 128/69 O2 Sat by Pulse 100 100 100 Oximetry Medical Decision Making - Medical Decision Making Patient does demonstrate anemia she'll receive a blood transfusion she will be admitted GI will be consulted. The case is discussed with Dr. Paz - Lab Data Result diagrams: 10/19/19 14:45 10/19/19 14:45 Lab Results 10/19/19 10/19/19 10/19/19 Range/Units 14:12 14:30 14:45 WBC 4.7 (3.8-10.6) k/uL RBC 2.60 L (3.80-5.40) m/uL Hgb 6.8 L* (11.4-16.0) gm/dL Hct 23.2 L (34.0-46.0) % MCV 89.3 (80.0-100.0) fL MCH 26.0 (25.0-35.0) pg MCHC 29.2 L (31.0-37.0) g/dL RDW 17.3 H (11.5-15.5) % Plt Count 206 (150-450) k/uL Neutrophils % 71 % Lymphocytes % 14 % Monocytes % 8 % Eosinophils % 3 % Basophils % 1 % Neutrophils # 3.3 (1.3-7.7) k/uL Lymphocytes # 0.7 L (1.0-4.8) k/uL Monocytes # 0.4 (0-1.0) k/uL Eosinophils # 0.1 (0-0.7) k/uL Basophils # 0.0 (0-0.2) k/uL Hypochromasia Marked Anisocytosis Slight PT 10.5 (9.0-12.0) sec INR 1.0 (<1.2) APTT 24.1 (22.0-30.0) sec Sodium (137-145) mmol/L Potassium (3.5-5.1) mmol/L Chloride (98-107) mmol/L Carbon Dioxide (22-30) mmol/L Anion Gap mmol/L BUN (7-17) mg/dL Creatinine (0.52-1.04) mg/dL Est GFR (CKD-EPI)AfAm (>60 ml/min/1.73 sqM) Est GFR (CKD-EPI)NonAf (>60 ml/min/1.73 sqM) Glucose (74-99) mg/dL Calcium (8.4-10.2) mg/dL Total Bilirubin (0.2-1.3) mg/dL AST (14-36) U/L ALT (4-34) U/L Alkaline Phosphatase (38-126) U/L Total Protein (6.3-8.2) g/dL Albumin (3.5-5.0) g/dL Stool Occult Blood (Negative) Blood Type A Negative Blood Type Recheck A Neg Bld Type Recheck Status No Antibody Screen POSITIVE Antibody Identification Anti-D Direct Antiglob Test Negative Crossmatch See Detail Spec Expiration Date 10/22/2019 - 231110/19/19 10/19/19 Range/Units 14:45 16:35 WBC (3.8-10.6) k/uL RBC (3.80-5.40) m/uL Hgb (11.4-16.0) gm/dL Hct (34.0-46.0) % MCV (80.0-100.0) fL MCH (25.0-35.0) pg MCHC (31.0-37.0) g/dL RDW (11.5-15.5) % Plt Count (150-450) k/uL Neutrophils % % Lymphocytes % % Monocytes % % Eosinophils % % Basophils % % Neutrophils # (1.3-7.7) k/uL Lymphocytes # (1.0-4.8) k/uL Monocytes # (0-1.0) k/uL Eosinophils # (0-0.7) k/uL Basophils # (0-0.2) k/uL Hypochromasia Anisocytosis PT (9.0-12.0) sec INR (<1.2) APTT (22.0-30.0) sec Sodium 135 L (137-145) mmol/L Potassium 5.6 H (3.5-5.1) mmol/L Chloride 101 (98-107) mmol/L Carbon Dioxide 27 (22-30) mmol/L Anion Gap 7 mmol/L BUN 25 H (7-17) mg/dL Creatinine 0.83 (0.52-1.04) mg/dL Est GFR (CKD-EPI)AfAm 74 (>60 ml/min/1.73 sqM) Est GFR (CKD-EPI)NonAf 64 (>60 ml/min/1.73 sqM) Glucose 98 (74-99) mg/dL Calcium 8.9 (8.4-10.2) mg/dL Total Bilirubin 0.2 (0.2-1.3) mg/dL AST 35 (14-36) U/L ALT 15 (4-34) U/L Alkaline Phosphatase 37 L (38-126) U/L Total Protein 6.6 (6.3-8.2) g/dL Albumin 3.7 (3.5-5.0) g/dL Stool Occult Blood Positive H (Negative) Blood Type Blood Type Recheck Bld Type Recheck Status Antibody Screen Antibody Identification Direct Antiglob Test Crossmatch Spec Expiration Date Disposition Clinical Impression: Anemia, GI bleed Disposition: ADMITTED IP TO THIS [facility] Condition: Fair Referrals: Victor Hugo Coles DO [Primary Care Provider] - 1-2 days
[2019-10-19] MEDS: GABAPENTIN 300 MG CAP PO SCH ×2 (19:40→23:24)
[2019-10-19] MEDS: SODIUM CHLORIDE 0.9% 1,000 ML IV SCH (19:40)
[2019-10-19] MEDS: LEVOTHYROXINE 100 MCG TAB PO SCH (20:01)
[2019-10-19] MEDS: FERROUS SULFATE 325 MG TAB PO SCH (20:01)
[2019-10-19] MEDS: PANTOPRAZOLE 40 MG/10 ML VIAL IV SCH (20:02)
[2019-10-19] MEDS: DILTIAZEM ORAL 60 MG TAB PO SCH (20:02)
[2019-10-19 20:52] LABS: Glucose,Whole Blood 130 mg/dL (75-99)
[2019-10-19] MEDS: INSULIN ASPART (NovoLOG) 100 UNIT/ML VIAL SQ SCH (21:34)
[2019-10-20] MEDS: SODIUM CHLORIDE 0.9% 1,000 ML IV SCH ×3 (05:24→17:38)
[2019-10-20] MEDS: DILTIAZEM ORAL 60 MG TAB PO SCH ×3 (05:25→20:58)
[2019-10-20 07:19] LABS: Glucose,Whole Blood 90 mg/dL (75-99)
[2019-10-20] MEDS: INSULIN ASPART (NovoLOG) 100 UNIT/ML VIAL SQ SCH ×4 (08:11→20:59)
[2019-10-20 08:18] LABS: Anisocytosis Slight; Basophils % (A) 1 %; Eosinophils # (A) 0.1 k/uL (0-0.7); Eosinophils % (A) 1 %; HCT 23.7 % (34.0-46.0); HGB 7.2 gm/dL (11.4-16.0); Hypochromasia Marked; Lymphocytes # (A) 0.6 k/uL (1.0-4.8); Lymphocytes % (A) 10 %; MCH 27.6 pg (25.0-35.0); MCHC 30.2 g/dL (31.0-37.0); MCV 91.5 fL (80.0-100.0); Mean Platelet Volume 7.7; Monocytes # (A) 0.6 k/uL (0-1.0); Monocytes % (A) 10 %; Neutrophils # (A) 4.5 k/uL (1.3-7.7); Neutrophils % (A) 76 %; Platelet Count 176 k/uL (150-450); Poikilocytosis Slight; RBC 2.59 m/uL (3.80-5.40); WBC 5.9 k/uL (3.8-10.6)
[2019-10-20] MEDS: ARTIFICIAL TEARS-HYPROMELLOSE DROPS 15 ML BTL BOTH EYES SCH ×3 (09:02→16:30)
[2019-10-20] MEDS: GABAPENTIN 300 MG CAP PO SCH ×4 (09:03→21:00)
[2019-10-20] MEDS: FERROUS SULFATE 325 MG TAB PO SCH ×2 (09:03→20:58)
[2019-10-20] MEDS: PANTOPRAZOLE 40 MG/10 ML VIAL IV SCH (09:03)
[2019-10-20] MEDS: CARVEDILOL 12.5 MG TAB PO SCH ×2 (09:03→16:30)
[2019-10-20 10:12] LABS: Reticulocyte % 4.9 % (0.5-2.0)
[2019-10-20] MEDS ORDERED: BISACODYL 5 MG TABLET.DR PO STA (10:25)
[2019-10-20 10:57] LABS: Glucose,Whole Blood 110 mg/dL (75-99)
[2019-10-20 11:04] LABS: African American GFR (CKD) >90 (>60 ml/min/1.73 sqM); Anion Gap 6 mmol/L; Blood Urea Nitrogen 21 mg/dL (7-17); Calcium 8.5 mg/dL (8.4-10.2); Carbon Dioxide 26 mmol/L (22-30); Chloride 105 mmol/L (98-107); Glucose 78 mg/dL (74-99); Non-African American GFR(CKD) 79 (>60 ml/min/1.73 sqM); Potassium 4.4 mmol/L (3.5-5.1); Sodium 137 mmol/L (137-145)
[2019-10-20] MEDS ORDERED: LIDOCAINE 1% (10MG/ML) FOR IV START INTRADERMA PRN (12:06)
[2019-10-20] MEDS: LACTATED RINGERS 1,000 ML IV SCH (14:33)
[2019-10-20] MEDS ORDERED: PEG 3350-NA SULF,BICARB,CL/KCL 4,000 ML BOTTLE PO ONE (16:00)
[2019-10-20] MEDS: FLUoxetine HCL 20 MG CAP PO SCH (16:30)
[2019-10-20 17:06] LABS: Glucose,Whole Blood 103 mg/dL (75-99)
[2019-10-20 17:43] LABS: % Iron Saturation 12.79 (12.00-45.00); Iron 39 ug/dL (50-170); Total Iron Binding Capacity 305 ug/dL (228-460)
[2019-10-20 17:52] LABS: Ferritin 21.3 ng/mL (10.0-291.0)
[2019-10-20 18:02] LABS: Folate, Serum >24.0 ng/mL
[2019-10-20] MEDS ORDERED: ACETAMINOPHEN TAB 325 MG TAB PO PRN (20:35)
[2019-10-20] MEDS ORDERED: AMMONIUM LACTATE 12% CREAM 140 GM TUBE TOPICAL PRN (20:35)
--- NOTE | 2019-10-20 20:40 | P.HPIM ---
History of Present Illness H&P Date: 10/20/19 Chief Complaint: Anemia History of presenting complaint: This is a very pleasant 84-year-old patient of Dr. Coles. Resident of [facility] [place]. Chronic stable medical conditions include atrial fibrillation on eliquis,, hyperlipidemia, hypertension, Guillain-Preciado syndrome with lower extremity weakness, hypothyroid, CHF with EF of 50-55%, recent stroke with the weakness in the left arm. Sent in from the [facility] because of hemoglobin 6.3. Patient has been feeling a bit tired. She was recently found to have heme-positive stool. Patient denies any dark stools. Has a bowel movement daily. No nausea vomiting. Does feel a bit tired. Patient was transfused 1 unit of blood. Review of systems: GEN.: Tired, EYES: None HEENT: None NECK: None RESPIRATORY: None CARDIOVASCULAR: None GASTROINTESTINAL: None GENITOURINARY: None MUSCULOSKELETAL: Joint pains, including left shoulder LYMPHATICS: None HEMATOLOGICAL: None PSYCHIATRY: None NEUROLOGICAL: Lower extremity weakness, rest as above Past medical history to include: Atrial fibrillation, hyperlipidemia, hypertension, hypothyroid, Guillain-Preciado syndrome, ovarian cancer with hysterectomy in 1972, anemia, depression, stroke with left-sided weakness, CHF EF 50-55% Social history: Lives at [facility], smoked on and off for about 58 years averaged about a pack and half a day. Physical examination: VITAL SIGNS: 98.8, 77, 18, 105/59 100% on room air GENERAL: BMI present 0.5, laying in bed, , tired EYES: Pupils equal. Conjunctiva pale HEENT: External appearance of nose and ears normal, oral cavity grossly normal. NECK: JVD not raised; masses not palpable. HEART: Irregular heart sounds; no edema. LUNGS: Respiratory rate normal, decreased breath sounds. ABDOMEN: Soft, nontender, liver spleen not palpable, no masses palpable. PSYCH: Able to answer questions. A bit tired NEUROLOGICAL: [Cranial nerves grossly intact; no facial asymmetry, weakness of both lower extremities., Weakness of the left arm. MUSCULOSKELETAL: Limitation of movement of the left shoulder LYMPHATICS: No lymph nodes palpable in the axilla and neck INVESTIGATIONS, reviewed in the clinical context: Hemoglobin 7.2, potassium 4.4 Presenting labs: White count 4.7 hemoglobin 6.8 platelets 206 potassium 5.6 creatinine 0.83 Stool occult blood positive, COVID 19 PCR-not detected Previous labs: Hemoglobin 7.6 on October 13 Assessment: -Acute symptomatic anemia with positive occult blood in a patient was getting antiplatelet agents -Left arm weakness from a prior stroke -chronic congestive heart failure exacerbation from diastolic dysfunction EF 50- 55%. 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 GI was consulted. Home medications resumed. Antiplatelet agents held. Patient also eliquis has been held. Patient is on aspirin.-Held repeat CBC in the morning. Past Medical History Past Medical History: Atrial Fibrillation, Diabetes Mellitus, GI Bleed, Hyperl ipidemia, Hypertension, Neurologic Disorder, Thyroid Disorder Additional Past Medical History / Comment(s): guillain-barre syndrome. ovarian cancer with hysterectomy 1972. anemia History of Any Multi-Drug Resistant Organisms: None Reported Past Surgical History: Hysterectomy, Orthopedic Surgery Additional Past Surgical History / Comment(s): bilateral knee surgery , right rotor cuff surgery, Past Anesthesia/Blood Transfusion Reactions: No Reported Reaction Past Psychological History: Depression Smoking Status: Former smoker Past Alcohol Use History: None Reported Additional Past Alcohol Use History / Comment(s): Patient quit smoking prior to 05/23/2019 hospital admission Past Drug Use History: None Reported - Past Family History Sister(s) Family Medical History: Cancer Medications and Allergies Home Medications Medication Instructions Recorded Confirmed Type Carvedilol [Coreg] 25 mg PO BID@0800,169902/15/19 10/19/19 History FLUoxetine HCL [PROzac] 40 mg PO DAILY@169902/15/19 10/19/19 History Levothyroxine Sodium [Synthroid] 100 mcg PO HS@209902/15/19 10/19/19 History Pantoprazole [Protonix] 40 mg PO BID@0800,169902/15/19 10/19/19 History Primidone [Mysoline] 100 mg PO HS@209902/15/19 10/19/19 History metFORMIN HCL 500 mg PO BID@0800,169902/15/19 10/19/19 History Artificial Tears-Hypromellose 1 drops BOTH EYES 05/23/19 10/19/19 History [Artificial Tear Drops] TID@0800,1200,2100 Pravastatin Sodium [Pravachol] 80 mg PO HS@2100 05/23/19 10/19/19 History Thiamine [Vitamin B-1] 100 mg PO DAILY@1200 tab 05/28/19 10/19/19 Rx Bisacodyl 10 mg RECTAL DAILY PRN 06/19/19 10/19/19 History Ferrous Sulfate [Feosol] 325 mg PO BID@0800,1700 06/19/19 10/19/19 History Folic Acid 1 mg PO DAILY@1700 06/19/19 10/19/19 History Na Phos,M-B/Na Phos,Di-Ba [Fleet 133 ml RECTAL DAILY PRN 06/19/19 10/19/19 His tory Adult] Ammonium Lactate Cream [Lac-Hydrin 1 applic TOPICAL DAILY PRN 08/28/19 10/19/19 History 12% Cream] Acetaminophen Tab [Tylenol] 650 mg PO Q6HR PRN 09/20/19 10/19/19 History Apixaban [Eliquis] 2.5 mg PO BID@0800,1700 09/20/19 10/19/19 History Diltiazem Oral [Cardizem*] 60 mg PO TID@0600,1400,2100 09/20/19 10/19/19 History Econazole 1% Cream [Spectazole] 1 applic TOPICAL BID 09/20/19 10/19/19 History Magnesium Hydroxide [Milk of 7,200 mg PO DAILY PRN 09/20/19 10/19/19 History Magnesia Concentrate] Multivitamins, Thera [Multivitamin 1 tab PO DAILY@1700 09/20/19 10/19/19 History (formulary)] traMADol HCL 50 mg PO Q8H PRN #10 tab 09/24/19 10/19/19 Rx Aspirin 162 mg PO DAILY@1700 10/19/19 10/19/19 History Furosemide [Lasix] 20 mg PO DAILY@0800 10/19/19 10/19/19 History Gabapentin [Neurontin] 400 mg PO TID@0600,1400,2200 10/19/19 10/19/19 History INSULIN ASPART (NovoLOG) [NovoLOG See Protocol SQ ACHS 10/19/19 10/19/19 History (formulary)] Lisinopril [Zestril] 10 mg PO DAILY@2100 10/19/19 10/19/19 History Primidone [Mysoline] 25 mg PO DAILY@0800 10/19/19 10/19/19 History Allergies Allergy/AdvReac Type Severity Reaction Status Date / Time adhesive tape Allergy Rash/Hives Verified 10/19/19 20:49 influenza virus vaccine, Allergy Unknown Verified 10/19/19 20:49 specific Physical Exam Vitals: Vital Signs Temp Pulse Pulse Resp BP BP Pulse Ox 10/20/19 09:01 123/83 10/20/19 08:00 96 18 10/20/19 05:56 97.8 F 96 18 106/68 93 L 10/19/19 23:25 16 10/19/19 21:35 98.2 F 93 16 120/66 10/19/19 20:30 98.5 F 127 H 18 125/74 93 L 10/19/19 18:41 98.1 F 110 H 16 125/56 10/19/19 18:34 98.2 F 93 16 113/62 10/19/19 18:11 98.6 F 82 18 113/75 100 10/19/19 18:01 97.9 F 106 H 18 109/70 100 10/19/19 16:41 96 18 128/69 100 10/19/19 15:33 80 18 108/66 100 10/19/19 14:11 98.8 F 77 18 105/59 100 Intake and Output 10/19/19 10/20/19 10/20/19 22:59 06:59 14:59 Intake Total 940 600 Balance 940 600 Intake: Intake, IV Titration 80 480 Amount Sodium Chloride 0.9% 1, 80 480 000 ml @ 80 mls/hr IV . [id number] BELTRAN Rx#:[id number] Oral 240 120 Blood Product 620 Rc Cpda-1 Unit 310 [id number] Other: # Voids 1 2 Weight 84.368 kg Results CBC & Chem 7: 10/20/19 07:08 10/20/19 07:08 Labs: Abnormal Lab Results - Last 24 Hours (Table) 10/19/19 10/19/19 10/19/19 Range/Units 14:12 14:45 14:45 RBC 2.60 L (3.80-5.40) m/uL Hgb 6.8 L* (11.4-16.0) gm/dL Hct 23.2 L (34.0-46.0) % MCHC 29.2 L (31.0-37.0) g/dL RDW 17.3 H (11.5-15.5) % Lymphocytes # 0.7 L (1.0-4.8) k/uL Retic Count (0.5-2.0) % Sodium 135 L (137-145) mmol/L Potassium 5.6 H (3.5-5.1) mmol/L BUN 25 H (7-17) mg/dL POC Glucose (mg/dL) (75-99) mg/dL Alkaline Phosphatase 37 L (38-126) U/L Stool Occult Blood (Negative) Crossmatch See Detail 10/19/19 10/19/19 10/20/19 Range/Units 16:35 20:51 07:08 RBC 2.59 L (3.80-5.40) m/uL Hgb 7.2 L (11.4-16.0) gm/dL Hct 23.7 L (34.0-46.0) % MCHC 30.2 L (31.0-37.0) g/dL RDW 17.0 H (11.5-15.5) % Lymphocytes # 0.6 L (1.0-4.8) k/uL Retic Count (0.5-2.0) % Sodium (137-145) mmol/L Potassium (3.5-5.1) mmol/L BUN (7-17) mg/dL POC Glucose (mg/dL) 130 H (75-99) mg/dL Alkaline Phosphatase (38-126) U/L Stool Occult Blood Positive H (Negative) Crossmatch 10/20/19 Range/Units 07:08 RBC (3.80-5.40) m/uL Hgb (11.4-16.0) gm/dL Hct (34.0-46.0) % MCHC (31.0-37.0) g/dL RDW (11.5-15.5) % Lymphocytes # (1.0-4.8) k/uL Retic Count 4.9 H (0.5-2.0) % Sodium (137-145) mmol/L Potassium (3.5-5.1) mmol/L BUN (7-17) mg/dL POC Glucose (mg/dL) (75-99) mg/dL Alkaline Phosphatase (38-126) U/L Stool Occult Blood (Negative) Crossmatch Thrombosis Risk Factor Assmnt - Choose All That Apply Any of the Below Risk Factors Present?: Yes Each Factor Represents 1 point: Obesity (BMI >25) Other Risk Factors: Yes Each Risk Factor Represents 2 Points: Patient confined to bed Each Risk Factor Represents 3 Points: Age 75 years or older Other congenital or acquired thrombophilia - If yes, enter type in comment: No Thrombosis Risk Factor Assessment Total Risk Factor Score: 6 Thrombosis Risk Factor Assessment Level: High Risk
[2019-10-20 20:58] LABS: Glucose,Whole Blood 107 mg/dL (75-99)
[2019-10-20] MEDS: PRAVASTATIN SODIUM 80 MG TAB PO SCH (20:58)
[2019-10-20] MEDS: LEVOTHYROXINE 100 MCG TAB PO SCH (20:58)
[2019-10-20] MEDS: CLOTRIMAZOLE 1% CREAM 15 GM TUBE TOPICAL SCH (20:58)
[2019-10-20] MEDS: PRIMIDONE 50 MG TAB PO SCH (20:58)
[2019-10-20] MEDS: LISINOPRIL 10 MG TAB PO SCH (20:58)
--- NOTE | 2019-10-20 23:09 | P.CONS ---
History of Present Illness - Reason for Consult Consult date: 10/20/19 Anemia Requesting physician: Esvin Paz - Chief Complaint Anemia - History of Present Illness 84-year-old female with a medical history significant for atrial fibrillation, hypothyroidism, CHF, hyperlipidemia, hypertension and anemia who presented due to abnormal laboratory evaluation in the outpatient setting. Patient was found to be anemic and was sent to the hospital for further evaluation. Patient did have stool testing which was positive for blood and hemoglobin currently 7.2. Previously the patient was seen in the hospital and had small bowel endoscopy u and 06/2019 which was negative her last EGD and colonoscopy per her report was approximately 1 year ago at [facility] and negative. She denies any signs or symptoms of GI bleeding but does have dark stool on iron supplementation. Review of Systems REVIEW OF SYSTEMS: CONSTITUTIONAL: Denies any fevers, chills, weight change or fatigue. CARDIOVASCULAR: Denies any chest pain, palpitations high or low blood pressures RESPIRATORY: Denies any shortness of breath, hemoptysis or cough. GENITOURINARY: No dysuria or hematuria. MUSCULOSKELETAL: No new focal weakness reported. SKIN: Denies any new rashes or lesions, jaundice or pallor. PSYCHIATRIC: Denies any depression or anxiety. NEUROLOGY: Denies headache, denies any new focal deficits. EARS/NOSE/THROAT: No recent hearing change, congestion, nasal discharge or sore throat. EYES: No pain in eyes, discharge or change in vision. GASTROINTESTINAL: As per HPI. Past Medical History Past Medical History: Atrial Fibrillation, Diabetes Mellitus, GI Bleed, Hyperlipidemia, Hypertension, Neurologic Disorder, Thyroid Disorder Additional Past Medical History / Comment(s): guillain-barre syndrome. ovarian cancer with hysterectomy 1972. anemia History of Any Multi-Drug Resistant Organisms: None Reported Past Surgical History: Hysterectomy, Orthopedic Surgery Additional Past Surgical History / Comment(s): bilateral knee surgery , right rotor cuff surgery, Past Anesthesia/Blood Transfusion Reactions: No Reported Reaction Past Psychological History: Depression Smoking Status: Former smoker Past Alcohol Use History: None Reported Additional Past Alcohol Use History / Comment(s): Patient quit smoking prior to 05/23/2019 hospital admission Past Drug Use History: None Reported - Past Family History Sister(s) Family Medical History: Cancer Medications and Allergies Home Medications Medication Instructions Recorded Confirmed Type Carvedilol [Coreg] 25 mg PO BID@0800,1700 02/15/19 10/19/19 History FLUoxetine HCL [PROzac] 40 mg PO DAILY@169902/15/19 10/19/19 History Levothyroxine Sodium [Synthroid] 100 mcg PO HS@209902/15/19 10/19/19 History Pantoprazole [Protonix] 40 mg PO BID@0800,17002/15/19 10/19/19 History Primidone [Mysoline] 100 mg PO HS@209902/15/19 10/19/19 History metFORMIN HCL 500 mg PO BID@0800,17002/15/19 10/19/19 History Artificial Tears-Hypromellose 1 drops BOTH EYES 05/23/19 10/19/19 History [Artificial Tear Drops] TID@0800,1200,2099 Pravastatin Sodium [Pravachol] 80 mg PO HS@209905/23/19 10/19/19 History Thiamine [Vitamin B-1] 100 mg PO DAILY@1200 tab 05/28/19 10/19/19 Rx Bisacodyl 10 mg RECTAL DAILY PRN 06/19/19 10/19/19 History Ferrous Sulfate [Feosol] 325 mg PO BID@0800,1700 06/19/19 10/19/19 History Folic Acid 1 mg PO DAILY@169906/19/19 10/19/19 History Na Phos,M-B/Na Phos,Di-Ba [Fleet 133 ml RECTAL DAILY PRN 06/19/19 10/19/19 History Adult] Ammonium Lactate Cream [Lac-Hydrin 1 applic TOPICAL DAILY PRN 08/28/19 10/19/19 History 12% Cream] Acetaminophen Tab [Tylenol] 650 mg PO Q6HR PRN 09/20/19 10/19/19 History Apixaban [Eliquis] 2.5 mg PO BID@0800,1700 09/20/19 10/19/19 History Diltiazem Oral [Cardizem*] 60 mg PO TID@0600,1400,209909/20/19 10/19/19 History Econazole 1% Cream [Spectazole] 1 applic TOPICAL BID 09/20/19 10/19/19 History Magnesium Hydroxide [Milk of 7,200 mg PO DAILY PRN 09/20/19 10/19/19 History Magnesia Concentrate] Multivitamins, Thera [Multivitamin 1 tab PO DAILY@1700 09/20/19 10/19/19 History (formulary)] traMADol HCL 50 mg PO Q8H PRN #10 tab 09/24/19 10/19/19 Rx Aspirin 162 mg PO DAILY@1700 10/19/19 10/19/19 History Furosemide [Lasix] 20 mg PO DAILY@0800 10/19/19 10/19/19 History Gabapentin [Neurontin] 400 mg PO TID@0600,1400,2200 10/19/19 10/19/19 History INSULIN ASPART (NovoLOG) [NovoLOG See Protocol SQ ACHS 10/19/19 10/19/19 History (formulary)] Lisinopril [Zestril] 10 mg PO DAILY@2100 10/19/19 10/19/19 History Primidone [Mysoline] 25 mg PO DAILY@0800 10/19/19 10/19/19 History Allergies Allergy/AdvReac Type Severity Reaction Status Date / Time adhesive tape Allergy Rash/Hives Verified 10/19/19 20:49 influenza virus vaccine, Allergy Unknown Verified 10/19/19 20:49 specific Physical Exam Vitals: Vital Signs Temp Pulse Pulse Resp BP BP Pulse Ox 10/20/19 11:27 98.2 F 82 16 98/60 94 L 10/20/19 09:01 123/83 10/20/19 08:00 96 18 10/20/19 05:56 97.8 F 96 18 106/68 93 L 10/19/19 23:25 16 10/19/19 21:35 98.2 F 93 16 120/66 10/19/19 20:30 98.5 F 127 H 18 125/74 93 L 10/19/19 18:41 98.1 F 110 H 16 125/56 10/19/19 18:34 98.2 F 93 16 113/62 10/19/19 18:11 98.6 F 82 18 113/75 100 10/19/19 18:01 97.9 F 106 H 18 109/70 100 10/19/19 16:41 96 18 128/69 100 10/19/19 15:33 80 18 108/66 100 10/19/19 14:11 98.8 F 77 18 105/59 100 Intake and Output 10/19/19 10/20/19 10/20/19 22:59 06:59 14:59 Intake Total 940 600 Balance 940 600 Intake: Intake, IV Titration 80 480 Amount Sodium Chloride 0.9% 1, 80 480 000 ml @ 80 mls/hr IV . Q12C50L [facility] Rx#:[id number] Oral 240 120 Blood Product 620 Rc Cpda-1 Unit 310 [id number] Other: # Voids 1 2 Weight 84.368 kg On physical examination, patient appears comfortable in no apparent distress. HEAD: Normocephalic, atraumatic. EYES: No scleral icterus. No conjunctival injection. MOUTH: No lesions, tongue midline. NECK: Trachea midline, no gross abnormalities. CHEST: Clear to auscultation with no wheezing or rhonchi appreciated. HEART: S1-S2 appreciated. ABDOMEN: Soft, obese. Bowel sounds are positive. No organomegaly. No guarding or rigidity. EXTREMITIES: No pedal edema. SKIN: No rashes, no jaundice. NEUROLOGIC: Alert and oriented x3. Results CBC & Chem 7: 10/20/19 07:08 10/20/19 07:08 Labs: Abnormal Lab Results - Last 24 Hours (Table) 10/19/19 10/19/19 10/19/19 Range/Units 14:12 14:45 14:45 RBC 2.60 L (3.80-5.40) m/uL Hgb 6.8 L* (11.4-16.0) gm/dL Hct 23.2 L (34.0-46.0) % MCHC 29.2 L (31.0-37.0) g/dL RDW 17.3 H (11.5-15.5) % Lymphocytes # 0.7 L (1.0-4.8) k/uL Retic Count (0.5-2.0) % Sodium 135 L (137-145) mmol/L Potassium 5.6 H (3.5-5.1) mmol/L BUN 25 H (7-17) mg/dL POC Glucose (mg/dL) (75-99) mg/dL Alkaline Phosphatase 37 L (38-126) U/L Stool Occult Blood (Negative) Crossmatch See Detail 10/19/19 10/19/19 10/20/19 Range/Units 16:35 20:51 07:08 RBC 2.59 L (3.80-5.40) m/uL Hgb 7.2 L (11.4-16.0) gm/dL Hct 23.7 L (34.0-46.0) % MCHC 30.2 L (31.0-37.0) g/dL RDW 17.0 H (11.5-15.5) % Lymphocytes # 0.6 L (1.0-4.8) k/uL Retic Count (0.5-2.0) % Sodium (137-145) mmol/L Potassium (3.5-5.1) mmol/L BUN (7-17) mg/dL POC Glucose (mg/dL) 130 H (75-99) mg/dL Alkaline Phosphatase (38-126) U/L Stool Occult Blood Positive H (Negative) Crossmatch 10/20/19 10/20/19 10/20/19 Range/Units 07:08 07:08 10:56 RBC (3.80-5.40) m/uL Hgb (11.4-16.0) gm/dL Hct (34.0-46.0) % MCHC (31.0-37.0) g/dL RDW (11.5-15.5) % Lymphocytes # (1.0-4.8) k/uL Retic Count 4.9 H (0.5-2.0) % Sodium (137-145) mmol/L Potassium (3.5-5.1) mmol/L BUN 21 H (7-17) mg/dL POC Glucose (mg/dL) 110 H (75-99) mg/dL Alkaline Phosphatase (38-126) U/L Stool Occult Blood (Negative) Crossmatch Assessment and Plan (1) Iron deficiency anemia Narrative/Plan: 84-year-old female presented to the hospital due to abnormal laboratory draw significant for anemia in the outpatient setting with hemoglobin 6.3 pounds be 6.8 on presentation and 7.2 after 1 unit of PRBCs. Previous history of anemia with evaluation 1 year ago at outside facility. Patient had a video capsule performed in June 2019 which was negative. Iron studies significant for iron deficiency. Unknown etiology, with plan for EGD and colonoscopy to rule out GI bleed. Current Visit: Yes Status: Acute Code(s): D50.9 - IRON DEFICIENCY ANEMIA, UNSPECIFIED SNOMED Code(s): 31888181 Plan: Supportive care Clear liquid diet Bowel prep ordered Nothing by mouth after midnight Plan for EGD and colonoscopy for further evaluation tomorrow Anemia laboratory evaluation ordered Thank you for allowing us to participate in care of the patient we will continue to follow
[2019-10-21] MEDS: SODIUM CHLORIDE 0.9% 1,000 ML IV SCH ×2 (04:06→18:20)
[2019-10-21 06:40] LABS: Anisocytosis Slight; HCT 24.3 % (34.0-46.0); HGB 7.3 gm/dL (11.4-16.0); Hypochromasia Marked; MCH 27.9 pg (25.0-35.0); MCHC 29.9 g/dL (31.0-37.0); MCV 93.2 fL (80.0-100.0); Mean Platelet Volume 8.2; Platelet Count 176 k/uL (150-450); Poikilocytosis Slight; RDW 17.4 % (11.5-15.5); WBC 4.5 k/uL (3.8-10.6)
[2019-10-21 06:56] LABS: Glucose,Whole Blood 112 mg/dL (75-99)
[2019-10-21] MEDS: INSULIN ASPART (NovoLOG) 100 UNIT/ML VIAL SQ SCH ×4 (07:55→20:41)
[2019-10-21] MEDS: GABAPENTIN 300 MG CAP PO SCH ×4 (08:54→21:24)
[2019-10-21] MEDS: traMADol 50 MG TAB PO PRN (08:54)
[2019-10-21] MEDS: FERROUS SULFATE 325 MG TAB PO SCH ×2 (08:54→20:34)
[2019-10-21] MEDS: PANTOPRAZOLE 40 MG TABLET PO SCH ×2 (08:55→18:16)
[2019-10-21] MEDS: CARVEDILOL 12.5 MG TAB PO SCH ×2 (08:55→18:16)
[2019-10-21] MEDS: metFORMIN 500 MG TAB PO SCH ×2 (08:55→18:16)
[2019-10-21] MEDS: ARTIFICIAL TEARS-HYPROMELLOSE DROPS 15 ML BTL BOTH EYES SCH ×3 (08:56→18:18)
[2019-10-21] MEDS: DILTIAZEM ORAL 60 MG TAB PO SCH ×3 (09:01→20:34)
[2019-10-21] MEDS: PRIMIDONE 25 MG TAB PO SCH (09:02)
[2019-10-21 11:24] LABS: Glucose,Whole Blood 105 mg/dL (75-99)
[2019-10-21 17:03] LABS: Glucose,Whole Blood 106 mg/dL (75-99)
[2019-10-21] MEDS ORDERED: BISACODYL 5 MG TABLET.DR PO ONE (18:00)
[2019-10-21] MEDS: CLOTRIMAZOLE 1% CREAM 15 GM TUBE TOPICAL SCH ×2 (18:08→20:42)
[2019-10-21] MEDS: LACTATED RINGERS 1,000 ML IV SCH (18:09)
[2019-10-21] MEDS: FLUoxetine HCL 20 MG CAP PO SCH (18:16)
[2019-10-21] MEDS: MULTIVITAMINS, THERA 1 EACH TAB PO SCH (18:16)
[2019-10-21] MEDS: FOLIC ACID 1 MG TAB PO SCH (18:16)
[2019-10-21] MEDS: THIAMINE 100 MG TAB PO SCH (18:17)
--- NOTE | 2019-10-21 20:21 | P.PN ---
Progress Note - Text Progress Note Date: 10/21/19 Chief Complaint: Anemia History of presenting complaint: This is a very pleasant 84-year-old patient of Dr. Coles. Resident of [facility]. Chronic stable medical conditions include atrial fibrillation on eliquis,, hyperlipidemia, hypertension, Guillain-Preciado syndrome with lower extremity weakness, hypothyroid, CHF with EF of 50-55%, recent stroke with the weakness in the left arm. Sent in from the [facility] because of hemoglobin 6.3. Patient has been feeling a bit tired. She was recently found to have heme-positive stool. Patient denies any dark stools. Has a bowel movement daily. No nausea vomiting. Does feel a bit tired. Patient was transfused 1 unit of blood. Today-sitting up. Comfortable. Seen by GI.Endoscopy tomorrow. Review of systems: Was done for constitutional, cardiovascular, GI, pulmonary. relevant finding as above Active Medications Acetaminophen (Tylenol Tab) 650 mg PO Q6HR PRN PRN Reason: Pain Artificial Tears (Artificial Tear Drops) 1 drops BOTH EYES TID@0800,1200,1700 [facility] Last Admin: 10/21/19 18:18 Dose: 1 drops Documented by: Carvedilol (Coreg) 25 mg PO BID@0800,1700 [facility] Last Admin: 10/21/19 18:16 Dose: 25 mg Documented by: Clotrimazole (Lotrimin Cream) 1 applic TOPICAL BID [facility] Last Admin: 10/21/19 18:08 Dose: 1 applic Documented by: Diltiazem HCl (Cardizem Oral) 60 mg PO TID@0600,1400,2100 [facility] Last Admin: 10/21/19 18:20 Dose: 60 mg Documented by: Ferrous Sulfate (Feosol) 325 mg PO BID@0800,2100 [facility] Last Admin: 10/21/19 08:54 Dose: 325 mg Documented by: Fluoxetine HCl (Prozac) 40 mg PO DAILY@1700 [facility] Last Admin: 10/21/19 18:16 Dose: 40 mg Documented by: Folic Acid (Folic Acid) 1 mg PO DAILY@1700 [facility] Last Admin: 10/21/19 18:16 Dose: 1 mg Documented by: Gabapentin (Neurontin) 300 mg PO QID [facility] Last Admin: 10/21/19 18:17 Dose: Not Given Documented by: Sodium Chloride (Saline 0.9%) 1,000 mls @ 80 mls/hr IV .[id number] [facility] Last Admin: 10/21/19 18:20 Dose: 80 mls/hr Documented by: Lactated Ringer's (Lactated Ringers) 1,000 mls @ 20 mls/hr IV .Q24H [facility] Last Admin: 10/21/19 18:09 Dose: Not Given Documented by: Insulin Aspart (Novolog) 0 unit SQ ACHS [facility]; Protocol Last Admin: 10/21/19 18:17 Dose: Not Given Documented by: Lactic Acid (Ammonium Lactate) 1 applic TOPICAL DAILY PRN PRN Reason: dry skin on feet Levothyroxine Sodium (Synthroid) 100 mcg PO HS@2100 [facility] Last Admin: 10/20/19 20:58 Dose: 100 mcg Documented by: Lidocaine HCl (.Xylocaine 1% Inj (10mg/Ml) For Iv Start) 0.1 ml INTRADERMA PER PROTOCOL PRN PRN Reason: IV Start Lisinopril (Zestril) 10 mg PO DAILY@2100 [facility] Last Admin: 10/20/19 20:58 Dose: 10 mg Documented by: Magnesium Citrate (Citrate Of Magnesia) 296 ml PO ONCE ONE Stop: 10/22/19 06:01 Metformin HCl (Glucophage) 500 mg PO BID@0800,1700 [facility] Last Admin: 10/21/19 18:16 Dose: 500 mg Documented by: Multivitamins (Theragran) 1 each PO DAILY@1700 [facility] Last Admin: 10/21/19 18:16 Dose: 1 each Documented by: Naloxone HCl (Narcan) 0.2 mg IV Q2M PRN PRN Reason: Opioid Reversal Pantoprazole Sodium (Protonix) 40 mg PO BID@0800,1700 [facility] Last Admin: 10/21/19 18:16 Dose: 40 mg Documented by: Pravastatin Sodium (Pravachol) 80 mg PO HS@2100 [facility] Last Admin: 10/20/19 20:58 Dose: 80 mg Documented by: Primidone (Mysoline) 100 mg PO HS@2100 [facility] Last Admin: 10/20/19 20:58 Dose: 100 mg Documented by: Primidone (Mysoline) 25 mg PO DAILY@0800 [facility] Last Admin: 10/21/19 09:02 Dose: 25 mg Documented by: Thiamine HCl (Vitamin B-1) 100 mg PO DAILY@1200 [facility] Last Admin: 10/21/19 18:17 Dose: 100 mg Documented by: Tramadol HCl (Ultram) 50 mg PO Q8H PRN PRN Reason: Pain Last Admin: 10/21/19 08:54 Dose: 50 mg Documented by: Physical examination: VITAL SIGNS: 97.8, 76, 17, 120/74, 35% on room air GENERAL: Laying in bed, awake, comfortable EYES: Pupils equal. Conjunctiva pale HEENT: External appearance of nose and ears normal, oral cavity grossly normal. NECK: JVD not raised; masses not palpable. HEART: Irregular heart sounds; no edema. LUNGS: Respiratory rate normal, decreased breath sounds. ABDOMEN: Soft, nontender, liver spleen not palpable, no masses palpable. PSYCH: Able to answer questions. NEUROLOGICAL: [Cranial nerves grossly intact; no facial asymmetry, weakness of both lower extremities., Weakness of the left arm. MUSCULOSKELETAL: Limitation of movement of the left shoulder INVESTIGATIONS, reviewed in the clinical context: Hemoglobin 7.3 Presenting labs: White count 4.7 hemoglobin 6.8 platelets 206 potassium 5.6 creatinine 0.83 Stool occult blood positive, COVID 19 PCR-not detected Previous labs: Hemoglobin 7.6 on October 13 Assessment: -Acute symptomatic anemia with positive occult blood in a patient was getting antiplatelet agents -Left arm weakness from a prior stroke -chronic congestive heart failure exacerbation from diastolic dysfunction EF 50- 55%. 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 Other medication treatment plan to continue.
[2019-10-21] MEDS: LEVOTHYROXINE 100 MCG TAB PO SCH (20:34)
[2019-10-21] MEDS: LISINOPRIL 10 MG TAB PO SCH (20:36)
[2019-10-21] MEDS: PRIMIDONE 50 MG TAB PO SCH (20:36)
[2019-10-21] MEDS: PRAVASTATIN SODIUM 80 MG TAB PO SCH (20:36)
[2019-10-21 20:40] LABS: Glucose,Whole Blood 103 mg/dL (75-99)
--- NOTE | 2019-10-21 21:53 | P.PN ---
Subjective Progress Note Date: 10/21/19 Principal diagnosis: Iron deficiency anemia Patient is seen lying in bed. She was unable to complete colon prep yesterday. No acute complaints. Objective - Vital Signs Vital signs: Vital Signs Temp 97.6 F 10/21/19 05:00 Pulse 94 10/21/19 08:00 Resp 16 10/21/19 08:00 BP 142/80 10/21/19 05:00 Pulse Ox 96 10/21/19 05:00 Intake & Output 10/20/19 10/21/19 10/21/19 18:59 06:59 18:59 Intake Total 1360 Balance 1360 Intake: Intake, IV Titration 960 Amount Sodium Chloride 0.9% 1, 960 000 ml @ 80 mls/hr IV . [id number] [facility] Rx#:[id number] Oral 400 Other: Voiding Method Diaper Diaper Incontinent Incontinent # Voids 3 4 # Bowel Movements 2 - Exam On physical examination, patient appears comfortable in no apparent distress. HEAD: Normocephalic, atraumatic. EYES: No scleral icterus. No conjunctival injection. MOUTH: No lesions, tongue midline. NECK: Trachea midline, no gross abnormalities. ABDOMEN: Soft, obese. Bowel sounds are positive. No organomegaly. No guarding or rigidity. EXTREMITIES: No pedal edema. SKIN: No rashes, no jaundice. NEUROLOGIC: Alert and oriented to person and place. - Labs CBC & Chem 7: 10/21/19 06:15 10/20/19 07:08 Labs: Abnormal Lab Results - Last 24 Hours (Table) 10/20/19 10/20/19 10/20/19 Range/Units 07:08 17:05 20:41 RBC (3.80-5.40) m/uL Hgb (11.4-16.0) gm/dL Hct (34.0-46.0) % MCHC (31.0-37.0) g/dL RDW (11.5-15.5) % POC Glucose (mg/dL) 103 H 107 H (75-99) mg/dL Iron 39 L (50-170) ug/dL 10/21/19 10/21/19 10/21/19 Range/Units 06:15 06:54 11:23 RBC 2.60 L (3.80-5.40) m/uL Hgb 7.3 L (11.4-16.0) gm/dL Hct 24.3 L (34.0-46.0) % MCHC 29.9 L (31.0-37.0) g/dL RDW 17.4 H (11.5-15.5) % POC Glucose (mg/dL) 112 H 105 H (75-99) mg/dL Iron (50-170) ug/dL Assessment and Plan (1) Iron deficiency anemia Narrative/Plan: 84-year-old female presented to the hospital due to abnormal laboratory draw significant for anemia in the outpatient setting with hemoglobin 6.3 pounds be 6.8 on presentation and 7.2 after 1 unit of PRBCs. Previous history of anemia with evaluation 1 year ago at outside facility. Patient had a video capsule performed in June 2019 which was negative. Iron studies significant for iron deficiency. Unknown etiology, with plan for EGD and colonoscopy to rule out GI bleed. Current Visit: Yes Status: Acute Code(s): D50.9 - IRON DEFICIENCY ANEMIA, UNSPECIFIED SNOMED Code(s): 19026851 Plan: Supportive care Clear liquid diet Bowel prep ordered Nothing by mouth after midnight Plan for EGD and colonoscopy for further evaluation tomorrow Anemia laboratory evaluation ordered Thank you for allowing us to participate in care of the patient we will continue to follow
[2019-10-22] MEDS: DILTIAZEM ORAL 60 MG TAB PO SCH ×3 (05:40→21:37)
[2019-10-22] MEDS: SODIUM CHLORIDE 0.9% 1,000 ML IV SCH (05:41)
[2019-10-22] MEDS ORDERED: MAGNESIUM CITRATE 296 ML BOTTLE PO ONE (06:00)
[2019-10-22 07:06] LABS: Glucose,Whole Blood 100 mg/dL (75-99)
[2019-10-22] MEDS: INSULIN ASPART (NovoLOG) 100 UNIT/ML VIAL SQ SCH ×4 (07:33→22:53)
[2019-10-22 07:48] LABS: Anisocytosis Slight; HCT 25.5 % (34.0-46.0); HGB 7.7 gm/dL (11.4-16.0); Hypochromasia Marked; MCH 27.6 pg (25.0-35.0); MCHC 30.2 g/dL (31.0-37.0); MCV 91.2 fL (80.0-100.0); Mean Platelet Volume 7.7; Platelet Count 198 k/uL (150-450); Poikilocytosis Slight; RBC 2.79 m/uL (3.80-5.40); RDW 17.4 % (11.5-15.5); WBC 4.4 k/uL (3.8-10.6)
[2019-10-22] MEDS: metFORMIN 500 MG TAB PO SCH ×2 (08:29→18:07)
[2019-10-22] MEDS: CARVEDILOL 12.5 MG TAB PO SCH ×2 (08:57→15:41)
[2019-10-22] MEDS: PANTOPRAZOLE 40 MG TABLET PO SCH ×2 (08:58→15:42)
[2019-10-22] MEDS: FERROUS SULFATE 325 MG TAB PO SCH ×2 (08:58→21:37)
[2019-10-22] MEDS: GABAPENTIN 300 MG CAP PO SCH ×4 (08:58→21:38)
[2019-10-22] MEDS: ARTIFICIAL TEARS-HYPROMELLOSE DROPS 15 ML BTL BOTH EYES SCH ×3 (09:08→15:40)
[2019-10-22] MEDS: PRIMIDONE 25 MG TAB PO SCH (09:08)
[2019-10-22] MEDS: CLOTRIMAZOLE 1% CREAM 15 GM TUBE TOPICAL SCH ×2 (09:10→21:37)
[2019-10-22 11:21] LABS: Glucose,Whole Blood 99 mg/dL (75-99)
[2019-10-22] MEDS: THIAMINE 100 MG TAB PO SCH (11:58)
[2019-10-22] MEDS: LACTATED RINGERS 1,000 ML IV SCH (11:58)
[2019-10-22] MEDS ORDERED: PROPOFOL 10 MG/ML 20 ML VIAL IV ONE (13:35)
[2019-10-22] MEDS ORDERED: IV FLUID CONTINUATION 500 ML IV ONE (13:37)
--- NOTE | 2019-10-22 14:54 | P.PCN ---
Date of Procedure: 10/22/19 Description of Procedure: Brief history: 84-year-old female with a medical history significant for atrial fibrillation, hypothyroidism, CHF, hyperlipidemia, hypertension and anemia who presented due to abnormal laboratory evaluation in the outpatient setting. Patient was found to be anemic and was sent to the hospital for further evaluation. Patient did have stool testing which was positive for blood and hemoglobin currently 7.2. Previously the patient was seen in the hospital and had small bowel endoscopy unit and 06/2019 which was negative her last EGD and colonoscopy per her report was approximately 1 year ago at [facility] and negative. She denies any signs or symptoms of GI bleeding but does have dark stool on iron supplementation. Procedure performed: Esophagogastroduodenoscopy with biopsy Colonoscopy with polypectomy, biopsy, tattoo and gold probe ablation Estimated blood loss: Minimal. Preoperative diagnosis: Iron deficiency anemia Anest[place]: [facility] Procedure: After informed consent was obtained from the patient was brought into the endoscopy unit and IV sedation was administered by anesthesia under continuous monitoring. Initially upper endoscopy was done. The Olympus GF 190 video endoscope was inserted into the mouth and esophagus intubated without any difficulty and was gradually advanced into the stomach and duodenum and carefully examined. The bulb and second part of the duodenum appeared normal, with biopsies taken. The scope was then withdrawn into the stomach adequately insufflated with air and upon careful examination the antrum and body, cardia and fundus appeared somewhat irritated with mild scattered irritation suggestive of gastritis and some mild nodularity anomaly in the body of the stomach. The scope was then withdrawn into the esophagus. The GE junction was located at 41 cm to the incisors. It appeared regular with no erythema erosions or ulcerations. Rest of the esophagus appeared normal. Patient tolerated the procedure well. At this time the patient continued to remain sedation. Initial digital rectal examination was normal. Olympus CF 190 video colonoscope was then inserted into the rectum and gradually advanced to the cecum without any difficulty. Careful examination was performed as the scope was gradually being withdrawn. The prep was fair. The cecum, ascending colon, transverse colon, descending colon, sigmoid colon and rectum were examined with a 5 mm sessile cecal polyp removed with cold snare polypectomy. 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 2 ascending colon masses were seen 1 just distal to the ileocecal valve measuring approximately 3.5 cm and-appearing malignant in nature which was biopsied. The second ascending colon mass was just proximal to the hepatic flexure and labeled hepatic flexure and appeared to be 2 cm in size and tubulovillous in nature. A tattoo was placed in between the 2 masses polyps. Retroflexion was performed in the rectum and no lesions were noted. Patient tolerated the procedure well. Impression: 1. Mild scattered erythema and nodularity suggestive of mild gastritis predominantly in the body of stomach with biopsies taken of the antrum and body. Duodenal biopsies. 2. 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 Flat cecal polyp removed with cold snare polypectomy. 2 ascending colon masses 1 just distal to the ileocecal valve measuring approximately 3.5 cm biopsied and one which appeared tubulovillous in nature just proximal to the hepatic flexure also biopsied. Tattoo was placed in between these 2 masses. Recommendations: Findings of this examination were discussed with the patient as well as the primary team. Clear liquid diet today. Surgical service to evaluate. Await pathology from biopsies. Continue supportive care.
[2019-10-22] MEDS: FLUoxetine HCL 20 MG CAP PO SCH (15:41)
[2019-10-22] MEDS: FOLIC ACID 1 MG TAB PO SCH (15:42)
[2019-10-22] MEDS: MULTIVITAMINS, THERA 1 EACH TAB PO SCH (15:42)
[2019-10-22 17:06] LABS: Glucose,Whole Blood 94 mg/dL (75-99)
[2019-10-22 20:09] LABS: Glucose,Whole Blood 167 mg/dL (75-99)
[2019-10-22] MEDS: IOPAMIDOL CONTRAST (ORAL USE) VIAL PO PRN ×2 (20:39→21:43)
--- NOTE | 2019-10-22 20:48 | P.PN ---
Progress Note - Text Progress Note Date: 10/22/19 Chief Complaint: Anemia History of presenting complaint: This is a very pleasant 84-year-old patient of Dr. Coles. Resident of [facility]. Chronic stable medical conditions include atrial fibrillation on eliquis,, hyperlipidemia, hypertension, Guillain-Preciado syndrome with lower extremity weakness, hypothyroid, CHF with EF of 50-55%, recent stroke with the weakness in the left arm. Sent in from the [facility] because of hemoglobin 6.3. Patient has been feeling a bit tired. She was recently found to have heme-positive stool. Patient denies any dark stools. Has a bowel movement daily. No nausea vomiting. Does feel a bit tired. Patient was transfused 1 unit of blood. Today-underwent EGD and colonoscopic today. Results below. Discussed with Dr. Kohler. Patient otherwise comfortable. Review of systems: Was done for constitutional, cardiovascular, GI, pulmonary. relevant finding as above Active Medications Acetaminophen (Tylenol Tab) 650 mg PO Q6HR PRN PRN Reason: Pain Artificial Tears (Artificial Tear Drops) 1 drops BOTH EYES TID@0800,1200,1700 [facility] Last Admin: 10/22/19 15:40 Dose: 1 drops Documented by: Carvedilol (Coreg) 25 mg PO BID@0800,1700 [facility] Last Admin: 10/22/19 15:41 Dose: 25 mg Documented by: Clotrimazole (Lotrimin Cream) 1 applic TOPICAL BID [facility] Last Admin: 10/22/19 09:10 Dose: 1 applic Documented by: Diltiazem HCl (Cardizem Oral) 60 mg PO TID@0600,1400,2100 [facility] Last Admin: 10/22/19 15:41 Dose: 60 mg Documented by: Ferrous Sulfate (Feosol) 325 mg PO BID@0800,2100 [facility] Last Admin: 10/22/19 08:58 Dose: 325 mg Documented by: Fluoxetine HCl (Prozac) 40 mg PO DAILY@1700 [facility] Last Admin: 10/22/19 15:41 Dose: 40 mg Documented by: Folic Acid (Folic Acid) 1 mg PO DAILY@1700 [facility] Last Admin: 10/22/19 15:42 Dose: 1 mg Documented by: Gabapentin (Neurontin) 300 mg PO QID [facility] Last Admin: 10/22/19 17:27 Dose: Not Given Documented by: Sodium Chloride (Saline 0.9%) 1,000 mls @ 80 mls/hr IV .[id number] [facility] Last Admin: 10/22/19 05:41 Dose: 80 mls/hr Documented by: Lactated Ringer's (Lactated Ringers) 1,000 mls @ 20 mls/hr IV .Q24H [facility] Last Admin: 10/22/19 11:58 Dose: Not Given Documented by: Ferric Sodium Gluconate 125 mg (/ Sodium Chloride) 110 mls @ 100 mls/hr IVPB DAILY [facility] Stop: 10/24/19 10:05 Insulin Aspart (Novolog) 0 unit SQ ACHS [facility]; Protocol Last Admin: 10/22/19 17:27 Dose: Not Given Documented by: Iopamidol (Isovue-300 (For Oral Use)) 30 ml PO Q60M PRN PRN Reason: CT Scan Stop: 10/23/19 18:11 Lactic Acid (Ammonium Lactate) 1 applic TOPICAL DAILY PRN PRN Reason: dry skin on feet Levothyroxine Sodium (Synthroid) 100 mcg PO HS@2100 [facility] Last Admin: 10/21/19 20:34 Dose: 100 mcg Documented by: Lidocaine HCl (.Xylocaine 1% Inj (10mg/Ml) For Iv Start) 0.1 ml INTRADERMA PER PROTOCOL PRN PRN Reason: IV Start Lisinopril (Zestril) 10 mg PO DAILY@2100 [facility] Last Admin: 10/21/19 20:36 Dose: 10 mg Documented by: Multivitamins (Theragran) 1 each PO DAILY@1700 [facility] Last Admin: 10/22/19 15:42 Dose: 1 each Documented by: Naloxone HCl (Narcan) 0.2 mg IV Q2M PRN PRN Reason: Opioid Reversal Pantoprazole Sodium (Protonix) 40 mg PO BID@0800,1700 [facility] Last Admin: 10/22/19 15:42 Dose: 40 mg Documented by: Pravastatin Sodium (Pravachol) 80 mg PO HS@2100 [facility] Last Admin: 10/21/19 20:36 Dose: 80 mg Documented by: Primidone (Mysoline) 100 mg PO HS@2100 [facility] Last Admin: 10/21/19 20:36 Dose: 100 mg Documented by: Primidone (Mysoline) 25 mg PO DAILY@0800 [facility] Last Admin: 10/22/19 09:08 Dose: 25 mg Documented by: Thiamine HCl (Vitamin B-1) 100 mg PO DAILY@1200 [facility] Last Admin: 10/22/19 11:58 Dose: Not Given Documented by: Tramadol HCl (Ultram) 50 mg PO Q8H PRN PRN Reason: Pain Last Admin: 10/21/19 08:54 Dose: 50 mg Documented by: Physical examination: VITAL SIGNS: 97.9, 85, 17, 138/66, 95% on room air GENERAL: Laying in bed, awake, comfortable EYES: Pupils equal. Conjunctiva pale HEENT: External appearance of nose and ears normal, oral cavity grossly normal. NECK: JVD not raised; masses not palpable. HEART: Irregular heart sounds; no edema. LUNGS: Respiratory rate normal, decreased breath sounds. ABDOMEN: Soft, nontender, liver spleen not palpable, no masses palpable. PSYCH: Able to answer questions. NEUROLOGICAL: [Cranial nerves grossly intact; no facial asymmetry, weakness of both lower extremities., Weakness of the left arm. MUSCULOSKELETAL: Limitation of movement of the left shoulder INVESTIGATIONS, reviewed in the clinical context: Hemoglobin 7.7 Presenting labs: White count 4.7 hemoglobin 6.8 platelets 206 potassium 5.6 creatinine 0.83 Stool occult blood positive, COVID 19 PCR-not detected Previous labs: Hemoglobin 7.6 on October 13 [id number] suggestive gastritis, cecal angiectasia, with goal prohibition, flat cecal polyp removed, 2 ascending colon masses were 3.5 cm- biopsied. Assessment: -Acute symptomatic anemia with positive occult blood in a patient was getting antiplatelet agents -Left arm weakness from a prior stroke -chronic congestive heart failure exacerbation from diastolic dysfunction EF 50- 55%. 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 Biopsied -Gastritis -DO NOT RESUSCITATE Plan: -Dr. Kohler call me with the results. We discuss the findings. Consultation being made to general surgery. Likely follow-up as an outpatient subsequently.
[2019-10-22] MEDS: SODIUM FERRIC GLUCONAT-SUCROSE 125 MG in SODIUM CHLORIDE 0.9% 100 ML IVPB SCH (21:35)
[2019-10-22] MEDS: LISINOPRIL 10 MG TAB PO SCH (21:38)
[2019-10-22] MEDS: PRAVASTATIN SODIUM 80 MG TAB PO SCH (21:38)
[2019-10-22] MEDS: PRIMIDONE 50 MG TAB PO SCH (21:38)
[2019-10-22] MEDS: LEVOTHYROXINE 100 MCG TAB PO SCH (21:38)
--- NOTE | 2019-10-22 23:39 | CT ---
EXAMINATION TYPE: CT abdomen pelvis w con DATE OF EXAM: 10/22/2019 COMPARISON: None HISTORY: ABS PAIN, MASS ON CECUM CT DLP: 1381.20 mGycm Automated exposure control for dose reduction was used. CONTRAST: Performed with IV Contrast, patient injected with 100 mL of Isovue 300. Images were obtained from the diaphragm to the floor the pelvis with IV contrast. There is some oral contrast. There are small bilateral pleural effusions. Heart appears slightly enlarged. There is no pericardial effusion. There is some infiltrate and atelectasis at both lung bases. Liver shows no focal defect. Gallbladder appears normal. Spleen is intact. There is no pancreatic mas s. Stomach is intact. There is no adrenal mass. Kidneys show satisfactory contrast opacification. There is no hydronephrosi s. Delayed images show normal renal excretion. Ureters are not dilated. There is 3.5 cm cortical cyst anterior left kidney. There is no retroperitoneal adenopathy. Abdominal aorta is atheromatous. Urinary bladder is somewhat dilated. There is no inguinal hernia. There is no free fluid in the pelvi s. There is no mesenteric edema. There is small amount of free air lateral to the cecum. Cecal wall is somewhat thickened up to 1.5 cm . There is no sign of a bowel obstruction. Terminal ileum is not dilated. IMPRESSION: Irregular wall thickening of the cecum and ascending colon consistent with tumor. Small pneumoperiton eum. Minimal fat stranding posterior to the cecum that raises the possibility of early peritonitis. T his exam was discussed with the patient's nurse on the floor at 11:45 PM. Bilateral lower lobe pulmonary infiltrates and atelectasis and pleural fluid. Congestive heart failur e is possible.
[2019-10-23] MEDS: SODIUM CHLORIDE 0.9% 1,000 ML IV SCH ×3 (01:20→20:38)
[2019-10-23] MEDS: PIPERACILLIN-TAZOBACTAM 3.375 GM in SODIUM CHLORIDE 0.9% 100 ML IVPB SCH ×3 (01:20→17:44)
[2019-10-23 03:34] LABS: Carcinoembryonic Antigen 6.8 ng/mL (0.0-4.9)
[2019-10-23] MEDS: DILTIAZEM ORAL 60 MG TAB PO SCH ×3 (05:54→20:38)
[2019-10-23 07:04] LABS: Glucose,Whole Blood 93 mg/dL (75-99)
[2019-10-23] MEDS: INSULIN ASPART (NovoLOG) 100 UNIT/ML VIAL SQ SCH ×4 (08:54→20:42)
[2019-10-23] MEDS: PANTOPRAZOLE 40 MG TABLET PO SCH ×2 (09:04→17:44)
[2019-10-23] MEDS: PRIMIDONE 25 MG TAB PO SCH (09:04)
[2019-10-23] MEDS: CARVEDILOL 12.5 MG TAB PO SCH ×2 (09:04→17:44)
[2019-10-23] MEDS: SODIUM FERRIC GLUCONAT-SUCROSE 125 MG in SODIUM CHLORIDE 0.9% 100 ML IVPB SCH (09:08)
[2019-10-23] MEDS: ARTIFICIAL TEARS-HYPROMELLOSE DROPS 15 ML BTL BOTH EYES SCH ×3 (09:14→17:45)
[2019-10-23] MEDS: CLOTRIMAZOLE 1% CREAM 15 GM TUBE TOPICAL SCH ×2 (09:14→20:39)
[2019-10-23] MEDS: GABAPENTIN 300 MG CAP PO SCH ×4 (10:32→21:00)
[2019-10-23] MEDS: FERROUS SULFATE 325 MG TAB PO SCH ×2 (10:32→20:37)
[2019-10-23 11:07] LABS: Glucose,Whole Blood 90 mg/dL (75-99)
--- NOTE | 2019-10-23 12:03 | P.GSCN ---
<Trish Roach - Last Filed: 10/23/19 11:59> History of Present Illness Consult date: 10/23/19 Reason for Consult: Ascending colon mass Requesting physician: Rocky Hitchccok History of present illness: CHIEF COMPLAINT: Ascending colon mass HISTORY OF PRESENT ILLNESS: 84-year-old female who presented to the emergency room secondary to abnormal labs. Patient had blood drawn on an outpatient basis and was found to be anemic. She underwent EGD and colonoscopy on 10/22/[address] Hitchcock. EGD revealed mild scattered erythema and nodularity suggestive of mild gastritis predominately in the body of the stomach. 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 Flat cecal polyp removed with cold snare polypectomy. 2 ascending colon masses on just distal to the ileocecal valve measuring 3.5 cm and one which appeared tubulovillous in nature just proximal to the hepatic flexure. Patient examined this morning at the bedside. She reports tenderness to the left lower quadrant. Denies nausea or vomiting. Vital signs stable. She is afebrile. PAST MEDICAL HISTORY: See list. PAST SURGICAL HISTORY: See list. MEDICATIONS: See list. ALLERGIES: See list. SOCIAL HISTORY: No illicit drug use. REVIEW OF SYSTEMS: CONSTITUTIONAL: Denies fever or chills. HEENT: Denies blurred vision, vision changes, or eye pain. Denies hemoptysis ENDOCRINE: Denies heat or cold intolerance. History of diabetes mellitus. CARDIOVASCULAR: Denies chest pain or pressure. History of atrial fibrillation RESPIRATORY: No shortness of breath. GASTROINTESTINAL: See HPI for pertinent findings NEURO: Denies history of seizures. PSYCH: History of depression. No current suicidal ideation HEMATOLOGIC: Denies bleeding disorders. LYMPHATIC: The patient denies any lumps and bumps around the neck. GENITOURINARY: Denies any blood in urine or increased urinary frequency. MUSCULOSKELETAL: Denies myalgias. Denies joint swelling. Denies decreased range of motion beyond patients baseline. SKIN: Denies pruitis. Denies rash. PHYSICAL EXAM: VITAL SIGNS: Reviewed GENERAL: Well-developed in no acute distress. HEENT: No sclera icterus. Extraocular movements grossly intact. Moist buccal mucosa. Head is atraumatic, normocephalic. Hears conversational speech. No nasal drainage. NECK: Supple without lymphadenopathy. CHEST: Non-labored respirations and equal bilateral excursions. CARDIOVASCULAR: Regular rate with regular rhythm. Palpable 2+ radial pulses. ABDOMEN: Soft. Nondistended. Tenderness with palpation of left lower quadrant. MUSCULOSKELETAL: No clubbing or cyanosis. NEUROLOGIC: No focal or lateralizing signs. Cranial nerves II through XII grossly intact. PSYCH: Appropriate affect. Alert and oriented to person, place and time. SKIN: Well perfused. Good skin turgor. LABORATORY DATA: WBC 4.4. Hemoglobin 7.7. Platelet count 198. IMAGING: CT abdomen and pelvis: Irregular wall thickening of the cecum and ascending colon consistent with tumor. Small pneumoperitoneum. Minimal fat stranding posterior to the cecum that raises possibly of early peritonitis. ASSESSMENT: 1. Ascending colon mass PLAN: -Clear liquid diet -Monitor labs -Await biopsy results -Patient will be reevaluated by Dr. Chavira this afternoon. Further recommendations pending. Nurse practitioner note has been reviewed by physician. Signing provider agrees with the documented findings, assessment, and plan of care. Past Medical History Past Medical History: Atrial Fibrillation, Diabetes Mellitus, GI Bleed, Hyperlipidemia, Hypertension, Neurologic Disorder, Thyroid Disorder Additional Past Medical History / Comment(s): guillain-barre syndrome. ovarian cancer with hysterectomy 1972. anemia History of Any Multi-Drug Resistant Organisms: None Reported Past Surgical History: Hysterectomy, Orthopedic Surgery Additional Past Surgical History / Comment(s): bilateral knee surgery , right rotor cuff surgery, Past Anesthesia/Blood Transfusion Reactions: No Reported Reaction Past Psychological History: Depression Smoking Status: Former smoker Past Alcohol Use History: None Reported Additional Past Alcohol Use History / Comment(s): Patient quit smoking prior to 05/23/2019 hospital admission Past Drug Use History: None Reported - Past Family History Sister(s) Family Medical History: Cancer Medications and Allergies Home Medications Medication Instructions Recorded Confirmed Type Carvedilol [Coreg] 25 mg PO BID@0800,169902/15/19 10/19/19 History FLUoxetine HCL [PROzac] 40 mg PO DAILY@169902/15/19 10/19/19 History Levothyroxine Sodium [Synthroid] 100 mcg PO HS@209902/15/19 10/19/19 History Pantoprazole [Protonix] 40 mg PO BID@0800,169902/15/19 10/19/19 History Primidone [Mysoline] 100 mg PO HS@209902/15/19 10/19/19 History metFORMIN HCL 500 mg PO BID@0800,1700 02/15/19 10/19/19 History Artificial Tears-Hypromellose 1 drops BOTH EYES 05/23/19 10/19/19 History [Artificial Tear Drops] TID@0800,1200,2100 Pravastatin Sodium [Pravachol] 80 mg PO HS@2100 05/23/19 10/19/19 History Thiamine [Vitamin B-1] 100 mg PO DAILY@1200 tab 05/28/19 10/19/19 Rx Bisacodyl 10 mg RECTAL DAILY PRN 06/19/19 10/19/19 History Ferrous Sulfate [Feosol] 325 mg PO BID@0800,1700 06/19/19 10/19/19 History Folic Acid 1 mg PO DAILY@169906/19/19 10/19/19 History Na Phos,M-B/Na Phos,Di-Ba [Fleet 133 ml RECTAL DAILY PRN 06/19/19 10/19/19 History Adult] Ammonium Lactate Cream [Lac-Hydrin 1 applic TOPICAL DAILY PRN 08/28/19 10/19/19 History 12% Cream] Acetaminophen Tab [Tylenol] 650 mg PO Q6HR PRN 09/20/19 10/19/19 History Apixaban [Eliquis] 2.5 mg PO BID@0800,1700 09/20/19 10/19/19 History Diltiazem Oral [Cardizem*] 60 mg PO TID@0600,1400,2100 09/20/19 10/19/19 History Econazole 1% Cream [Spectazole] 1 applic TOPICAL BID 09/20/19 10/19/19 History Magnesium Hydroxide [Milk of 7,200 mg PO DAILY PRN 09/20/19 10/19/19 History Magnesia Concentrate] Multivitamins, Thera [Multivitamin 1 tab PO DAILY@0 09/20/19 10/19/19 History (formulary)] traMADol HCL 50 mg PO Q8H PRN #10 tab 09/24/19 10/19/19 Rx Aspirin 162 mg PO DAILY@1700 10/19/19 10/19/19 History Furosemide [Lasix] 20 mg PO DAILY@0800 10/19/19 10/19/19 History Gabapentin [Neurontin] 400 mg PO TID@0600,1400,2200 10/19/19 10/19/19 History INSULIN ASPART (NovoLOG) [NovoLOG See Protocol SQ ACHS 10/19/19 10/19/19 History (formulary)] Lisinopril [Zestril] 10 mg PO DAILY@2100 10/19/19 10/19/19 History Primidone [Mysoline] 25 mg PO DAILY@0800 10/19/19 10/19/19 History Allergies Allergy/AdvReac Type Severity Reaction Status Date / Time adhesive tape Allergy Rash/Hives Verified 10/19/19 20:49 influenza virus vaccine, Allergy Unknown Verified 10/19/19 20:49 specific Surgical - Exam Vital Signs Temp Pulse Resp BP Pulse Ox 98.8 F 77 18 105/59 100 10/19/19 14:11 10/19/19 14:11 10/19/19 14:11 10/19/19 14:11 10/19/19 14:11 Results - Labs 10/22/19 07:07 10/20/19 07:08 Abnormal Lab Results - Last 24 Hours (Table) 10/22/19 10/22/19 Range/Units 07:07 20:05 POC Glucose (mg/dL) 167 H (75-99) mg/dL Carcinoembryonic Ag 6.8 H (0.0-4.9) ng/mL CA 19-9 Antigen 67.0 H (0.0-34.9) U/mL <Reema Chavira - Last Filed: 10/25/19 19:03> History of Present Illness History of present illness: Patient seen and evaluated. Please see additional recommendations below HISTORY OF PRESENT ILLNESS: The patient is an 84-year-old female who comes in acutely with anemia, hemoglobin less than 7. She has a significant past medical history including two prior hospitalizations: one in August 2019 now 2 months ago and another last month. Two months ago patient had presented with fevers with bacteremia from alpha hemolytic streptococcus. She then returned to the hospital less than 30 days later last month and admitted for weakness and lethargy. Additional workup demonstrated new right-sided thalamic infarct. She now presents with new anemia, hemoglobin 6.8. She received one unit of blood transfusion. No recent history of gross blood in stools. Since hospitalization, inpatient colonoscopy demonstrated new large colonic tumors along the right colon for which Gen. surgery is consulted. I had ordered additional studies including tumor markers and CT abdomen and pelvis for metastatic workup. PAST MEDICAL HISTORY: See list. PAST SURGICAL HISTORY: See list. MEDICATIONS: See list. ALLERGIES: See list. SOCIAL HISTORY: See list. FAMILY HISTORY: See list. REVIEW OF ORGAN SYSTEMS: CONSTITUTIONAL: No recent fevers or chills. EYES: No glasses. HEENT: No difficulties with hearing. No nosebleeds. RESPIRATORY: Past pneumonia 2+ months ago. CARDIOVASCULAR: No current chest pain. Has recent echo and GUILLERMINA completed August 2019. History of atrial fibrillation. GASTROINTESTINAL: Denies change in bowel habits and gas bloat. GENITOURINARY: Denies any blood in urine or increased urinary frequency. Previous history of ovarian cancer with hysterectomy. NEUROLOGICAL: Has left-sided hemiparesis. History of recent right thalamic infarct September 2019. has neuropathy. MUSCULOSKELETAL: No current back pain, stiffness or joint arthritis. SKIN: No current skin cancer. No rash. PSYCHIATRIC: Has depression. ENDOCRINE: Has thyroid disorders. Has blood sugar glucose intolerance. HEME/LYMPHATIC: No recent deep venous thrombosis. ALLERGY/IMMUNOLOGY: No immunoglobulin therapy. No immune deficiencies. BREAST: No current breast lumps, pain or nipple discharge. PHYSICAL EXAM: VITALS: Reviewed CONSTITUTIONAL: Well developed and in no acute distress. EYES: Conjuctivae without sclera icterus. Extraocular movements grossly intact. HEAD, EARS, NOSE, THROAT: Moist buccal mucosa. Head is atraumatic, normocephalic. Hears conversational speech. NECK: Supple. No JV distention. No thyroidomegaly. RESPIRATORY: Non-labored respirations and equal bilateral excursions. CARDIOVASCULAR: Irregular rate and rhythm. Extremities without moderate edema. Palpable 2+ radial pulses. ABDOMEN: Soft. Nondistended. No peritonitis LYMPH: No neck lymphadenopathy. MUSCULOSKELETAL: no clubbing cyanosis or edema. SKIN: Warm and well perfused with good skin turgor. NEUROLOGIC: Has a left facial weakness including left arm weakness. dysphagia and intact. Speech intact. PSYCH: Alert and oriented to person, place and time. CLINCAL LABS: Reviewed. Hgb on admission 6.8. WBC on admission 6.1. Creatinine on admission 0.83. 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 Flat cecal polyp removed with cold snare polypectomy. 2 ascending colon masses 1 just distal to the ileocecal valve measuring approximately 3.5 cm biopsied and one which appeared tubulovillous in nature just proximal to the hepatic flexure also biopsied. Tattoo was placed in between these 2 masses" ECHO: From August 2019. Moderate left ventricular hypertrophy with global left ventricular hypokinesis. Ejection fraction 40-45% Mild to moderate pulmonary hypertension. GUILLERMINA: Bilateral atrial enlargement. Systolic function 50-55%. Bioprosthetic aortic valve noted. No evidence of shunts. Moderate to severe pulmonary hypertension. No evidence of vegetation. IMAGING: CT of the abdomen and pelvis independently reviewed demonstrating moderately distended bladder. Additionally thickening along the ascending colon and cecum. Outside air identified along the hepatic flexure minimal. No diffuse pneumoperitoneum. Has redundant transverse colon. No metastatic lesions identified on the liver. This is my personal interpretation. RADIOLOGY: Report reviewed of the CT of the abdomen and pelvis confirms cardi omegaly including bilateral pleural effusions. Demonstrates no liver lesions. Also thickening from segment of the cecum and ascending colon with small air outside colon. RECORDS: previous old records reviewed and in HPI PATHOLOGY: Colon pathology still pending LABS: CEA and CA-19-9 consistent elevated 6.8 and 67.0, respectively. Iron is low 39.0 ASSESSMENT: 1. Cecum including ascending colon adenomas 2. Elevated tumor markers highly suspicious for colon malignancy 3. Atrial fibrillation 4. Ischemic cardiomyopathy 5. History of valvular replacement 6. Recent right thalamic infarct 7. Acute on chronic anemia 8. Iron deficiency anemia PLAN: 1. She has low iron. I started her on iron infusions. 2. Patient has multiple hospitalizations for less than [address] [facility]. Additionally, patient has atrial fibrillation and valvular replacement which places her at elevated risk for perioperative complications. 3. Robotic right hemicolectomy described however pending cardiac status. Otherwise, open right hemicolectomy also reviewed and discussed with patient. 4. Patient reports prolonged liquid diet for which she is hungry. In the interim, to improve her strength preoperatively, recommend high protein diet today and tomorrow. 5. Patient understands that she'll need a full bowel prep for Saturday for surgery on Saturday. 6. At this time, awaiting cardiac risk assessment to guide open versus robotic colectomy Thank you for this kind consultation. Surgical - Exam Vital Signs Temp Pulse Resp BP Pulse Ox 98.8 F 77 18 105/59 100 10/19/19 14:11 10/19/19 14:11 10/19/19 14:11 10/19/19 14:11 10/19/19 14:11 Results - Labs 10/25/19 06:36 10/25/19 06:36 Abnormal Lab Results - Last 24 Hours (Table) 10/24/19 10/24/19 10/25/19 Range/Units 20:01 20:49 06:36 RBC 2.90 L (3.80-5.40) m/uL Hgb 8.2 L (11.4-16.0) gm/dL Hct 26.8 L (34.0-46.0) % MCHC 30.6 L (31.0-37.0) g/dL RDW 17.4 H (11.5-15.5) % Lymphocytes # 0.6 L (1.0-4.8) k/uL Chloride (98-107) mmol/L Glucose (74-99) mg/dL POC Glucose (mg/dL) 135 H (75-99) mg/dL Total Protein (6.3-8.2) g/dL Albumin (3.5-5.0) g/dL Crossmatch See Detail 10/25/19 10/25/19 10/25/19 Range/Units 06:36 07:01 12:12 RBC (3.80-5.40) m/uL Hgb (11.4-16.0) gm/dL Hct (34.0-46.0) % MCHC (31.0-37.0) g/dL RDW (11.5-15.5) % Lymphocytes # (1.0-4.8) k/uL Chloride 111 H (98-107) mmol/L Glucose 118 H (74-99) mg/dL POC Glucose (mg/dL) 127 H 127 H (75-99) mg/dL Total Protein 5.7 L (6.3-8.2) g/dL Albumin 3.1 L (3.5-5.0) g/dL Crossmatch 10/25/19 Range/Units 16:43 RBC (3.80-5.40) m/uL Hgb (11.4-16.0) gm/dL Hct (34.0-46.0) % MCHC (31.0-37.0) g/dL RDW (11.5-15.5) % Lymphocytes # (1.0-4.8) k/uL Chloride (98-107) mmol/L Glucose (74-99) mg/dL POC Glucose (mg/dL) 120 H (75-99) mg/dL Total Protein (6.3-8.2) g/dL Albumin (3.5-5.0) g/dL Crossmatch Diabetes panel 10/25/19 Range/Units 06:36 Sodium 138 (137-145) mmol/L Potassium 3.6 (3.5-5.1) mmol/L Chloride 111 H (98-107) mmol/L Carbon Dioxide 22 (22-30) mmol/L BUN 7 (7-17) mg/dL Creatinine 0.70 (0.52-1.04) mg/dL Glucose 118 H (74-99) mg/dL Calcium 8.4 (8.4-10.2) mg/dL AST 23 (14-36) U/L ALT 11 (4-34) U/L Alkaline Phosphatase 41 (38-126) U/L Total Protein 5.7 L (6.3-8.2) g/dL Albumin 3.1 L (3.5-5.0) g/dL Calcium panel 10/25/19 Range/Units 06:36 Calcium 8.4 (8.4-10.2) mg/dL Albumin 3.1 L (3.5-5.0) g/dL Pituitary panel 10/25/19 Range/Units 06:36 Sodium 138 (137-145) mmol/L Potassium 3.6 (3.5-5.1) mmol/L Chloride 111 H (98-107) mmol/L Carbon Dioxide 22 (22-30) mmol/L BUN 7 (7-17) mg/dL Creatinine 0.70 (0.52-1.04) mg/dL Glucose 118 H (74-99) mg/dL Calcium 8.4 (8.4-10.2) mg/dL Adrenal panel 10/25/19 Range/Units 06:36 Sodium 138 (137-145) mmol/L Potassium 3.6 (3.5-5.1) mmol/L Chloride 111 H (98-107) mmol/L Carbon Dioxide 22 (22-30) mmol/L BUN 7 (7-17) mg/dL Creatinine 0.70 (0.52-1.04) mg/dL Glucose 118 H (74-99) mg/dL Calcium 8.4 (8.4-10.2) mg/dL Total Bilirubin 0.8 (0.2-1.3) mg/dL AST 23 (14-36) U/L ALT 11 (4-34) U/L Alkaline Phosphatase 41 (38-126) U/L Total Protein 5.7 L (6.3-8.2) g/dL Albumin 3.1 L (3.5-5.0) g/dL Assessment and Plan (1) Ascending colon malignant neoplasm Current Visit: Yes Status: Acute Code(s): C18.2 - MALIGNANT NEOPLASM OF ASCENDING COLON SNOMED Code(s): 724315983 (2) Iron deficiency anemia Current Visit: Yes Status: Acute Code(s): D50.9 - IRON DEFICIENCY ANEMIA, UNSPECIFIED SNOMED Code(s): 46628395 (3) CVA (cerebral vascular accident) Current Visit: No Status: Acute Code(s): I63.9 - CEREBRAL INFARCTION, UNSPECIFIED SNOMED Code(s): 619442898 (4) History of atrial fibrillation Current Visit: No Status: Acute Code(s): Z86.79 - PERSONAL HISTORY OF OTHER DISEASES OF THE CIRCULATORY SYSTEM SNOMED Code(s): 937380597 (5) Generalized weakness Current Visit: No Status: Acute Code(s): R53.1 - WEAKNESS SNOMED Code(s): 17565808
--- NOTE | 2019-10-23 12:34 | P.PN ---
Progress Note - Text Progress Note Date: 10/23/19 Patient seen and evaluated. Patient presents with acute anemia. She received 1 unit of blood. She comes back with low iron. She is on chronic blood thinners. I started her on iron infusions. Tumor markers including CT of the abdomen and pelvis was ordered by me for a metastatic workup with new finding of microperforation from her colonoscopy with injection of tattoo along the hepatic flexure. Patient has multiple hospitalizations for less than 3 months with recent stroke. Additionally, patient has atrial fibrillation and valvular replacement. She reports having a hysterectomy without any other abdominal surgeries. Robotic right hemicolectomy described and feasible pending cardiac status. Otherwise, open right hemicolectomy also reviewed and discussed with patient. In the interim, to improve her strength preoperatively, recommend high protein diet today and tomorrow. Patient understands that she'll need a full bowel prep for Saturday for surgery on Saturday. At this time, awaiting cardiac risk assessment to guide open versus robotic colectomy
[2019-10-23] MEDS: LACTATED RINGERS 1,000 ML IV SCH (12:58)
[2019-10-23] MEDS: THIAMINE 100 MG TAB PO SCH (13:09)
--- NOTE | 2019-10-23 15:20 | PN ---
PROGRESS NOTE DATE OF DICTATION: 10/23/2019 This patient is an 84-year-old pleasant white female admitted to the hospital with severe symptomatic anemia, receiving one unit of blood transfusion. She underwent an upper endoscopy as well as colonoscopy by Dr. Hitchcock yesterday that revealed two ascending colon masses, one distal to the ileocecal valve and the other one proximal to the hepatic flexure, both of which were biopsied. Results are pending at the time of this dictation. Dr. Chavira has been consulted and the patient is scheduled for surgery on Saturday, awaiting cardiac clearance. In the meantime the patient denies any symptoms. She reports no abdominal pain. No nausea, vomiting. PHYSICAL EXAMINATION: She appears comfortable. No apparent distress. Vital signs are stable. Blood pressure is 151/72, pulse rate 72, temperature 98.3. HEENT examination unremarkable. Conjunctivae pink. Sclerae anicteric. Oral cavity no lesions. NECK: No JVD or lymph node enlargement. CHEST: Clear to auscultation. HEART: Regular rate and rhythm. ABDOMEN: Soft. Non-tender, non-distended. Bowel sounds are positive. No organomegaly. EXTREMITIES: No pedal edema. SKIN: No rashes. NEUROLOGIC: She is alert and oriented x3. No focal deficits. LABS: Labs from today show WBC 4.4, hemoglobin 7.7, platelets normal. IMPRESSION: Severe symptomatic anemia, status post esophagogastroduodenoscopy and colonoscopy by Dr. Hitchcock yesterday that revealed two ascending colon masses, status post biopsies. Pathology still pending. CT of the abdomen and pelvis done yesterday did not show any metastasis. Surgery is following the patient closely. RECOMMENDATIONS: 1. Await pathology results. 2. Monitor CBC on a daily basis. 3. Continue current medications. 4. Will follow with you closely. Thank you for this consultation. MMODL / IJN: [id number] /
[2019-10-23 17:01] LABS: Glucose,Whole Blood 147 mg/dL (75-99)
[2019-10-23] MEDS: MULTIVITAMINS, THERA 1 EACH TAB PO SCH (17:44)
[2019-10-23] MEDS: FLUoxetine HCL 20 MG CAP PO SCH (17:44)
[2019-10-23] MEDS: FOLIC ACID 1 MG TAB PO SCH (17:46)
--- NOTE | 2019-10-23 18:16 | P.PN ---
Progress Note - Text Progress Note Date: 10/23/19 Chief Complaint: Anemia History of presenting complaint: This is a very pleasant 84-year-old patient of Dr. Coles. Resident of [facility]. Chronic stable medical conditions include atrial fibrillation on eliquis,, hyperlipidemia, hypertension, Guillain-Preciado syndrome with lower extremity weakness, hypothyroid, CHF with EF of 50-55%, recent stroke with the weakness in the left arm. Sent in from the [facility] because of hemoglobin 6.3. Patient has been feeling a bit tired. She was recently found to have heme-positive stool. Patient denies any dark stools. Has a bowel movement daily. No nausea vomiting. Does feel a bit tired. Patient was transfused 1 unit of blood.EGD-colonoscopic suggestive gastritis, cecal angiectasia, with goal prohibition, flat cecal polyp removed, 2 ascending colon masses were 3.5 cm-biopsied. Today-resting a bit. Tolerate her diet. Dr. Chavira planning surgery over the weekend. Review of systems: Was done for constitutional, cardiovascular, GI, pulmonary. relevant finding as above Active Medications Acetaminophen (Tylenol Tab) 650 mg PO Q6HR PRN PRN Reason: Pain Artificial Tears (Artificial Tear Drops) 1 drops BOTH EYES TID@0800,1200,1700 [facility] Last Admin: 10/23/19 17:45 Dose: 1 drops Documented by: Carvedilol (Coreg) 25 mg PO BID@0800,1700 [facility] Last Admin: 10/23/19 17:44 Dose: 25 mg Documented by: Clotrimazole (Lotrimin Cream) 1 applic TOPICAL BID [facility] Last Admin: 10/23/19 09:14 Dose: 1 applic Documented by: Diltiazem HCl (Cardizem Oral) 60 mg PO TID@0600,1400,2100 [facility] Last Admin: 10/23/19 13:09 Dose: 60 mg Documented by: Ferrous Sulfate (Feosol) 325 mg PO BID@0800,2100 [facility] Last Admin: 10/23/19 10:32 Dose: Not Given Documented by: Fluoxetine HCl (Prozac) 40 mg PO DAILY@1700 [facility] Last Admin: 10/23/19 17:44 Dose: 40 mg Documented by: Folic Acid (Folic Acid) 1 mg PO DAILY@1700 [facility] Last Admin: 10/23/19 17:46 Dose: 1 mg Documented by: Gabapentin (Neurontin) 300 mg PO QID [facility] Last Admin: 10/23/19 17:44 Dose: 300 mg Documented by: Sodium Chloride (Saline 0.9%) 1,000 mls @ 80 mls/hr IV .[id number] [facility] Last Admin: 10/23/19 10:33 Dose: Not Given Documented by: Lactated Ringer's (Lactated Ringers) 1,000 mls @ 20 mls/hr IV .Q24H [facility] Last Admin: 10/23/19 12:58 Dose: Not Given Documented by: Ferric Sodium Gluconate 125 mg (/ Sodium Chloride) 110 mls @ 100 mls/hr IVPB DAILY [facility] Stop: 10/24/19 10:05 Last Admin: 10/23/19 09:08 Dose: 100 mls/hr Documented by: Piperacillin Sod/Tazobactam (Sod 3.375 gm/ Sodium Chloride) 100 mls @ 25 mls/hr IVPB Q8H [facility] Last Admin: 10/23/19 17:44 Dose: 25 mls/hr Documented by: Insulin Aspart (Novolog) 0 unit SQ ACHS [facility]; Protocol Last Admin: 10/23/19 17:44 Dose: 1 unit Documented by: Lactic Acid (Ammonium Lactate) 1 applic TOPICAL DAILY PRN PRN Reason: dry skin on feet Levothyroxine Sodium (Synthroid) 100 mcg PO HS@2100 [facility] Last Admin: 10/22/19 21:38 Dose: 100 mcg Documented by: Lidocaine HCl (.Xylocaine 1% Inj (10mg/Ml) For Iv Start) 0.1 ml INTRADERMA PER PROTOCOL PRN PRN Reason: IV Start Lisinopril (Zestril) 10 mg PO DAILY@2100 [facility] Last Admin: 10/22/19 21:38 Dose: 10 mg Documented by: Multivitamins (Theragran) 1 each PO DAILY@1700 [facility] Last Admin: 10/23/19 17:44 Dose: 1 each Documented by: Naloxone HCl (Narcan) 0.2 mg IV Q2M PRN PRN Reason: Opioid Reversal Pantoprazole Sodium (Protonix) 40 mg PO BID@0800,1700 [facility] Last Admin: 10/23/19 17:44 Dose: 40 mg Documented by: Pravastatin Sodium (Pravachol) 80 mg PO HS@2100 [facility] Last Admin: 10/22/19 21:38 Dose: 80 mg Documented by: Primidone (Mysoline) 100 mg PO HS@2100 [facility] Last Admin: 10/22/19 21:38 Dose: 100 mg Documented by: Primidone (Mysoline) 25 mg PO DAILY@0800 [facility] Last Admin: 10/23/19 09:04 Dose: 25 mg Documented by: Thiamine HCl (Vitamin B-1) 100 mg PO DAILY@1200 [facility] Last Admin: 10/23/19 13:09 Dose: 100 mg Documented by: Tramadol HCl (Ultram) 50 mg PO Q8H PRN PRN Reason: Pain Last Admin: 10/21/19 08:54 Dose: 50 mg Documented by: Physical examination: VITAL SIGNS: 98.5, 94, 18, 108/57, 93% on room air GENERAL: Propped up in bed,, comfortable EYES: Pupils equal. Conjunctiva pale HEENT: External appearance of nose and ears normal, oral cavity grossly normal. NECK: JVD not raised; masses not palpable. HEART: Irregular heart sounds; no edema. LUNGS: Respiratory rate normal, decreased breath sounds. ABDOMEN: Soft, nontender, liver spleen not palpable, no masses palpable. PSYCH: Able to answer questions. NEUROLOGICAL: [Cranial nerves grossly intact; no facial asymmetry, weakness of both lower extremities., Weakness of the left arm. INVESTIGATIONS, reviewed in the clinical context: Hemoglobin 7.7 Presenting labs: White count 4.7 hemoglobin 6.8 platelets 206 potassium 5.6 creatinine 0.83 Stool occult blood positive, COVID 19 PCR-not detected Previous labs: Hemoglobin 7.6 on October 13 EGD/Colonoscopy suggestive gastritis, cecal angiectasia, with goal prohibition, flat cecal polyp removed, 2 ascending colon masses were 3.5 cm-biopsied. Assessment: -Acute symptomatic anemia with positive occult blood in a patient was getting antiplatelet agents -Left arm weakness from a prior stroke -chronic congestive heart failure exacerbation from diastolic dysfunction EF 50- 55%. 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 Biopsied -Gastritis -DO NOT RESUSCITATE Plan: -Cardiology consultation was requested by Dr. Colin for cardiac clearance for surgery.
[2019-10-23 20:32] LABS: Glucose,Whole Blood 169 mg/dL (75-99)
[2019-10-23] MEDS: LEVOTHYROXINE 100 MCG TAB PO SCH (20:37)
[2019-10-23] MEDS: PRAVASTATIN SODIUM 80 MG TAB PO SCH (20:38)
[2019-10-23] MEDS: PRIMIDONE 50 MG TAB PO SCH (20:38)
[2019-10-23] MEDS: LISINOPRIL 10 MG TAB PO SCH (20:38)
[2019-10-23] MEDS: traMADol 50 MG TAB PO PRN (20:42)
[2019-10-24] MEDS: PIPERACILLIN-TAZOBACTAM 3.375 GM in SODIUM CHLORIDE 0.9% 100 ML IVPB SCH ×3 (00:52→17:17)
[2019-10-24] MEDS: DILTIAZEM ORAL 60 MG TAB PO SCH ×3 (06:18→20:59)
[2019-10-24 07:34] LABS: Glucose,Whole Blood 102 mg/dL (75-99)
[2019-10-24] MEDS: INSULIN ASPART (NovoLOG) 100 UNIT/ML VIAL SQ SCH ×4 (08:01→20:58)
[2019-10-24 08:44] LABS: Anisocytosis Slight; HCT 23.3 % (34.0-46.0); Hypochromasia Marked; MCV 93.1 fL (80.0-100.0); Mean Platelet Volume 7.9; Platelet Count 187 k/uL (150-450); Poikilocytosis Slight; RDW 17.9 % (11.5-15.5); WBC 4.2 k/uL (3.8-10.6)
[2019-10-24] MEDS: ARTIFICIAL TEARS-HYPROMELLOSE DROPS 15 ML BTL BOTH EYES SCH ×3 (09:41→17:18)
[2019-10-24] MEDS: PANTOPRAZOLE 40 MG TABLET PO SCH ×2 (09:41→17:17)
[2019-10-24] MEDS: GABAPENTIN 300 MG CAP PO SCH ×4 (09:41→20:59)
[2019-10-24] MEDS: FERROUS SULFATE 325 MG TAB PO SCH ×2 (09:42→20:58)
[2019-10-24] MEDS: CARVEDILOL 12.5 MG TAB PO SCH ×2 (09:42→17:17)
[2019-10-24] MEDS: PRIMIDONE 25 MG TAB PO SCH (09:42)
[2019-10-24] MEDS: THIAMINE 100 MG TAB PO SCH (09:42)
[2019-10-24] MEDS: SODIUM CHLORIDE 0.9% 1,000 ML IV SCH ×2 (09:43→21:01)
[2019-10-24] MEDS: CLOTRIMAZOLE 1% CREAM 15 GM TUBE TOPICAL SCH ×2 (09:43→20:58)
[2019-10-24] MEDS: SODIUM FERRIC GLUCONAT-SUCROSE 125 MG in SODIUM CHLORIDE 0.9% 100 ML IVPB SCH (10:54)
[2019-10-24] MEDS: LACTATED RINGERS 1,000 ML IV SCH (10:55)
[2019-10-24 12:16] LABS: Band Neutrophils % 1 %; Basophils # (M) 0.04 k/uL (0-0.2); Eosinophils # (M) 0.04 k/uL (0-0.7); Lymphocytes # (M) 0.59 k/uL (1.0-4.8); Monocytes # (M) 0.29 k/uL (0-1.0); Myelocytes # (M) 0.04 k/uL (0); Myelocytes % 1 %; Neutrophils % (M) 77 %; Nucleated Red Blood Cells 1 /100 WBC (0-0); Total Cells Counted 200
[2019-10-24 12:34] LABS: Glucose,Whole Blood 184 mg/dL (75-99)
--- NOTE | 2019-10-24 13:03 | P.CRDCN ---
History of Present Illness Consult date: 10/24/19 Consult reason: pre-op evaluation (Right hemicolectomy) History of present illness: The patient is an 84-year-old female with past medical history of diabetes mellitus, valvular heart disease status post aortic valve replacement, persistent atrial fibrillation, dyslipidemia, hypertension, hypothyroid, cardiomyopathy, prior CVA, and Guillain-Preciado syndrome, who was admitted to the hospital for anemia. The patient reported being tired and fatigued. Hemoglobin was 6.3 on arrival. GI was consulted and she underwent upper endoscopy and colonoscopy, which revealed two colon masses. Surgical pathology is pending, however she is scheduled to undergo right hemicolectomy with Dr. Colin on Saturday. PAST MEDICAL HISTORY: Prior CVA with left arm weakness, persistent atrial fibrillation, dyslipidemia, hypertension, cardiomyopathy, Guillain-[place] syndrome, bioprosthetic aortic valve, diabetes mellitus REVIEW OF SYSTEMS: No fever or chills. No cough or expectoration. No diaphoresis. Patient denies headache, dizziness, blurred vision, double vision. Patient denies any stomach discomfort. No nausea, vomiting. No hematochezia. No hematemesis. Denies any black stools or blood in his stools. Denies dysuria or hematuria. Right-sided upper extremity and bilateral lower extremity weakness. PHYSICAL EXAMINATION: This is a 84-year-old female in no apparent distress at the time of my examination. HEENT: Head is atraumatic, normocephalic. Pupils are equal, round. Sclerae anicteric. Conjunctivae are clear. Mucous membranes of the mouth are moist. Neck is supple. There is no jugular venous distention. No carotid bruit is heard. CHEST EXAMINATION: Lungs are clear to auscultation. No chest wall tenderness is noted on palpation or with deep breathing. HEART EXAMINATION: Irregular heart rate. S1, S2 heard. Soft systolic murmur. No gallops or rub. ABDOMEN: Soft, nontender. Bowel sounds are heard. No organomegaly noted. EXTREMITIES: 2+ peripheral pulses with no evidence of peripheral edema and no calf tenderness noted. NEUROLOGIC EXAMINATION: Patient is awake, alert and oriented x2. LABORATORY DATA: CBC from today shows WBC 4.2, hemoglobin 7.0, hematocrit 23.3. Chemistry panel from 10/20/2019 shows sodium at 137, potassium 4.4, BUN 21, creatinine 0.69, glucose 78 FINAL ASSESSMENT AND PLAN: #1 blood loss anemia #2 persistent atrial fibrillation, rate controlled, anticoagulation with Eliquis #3 valvular heart disease, status post bioprosthetic aortic valve #4 mildly decreased LV function #5 hypertension #6 hyperlipidemia #7 diabetes #8 colonic masses, awaiting right hemicolectomy PLAN: We will clear the patient for upcoming surgery. She is moderate risk, however she may proceed if clinically necessary. Continue cardiac medications. Past Medical History Past Medical History: Atrial Fibrillation, Diabetes Mellitus, GI Bleed, Hyperlipidemia, Hypertension, Neurologic Disorder, Thyroid Disorder Additional Past Medical History / Comment(s): guillain-barre syndrome. ovarian cancer with hysterectomy 1972. anemia History of Any Multi-Drug Resistant Organisms: None Reported Past Surgical History: Hysterectomy, Orthopedic Surgery Additional Past Surgical History / Comment(s): bilateral knee surgery , right rotor cuff surgery, Past Anesthesia/Blood Transfusion Reactions: No Reported Reaction Past Psychological History: Depression Smoking Status: Former smoker Past Alcohol Use History: None Reported Additional Past Alcohol Use History / Comment(s): Patient quit smoking prior to 05/23/2019 hospital admission Past Drug Use History: None Reported - Past Family History Sister(s) Family Medical History: Cancer Medications and Allergies Home Medications Medication Instructions Recorded Confirmed Type Carvedilol [Coreg] 25 mg PO BID@0800,169902/15/19 10/19/19 History FLUoxetine HCL [PROzac] 40 mg PO DAILY@169902/15/19 10/19/19 History Levothyroxine Sodium [Synthroid] 100 mcg PO HS@209902/15/19 10/19/19 History Pantoprazole [Protonix] 40 mg PO BID@0800,169902/15/19 10/19/19 History Primidone [Mysoline] 100 mg PO HS@209902/15/19 10/19/19 History metFORMIN HCL 500 mg PO BID@0800,169902/15/19 10/19/19 History Artificial Tears-Hypromellose 1 drops BOTH EYES 05/23/19 10/19/19 History [Artificial Tear Drops] TID@0800,1200,2100 Pravastatin Sodium [Pravachol] 80 mg PO HS@209905/23/19 10/19/19 History Thiamine [Vitamin B-1] 100 mg PO DAILY@1200 tab 05/28/19 10/19/19 Rx Bisacodyl 10 mg RECTAL DAILY PRN 06/19/19 10/19/19 History Ferrous Sulfate [Feosol] 325 mg PO BID@0800,169906/19/19 10/19/19 History Folic Acid 1 mg PO DAILY@169906/19/19 10/19/19 History Na Phos,M-B/Na Phos,Di-Ba [Fleet 133 ml RECTAL DAILY PRN 06/19/19 10/19/19 History Adult] Ammonium Lactate Cream [Lac-Hydrin 1 applic TOPICAL DAILY PRN 08/28/19 10/19/19 History 12% Cream] Acetaminophen Tab [Tylenol] 650 mg PO Q6HR PRN 09/20/19 10/19/19 History Apixaban [Eliquis] 2.5 mg PO BID@0800,169909/20/19 10/19/19 History Diltiazem Oral [Cardizem*] 60 mg PO TID@0600,1400,209909/20/19 10/19/19 History Econazole 1% Cream [Spectazole] 1 applic TOPICAL BID 09/20/19 10/19/19 History Magnesium Hydroxide [Milk of 7,200 mg PO DAILY PRN 09/20/19 10/19/19 History Magnesia Concentrate] Multivitamins, Thera [Multivitamin 1 tab PO DAILY@169909/20/19 10/19/19 History (formulary)] traMADol HCL 50 mg PO Q8H PRN #10 tab 09/24/19 10/19/19 Rx Aspirin 162 mg PO DAILY@169910/19/19 10/19/19 History Furosemide [Lasix] 20 mg PO DAILY@79910/19/19 10/19/19 History Gabapentin [Neurontin] 400 mg PO TID@0600,1400,2200 10/19/19 10/19/19 History INSULIN ASPART (NovoLOG) [NovoLOG See Protocol SQ ACHS 10/19/19 10/19/19 History (formulary)] Lisinopril [Zestril] 10 mg PO DAILY@209910/19/19 10/19/19 History Primidone [Mysoline] 25 mg PO DAILY@79910/19/19 10/19/19 History Allergies Allergy/AdvReac Type Severity Reaction Status Date / Time adhesive tape Allergy Rash/Hives Verified 10/19/19 20:49 influenza virus vaccine, Allergy Unknown Verified 10/19/19 20:49 specific Physical Exam Vitals: Vital Signs Temp Pulse Resp BP Pulse Ox 10/24/19 05:00 98.5 F 75 20 115/59 94 L 10/23/19 21:00 98.6 F 72 18 104/67 95 Intake and Output 10/23/19 10/24/19 10/24/19 22:59 06:59 14:59 Intake Total 350 350 Output Total 200 300 Balance 150 50 Intake: Oral 350 350 Output: Urine 200 300 Other: Voiding Method Indwelling Catheter Indwelling Catheter Indwelling Catheter Results 10/24/19 07:10 10/20/19 07:08 CBC 10/24/19 Range/Units 07:10 WBC 4.2 (3.8-10.6) k/uL RBC 2.50 L (3.80-5.40) m/uL Hgb 7.0 L (11.4-16.0) gm/dL Hct 23.3 L (34.0-46.0) % Plt Count 187 (150-450) k/uL Current Medications Generic Name Dose Route Start Last Admin Trade Name Freq PRN Reason Stop Dose Admin Acetaminophen 650 mg 10/20/19 20:35 Tylenol Tab PO Q6HR PRN Pain Artificial Tears 1 drops 10/20/19 08:00 10/24/19 12:40 Artificial Tear Drops BOTH EYES Not Given TID@0800,1200,1700 [facility] Carvedilol 25 mg 10/20/19 08:00 10/24/19 09:42 Coreg PO 25 mg BID@0800,1700 [facility] Administration Clotrimazole 1 applic 10/20/19 21:00 10/24/19 09:43 Lotrimin Cream TOPICAL 1 applic BID [facility] Administration Diltiazem HCl 60 mg 10/19/19 21:00 10/24/19 06:18 Cardizem Oral PO 60 mg TID@0600,1400,2100 [facility] Administration Ferrous Sulfate 325 mg 10/19/19 21:00 10/24/19 09:42 Feosol PO 325 mg BID@0800,2100 [facility] Administration Fluoxetine HCl 40 mg 10/20/19 17:00 10/23/19 17:44 Prozac PO 40 mg DAILY@1700 [facility] Administration Folic Acid 1 mg 10/21/19 17:00 10/23/19 17:46 Folic Acid PO 1 mg DAILY@1700 [facility] Administration Gabapentin 300 mg 10/19/19 18:00 10/24/19 09:41 Neurontin PO 300 mg QID [facility] Administration Sodium Chloride 1,000 mls @ 80 mls/hr 10/19/19 17:30 10/24/19 09:43 Saline 0.9% IV 80 mls/hr .[id number] [facility] Administration Lactated Ringer's 1,000 mls @ 20 mls/hr 10/20/19 12:15 10/24/19 10:55 Lactated Ringers IV Not Given .Q24H [facility] Piperacillin Sod/Tazobactam 100 mls @ 25 mls/hr 10/23/19 00:45 10/24/19 09:43 Sod 3.375 gm/ Sodium Chloride IVPB 25 mls/hr Q8H [facility] Administration Insulin Aspart 0 unit 10/19/19 21:00 10/24/19 08:01 Novolog SQ Not Given ACHS [facility] Protocol Lactic Acid 1 applic 10/20/19 20:35 Ammonium Lactate TOPICAL DAILY PRN dry skin on feet Levothyroxine Sodium 100 mcg 10/19/19 21:00 10/23/19 20:37 Synthroid PO 100 mcg HS@2100 [facility] Administration Lidocaine HCl 0.1 ml 10/20/19 12:06 .Xylocaine 1% Inj (10mg/Ml) For Iv Start INTRADERMA PER PROTOCOL PRN IV Start Lisinopril 10 mg 10/20/19 21:00 10/23/19 20:38 Zestril PO 10 mg DAILY@2100 [facility] Administration Multivitamins 1 each 10/21/19 17:00 10/23/19 17:44 Theragran PO 1 each DAILY@1700 [facility] Administration Naloxone HCl 0.2 mg 10/19/19 17:29 Narcan IV Q2M PRN Opioid Reversal Pantoprazole Sodium 40 mg 10/21/19 08:00 10/24/19 09:41 Protonix PO 40 mg BID@0800,1700 [facility] Administration Pravastatin Sodium 80 mg 10/20/19 21:00 10/23/19 20:38 Pravachol PO 80 mg HS@2100 [facility] Administration Primidone 100 mg 10/20/19 21:00 10/23/19 20:38 Mysoline PO 100 mg HS@2100 [facility] Administration Primidone 25 mg 10/21/19 08:00 10/24/19 09:42 Mysoline PO 25 mg DAILY@0800 [facility] Administration Thiamine HCl 100 mg 10/21/19 12:00 10/24/19 09:42 Vitamin B-1 PO 100 mg DAILY@1200 [facility] Administration Tramadol HCl 50 mg 10/20/19 20:35 10/23/19 20:42 Ultram PO 50 mg Q8H PRN Administration Pain Intake and Output 10/23/19 10/24/19 10/24/19 22:59 06:59 14:59 Intake Total 350 350 Output Total 200 300 Balance 150 50 Intake: Oral 350 350 Output: Urine 200 300 Other: Voiding Method Indwelling Catheter Indwelling Catheter Indwelling Catheter 10/24/19 07:10 10/20/19 07:08
[2019-10-24] MEDS ORDERED: PROPOFOL 10 MG/ML 20 ML VIAL IV ONE (13:35)
--- NOTE | 2019-10-24 13:36 | P.PN ---
Subjective Progress Note Date: 10/24/19 Principal diagnosis: Right-sided colon mass Patient doing fairly well today. Mildly confused. Adorno catheter was placed. Good urine output. Denies pain. No nausea or vomiting. She is afebrile. White blood cell count normal. Pathology pending. Objective - Vital Signs Vital signs: Vital Signs Temp 97.9 F 10/24/19 12:23 Pulse 74 10/24/19 12:23 Resp 16 10/24/19 12:23 BP 93/59 10/24/19 12:23 Pulse Ox 94 L 10/24/19 12:23 Intake & Output 10/23/19 10/24/19 10/24/19 18:59 06:59 18:59 Intake Total 700 Output Total 1200 500 Balance -1200 200 Intake: Oral 700 Output: Urine 1200 500 Uretheral (Adorno) 1200 Other: Voiding Method Indwelling Catheter Indwelling Catheter Indwelling Catheter - Exam Abdomen: Soft, nondistended, mild right lateral abdominal tenderness, no rebound or guarding - Labs CBC & Chem 7: 10/24/19 07:10 10/20/19 07:08 Labs: Abnormal Lab Results - Last 24 Hours (Table) 10/23/19 10/23/19 10/24/19 Range/Units 17:00 20:20 07:10 RBC 2.50 L (3.80-5.40) m/uL Hgb 7.0 L (11.4-16.0) gm/dL Hct 23.3 L (34.0-46.0) % MCHC 30.0 L (31.0-37.0) g/dL RDW 17.9 H (11.5-15.5) % Lymphocytes # (Manual) 0.59 L (1.0-4.8) k/uL Myelocytes # (Manual) 0.04 H (0) k/uL Nucleated RBCs 1 H (0-0) /100 WBC POC Glucose (mg/dL) 147 H 169 H (75-99) mg/dL 10/24/19 10/24/19 Range/Units 07:25 12:26 RBC (3.80-5.40) m/uL Hgb (11.4-16.0) gm/dL Hct (34.0-46.0) % MCHC (31.0-37.0) g/dL RDW (11.5-15.5) % Lymphocytes # (Manual) (1.0-4.8) k/uL Myelocytes # (Manual) (0) k/uL Nucleated RBCs (0-0) /100 WBC POC Glucose (mg/dL) 102 H 184 H (75-99) mg/dL Assessment and Plan (1) Ascending colon malignant neoplasm Narrative/Plan: Await final pathology. Appreciate cardiology consult. Begin clear liquid diet tomorrow. Possible bowel prep tomorrow and elective colectomy Saturday. Current Visit: Yes Status: Acute Code(s): C18.2 - MALIGNANT NEOPLASM OF ASCENDING COLON SNOMED Code(s): 644309331
[2019-10-24] MEDS: MULTIVITAMINS, THERA 1 EACH TAB PO SCH (17:17)
[2019-10-24] MEDS: FLUoxetine HCL 20 MG CAP PO SCH (17:17)
[2019-10-24] MEDS: FOLIC ACID 1 MG TAB PO SCH (17:17)
[2019-10-24 17:18] LABS: Glucose,Whole Blood 113 mg/dL (75-99)
--- NOTE | 2019-10-24 19:49 | P.PN ---
Progress Note - Text Progress Note Date: 10/24/19 Chief Complaint: Anemia History of presenting complaint: This is a very pleasant 84-year-old patient of Dr. Coles. Resident of [facility]. Chronic stable medical conditions include atrial fibrillation on eliquis,, hyperlipidemia, hypertension, Guillain-Preciado syndrome with lower extremity weakness, hypothyroid, CHF with EF of 50-55%, recent stroke with the weakness in the left arm. Sent in from the [facility] because of hemoglobin 6.3. Patient has been feeling a bit tired. She was recently found to have heme-positive stool. Patient denies any dark stools. Has a bowel movement daily. No nausea vomiting. Does feel a bit tired. Patient was transfused 1 unit of blood.EGD-colonoscopic suggestive gastritis, cecal angiectasia, with ablation, flat cecal polyp removed, 2 ascending colon masses were 3.5 cm-biopsied. Today-resting bed. No abdominal pain. Comfortable. Review of systems: Was done for constitutional, cardiovascular, GI, pulmonary. relevant finding as above Active Medications Acetaminophen (Tylenol Tab) 650 mg PO Q6HR PRN PRN Reason: Pain Artificial Tears (Artificial Tear Drops) 1 drops BOTH EYES TID@0800,1200,1700 [facility] Last Admin: 10/24/19 17:18 Dose: 1 drops Documented by: Carvedilol (Coreg) 25 mg PO BID@0800,1700 [facility] Last Admin: 10/24/19 17:17 Dose: 25 mg Documented by: Clotrimazole (Lotrimin Cream) 1 applic TOPICAL BID [facility] Last Admin: 10/24/19 09:43 Dose: 1 applic Documented by: Diltiazem HCl (Cardizem Oral) 60 mg PO TID@0600,1400,2100 [facility] Last Admin: 10/24/19 13:11 Dose: 60 mg Documented by: Ferrous Sulfate (Feosol) 325 mg PO BID@0800,2100 [facility] Last Admin: 10/24/19 09:42 Dose: 325 mg Documented by: Fluoxetine HCl (Prozac) 40 mg PO DAILY@1700 [facility] Last Admin: 10/24/19 17:17 Dose: 40 mg Documented by: Folic Acid (Folic Acid) 1 mg PO DAILY@1700 [facility] Last Admin: 10/24/19 17:17 Dose: 1 mg Documented by: Gabapentin (Neurontin) 300 mg PO QID [facility] Last Admin: 10/24/19 17:16 Dose: 300 mg Documented by: Sodium Chloride (Saline 0.9%) 1,000 mls @ 80 mls/hr IV .[id number] [facility] Last Admin: 10/24/19 09:43 Dose: 80 mls/hr Documented by: Lactated Ringer's (Lactated Ringers) 1,000 mls @ 20 mls/hr IV .Q24H [facility] Last Admin: 10/24/19 10:55 Dose: Not Given Documented by: Piperacillin Sod/Tazobactam (Sod 3.375 gm/ Sodium Chloride) 100 mls @ 25 mls/hr IVPB Q8H [facility] Last Admin: 10/24/19 17:17 Dose: 25 mls/hr Documented by: Insulin Aspart (Novolog) 0 unit SQ ACHS [facility]; Protocol Last Admin: 10/24/19 18:02 Dose: Not Given Documented by: Lactic Acid (Ammonium Lactate) 1 applic TOPICAL DAILY PRN PRN Reason: dry skin on feet Levothyroxine Sodium (Synthroid) 100 mcg PO HS@2100 [facility] Last Admin: 10/23/19 20:37 Dose: 100 mcg Documented by: Lidocaine HCl (.Xylocaine 1% Inj (10mg/Ml) For Iv Start) 0.1 ml INTRADERMA PER PROTOCOL PRN PRN Reason: IV Start Lisinopril (Zestril) 10 mg PO DAILY@2100 [facility] Last Admin: 10/23/19 20:38 Dose: 10 mg Documented by: Multivitamins (Theragran) 1 each PO DAILY@1700 [facility] Last Admin: 10/24/19 17:17 Dose: 1 each Documented by: Naloxone HCl (Narcan) 0.2 mg IV Q2M PRN PRN Reason: Opioid Reversal Pantoprazole Sodium (Protonix) 40 mg PO BID@0800,1700 [facility] Last Admin: 10/24/19 17:17 Dose: 40 mg Documented by: Pravastatin Sodium (Pravachol) 80 mg PO HS@2100 [facility] Last Admin: 10/23/19 20:38 Dose: 80 mg Documented by: Primidone (Mysoline) 100 mg PO HS@2100 [facility] Last Admin: 10/23/19 20:38 Dose: 100 mg Documented by: Primidone (Mysoline) 25 mg PO DAILY@0800 [facility] Last Admin: 10/24/19 09:42 Dose: 25 mg Documented by: Thiamine HCl (Vitamin B-1) 100 mg PO DAILY@1200 [facility] Last Admin: 10/24/19 09:42 Dose: 100 mg Documented by: Tramadol HCl (Ultram) 50 mg PO Q8H PRN PRN Reason: Pain Last Admin: 10/23/19 20:42 Dose: 50 mg Documented by: Physical examination: VITAL SIGNS: 97.9, 74, 16, 93/59, 94% on room air GENERAL: Laying in bed,, comfortable EYES: Pupils equal. Conjunctiva pale HEENT: External appearance of nose and ears normal, oral cavity grossly normal. NECK: JVD not raised; masses not palpable. HEART: Irregular heart sounds; no edema. LUNGS: Respiratory rate normal, decreased breath sounds. ABDOMEN: Soft, nontender, liver spleen not palpable, no masses palpable. PSYCH: Answering questions NEUROLOGICAL: [Cranial nerves grossly intact; no facial asymmetry, weakness of both lower extremities., Weakness of the left arm. INVESTIGATIONS, reviewed in the clinical context: White count 4.2 hemoglobin 7 Presenting labs: White count 4.7 hemoglobin 6.8 platelets 206 potassium 5.6 creatinine 0.83 Stool occult blood positive, COVID 19 PCR-not detected Previous labs: Hemoglobin 7.6 on October 13 EGD/Colonoscopy suggestive gastritis, cecal angiectasia, with goal prohibition, flat cecal polyp removed, 2 ascending colon masses were 3.5 cm-biopsied. Assessment: -Acute symptomatic anemia with positive occult blood in a patient was getting antiplatelet agents-symptomatic today with low blood pressure, will get a unit of blood -Left arm weakness from a prior stroke -chronic congestive heart failure exacerbation from diastolic dysfunction EF 50- 55%. 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 -DO NOT RESUSCITATE Plan: -Pathology of the polyps are pending. Other medication treatment plan to continue. Hemoglobin low with blood pressure running in the 90s systolic. We'll transfuse unit of blood.
[2019-10-24 20:51] LABS: Glucose,Whole Blood 135 mg/dL (75-99)
[2019-10-24] MEDS: PRAVASTATIN SODIUM 80 MG TAB PO SCH (20:58)
[2019-10-24] MEDS: PRIMIDONE 50 MG TAB PO SCH (20:58)
[2019-10-24] MEDS: LEVOTHYROXINE 100 MCG TAB PO SCH (20:58)
[2019-10-24] MEDS: LISINOPRIL 10 MG TAB PO SCH (23:22)
[2019-10-25] MEDS: PIPERACILLIN-TAZOBACTAM 3.375 GM in SODIUM CHLORIDE 0.9% 100 ML IVPB SCH ×3 (03:33→16:47)
[2019-10-25] MEDS: DILTIAZEM ORAL 60 MG TAB PO SCH ×3 (05:53→22:01)
[2019-10-25 07:02] LABS: Glucose,Whole Blood 127 mg/dL (75-99)
[2019-10-25 07:20] LABS: Anisocytosis Slight; Basophils % (A) 1 %; Eosinophils # (A) 0.2 k/uL (0-0.7); Eosinophils % (A) 3 %; HCT 26.8 % (34.0-46.0); HGB 8.2 gm/dL (11.4-16.0); Hypochromasia Marked; Lymphocytes # (A) 0.6 k/uL (1.0-4.8); Lymphocytes % (A) 10 %; MCH 28.3 pg (25.0-35.0); MCHC 30.6 g/dL (31.0-37.0); MCV 92.4 fL (80.0-100.0); Mean Platelet Volume 7.7; Monocytes # (A) 0.4 k/uL (0-1.0); Monocytes % (A) 8 %; Neutrophils # (A) 4.4 k/uL (1.3-7.7); Neutrophils % (A) 77 %; Platelet Count 186 k/uL (150-450); Poikilocytosis Moderate; RDW 17.4 % (11.5-15.5); WBC 5.7 k/uL (3.8-10.6)
[2019-10-25] MEDS: INSULIN ASPART (NovoLOG) 100 UNIT/ML VIAL SQ SCH ×4 (08:05→22:00)
[2019-10-25 08:58] LABS: ALT 11 U/L (4-34); AST 23 U/L (14-36); African American GFR (CKD) >90 (>60 ml/min/1.73 sqM); Albumin 3.1 g/dL (3.5-5.0); Alkaline Phosphatase 41 U/L (38-126); Anion Gap 5 mmol/L; Blood Urea Nitrogen 7 mg/dL (7-17); Calcium 8.4 mg/dL (8.4-10.2); Carbon Dioxide 22 mmol/L (22-30); Chloride 111 mmol/L (98-107); Glucose 118 mg/dL (74-99); Non-African American GFR(CKD) 79 (>60 ml/min/1.73 sqM); Potassium 3.6 mmol/L (3.5-5.1); Sodium 138 mmol/L (137-145); Total Bilirubin 0.8 mg/dL (0.2-1.3); Total Protein 5.7 g/dL (6.3-8.2)
[2019-10-25] MEDS: CARVEDILOL 12.5 MG TAB PO SCH ×2 (09:02→16:46)
[2019-10-25] MEDS: ARTIFICIAL TEARS-HYPROMELLOSE DROPS 15 ML BTL BOTH EYES SCH ×3 (09:02→16:46)
[2019-10-25] MEDS: PANTOPRAZOLE 40 MG TABLET PO SCH ×2 (09:03→16:45)
[2019-10-25] MEDS: FERROUS SULFATE 325 MG TAB PO SCH ×2 (09:03→22:00)
[2019-10-25] MEDS: THIAMINE 100 MG TAB PO SCH (09:05)
[2019-10-25] MEDS: PRIMIDONE 25 MG TAB PO SCH (09:11)
[2019-10-25] MEDS: GABAPENTIN 300 MG CAP PO SCH ×4 (09:12→22:00)
[2019-10-25] MEDS: CLOTRIMAZOLE 1% CREAM 15 GM TUBE TOPICAL SCH ×2 (09:13→22:01)
[2019-10-25] MEDS: SODIUM CHLORIDE 0.9% 1,000 ML IV SCH ×2 (09:13→22:02)
[2019-10-25] MEDS ORDERED: POLYETHYLENE GLYCOL LYTES SOLN 4,000 ML SOLN.RECON PO ONE (10:00)
--- NOTE | 2019-10-25 11:48 | P.PN ---
Subjective Progress Note Date: 10/25/19 Principal diagnosis: Right-sided colon mass Patient has no new complaints. White blood cell count 5.7, hemoglobin 8.2. Mild right-sided discomfort. Tolerating liquids. Objective - Vital Signs Vital signs: Vital Signs Temp 98.6 F 10/25/19 05:26 Pulse 85 10/25/19 08:00 Resp 16 10/25/19 08:00 BP 126/64 10/25/19 05:26 Pulse Ox 94 L 10/25/19 05:26 Intake & Output 10/24/19 10/25/19 10/25/19 18:59 06:59 18:59 Intake Total 310 Output Total 500 575 Balance -500 -265 Intake: Blood Product 310 Rc As-3 Unit 310 [id number] Output: Urine 500 575 Other: Voiding Method Indwelling Catheter Indwelling Catheter Indwelling Catheter - Exam Abdomen: Soft, nondistended, mild right mid abdominal tenderness - Labs CBC & Chem 7: 10/25/19 06:36 10/25/19 06:36 Labs: Abnormal Lab Results - Last 24 Hours (Table) 10/24/19 10/24/19 10/24/19 Range/Units 07:10 12:26 17:17 RBC (3.80-5.40) m/uL Hgb (11.4-16.0) gm/dL Hct (34.0-46.0) % MCHC (31.0-37.0) g/dL RDW (11.5-15.5) % Lymphocytes # (1.0-4.8) k/uL Lymphocytes # (Manual) 0.59 L (1.0-4.8) k/uL Myelocytes # (Manual) 0.04 H (0) k/uL Nucleated RBCs 1 H (0-0) /100 WBC Chloride (98-107) mmol/L Glucose (74-99) mg/dL POC Glucose (mg/dL) 184 H 113 H (75-99) mg/dL Total Protein (6.3-8.2) g/dL Albumin (3.5-5.0) g/dL Crossmatch 10/24/19 10/24/19 10/25/19 Range/Units 20:01 20:49 06:36 RBC 2.90 L (3.80-5.40) m/uL Hgb 8.2 L (11.4-16.0) gm/dL Hct 26.8 L (34.0-46.0) % MCHC 30.6 L (31.0-37.0) g/dL RDW 17.4 H (11.5-15.5) % Lymphocytes # 0.6 L (1.0-4.8) k/uL Lymphocytes # (Manual) (1.0-4.8) k/uL Myelocytes # (Manual) (0) k/uL Nucleated RBCs (0-0) /100 WBC Chloride (98-107) mmol/L Glucose (74-99) mg/dL POC Glucose (mg/dL) 135 H (75-99) mg/dL Total Protein (6.3-8.2) g/dL Albumin (3.5-5.0) g/dL Crossmatch See Detail 10/25/19 10/25/19 Range/Units 06:36 07:01 RBC (3.80-5.40) m/uL Hgb (11.4-16.0) gm/dL Hct (34.0-46.0) % MCHC (31.0-37.0) g/dL RDW (11.5-15.5) % Lymphocytes # (1.0-4.8) k/uL Lymphocytes # (Manual) (1.0-4.8) k/uL Myelocytes # (Manual) (0) k/uL Nucleated RBCs (0-0) /100 WBC Chloride 111 H (98-107) mmol/L Glucose 118 H (74-99) mg/dL POC Glucose (mg/dL) 127 H (75-99) mg/dL Total Protein 5.7 L (6.3-8.2) g/dL Albumin 3.1 L (3.5-5.0) g/dL Crossmatch Assessment and Plan (1) Ascending colon malignant neoplasm Narrative/Plan: Continue clear liquids. Begin bowel prep. Possible surgical resection tomorrow. Final pathology pending. Current Visit: Yes Status: Acute Code(s): C18.2 - MALIGNANT NEOPLASM OF ASCENDING COLON SNOMED Code(s): 361030245
[2019-10-25 12:14] LABS: Glucose,Whole Blood 127 mg/dL (75-99)
[2019-10-25] MEDS: NEOMYCIN 500 MG TAB PO SCH ×3 (12:40→23:08)
[2019-10-25] MEDS: metroNIDAZOLE 500 MG TAB PO SCH ×3 (12:40→23:08)
[2019-10-25] MEDS: LACTATED RINGERS 1,000 ML IV SCH (12:41)
--- NOTE | 2019-10-25 13:14 | P.PN ---
Subjective Progress Note Date: 10/25/19 The patient is an 84-year-old female with past medical history of diabetes mellitus, valvular heart disease status post aortic valve replacement, persistent atrial fibrillation, dyslipidemia, hypertension, hypothyroid, cardiomyopathy, prior CVA, and Guillain-Preciado syndrome, who was admitted to the hospital for anemia. GI was consulted and she underwent upper endoscopy and colonoscopy, which revealed two colon masses. Surgical pathology is pending, however she is scheduled to undergo right hemicolectomy with Dr. Colin on Saturday. 10/24/2019: Patient continues to report upper right-sided weakness and bilateral lower extremity weakness due to prior stroke. She denied any chest pain, chest pressure, palpitations, dizziness, or lightheadedness. CBC from today shows WBC 4.2, hemoglobin 7.0, hematocrit 23.3. Chemistry panel from 10/20/2019 shows sodium at 137, potassium 4.4, BUN 21, creatinine 0.69, glucose 78. 10/25/2019: The patient is currently resting comfortably in bed. She denies any chest pain, chest pressure, palpitations, dyspnea, dizziness, or vertigo. WBC 5.7 hemoglobin 8.2, hematocrit 26.8, platelet 186, sodium 138, potassium 3.6, BUN 7, creatinine 0.70, AST 23, ALT 11. Blood pressure 126/64, SpO2 94% on room air, respiratory rate 16, pulse rate 71, temperature 98.6 Fahrenheit. GENERAL: Well-appearing, well-nourished and in no acute distress. NECK: Supple without JVD or thyromegaly. LUNGS: Breath sounds clear to auscultation bilaterally. Respiration equal and unlabored. No wheezes, rales or rhonchi. HEART: Irregular rate and rhythm. Soft systolic murmur. No rubs or gallops. S1 and S2 heard. EXTREMITIES: Normal range of motion, no edema. No clubbing or cyanosis. Peripheral pulses intact and strong. FINAL ASSESSMENT AND PLAN: #1 blood loss anemia #2 persistent atrial fibrillation, rate controlled, anticoagulation with Eliquis #3 valvular heart disease, status post bioprosthetic aortic valve #4 mildly decreased LV function #5 hypertension #6 hyperlipidemia #7 diabetes #8 colonic masses, awaiting right hemicolectomy PLAN: Please continue all cardiac medications. Patient is cleared to proceed with surgery. Resume anticoagulation based on surgeon's recommendations. Objective - Vital Signs Vital signs: Vital Signs Temp 98.6 F 10/25/19 05:26 Pulse 85 10/25/19 08:00 Resp 16 10/25/19 08:00 BP 126/64 10/25/19 05:26 Pulse Ox 94 L 10/25/19 05:26 Intake & Output 10/24/19 10/25/19 10/25/19 18:59 06:59 18:59 Intake Total 310 Output Total 500 575 Balance -500 -265 Intake: Blood Product 310 Rc As-3 Unit 310 [id number] Output: Urine 500 575 Other: Voiding Method Indwelling Catheter Indwelling Catheter Indwelling Catheter - Labs CBC & Chem 7: 10/25/19 06:36 10/25/19 06:36 Labs: Abnormal Lab Results - Last 24 Hours (Table) 10/24/19 10/24/19 10/24/19 Range/Units 17:17 20:01 20:49 RBC (3.80-5.40) m/uL Hgb (11.4-16.0) gm/dL Hct (34.0-46.0) % MCHC (31.0-37.0) g/dL RDW (11.5-15.5) % Lymphocytes # (1.0-4.8) k/uL Chloride (98-107) mmol/L Glucose (74-99) mg/dL POC Glucose (mg/dL) 113 H 135 H (75-99) mg/dL Total Protein (6.3-8.2) g/dL Albumin (3.5-5.0) g/dL Crossmatch See Detail 10/25/19 10/25/19 10/25/19 Range/Units 06:36 06:36 07:01 RBC 2.90 L (3.80-5.40) m/uL Hgb 8.2 L (11.4-16.0) gm/dL Hct 26.8 L (34.0-46.0) % MCHC 30.6 L (31.0-37.0) g/dL RDW 17.4 H (11.5-15.5) % Lymphocytes # 0.6 L (1.0-4.8) k/uL Chloride 111 H (98-107) mmol/L Glucose 118 H (74-99) mg/dL POC Glucose (mg/dL) 127 H (75-99) mg/dL Total Protein 5.7 L (6.3-8.2) g/dL Albumin 3.1 L (3.5-5.0) g/dL Crossmatch 10/25/19 Range/Units 12:12 RBC (3.80-5.40) m/uL Hgb (11.4-16.0) gm/dL Hct (34.0-46.0) % MCHC (31.0-37.0) g/dL RDW (11.5-15.5) % Lymphocytes # (1.0-4.8) k/uL Chloride (98-107) mmol/L Glucose (74-99) mg/dL POC Glucose (mg/dL) 127 H (75-99) mg/dL Total Protein (6.3-8.2) g/dL Albumin (3.5-5.0) g/dL Crossmatch
[2019-10-25] MEDS: MULTIVITAMINS, THERA 1 EACH TAB PO SCH (16:45)
[2019-10-25] MEDS: FOLIC ACID 1 MG TAB PO SCH (16:45)
[2019-10-25] MEDS: FLUoxetine HCL 20 MG CAP PO SCH (16:45)
[2019-10-25 16:47] LABS: Glucose,Whole Blood 120 mg/dL (75-99)
[2019-10-25] MEDS ORDERED: ONDANSETRON 4 MG/2 ML VIAL IVP ONE (18:28)
[2019-10-25 21:05] LABS: Glucose,Whole Blood 104 mg/dL (75-99)
--- NOTE | 2019-10-25 21:22 | P.PN ---
Progress Note - Text Progress Note Date: 10/25/19 Chief Complaint: Anemia History of presenting complaint: This is a very pleasant 84-year-old patient of Dr. Coles. Resident of [facility]. Chronic stable medical conditions include atrial fibrillation on eliquis,, hyperlipidemia, hypertension, Guillain-Preciado syndrome with lower extremity weakness, hypothyroid, CHF with EF of 50-55%, recent stroke with the weakness in the left arm. Sent in from the [facility] because of hemoglobin 6.3. Patient has been feeling a bit tired. She was recently found to have heme-positive stool. Patient denies any dark stools. Has a bowel movement daily. No nausea vomiting. Does feel a bit tired. Patient was transfused 1 unit of blood.EGD-colonoscopic suggestive gastritis, cecal angiectasia, with ablation, flat cecal polyp removed, 2 ascending colon masses were 3.5 cm-biopsied. Today-resting bed. A bit tired. Awaiting surgery by Dr. Colin. Colonoscopy biopsy pending. Review of systems: Was done for constitutional, cardiovascular, GI, pulmonary. relevant finding as above Active Medications Acetaminophen (Tylenol Tab) 650 mg PO Q6HR PRN PRN Reason: Pain Acetaminophen (Tylenol Tab) 1,000 mg PO ONCE ONE Stop: 10/26/19 06:01 Alvimopan (Entereg) 12 mg PO ONCE ONE Stop: 10/26/19 06:01 Artificial Tears (Artificial Tear Drops) 1 drops BOTH EYES TID@0800,1200,1700 [facility] Last Admin: 10/25/19 16:46 Dose: 1 drops Documented by: Carvedilol (Coreg) 25 mg PO BID@0800,1700 [facility] Last Admin: 10/25/19 16:46 Dose: 25 mg Documented by: Clotrimazole (Lotrimin Cream) 1 applic TOPICAL BID [facility] Last Admin: 10/25/19 09:13 Dose: 1 applic Documented by: Diltiazem HCl (Cardizem Oral) 60 mg PO TID@0600,1400,2100 [facility] Last Admin: 10/25/19 14:38 Dose: 60 mg Documented by: Ferrous Sulfate (Feosol) 325 mg PO BID@0800,2100 [facility] Last Admin: 10/25/19 09:03 Dose: 325 mg Documented by: Fluoxetine HCl (Prozac) 40 mg PO DAILY@1700 [facility] Last Admin: 10/25/19 16:45 Dose: 40 mg Documented by: Folic Acid (Folic Acid) 1 mg PO DAILY@1700 [facility] Last Admin: 10/25/19 16:45 Dose: 1 mg Documented by: Gabapentin (Neurontin) 300 mg PO QID [facility] Last Admin: 10/25/19 16:54 Dose: 300 mg Documented by: Heparin Sodium (Porcine) (Heparin) 5,000 unit SQ ONCE ONE Stop: 10/26/19 06:01 Hydromorphone HCl (Dilaudid) 0.5 mg IVP Q5M PRN PRN Reason: Pain Control Stop: 10/25/19 23:59 Sodium Chloride (Saline 0.9%) 1,000 mls @ 80 mls/hr IV .[id number] [facility] Last Admin: 10/25/19 09:13 Dose: 80 mls/hr Documented by: Lactated Ringer's (Lactated Ringers) 1,000 mls @ 20 mls/hr IV .Q24H [facility] Last Admin: 10/25/19 12:41 Dose: Not Given Documented by: Piperacillin Sod/Tazobactam (Sod 3.375 gm/ Sodium Chloride) 100 mls @ 25 mls/hr IVPB Q8H [facility] Last Admin: 10/25/19 16:47 Dose: 25 mls/hr Documented by: Cefazolin Sodium 2 gm/ Sodium (Chloride) 50 mls @ 100 mls/hr IVPB ONCE ONE Stop: 10/26/19 05:29 Metronidazole 500 mg/ IV (Solution) 100 mls @ 100 mls/hr IVPB ONCE ONE Stop: 10/26/19 05:59 Lactated Ringer's (Lactated Ringers) 1,000 mls @ 20 mls/hr IV .Q24H [facility] Insulin Aspart (Novolog) 0 unit SQ ACHS [facility]; Protocol Last Admin: 10/25/19 16:46 Dose: Not Given Documented by: Lactic Acid (Ammonium Lactate) 1 applic TOPICAL DAILY PRN PRN Reason: dry skin on feet Levothyroxine Sodium (Synthroid) 100 mcg PO HS@2100 [facility] Last Admin: 10/24/19 20:58 Dose: 100 mcg Documented by: Lidocaine HCl (.Xylocaine 1% Inj (10mg/Ml) For Iv Start) 0.1 ml INTRADERMA PER PROTOCOL PRN PRN Reason: IV Start Lisinopril (Zestril) 10 mg PO DAILY@2100 [facility] Last Admin: 10/24/19 23:22 Dose: Not Given Documented by: Meloxicam (Mobic) 15 mg PO ONCE ONE Stop: 10/26/19 06:01 Metronidazole (Flagyl) 1,000 mg PO TID@1300,1400,2300 [facility] Stop: 10/25/19 23:01 Last Admin: 10/25/19 14:38 Dose: 1,000 mg Documented by: Multivitamins (Theragran) 1 each PO DAILY@1700 [facility] Last Admin: 10/25/19 16:45 Dose: 1 each Documented by: Naloxone HCl (Narcan) 0.2 mg IV Q2M PRN PRN Reason: Opioid Reversal Neomycin Sulfate (Neomycin) 1,000 mg PO TID@1300,1400,2300 [facility] Stop: 10/25/19 23:01 Last Admin: 10/25/19 14:38 Dose: 1,000 mg Documented by: Pantoprazole Sodium (Protonix) 40 mg PO BID@0800,1700 [facility] Last Admin: 10/25/19 16:45 Dose: 40 mg Documented by: Pravastatin Sodium (Pravachol) 80 mg PO HS@2100 [facility] Last Admin: 10/24/19 20:58 Dose: 80 mg Documented by: Primidone (Mysoline) 100 mg PO HS@2100 [facility] Last Admin: 10/24/19 20:58 Dose: 100 mg Documented by: Primidone (Mysoline) 25 mg PO DAILY@0800 [facility] Last Admin: 10/25/19 09:11 Dose: 25 mg Documented by: Thiamine HCl (Vitamin B-1) 100 mg PO DAILY@1200 [facility] Last Admin: 10/25/19 09:05 Dose: 100 mg Documented by: Tramadol HCl (Ultram) 50 mg PO Q8H PRN PRN Reason: Pain Last Admin: 10/23/19 20:42 Dose: 50 mg Documented by: Physical examination: VITAL SIGNS: 98, 81, 16, 130-71, 97% on room air GENERAL: Laying in bed,, comfortable EYES: Pupils equal. Conjunctiva pale HEENT: External appearance of nose and ears normal, oral cavity grossly normal. NECK: JVD not raised; masses not palpable. HEART: Irregular heart sounds; no edema. LUNGS: Respiratory rate normal, decreased breath sounds. ABDOMEN: Soft, nontender, liver spleen not palpable, no masses palpable. PSYCH: Answering questions NEUROLOGICAL: [Cranial nerves grossly intact; no facial asymmetry, weakness of both lower extremities., Weakness of the left arm. INVESTIGATIONS, reviewed in the clinical context: White count 5.7 hemoglobin 8.2potassium 3.6 Presenting labs: White count 4.7 hemoglobin 6.8 platelets 206 potassium 5.6 creatinine 0.83 Stool occult blood positive, COVID 19 PCR-not detected Previous labs: Hemoglobin 7.6 on October 13 EGD/Colonoscopy suggestive gastritis, cecal angiectasia, with goal prohibition, flat cecal polyp removed, 2 ascending colon masses were 3.5 cm-biopsied. Assessment: -Acute symptomatic anemia with positive occult blood in a patient was getting antiplatelet agents-symptomatic-,-given one unit of blood -Left arm weakness from a prior stroke -chronic congestive heart failure exacerbation from diastolic dysfunction EF 50- 55%. 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 -DO NOT RESUSCITATE Plan: -Pathology of the polyps are pending. Received a unit of blood. Yesterday. Awaiting surgery by Dr. Colin.
[2019-10-25] MEDS: LEVOTHYROXINE 100 MCG TAB PO SCH (22:00)
[2019-10-25] MEDS: LISINOPRIL 10 MG TAB PO SCH (22:00)
[2019-10-25] MEDS: PRAVASTATIN SODIUM 80 MG TAB PO SCH (22:01)
[2019-10-25] MEDS: PRIMIDONE 50 MG TAB PO SCH (22:01)
[2019-10-26] MEDS: PIPERACILLIN-TAZOBACTAM 3.375 GM in SODIUM CHLORIDE 0.9% 100 ML IVPB SCH ×3 (00:54→17:46)
[2019-10-26] MEDS ORDERED: metroNIDAZOLE-NS PMX 500 MG in SALINE 1 100ML.BAG IVPB ONE (05:00)
[2019-10-26] MEDS ORDERED: MELOXICAM 7.5 MG TAB PO ONE (06:00)
[2019-10-26] MEDS ORDERED: HEPARIN SODIUM,PORCINE 5,000 UNIT/ML 1 ML VIAL SQ ONE (06:00)
[2019-10-26] MEDS ORDERED: ALVIMOPAN 12 MG CAPSULE PO ONE (06:00)
[2019-10-26] MEDS ORDERED: ACETAMINOPHEN TAB 500 MG TAB PO ONE (06:00)
[2019-10-26 07:15] LABS: Anisocytosis Slight; Basophils % (A) 1 %; Eosinophils # (A) 0.2 k/uL (0-0.7); Eosinophils % (A) 5 %; HCT 27.6 % (34.0-46.0); HGB 8.1 gm/dL (11.4-16.0); Hypochromasia Marked; Lymphocytes # (A) 0.7 k/uL (1.0-4.8); Lymphocytes % (A) 15 %; MCH 26.8 pg (25.0-35.0); MCHC 29.1 g/dL (31.0-37.0); Mean Platelet Volume 7.7; Monocytes # (A) 0.3 k/uL (0-1.0); Monocytes % (A) 8 %; Neutrophils % (A) 69 %; Platelet Count 178 k/uL (150-450); Poikilocytosis Slight; RDW 17.6 % (11.5-15.5); WBC 4.4 k/uL (3.8-10.6)
[2019-10-26 07:17] LABS: Glucose,Whole Blood 84 mg/dL (75-99)
[2019-10-26 07:22] LABS: ALT 11 U/L (4-34); AST 22 U/L (14-36); African American GFR (CKD) >90 (>60 ml/min/1.73 sqM); Albumin 2.8 g/dL (3.5-5.0); Alkaline Phosphatase 36 U/L (38-126); Anion Gap 4 mmol/L; Blood Urea Nitrogen 4 mg/dL (7-17); Calcium 8.1 mg/dL (8.4-10.2); Carbon Dioxide 24 mmol/L (22-30); Chloride 112 mmol/L (98-107); Glucose 81 mg/dL (74-99); Non-African American GFR(CKD) 86 (>60 ml/min/1.73 sqM); Potassium 3.4 mmol/L (3.5-5.1); Sodium 140 mmol/L (137-145); Total Bilirubin 0.4 mg/dL (0.2-1.3); Total Protein 5.4 g/dL (6.3-8.2)
--- NOTE | 2019-10-26 07:54 | P.HPADDEND ---
H&P Addendum H&P Addendum Date: 10/26/19 Patient had poor results from bowel prep. Additionally, in light of moderate to severe pulmonary hypertension and poor bowel prep and history of ovarian cancer in the past, we'll proceed with open right hemicolectomy.
[2019-10-26] MEDS ORDERED: Antibiotics per Pharmacy 1 EACH MISC MISCELLANE PRN (08:04)
[2019-10-26] MEDS: LACTATED RINGERS 1,000 ML IV SCH ×3 (08:06→08:16)
[2019-10-26] MEDS: CARVEDILOL 12.5 MG TAB PO SCH ×2 (08:07→17:48)
[2019-10-26] MEDS: ARTIFICIAL TEARS-HYPROMELLOSE DROPS 15 ML BTL BOTH EYES SCH ×3 (08:07→17:46)
[2019-10-26] MEDS: FERROUS SULFATE 325 MG TAB PO SCH ×2 (08:12→20:35)
[2019-10-26] MEDS: PANTOPRAZOLE 40 MG TABLET PO SCH ×2 (08:12→17:48)
[2019-10-26] MEDS: PRIMIDONE 25 MG TAB PO SCH (08:12)
[2019-10-26] MEDS: CLOTRIMAZOLE 1% CREAM 15 GM TUBE TOPICAL SCH ×2 (08:17→20:37)
[2019-10-26] MEDS: INSULIN ASPART (NovoLOG) 100 UNIT/ML VIAL SQ SCH ×4 (08:17→20:33)
[2019-10-26] MEDS: GABAPENTIN 300 MG CAP PO SCH ×5 (08:18→22:15)
[2019-10-26] MEDS: DILTIAZEM ORAL 60 MG TAB PO SCH ×3 (08:22→20:33)
[2019-10-26] MEDS ORDERED: IV FLUID CONTINUATION 1,000 ML IV ONE (09:03)
[2019-10-26] MEDS ORDERED: ONDANSETRON 4 MG/2 ML VIAL IVP ONE (09:15)
[2019-10-26 09:20] LABS: Glucose,Whole Blood 101 mg/dL (75-99)
[2019-10-26] MEDS ORDERED: LIDOCAINE 1% INJ 10MG/ML (20 ML MDV) ONE (09:36)
[2019-10-26] MEDS ORDERED: NEOSTIGMINE 1 MG/ML 10 ML VIAL ONE (09:36)
[2019-10-26] MEDS ORDERED: PROPOFOL 10 MG/ML 20 ML VIAL IV ONE (09:36)
[2019-10-26] MEDS ORDERED: fentaNYL (PF) 50 MCG/ML 2 ML AMP ONE (09:36)
[2019-10-26] MEDS ORDERED: SUCCINYLCHOLINE CHLORIDE 100 MG/5 ML SYR IV ONE (09:36)
[2019-10-26] MEDS ORDERED: ROCURONIUM BROMIDE 10 MG/ML 5 ML VIAL IV ONE (09:36)
[2019-10-26] MEDS ORDERED: GLYCOPYRROLATE 0.2 MG/ML 2 ML VIAL ONE (09:36)
[2019-10-26] MEDS ORDERED: LACTATED RINGERS 1,000 ML IV ONE ×2 (10:02→13:50)
[2019-10-26 11:20] VITALS: BMI 27.4
[2019-10-26] MEDS ORDERED: ONDANSETRON 4 MG/2 ML VIAL IVP PRN (12:46)
[2019-10-26] MEDS ORDERED: HYDROmorphone 1 MG/ML 1 ML SYRINGE IVP PRN (12:46)
[2019-10-26] MEDS: HYDROmorphone 0.5 MG/0.5 ML SYRINGE IVP PRN ×5 (13:05→13:45)
[2019-10-26] MEDS: THIAMINE 100 MG TAB PO SCH (13:06)
[2019-10-26] MEDS: SODIUM CHLORIDE 0.9% 1,000 ML IV SCH (13:06)
--- NOTE | 2019-10-26 13:10 | P.OP ---
Date of Procedure: 10/26/19 Description of Procedure: SURGEON: ABBI PEÑA MD Preoperative Diagnosis: 1. Ascending colon cancer 2. Acute anemia status post blood transfusions 3. Telangiectasias of the cecum 4. Iron deficiency anemia 5. History of cerebrovascular accident with sequela 6. History of ovarian cancer status post hysterectomy 7. Ischemic cardiomyopathy 8. Chronic atrial fibrillation 9. Moderate severe pulmonary hypertension 10. Bladder atony, urinary retention 11. Hypothyroidism 12. Chronic anticoagulant use 13. Neuropathy 14. Diabetes type 2, insulin-dependent 15. Congestive heart failure with left ventricular dysfunction 16. Depressive disorder 17. Hyperlipidemia 18. History of aortic valvular replacement Postoperative Diagnosis: 1. Ascending colon cancer 2. Acute anemia status post blood transfusions 3. Telangiectasias of the cecum 4. Iron deficiency anemia 5. History of cerebrovascular accident with sequela 6. History of ovarian cancer status post hysterectomy 7. Ischemic cardiomyopathy 8. Chronic atrial fibrillation 9. Moderate severe pulmonary hypertension 10. Bladder atony, urinary retention 11. Hypothyroidism 12. Chronic anticoagulant use 13. Neuropathy 14. Diabetes type 2, insulin-dependent 15. Congestive heart failure with left ventricular dysfunction 16. Depressive disorder 17. Hyperlipidemia 18. History of aortic valvular replacement Procedure(s) Performed: 1. Extended right hemicolectomy 2. Application of incisional wound VAC system 20 cm PREVENA Anesthesia: GETA, local Estimated Blood Loss (ml): 40 Condition: stable SPECIMENS REMOVED: terminal ileum and extended right colon en bloc. COMPLICATIONS: None. Disposition: floor Operative Findings: 1. Tattoo identified along the ascending colon. 2. Moderate redundancy of the transverse colon 3. More than 6 cm border obtained from tattoo dye for resection 4. No liver metastases 5. No peritoneal metastases identified 6. Extended right hemicolectomy to mid transverse colon INDICATIONS: The patient is a 84-year-old female who presents with ascending colon cancer following colonoscopy with identification of 2 lesions along the ascending colon, telangiectasias of the cecum and presentation of anemia requiring blood transfusions 2 units. Metastatic workup including tumor markers were obtained where tumor markers were elevated for malignancy. Surgical intervention with colon resection was described in detail. Benefits and risks, including infection, open surgery possibility for additional surgery was discussed at length. Informed consent was obtained. DESCRIPTION: Earlier the patient had undergone a bowel prep using the enhanced colon recovery program. The patient was transferred to the operating room and placed in supine position. After general anesthetic, a benitez catheter was placed. The abdomen was then prepped and draped in standard sterile fashion as Ioban was placed along the abdomen to minimize any contamination of skin floor. A timeout protocol was performed confirming the patient's name, procedure to be performed including preoperative antibiotics. A midline incision was made from below the xiphoid to above the pubis using #10 blade. The peritoneum was entered and the abdominal wall was elevated using Kochers. Exposure was obtaine d using universal abdominal retractor system, [employer]. Next, attention was brought to identify the cecum. Tattoo was identified along the retroperitoneum of the hepatic flexure including base of the cecum. The transverse colon bone was highly redundant including the sigmoid colon was highly redundant. Mild ascites was identified along the right upper quadrant and dried using sponges. A stay suture using 0 silk was placed along the anterior serosa of the along the terminal ileum. The terminal ileum and ascending colon mesentery was mobilized medially using a Enseal vessel sealer whereby the colon was marked and tagged. Moderately redundant transverse colon was identified. Tattoo was identified along the mid ascending colon. The colon was prepared for resection along the mid transverse colon including resection along the terminal ileum. Using Covidien tri-stapler 60 mm purple loads, the distal ileum was divided 8 centimeters proximal to the ileocecal valve. The mesentery of the ascending colon was mobilized towards the midline using Enseal. The right colon was mobilized to the mid transverse colon and prepared for resection. The colon was divided using 60 mm purple staple loads. The vascular pedicle of the ileocolic artery was controlled using Enseal. The mid transverse colon and distal ileum were brought in a end, side to side antiperistaltic anastomotic fashion after placing interrupted sutures along the proposed cheryl-lumen using 3-0 silk. A colotomy and enterotomy was prepared along both limbs along the antimesenteric border. Next, 60 mm purple stapler load was fired to create the cheryl-lumen. The cheryl-lumen was closed using 60 mm purple load for closure of the enterostomy. All needles were removed from the abdominal cavity. The abdominal cavity was completely dry with very minimal blood loss. No spillage of stool occurred during the case. The abdomen was closed using double-stranded 0 PDS. The skin incision was reapproximated using running 3-0 Vicryl. The incision was cleansed with diluted hydrogen peroxide. PREVENA 20-cm incisional wound VAC system was placed to suction with good seal. The patient had tolerated the procedure well. The patient was extubated successfully. I notifyied the patient's daughter Mecca Boyle at [phone] and son-in-law Regan Boyle [phone] regarding patient's consistent condition during surgery was good. All questions were addressed. Family pleased with outcome.
[2019-10-26 13:16] LABS: Glucose,Whole Blood 150 mg/dL (75-99)
[2019-10-26] MEDS ORDERED: hydrALAZINE HCL 20 MG/ML 1 ML VIAL IV ONE (13:40)
[2019-10-26 13:51] LABS: African American GFR (CKD) >90 (>60 ml/min/1.73 sqM); Anion Gap 5 mmol/L; Blood Urea Nitrogen 4 mg/dL (7-17); Calcium 8.3 mg/dL (8.4-10.2); Carbon Dioxide 23 mmol/L (22-30); Chloride 111 mmol/L (98-107); Glucose 84 mg/dL (74-99); Non-African American GFR(CKD) 86 (>60 ml/min/1.73 sqM); Potassium 3.3 mmol/L (3.5-5.1); Sodium 139 mmol/L (137-145)
[2019-10-26 17:13] LABS: Glucose,Whole Blood 156 mg/dL (75-99)
[2019-10-26] MEDS: ASPIRIN 81 MG PO SCH (17:47)
[2019-10-26] MEDS: KETOROLAC 30 MG/ML 1 ML VIAL IVP SCH ×2 (17:48→23:44)
[2019-10-26] MEDS: TAMSULOSIN 0.4 MG CAP.ER.24H PO SCH (17:48)
[2019-10-26] MEDS: traMADol 50 MG TAB PO SCH ×2 (17:48→22:15)
[2019-10-26] MEDS: MULTIVITAMINS, THERA 1 EACH TAB PO SCH (17:48)
[2019-10-26] MEDS: FOLIC ACID 1 MG TAB PO SCH (17:48)
[2019-10-26] MEDS: FLUoxetine HCL 20 MG CAP PO SCH (17:48)
[2019-10-26 20:10] LABS: Glucose,Whole Blood 158 mg/dL (75-99)
[2019-10-26] MEDS ORDERED: Potassium Replacement Protocol 1 EACH MISC MISCELLANE PRN (20:21)
[2019-10-26] MEDS: LEVOTHYROXINE 100 MCG TAB PO SCH (20:33)
[2019-10-26] MEDS: PRIMIDONE 50 MG TAB PO SCH (20:33)
[2019-10-26] MEDS: LISINOPRIL 10 MG TAB PO SCH (20:33)
[2019-10-26] MEDS: PRAVASTATIN SODIUM 80 MG TAB PO SCH (20:33)
--- NOTE | 2019-10-26 22:01 | P.PN ---
Progress Note - Text Progress Note Date: 10/26/19 Chief Complaint: Anemia History of presenting complaint: This is a very pleasant 84-year-old patient of Dr. Coles. Resident of [facility]. Chronic stable medical conditions include atrial fibrillation on eliquis,, hyperlipidemia, hypertension, Guillain-Preciado syndrome with lower extremity weakness, hypothyroid, CHF with EF of 50-55%, recent stroke with the weakness in the left arm. Sent in from the [facility] because of hemoglobin 6.3. Patient has been feeling a bit tired. She was recently found to have heme-positive stool. Patient denies any dark stools. Has a bowel movement daily. No nausea vomiting. Does feel a bit tired. Patient was transfused 1 unit of blood.EGD-colonoscopic suggestive gastritis, cecal angiectasia, with ablation, flat cecal polyp removed, 2 ascending colon masses were 3.5 cm-biopsied. Today-today underwent right hemicolectomy. Dressing for the same. Abdominal binder in place. A bit tired. On ice chips. Abdominal pain Review of systems: Was done for constitutional, cardiovascular, GI, pulmonary. relevant finding as above Active Medications Acetaminophen (Tylenol Tab) 650 mg PO Q6HR PRN PRN Reason: Pain Alvimopan (Entereg) 12 mg PO BID [facility] Stop: 11/02/19 21:01 Artificial Tears (Artificial Tear Drops) 1 drops BOTH EYES TID@0800,1200,1700 [facility] Last Admin: 10/26/19 17:46 Dose: 1 drops Documented by: Aspirin (Aspirin) 162 mg PO DAILY@1700 [facility] Last Admin: 10/26/19 17:47 Dose: 162 mg Documented by: Carvedilol (Coreg) 25 mg PO BID@0800,1700 [facility] Last Admin: 10/26/19 17:48 Dose: 25 mg Documented by: Clotrimazole (Lotrimin Cream) 1 applic TOPICAL BID [facility] Last Admin: 10/26/19 20:37 Dose: 1 applic Documented by: Diltiazem HCl (Cardizem Oral) 60 mg PO TID@0600,1400,2100 [facility] Last Admin: 10/26/19 20:33 Dose: 60 mg Documented by: Ferrous Sulfate (Feosol) 325 mg PO BID@0800,2100 [facility] Last Admin: 10/26/19 20:35 Dose: 325 mg Documented by: Fluoxetine HCl (Prozac) 40 mg PO DAILY@1700 [facility] Last Admin: 10/26/19 17:48 Dose: 40 mg Documented by: Folic Acid (Folic Acid) 1 mg PO DAILY@1700 [facility] Last Admin: 10/26/19 17:48 Dose: 1 mg Documented by: Gabapentin (Neurontin) 300 mg PO QID [facility] Last Admin: 10/26/19 17:48 Dose: 300 mg Documented by: Hydromorphone HCl (Dilaudid) 1 mg IVP Q3HR PRN PRN Reason: Severe Pain Sodium Chloride (Saline 0.9%) 1,000 mls @ 80 mls/hr IV .[id number] [facility] Last Admin: 10/26/19 13:06 Dose: Not Given Documented by: Piperacillin Sod/Tazobactam (Sod 3.375 gm/ Sodium Chloride) 100 mls @ 25 mls/hr IVPB Q8H [facility] Last Admin: 10/26/19 17:46 Dose: 25 mls/hr Documented by: Potassium Chloride 10 meq/ IV (Solution) 100 mls @ 100 mls/hr IVPB Q1HR [facility]; Protocol Stop: 10/27/19 00:59 Insulin Aspart (Novolog) 0 unit SQ ACHS [facility]; Protocol Last Admin: 10/26/19 20:33 Dose: 1 unit Documented by: Ketorolac Tromethamine (Toradol) 15 mg IVP Q6HR [facility] Stop: 10/28/19 18:01 Last Admin: 10/26/19 17:48 Dose: 15 mg Documented by: Lactic Acid (Ammonium Lactate) 1 applic TOPICAL DAILY PRN PRN Reason: dry skin on feet Levothyroxine Sodium (Synthroid) 100 mcg PO HS@2100 [facility] Last Admin: 10/26/19 20:33 Dose: 100 mcg Documented by: Lidocaine HCl (.Xylocaine 1% Inj (10mg/Ml) For Iv Start) 0.1 ml INTRADERMA PER PROTOCOL PRN PRN Reason: IV Start Lisinopril (Zestril) 10 mg PO DAILY@2100 [facility] Last Admin: 10/26/19 20:33 Dose: 10 mg Documented by: Miscellaneous Information (Potassium Per Protocol) 1 each MISCELLANE DAILY PRN; Protocol PRN Reason: Per Protocol Multivitamins (Theragran) 1 each PO DAILY@1700 [facility] Last Admin: 10/26/19 17:48 Dose: 1 each Documented by: Naloxone HCl (Narcan) 0.2 mg IV Q2M PRN PRN Reason: Opioid Reversal Ondansetron HCl (Zofran) 4 mg IVP Q8HR PRN PRN Reason: Nausea And Vomiting Pantoprazole Sodium (Protonix) 40 mg PO BID@0800,1700 [facility] Last Admin: 10/26/19 17:48 Dose: 40 mg Documented by: Pravastatin Sodium (Pravachol) 80 mg PO HS@2100 [facility] Last Admin: 10/26/19 20:33 Dose: 80 mg Documented by: Primidone (Mysoline) 100 mg PO HS@2100 [facility] Last Admin: 10/26/19 20:33 Dose: 100 mg Documented by: Primidone (Mysoline) 25 mg PO DAILY@0800 [facility] Last Admin: 10/26/19 08:12 Dose: Not Given Documented by: Tamsulosin HCl (Flomax) 0.4 mg PO PC-SUPPER [facility] Last Admin: 10/26/19 17:48 Dose: 0.4 mg Documented by: Thiamine HCl (Vitamin B-1) 100 mg PO DAILY@1200 [facility] Last Admin: 10/26/19 13:06 Dose: Not Given Documented by: Tramadol HCl (Ultram) 50 mg PO Q8H PRN PRN Reason: Pain Last Admin: 10/23/19 20:42 Dose: 50 mg Documented by: Tramadol HCl (Ultram) 50 mg PO QID [facility] Last Admin: 10/26/19 17:48 Dose: 50 mg Documented by: Physical examination: VITAL SIGNS: 97.8, 81, 18, 104/63, 98% on 2 L GENERAL: Laying in bed,, uncomfortable EYES: Pupils equal. Conjunctiva pale HEENT: External appearance of nose and ears normal, oral cavity grossly normal. NECK: JVD not raised; masses not palpable. HEART: Irregular heart sounds; no edema. LUNGS: Respiratory rate normal, decreased breath sounds. ABDOMEN: Soft, tender, abdominal binder in place with a midline dressing, no masses palpable. PSYCH: Answering questions NEUROLOGICAL: [Cranial nerves grossly intact; no facial asymmetry, weakness of both lower extremities., Weakness of the left arm. INVESTIGATIONS, reviewed in the clinical context: Accu-Cheks noted Presenting labs: White count 4.7 hemoglobin 6.8 platelets 206 potassium 5.6 creatinine 0.83 Stool occult blood positive, COVID 19 PCR-not detected Previous labs: Hemoglobin 7.6 on October 13 EGD/Colonoscopy suggestive gastritis, cecal angiectasia, with goal prohibition, flat cecal polyp removed, 2 ascending colon masses were 3.5 cm-biopsied. Assessment: -Acute symptomatic anemia with positive occult blood in a patient was getting antiplatelet agents-symptomatic-,-given one unit of blood -Right hemicolectomy on October [address] Colin for chronic masses -Left arm weakness from a prior stroke -chronic congestive heart failure exacerbation from diastolic dysfunction EF 50- 55%. 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 -DO NOT RESUSCITATE Plan: -Pathology of the polyps are pending. Status post right hemicolectomy. IV fluids. Denies chips. Repeat labs in the morning.
[2019-10-26] MEDS: POTASSIUM CHLORIDE 10 MEQ in WATER FOR INJECTION 1 100ML.BAG IVPB SCH ×2 (22:15→23:40)
[2019-10-27] MEDS: POTASSIUM CHLORIDE 10 MEQ in WATER FOR INJECTION 1 100ML.BAG IVPB SCH ×2 (01:18→02:38)
[2019-10-27] MEDS: PIPERACILLIN-TAZOBACTAM 3.375 GM in SODIUM CHLORIDE 0.9% 100 ML IVPB SCH ×4 (01:19→23:51)
[2019-10-27] MEDS: SODIUM CHLORIDE 0.9% 1,000 ML IV SCH ×2 (02:39→14:29)
[2019-10-27] MEDS: KETOROLAC 30 MG/ML 1 ML VIAL IVP SCH (06:19)
[2019-10-27] MEDS: DILTIAZEM ORAL 60 MG TAB PO SCH ×3 (06:19→21:40)
[2019-10-27 07:00] LABS: Glucose,Whole Blood 137 mg/dL (75-99)
--- NOTE | 2019-10-27 07:35 | CDI ---
Documentation Clarification Form Date: 10/26/2019 11:00:00 AM From: Rebecca Couch RN, CCDS Admit Date: 10/19/2019 05:29:00 PM Patient Name: Narda Montenegro Visit Number: [id number] Discharge Date: ATTENTION: The Clinical Documentation Specialists (CDI) and [facility] Coding Staff appreciate your assistance in clarifying documentation. Please respond to the clarification below the line at the bottom and electronically sign. The CDI & [facility] Coding staff will review the response and follow-up if needed. Please note: Queries are made part of the Legal Health Record. If you have any questions, please contact the author of this message via ITS. Dr. Esvin Paz Acute symptomatic anemia with positive occult blood was documented in the H/P and subsequent progress notes. Please provide further specificity of the anemia. History/Risk Factors: Atrial Fibrillation, Diabetes mellitus, GI Bleed, Hypertension, Anemia Clinical indicators: 84-year-old present to ED on 10/18 after bowel movement found to have positive occult stools. Iron studies significant for iron deficiency anemia and has been on iron supplements. She was getting antiplatelet agents. 10/18 @14:11 Vital signs: 105/59 77 18 98.8 100 % RA 10/18 HGB 6.8, HCT 23.2 10/19 HGB 7.2, HCT 23.7 10/23 HGB 7.0, HCT 23.3 Treatment: Transfusion packed red blood cells, 1 unit 10/18, 10/23 CBC daily 10/21 EGD: Mild scattered erythema and nodularity suggestive of mild gastritis predominantly in the body of the stomach with biopsies taken of the antrum and body. Duodenal biopsies. Colonoscopy: Cecal angiectasia treated with gold probe ablation therapy. Flat cecal polyp removed with cold snare polypectomy. 2 ascending colon masses. In order to capture the severity of condition, please clarify the type of anemia and etiology if known: Acute blood loss anemia Acute on chronic blood loss anemia Unable to determine Other, please specify (Last Form Revision: July 2019) Acute GI blood loss anemia MTDD
[2019-10-27 08:45] LABS: African American GFR (CKD) >90 (>60 ml/min/1.73 sqM); Anion Gap 4 mmol/L; Blood Urea Nitrogen 5 mg/dL (7-17); Calcium 8.3 mg/dL (8.4-10.2); Carbon Dioxide 26 mmol/L (22-30); Chloride 108 mmol/L (98-107); Glucose 124 mg/dL (74-99); Non-African American GFR(CKD) 85 (>60 ml/min/1.73 sqM); Sodium 138 mmol/L (137-145)
[2019-10-27 08:46] LABS: Potassium 3.9 mmol/L (3.5-5.1)
[2019-10-27] MEDS: CARVEDILOL 12.5 MG TAB PO SCH ×2 (08:52→17:04)
[2019-10-27] MEDS: traMADol 50 MG TAB PO SCH ×4 (08:53→21:43)
[2019-10-27] MEDS: PRIMIDONE 25 MG TAB PO SCH (08:53)
[2019-10-27] MEDS: FERROUS SULFATE 325 MG TAB PO SCH ×2 (08:53→21:40)
[2019-10-27] MEDS: ALVIMOPAN 12 MG CAPSULE PO SCH ×2 (08:53→21:39)
[2019-10-27] MEDS: THIAMINE 100 MG TAB PO SCH (08:53)
[2019-10-27] MEDS: GABAPENTIN 300 MG CAP PO SCH ×4 (08:53→21:43)
[2019-10-27] MEDS: PANTOPRAZOLE 40 MG TABLET PO SCH ×2 (08:53→17:04)
[2019-10-27] MEDS: ARTIFICIAL TEARS-HYPROMELLOSE DROPS 15 ML BTL BOTH EYES SCH ×3 (08:55→17:05)
[2019-10-27] MEDS: CLOTRIMAZOLE 1% CREAM 15 GM TUBE TOPICAL SCH ×2 (08:55→21:40)
[2019-10-27] MEDS: INSULIN ASPART (NovoLOG) 100 UNIT/ML VIAL SQ SCH ×4 (08:56→22:33)
--- NOTE | 2019-10-27 09:34 | CDI ---
Documentation Clarification Form Date: 10/27/2019 09:07:10 AM From: Rebecca Couch RN, CCDS Admit Date: 10/19/2019 05:29:00 PM Patient Name: Narda Montenegro Visit Number: [id number] Discharge Date: ATTENTION: The Clinical Documentation Specialists (CDI) and [facility] Coding Staff appreciate your assistance in clarifying documentation. Please respond to the clarification below the line at the bottom and electronically sign. The CDI & [facility] Coding staff will review the response and follow-up if needed. Please note: Queries are made part of the Legal Health Record. If you have any questions, please contact the author of this message via ITS. Dr. Rocky Hitchcock 10/22 New finding of microperforation from her colonscopy with injection of tattoo along the hepatic flexure is documented in the surgery consult on 10/23/19 and further clarification is requested. Patients Admitting Diagnosis: Iron deficiency anemia Procedure performed: EGD with biopsy. Colonoscopy with polypectomy, biopsy, tattoo and gold probe ablation. History/Risk Factors: Atrial Fibrillation, Diabetes mellitus, GI Bleed, Hypertension, Anemia Clinical Indicators: 84-year-old present to ED on 10/18 after bowel movement found to have positive occult stools. Iron studies significant for iron deficiency anemia and has been on iron supplements. She was getting antiplatelet agents. 10/18 @14:11 Vital signs: 105/59 77 18 98.8 100 % RA 10/18 HGB 6.8, HCT 23.2 10/21 CT Abdomen/pelvis: Irregular wall thickening of the cecum and ascending colon consistent with tumor. Small pneumoperitoneum. Minimal fat stranding posterior to the cecum that raises the possibility of early peritonitis. Treatment: Transfusion packed red blood cells, 1 unit 10/18, 10/23 CBC daily 10/21 EGD: Mild scattered erythema and nodularity suggestive of mild gastritis predominantly in the body of the stomach with biopsies taken of the antrum and body. Duodenal biopsies. 10/21 Colonoscopy: Cecal angiectasia treated with gold probe ablation therapy. Flat cecal polyp removed with cold snare polypectomy. 2 ascending colon masses. In order to accurately reflect this patients severity of illness, please clarify if the Microperforation from her colonoscopy ( noted in the surgical progress note on 6/5): -has been ruled out -is a complication of surgical procedure -is an expected outcome of the surgical procedure (further specify) -is related to co-morbid condition(s) of (specify) -Other please specify -Unable to determine (Last Revision: June 2019) is an expected outcome of her procedure BASIL
[2019-10-27 09:37] LABS: Anisocytosis Slight; Basophils # (A) 0.1 k/uL (0-0.2); Basophils % (A) 1 %; Eosinophils # (A) 0.1 k/uL (0-0.7); Eosinophils % (A) 2 %; HCT 32.1 % (34.0-46.0); HGB 9.4 gm/dL (11.4-16.0); Hypochromasia Marked; Lymphocytes # (A) 0.5 k/uL (1.0-4.8); Lymphocytes % (A) 8 %; MCH 27.5 pg (25.0-35.0); MCHC 29.2 g/dL (31.0-37.0); MCV 94.2 fL (80.0-100.0); Mean Platelet Volume 11.1; Monocytes # (A) 0.6 k/uL (0-1.0); Monocytes % (A) 9 %; Neutrophils # (A) 5.2 k/uL (1.3-7.7); Neutrophils % (A) 79 %; Poikilocytosis Slight; RBC 3.41 m/uL (3.80-5.40); RDW 17.7 % (11.5-15.5); WBC 6.6 k/uL (3.8-10.6)
[2019-10-27] MEDS ORDERED: Potassium Replacement Protocol 1 EACH MISC MISCELLANE PRN (10:59)
[2019-10-27] MEDS ORDERED: POTASSIUM CHLORIDE ER 20 MEQ TAB.ER PO SCH (11:00)
[2019-10-27 11:18] LABS: Glucose,Whole Blood 149 mg/dL (75-99)
--- NOTE | 2019-10-27 11:24 | P.PN ---
Subjective This is a pleasant 84-year-old female past medical history significant for valvular heart disease s/p prostheic aortic valve replacement, persistent atrial fibrillation on termite control servicer anti-coagulation, CVA, hypertension, dyslipidemia, cardiomyopathy and diabetes mellitus. She follows with Dr. Shay. She is POD#1 right hemicolectomy with wound vac placement. She is seen and examined sitting up in the chair in no acute distress. She complains of a full "gassy" feeling in the abdomen. She states she is passing flatus. She denies chest pain, shortness of breath, dizziness or palpitations. Blood pressure 136/82 heart rate 65 afebrile and maintaining oxygen saturation on nasal cannula. Laboratory data reviewed, WBC 6.6, hgb 9.4 up from 6.8 on admission, sodium 138, potassium 3.9, creatinine 0.56. Currently maintained on aspirin 162 mg daily per neurology secondary to CVA, coreg 25 mg BID, diltiazem 60 mg TID, lisinopril 10 mg daily and pravastatin 80 mg daily. PO lasix and Eliquis have been held since admission. GENERAL: Well-appearing, well-nourished and in no acute distress. NECK: Supple without JVD or thyromegaly. LUNGS: Breath sounds clear to auscultation bilaterally. Respiration equal and unlabored. No wheezes, rales or rhonchi. HEART: Irregular rate and rhythm with systolic ejection murmur at the base, no rubs or gallops. S1 and S2 heard. EXTREMITIES: Normal range of motion, no edema. No clubbing or cyanosis. Peripheral pulses intact. ASSESSMENT Acute blood loss anemia Right joanne-colectomy, POD#1 secondary to colonic mass Chronic persistent atrial fibrillation Valvular heart disease s/p prosthetic aortic valve replacement Hypertension Dyslipidemia Diabetes mellitus Peripheral vascular disease, carotid artery disease. Exact details unavailable. PLAN Continue current medical regimen. Resume anti-coagulation when appropriate and safe per surgery team. Nurse Practitioner note has been reviewed, I agree with a documented findings and plan of care. Patient was seen and examined. Objective - Vital Signs Vital signs: Vital Signs Temp 98.9 F 10/27/19 05:00 Pulse 65 10/27/19 05:00 Resp 18 10/27/19 05:00 BP 136/82 10/27/19 05:00 Pulse Ox 98 06/09/20 05:00 Intake & Output 10/26/19 10/27/19 10/27/19 18:59 06:59 18:59 Intake Total 1900 1270 480 Output Total 1160 300 Balance 740 970 480 Weight 84.368 kg Intake: IV 1900 Intake, IV Titration 1020 Amount Piperacillin-Tazobactam 3 100 .375 gm In Sodium Chloride 0.9% 100 ml @ 25 mls/hr IVPB Q8H [facility] Rx#: [id number] Potassium Chloride 10 meq 200 In Water For Injection 1 100ml.bag @ 100 mls/hr IVPB Q1HR [facility] Rx#: [id number] Sodium Chloride 0.9% 1, 720 000 ml @ 80 mls/hr IV . [id number] [facility] Rx#:[id number] Oral 250 480 Output: Urine 1120 300 Estimated Blood Loss 40 Other: Voiding Method Indwelling Catheter Indwelling Catheter Indwelling Catheter - Labs CBC & Chem 7: 10/27/19 07:49 10/27/19 07:49 Labs: Abnormal Lab Results - Last 24 Hours (Table) 10/26/19 10/26/19 10/26/19 Range/Units 06:53 13:14 17:11 RBC (3.80-5.40) m/uL Hgb (11.4-16.0) gm/dL Hct (34.0-46.0) % MCHC (31.0-37.0) g/dL RDW (11.5-15.5) % Potassium 3.3 L (3.5-5.1) mmol/L Chloride 111 H (98-107) mmol/L BUN 4 L (7-17) mg/dL Glucose (74-99) mg/dL POC Glucose (mg/dL) 150 H 156 H (75-99) mg/dL Calcium 8.3 L (8.4-10.2) mg/dL 10/26/19 10/27/19 10/27/19 Range/Units 20:04 06:57 07:49 RBC 3.41 L (3.80-5.40) m/uL Hgb 9.4 L (11.4-16.0) gm/dL Hct 32.1 L (34.0-46.0) % MCHC 29.2 L (31.0-37.0) g/dL RDW 17.7 H (11.5-15.5) % Potassium (3.5-5.1) mmol/L Chloride (98-107) mmol/L BUN (7-17) mg/dL Glucose (74-99) mg/dL POC Glucose (mg/dL) 158 H 137 H (75-99) mg/dL Calcium (8.4-10.2) mg/dL 10/27/19 Range/Units 07:49 RBC (3.80-5.40) m/uL Hgb (11.4-16.0) gm/dL Hct (34.0-46.0) % MCHC (31.0-37.0) g/dL RDW (11.5-15.5) % Potassium (3.5-5.1) mmol/L Chloride 108 H (98-107) mmol/L BUN 5 L (7-17) mg/dL Glucose 124 H (74-99) mg/dL POC Glucose (mg/dL) (75-99) mg/dL Calcium 8.3 L (8.4-10.2) mg/dL
--- NOTE | 2019-10-27 11:25 | P.PN ---
<Trish Roach - Last Filed: 10/27/19 11:09> Subjective Progress Note Date: 10/27/19 CHIEF COMPLAINT: Colon cancer HISTORY OF PRESENT ILLNESS: 84-year-old female who is status post open extended right hemicolectomy. Postop day #1. Patient examined at the bedside with Dr. Chavira. Patient states her pain is tolerable. She is tolerating clear liquid diet. Denies nausea or vomiting. Vital signs are stable. She is afebrile. WBC 6.6. Hemoglobin 9.4. PHYSICAL EXAM: VITAL SIGNS: Reviewed GENERAL: Well-developed in no acute distress. HEENT: No sclera icterus. Extraocular movements grossly intact. Moist buccal mucosa. Head is atraumatic, normocephalic. Hears conversational speech. No nasal drainage. NECK: Supple without lymphadenopathy. CHEST: Non-labored respirations and equal bilateral excursions. CARDIOVASCULAR: Irregular rhythm. Palpable 2+ radial pulses. ABDOMEN: Soft. Nondistended. Appropriate surgical tenderness. PREVENA wound vac noted. MUSCULOSKELETAL: No clubbing or cyanosis. NEUROLOGIC: No focal or lateralizing signs. Cranial nerves II through XII grossly intact. PSYCH: Appropriate affect. Alert and oriented to person, place and time. SKIN: Well perfused. Good skin turgor. ASSESSMENT: 1. Ascending colon cancer 2. Acute anemia status post blood transfusions 3. Telangiectasias of the cecum 4. Iron deficiency anemia 5. History of cerebrovascular accident with sequela 6. History of ovarian cancer status post hysterectomy 7. Ischemic cardiomyopathy 8. Chronic atrial fibrillation 9. Moderate severe pulmonary hypertension 10. Bladder atony, urinary retention 11. Hypothyroidism 12. Chronic anticoagulant use 13. Neuropathy 14. Diabetes type 2, insulin-dependent 15. Congestive heart failure with left ventricular dysfunction 16. Depressive disorder 17. Hyperlipidemia 18. History of aortic valvular replacement PLAN: -Continue clear liquid diet. Await bowel function -Discontinue Toradol. Begin heparin subcu. Anticipate resuming Eliquis tomorrow per Dr. Chavira -Cardiology following -Incentive spirometer -Activity as tolerated. PT/OT on consult. Nurse practitioner note has been reviewed by physician. Signing provider agrees with the documented findings, assessment, and plan of care. Objective - Vital Signs Vital signs: Vital Signs Temp 98.9 F 10/27/19 05:00 Pulse 65 10/27/19 05:00 Resp 18 06/09/20 05:00 BP 136/82 10/27/19 05:00 Pulse Ox 98 10/27/19 05:00 Intake & Output 10/26/19 10/27/19 10/27/19 18:59 06:59 18:59 Intake Total 1900 1270 480 Output Total 1160 300 Balance 740 970 480 Weight 84.368 kg Intake: IV 1900 Intake, IV Titration 1020 Amount Piperacillin-Tazobactam 3 100 .375 gm In Sodium Chloride 0.9% 100 ml @ 25 mls/hr IVPB Q8H [facility] Rx#: [id number] Potassium Chloride 10 meq 200 In Water For Injection 1 100ml.bag @ 100 mls/hr IVPB Q1HR [facility] Rx#: [id number] Sodium Chloride 0.9% 1, 720 000 ml @ 80 mls/hr IV . [id number] [facility] Rx#:[id number] Oral 250 480 Output: Urine 1120 300 Estimated Blood Loss 40 Other: Voiding Method Indwelling Catheter Indwelling Catheter Indwelling Catheter - Labs CBC & Chem 7: 10/27/19 07:49 10/27/19 07:49 Labs: Abnormal Lab Results - Last 24 Hours (Table) 10/26/19 10/26/19 10/26/19 Range/Units 06:53 13:14 17:11 RBC (3.80-5.40) m/uL Hgb (11.4-16.0) gm/dL Hct (34.0-46.0) % MCHC (31.0-37.0) g/dL RDW (11.5-15.5) % Potassium 3.3 L (3.5-5.1) mmol/L Chloride 111 H (98-107) mmol/L BUN 4 L (7-17) mg/dL Glucose (74-99) mg/dL POC Glucose (mg/dL) 150 H 156 H (75-99) mg/dL Calcium 8.3 L (8.4-10.2) mg/dL 10/26/19 10/27/19 10/27/19 Range/Units 20:04 06:57 07:49 RBC 3.41 L (3.80-5.40) m/uL Hgb 9.4 L (11.4-16.0) gm/dL Hct 32.1 L (34.0-46.0) % MCHC 29.2 L (31.0-37.0) g/dL RDW 17.7 H (11.5-15.5) % Potassium (3.5-5.1) mmol/L Chloride (98-107) mmol/L BUN (7-17) mg/dL Glucose (74-99) mg/dL POC Glucose (mg/dL) 158 H 137 H (75-99) mg/dL Calcium (8.4-10.2) mg/dL 10/27/19 Range/Units 07:49 RBC (3.80-5.40) m/uL Hgb (11.4-16.0) gm/dL Hct (34.0-46.0) % MCHC (31.0-37.0) g/dL RDW (11.5-15.5) % Potassium (3.5-5.1) mmol/L Chloride 108 H (98-107) mmol/L BUN 5 L (7-17) mg/dL Glucose 124 H (74-99) mg/dL POC Glucose (mg/dL) (75-99) mg/dL Calcium 8.3 L (8.4-10.2) mg/dL <Reema Chavira - Last Filed: 10/28/19 20:41> Subjective Patient seen and evaluated with nurse practitioner. Her pain is well-controlled. She is postop day 1. Hemoglobin continues to improve from 8.1-9.4. To decrease risk of bleeding, we'll discontinue Toradol. Additionally for cardioprotectant, will need heparin subcu. Will need stable hemoglobin prior to restarting of Eliquis. Objective - Vital Signs Vital signs: Vital Signs Temp 98.1 F 10/28/19 20:34 Pulse 80 10/28/19 20:34 Resp 16 10/28/19 20:34 BP 118/62 10/28/19 20:34 Pulse Ox 98 10/28/19 20:34 Intake & Output 10/28/19 10/28/19 10/29/19 06:59 18:59 06:59 Intake Total 1380 Output Total 500 Balance 880 Weight 84.368 kg Intake: Intake, IV Titration 480 Amount Sodium Chloride 0.9% 1, 480 000 ml @ 80 mls/hr IV . [id number] [facility] Rx#:[id number] Oral 900 Output: Urine 500 Other: Voiding Method Indwelling Catheter Indwelling Catheter Indwelling Catheter - Labs CBC & Chem 7: 10/28/19 07:15 10/28/19 07:15 Labs: Abnormal Lab Results - Last 24 Hours (Table) 10/28/19 10/28/19 10/28/19 Range/Units 07:09 07:15 07:15 RBC 3.07 L (3.80-5.40) m/uL Hgb 8.5 L (11.4-16.0) gm/dL Hct 28.6 L (34.0-46.0) % MCHC 29.7 L (31.0-37.0) g/dL RDW 18.0 H (11.5-15.5) % Lymphocytes # 0.6 L (1.0-4.8) k/uL Chloride 109 H (98-107) mmol/L BUN 3 L (7-17) mg/dL Glucose 102 H (74-99) mg/dL POC Glucose (mg/dL) 120 H (75-99) mg/dL Calcium 8.2 L (8.4-10.2) mg/dL 10/28/19 10/28/19 10/28/19 Range/Units 11:07 17:14 20:02 RBC (3.80-5.40) m/uL Hgb (11.4-16.0) gm/dL Hct (34.0-46.0) % MCHC (31.0-37.0) g/dL RDW (11.5-15.5) % Lymphocytes # (1.0-4.8) k/uL Chloride (98-107) mmol/L BUN (7-17) mg/dL Glucose (74-99) mg/dL POC Glucose (mg/dL) 141 H 119 H 170 H (75-99) mg/dL Calcium (8.4-10.2) mg/dL Assessment and Plan (1) Ascending colon malignant neoplasm Current Visit: Yes Status: Acute Code(s): C18.2 - MALIGNANT NEOPLASM OF ASCENDING COLON SNOMED Code(s): 342288261 (2) Iron deficiency anemia Current Visit: Yes Status: Acute Code(s): D50.9 - IRON DEFICIENCY ANEMIA, UNSPECIFIED SNOMED Code(s): 38720915 (3) CVA (cerebral vascular accident) Current Visit: No Status: Acute Code(s): I63.9 - CEREBRAL INFARCTION, UNSPECIFIED SNOMED Code(s): 232814880 (4) History of atrial fibrillation Current Visit: No Status: Acute Code(s): Z86.79 - PERSONAL HISTORY OF OTHER DISEASES OF THE CIRCULATORY SYSTEM SNOMED Code(s): 441595722 (5) Generalized weakness Current Visit: No Status: Acute Code(s): R53.1 - WEAKNESS SNOMED Code(s): 36087446
[2019-10-27 11:59] LABS: Crenated RBC Present
[2019-10-27 17:02] LABS: Glucose,Whole Blood 156 mg/dL (75-99)
[2019-10-27] MEDS: TAMSULOSIN 0.4 MG CAP.ER.24H PO SCH (17:04)
[2019-10-27] MEDS: ASPIRIN 81 MG PO SCH (17:04)
[2019-10-27] MEDS: MULTIVITAMINS, THERA 1 EACH TAB PO SCH (17:04)
[2019-10-27] MEDS: FLUoxetine HCL 20 MG CAP PO SCH (17:04)
[2019-10-27] MEDS: HEPARIN SODIUM,PORCINE 5,000 UNIT/ML 1 ML VIAL SQ SCH (17:06)
[2019-10-27] MEDS: FOLIC ACID 1 MG TAB PO SCH (17:10)
[2019-10-27 20:32] LABS: Glucose,Whole Blood 110 mg/dL (75-99)
[2019-10-27] MEDS: PRAVASTATIN SODIUM 80 MG TAB PO SCH (21:41)
[2019-10-27] MEDS: PRIMIDONE 50 MG TAB PO SCH (21:41)
[2019-10-27] MEDS: LEVOTHYROXINE 100 MCG TAB PO SCH (21:41)
[2019-10-27] MEDS: LISINOPRIL 10 MG TAB PO SCH (21:41)
--- NOTE | 2019-10-27 22:06 | P.PN ---
Progress Note - Text Progress Note Date: 10/27/19 Chief Complaint: Anemia History of presenting complaint: This is a very pleasant 84-year-old patient of Dr. Coles. Resident of [facility]. Chronic stable medical conditions include atrial fibrillation on eliquis,, hyperlipidemia, hypertension, Guillain-Preciado syndrome with lower extremity weakness, hypothyroid, CHF with EF of 50-55%, recent stroke with the weakness in the left arm. Sent in from the [facility] because of hemoglobin 6.3. Patient has been feeling a bit tired. She was recently found to have heme-positive stool. Patient denies any dark stools. Has a bowel movement daily. No nausea vomiting. Does feel a bit tired. Patient was transfused 1 unit of blood.EGD-colonoscopic suggestive gastritis, cecal angiectasia, with ablation, flat cecal polyp removed, 2 ascending colon masses were 3.5 cm-biopsied. On October 25 underwent right hem icolectomy by Dr. Colin. Ascending colon polyp biopsy came back showing moderately differentiated adenocarcinoma. Today-more awake this morning. Some abdominal pain. On a clear liquid diet. H as not passed any flatus Review of systems: Was done for constitutional, cardiovascular, GI, pulmonary. relevant finding as above Active Medications Acetaminophen (Tylenol Tab) 650 mg PO Q6HR PRN PRN Reason: Pain Alvimopan (Entereg) 12 mg PO BID [facility] Stop: 11/02/19 21:01 Last Admin: 10/27/19 21:39 Dose: 12 mg Documented by: Artificial Tears (Artificial Tear Drops) 1 drops BOTH EYES TID@0800,1200,1700 [facility] Last Admin: 10/27/19 17:05 Dose: 1 drops Documented by: Aspirin (Aspirin) 162 mg PO DAILY@1700 [facility] Last Admin: 10/27/19 17:04 Dose: 162 mg Documented by: Carvedilol (Coreg) 25 mg PO BID@0800,1700 [facility] Last Admin: 10/27/19 17:04 Dose: 25 mg Documented by: Clotrimazole (Lotrimin Cream) 1 applic TOPICAL BID [facility] Last Admin: 10/27/19 21:40 Dose: 1 applic Documented by: Diltiazem HCl (Cardizem Oral) 60 mg PO TID@0600,1400,2100 [facility] Last Admin: 10/27/19 21:40 Dose: 60 mg Documented by: Ferrous Sulfate (Feosol) 325 mg PO BID@0800,2100 [facility] Last Admin: 10/27/19 21:40 Dose: 325 mg Documented by: Fluoxetine HCl (Prozac) 40 mg PO DAILY@1700 [facility] Last Admin: 10/27/19 17:04 Dose: 40 mg Documented by: Folic Acid (Folic Acid) 1 mg PO DAILY@1700 [facility] Last Admin: 10/27/19 17:10 Dose: 1 mg Documented by: Gabapentin (Neurontin) 300 mg PO QID [facility] Last Admin: 10/27/19 21:43 Dose: 300 mg Documented by: Heparin Sodium (Porcine) (Heparin) 5,000 unit SQ Q8HR [facility] Last Admin: 10/27/19 17:06 Dose: 5,000 unit Documented by: Hydromorphone HCl (Dilaudid) 1 mg IVP Q3HR PRN PRN Reason: Severe Pain Sodium Chloride (Saline 0.9%) 1,000 mls @ 80 mls/hr IV .[id number] [facility] Last Admin: 10/27/19 14:29 Dose: 80 mls/hr Documented by: Piperacillin Sod/Tazobactam (Sod 3.375 gm/ Sodium Chloride) 100 mls @ 25 mls/hr IVPB Q8H [facility] Last Admin: 10/27/19 17:04 Dose: 25 mls/hr Documented by: Insulin Aspart (Novolog) 0 unit SQ ACHS [facility]; Protocol Last Admin: 10/27/19 17:06 Dose: 1 unit Documented by: Lactic Acid (Ammonium Lactate) 1 applic TOPICAL DAILY PRN PRN Reason: dry skin on feet Levothyroxine Sodium (Synthroid) 100 mcg PO HS@2099 [facility] Last Admin: 10/27/19 21:41 Dose: 100 mcg Documented by: Lidocaine HCl (.Xylocaine 1% Inj (10mg/Ml) For Iv Start) 0.1 ml INTRADERMA PER PROTOCOL PRN PRN Reason: IV Start Lisinopril (Zestril) 10 mg PO DAILY@2099 [facility] Last Admin: 10/27/19 21:41 Dose: 10 mg Documented by: Miscellaneous Information (Potassium Per Protocol) 1 each MISCELLANE DAILY PRN; Protocol PRN Reason: Per Protocol Miscellaneous Information (Potassium Per Protocol) 1 each MISCELLANE DAILY PRN; Protocol PRN Reason: Per Protocol Multivitamins (Theragran) 1 each PO DAILY@1700 [facility] Last Admin: 10/27/19 17:04 Dose: 1 each Documented by: Naloxone HCl (Narcan) 0.2 mg IV Q2M PRN PRN Reason: Opioid Reversal Ondansetron HCl (Zofran) 4 mg IVP Q8HR PRN PRN Reason: Nausea And Vomiting Pantoprazole Sodium (Protonix) 40 mg PO BID@0800,1700 [facility] Last Admin: 10/27/19 17:04 Dose: 40 mg Documented by: Pravastatin Sodium (Pravachol) 80 mg PO HS@2100 [facility] Last Admin: 10/27/19 21:41 Dose: 80 mg Documented by: Primidone (Mysoline) 100 mg PO HS@2100 [facility] Last Admin: 10/27/19 21:41 Dose: 100 mg Documented by: Primidone (Mysoline) 25 mg PO DAILY@0800 [facility] Last Admin: 10/27/19 08:53 Dose: 25 mg Documented by: Tamsulosin HCl (Flomax) 0.4 mg PO PC-SUPPER [facility] Last Admin: 10/27/19 17:04 Dose: 0.4 mg Documented by: Thiamine HCl (Vitamin B-1) 100 mg PO DAILY@1200 [facility] Last Admin: 10/27/19 08:53 Dose: 100 mg Documented by: Tramadol HCl (Ultram) 50 mg PO Q8H PRN PRN Reason: Pain Last Admin: 10/23/19 20:42 Dose: 50 mg Documented by: Tramadol HCl (Ultram) 50 mg PO QID [facility] Last Admin: 10/27/19 21:43 Dose: 50 mg Documented by: Physical examination: VITAL SIGNS: 98.3, 72, 12, 120 3076, 98% on room air GENERAL: Sitting up today more awake today EYES: Pupils equal. Conjunctiva pale HEENT: External appearance of nose and ears normal, oral cavity grossly normal. NECK: JVD not raised; masses not palpable. HEART: Irregular heart sounds; no edema. LUNGS: Respiratory rate normal, decreased breath sounds. ABDOMEN: Soft, tender, abdominal binder in place with a midline dressing, no masses palpable. PSYCH: Answering questions NEUROLOGICAL: [Cranial nerves grossly intact; no facial asymmetry, weakness of both lower extremities., Weakness of the left arm. INVESTIGATIONS, reviewed in the clinical context: White count 6.6 hemoglobin 9.4 potassium 3.9 creatinine 0.56 Presenting labs: White count 4.7 hemoglobin 6.8 platelets 206 potassium 5.6 creatinine 0.83 Stool occult blood positive, COVID 19 PCR-not detected Previous labs: Hemoglobin 7.6 on October 13 EGD/Colonoscopy suggestive gastritis, cecal angiectasia, with goal prohibition, flat cecal polyp removed, 2 ascending colon masses were 3.5 cm-biopsied. Assessment: -Acute symptomatic anemia with positive occult blood in a patient was getting antiplatelet agents-symptomatic-,-given one unit of blood -Right hemicolectomy on October [address] Colin for chronic masses -Left arm weakness from a prior stroke -chronic congestive heart failure exacerbation from diastolic dysfunction EF 50- 55%. 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 Ascending colon polyp showed moderately differentiated adenocarcinoma -DO NOT RESUSCITATE Plan: -Patient on clear liquids. More awake today. Some abdominal pain is present. Getting IV fluids. Discussed with the patient. Follow with surgery.
[2019-10-27] MEDS: traMADol 50 MG TAB PO PRN (23:52)
[2019-10-28] MEDS: SODIUM CHLORIDE 0.9% 1,000 ML IV SCH (03:03)
[2019-10-28] MEDS: DILTIAZEM ORAL 60 MG TAB PO SCH ×3 (05:42→20:49)
[2019-10-28 07:10] LABS: Glucose,Whole Blood 120 mg/dL (75-99)
[2019-10-28 07:49] LABS: Anisocytosis Slight; Basophils % (A) 1 %; Eosinophils # (A) 0.2 k/uL (0-0.7); Eosinophils % (A) 2 %; HCT 28.6 % (34.0-46.0); HGB 8.5 gm/dL (11.4-16.0); Hypochromasia Marked; Lymphocytes # (A) 0.6 k/uL (1.0-4.8); Lymphocytes % (A) 9 %; MCH 27.7 pg (25.0-35.0); MCHC 29.7 g/dL (31.0-37.0); MCV 93.4 fL (80.0-100.0); Mean Platelet Volume 7.6; Monocytes # (A) 0.4 k/uL (0-1.0); Monocytes % (A) 7 %; Neutrophils # (A) 5.1 k/uL (1.3-7.7); Neutrophils % (A) 79 %; Platelet Count 181 k/uL (150-450); Poikilocytosis Slight; RBC 3.07 m/uL (3.80-5.40); WBC 6.4 k/uL (3.8-10.6)
[2019-10-28] MEDS: INSULIN ASPART (NovoLOG) 100 UNIT/ML VIAL SQ SCH ×4 (07:55→20:50)
[2019-10-28 08:08] LABS: African American GFR (CKD) >90 (>60 ml/min/1.73 sqM); Anion Gap 3 mmol/L; Blood Urea Nitrogen 3 mg/dL (7-17); Calcium 8.2 mg/dL (8.4-10.2); Carbon Dioxide 25 mmol/L (22-30); Chloride 109 mmol/L (98-107); Glucose 102 mg/dL (74-99); Non-African American GFR(CKD) 87 (>60 ml/min/1.73 sqM); Potassium 3.7 mmol/L (3.5-5.1); Sodium 137 mmol/L (137-145)
[2019-10-28] MEDS: ARTIFICIAL TEARS-HYPROMELLOSE DROPS 15 ML BTL BOTH EYES SCH ×3 (08:42→16:01)
[2019-10-28] MEDS: HEPARIN SODIUM,PORCINE 5,000 UNIT/ML 1 ML VIAL SQ SCH ×3 (08:43→16:02)
[2019-10-28] MEDS: PANTOPRAZOLE 40 MG TABLET PO SCH ×2 (08:43→16:00)
[2019-10-28] MEDS: FERROUS SULFATE 325 MG TAB PO SCH ×2 (08:43→20:51)
[2019-10-28] MEDS: CARVEDILOL 12.5 MG TAB PO SCH ×2 (08:43→16:00)
[2019-10-28] MEDS: PIPERACILLIN-TAZOBACTAM 3.375 GM in SODIUM CHLORIDE 0.9% 100 ML IVPB SCH ×2 (08:45→16:01)
[2019-10-28] MEDS: CLOTRIMAZOLE 1% CREAM 15 GM TUBE TOPICAL SCH ×2 (08:46→20:51)
[2019-10-28] MEDS: ALVIMOPAN 12 MG CAPSULE PO SCH ×2 (08:46→20:49)
[2019-10-28] MEDS: GABAPENTIN 300 MG CAP PO SCH ×4 (08:47→20:48)
[2019-10-28] MEDS: traMADol 50 MG TAB PO SCH ×4 (08:47→21:32)
[2019-10-28] MEDS: THIAMINE 100 MG TAB PO SCH (08:48)
[2019-10-28] MEDS: PRIMIDONE 25 MG TAB PO SCH (08:49)
--- NOTE | 2019-10-28 10:56 | P.PN ---
<Trish Roach Brenda - Last Filed: 10/28/19 12:25> Subjective Progress Note Date: 10/28/19 CHIEF COMPLAINT: Colon cancer HISTORY OF PRESENT ILLNESS: 84-year-old female who is status post open extended right hemicolectomy. Postop day #2. Patient examined at the bedside. Patient is slightly confused this morning. She reports she is leaving to go visit her mother and asking for cigarettes during examination. Patient states her pain is tolerable. She is tolerating clear liquid diet. Denies nausea or vomiting. Passing flatus. Vital signs are stable. She is afebrile. WBC 6.4. Hemoglobin 8.5. PHYSICAL EXAM: VITAL SIGNS: Reviewed GENERAL: Well-developed in no acute distress. HEENT: No sclera icterus. Extraocular movements grossly intact. Moist buccal mucosa. Head is atraumatic, normocephalic. Hears conversational speech. No nasal drainage. NECK: Supple without lymphadenopathy. CHEST: Non-labored respirations and equal bilateral excursions. CARDIOVASCULAR: Irregular rhythm. Palpable 2+ radial pulses. ABDOMEN: Soft. Nondistended. Appropriate surgical tenderness. PREVENA wound vac noted. MUSCULOSKELETAL: No clubbing or cyanosis. NEUROLOGIC: No focal or lateralizing signs. Cranial nerves II through XII grossly intact. PSYCH: Appropriate affect. Alert and oriented x 1-2. SKIN: Well perfused. Good skin turgor. ASSESSMENT: 1. Ascending colon cancer 2. Acute anemia status post blood transfusions 3. Telangiectasias of the cecum 4. Iron deficiency anemia 5. History of cerebrovascular accident with sequela 6. History of ovarian cancer status post hysterectomy 7. Ischemic cardiomyopathy 8. Chronic atrial fibrillation 9. Moderate severe pulmonary hypertension 10. Bladder atony, urinary retention 11. Hypothyroidism 12. Chronic anticoagulant use 13. Neuropathy 14. Diabetes type 2, insulin-dependent 15. Congestive heart failure with left ventricular dysfunction 16. Depressive disorder 17. Hyperlipidemia 18. History of aortic valvular replacement PLAN: -Advance diet -Hold Eliquis today per Dr. Chavira. Continue heparin subcu. Repeat CBC in AM -Cardiology following -Incentive spirometer -Activity as tolerated. PT/OT on consult. Nurse practitioner note has been reviewed by physician. Signing provider agrees with the documented findings, assessment, and plan of care. Objective - Vital Signs Vital signs: Vital Signs Temp 98.1 F 10/28/19 05:00 Pulse 83 06/10/20 08:00 Resp 20 10/28/19 08:00 BP 142/67 10/28/19 05:00 Pulse Ox 97 10/28/19 05:00 Intake & Output 10/27/19 10/28/19 10/28/19 18:59 06:59 18:59 Intake Total 480 1380 Output Total 500 Balance 480 880 Intake: Intake, IV Titration 480 Amount Sodium Chloride 0.9% 1, 480 000 ml @ 80 mls/hr IV . [id number] [facility] Rx#:[id number] Oral 480 900 Output: Urine 500 Other: Voiding Method Indwelling Catheter Indwelling Catheter Indwelling Catheter - Labs CBC & Chem 7: 10/28/19 07:15 10/28/19 07:15 Labs: Abnormal Lab Results - Last 24 Hours (Table) 10/27/19 10/27/19 10/27/19 Range/Units 07:49 11:16 16:59 RBC 3.41 L (3.80-5.40) m/uL Hgb 9.4 L (11.4-16.0) gm/dL Hct 32.1 L (34.0-46.0) % MCHC 29.2 L (31.0-37.0) g/dL RDW 17.7 H (11.5-15.5) % Lymphocytes # 0.5 L (1.0-4.8) k/uL Chloride (98-107) mmol/L BUN (7-17) mg/dL Glucose (74-99) mg/dL POC Glucose (mg/dL) 149 H 156 H (75-99) mg/dL Calcium (8.4-10.2) mg/dL 10/27/19 10/28/19 10/28/19 Range/Units 20:24 07:09 07:15 RBC 3.07 L (3.80-5.40) m/uL Hgb 8.5 L (11.4-16.0) gm/dL Hct 28.6 L (34.0-46.0) % MCHC 29.7 L (31.0-37.0) g/dL RDW 18.0 H (11.5-15.5) % Lymphocytes # 0.6 L (1.0-4.8) k/uL Chloride (98-107) mmol/L BUN (7-17) mg/dL Glucose (74-99) mg/dL POC Glucose (mg/dL) 110 H 120 H (75-99) mg/dL Calcium (8.4-10.2) mg/dL 10/28/19 Range/Units 07:15 RBC (3.80-5.40) m/uL Hgb (11.4-16.0) gm/dL Hct (34.0-46.0) % MCHC (31.0-37.0) g/dL RDW (11.5-15.5) % Lymphocytes # (1.0-4.8) k/uL Chloride 109 H (98-107) mmol/L BUN 3 L (7-17) mg/dL Glucose 102 H (74-99) mg/dL POC Glucose (mg/dL) (75-99) mg/dL Calcium 8.2 L (8.4-10.2) mg/dL <Reema Chavira - Last Filed: 10/28/19 20:45> Subjective Patient seen and evaluated with nurse practitioner above. Patient denies any abdominal pain. She is eager to eat food. She is passing flatus. Abdomen is soft with midline incision intact with dressing. Hemoglobin has dropped from 9.4-8.5. Hold start of Eliquis for stable hemoglobin. Will need to hold heparin at least 8 hours prior to start of Eliquis Also recommend consultation to oncology for new diagnosis of colon cancer, per colonoscopy biopsy Objective - Vital Signs Vital signs: Vital Signs Temp 98.1 F 10/28/19 20:34 Pulse 80 10/28/19 20:34 Resp 16 10/28/19 20:34 BP 118/62 10/28/19 20:34 Pulse Ox 98 10/28/19 20:34 Intake & Output 10/28/19 10/28/19 10/29/19 06:59 18:59 06:59 Intake Total 1380 Output Total 500 Balance 880 Weight 84.368 kg Intake: Intake, IV Titration 480 Amount Sodium Chloride 0.9% 1, 480 000 ml @ 80 mls/hr IV . [id number] [facility] Rx#:[id number] Oral 900 Output: Urine 500 Other: Voiding Method Indwelling Catheter Indwelling Catheter Indwelling Catheter - Labs CBC & Chem 7: 10/28/19 07:15 10/28/19 07:15 Labs: Abnormal Lab Results - Last 24 Hours (Table) 10/28/19 10/28/19 10/28/19 Range/Units 07:09 07:15 07:15 RBC 3.07 L (3.80-5.40) m/uL Hgb 8.5 L (11.4-16.0) gm/dL Hct 28.6 L (34.0-46.0) % MCHC 29.7 L (31.0-37.0) g/dL RDW 18.0 H (11.5-15.5) % Lymphocytes # 0.6 L (1.0-4.8) k/uL Chloride 109 H (98-107) mmol/L BUN 3 L (7-17) mg/dL Glucose 102 H (74-99) mg/dL POC Glucose (mg/dL) 120 H (75-99) mg/dL Calcium 8.2 L (8.4-10.2) mg/dL 10/28/19 10/28/19 10/28/19 Range/Units 11:07 17:14 20:02 RBC (3.80-5.40) m/uL Hgb (11.4-16.0) gm/dL Hct (34.0-46.0) % MCHC (31.0-37.0) g/dL RDW (11.5-15.5) % Lymphocytes # (1.0-4.8) k/uL Chloride (98-107) mmol/L BUN (7-17) mg/dL Glucose (74-99) mg/dL POC Glucose (mg/dL) 141 H 119 H 170 H (75-99) mg/dL Calcium (8.4-10.2) mg/dL Assessment and Plan (1) Ascending colon malignant neoplasm Current Visit: Yes Status: Acute Code(s): C18.2 - MALIGNANT NEOPLASM OF ASCENDING COLON SNOMED Code(s): 803205019 (2) Iron deficiency anemia Current Visit: Yes Status: Acute Code(s): D50.9 - IRON DEFICIENCY ANEMIA, UNSPECIFIED SNOMED Code(s): 03298949 (3) CVA (cerebral vascular accident) Current Visit: No Status: Acute Code(s): I63.9 - CEREBRAL INFARCTION, UNSPECIFIED SNOMED Code(s): 766552062 (4) History of atrial fibrillation Current Visit: No Status: Acute Code(s): Z86.79 - PERSONAL HISTORY OF OTHER DISEASES OF THE CIRCULATORY SYSTEM SNOMED Code(s): 610739593 (5) Generalized weakness Current Visit: No Status: Acute Code(s): R53.1 - WEAKNESS SNOMED Code(s): 84375179
[2019-10-28] MEDS ORDERED: APIXABAN 5 MG TAB PO SCH (11:00)
[2019-10-28 11:08] LABS: Glucose,Whole Blood 141 mg/dL (75-99)
--- NOTE | 2019-10-28 14:18 | P.PN ---
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 She follows with Dr. Shay. She is POD#2 right hemicolectomy with wound vac placement. She is seen and examined sleeping in bed laying flat in no acute distress. She has no chest pain, shortness of breath, dizziness or palpitations. Blood pressure 111/57 heart rate 69 afebrile and maintaining oxygen saturation on nasal cannula. Laboratory data reviewed, WBC 6.4, hgn 8.5, plt 181, sodium 137, potassium 3.7, creatinine 0.52. GENERAL: Well-appearing, well-nourished and in no acute distress. NECK: Supple without JVD or thyromegaly. LUNGS: Breath sounds clear to auscultation bilaterally. Respiration equal and unlabored. No wheezes, rales or rhonchi. HEART: Irregular rate and rhythm with systolic ejection murmur at the base, no rubs or gallops. S1 and S2 heard. EXTREMITIES: Normal range of motion, no edema. No clubbing or cyanosis. Peripheral pulses intact. ASSESSMENT Acute blood loss anemia Right joanne-colectomy, POD#2 secondary to colonic mass Chronic persistent atrial fibrillation Valvular heart disease s/p prosthetic aortic valve replacement Hypertension Dyslipidemia Diabetes mellitus Peripheral vascular disease, carotid artery disease. Exact details unavailable. PLAN Continue current medical regimen. Resume anti-coagulation when appropriate and safe per surgery team. Nurse Practitioner note has been reviewed, I agree with a documented findings and plan of care. Patient was seen and examined. Objective - Vital Signs Vital signs: Vital Signs Temp 97.5 F L 10/28/19 11:30 Pulse 69 10/28/19 11:30 Resp 18 10/28/19 11:30 BP 111/57 10/28/19 11:30 Pulse Ox 95 10/28/19 11:30 Intake & Output 10/27/19 10/28/19 10/28/19 18:59 06:59 18:59 Intake Total 480 1380 Output Total 500 Balance 480 880 Intake: Intake, IV Titration 480 Amount Sodium Chloride 0.9% 1, 480 000 ml @ 80 mls/hr IV . [id number] ON LICENSE OF [facility] Rx#:[id number] Oral 480 900 Output: Urine 500 Other: Voiding Method Indwelling Catheter Indwelling Catheter Indwelling Catheter - Labs CBC & Chem 7: 10/28/19 07:15 10/28/19 07:15 Labs: Abnormal Lab Results - Last 24 Hours (Table) 10/27/19 10/27/19 10/28/19 Range/Units 16:59 20:24 07:09 RBC (3.80-5.40) m/uL Hgb (11.4-16.0) gm/dL Hct (34.0-46.0) % MCHC (31.0-37.0) g/dL RDW (11.5-15.5) % Lymphocytes # (1.0-4.8) k/uL Chloride (98-107) mmol/L BUN (7-17) mg/dL Glucose (74-99) mg/dL POC Glucose (mg/dL) 156 H 110 H 120 H (75-99) mg/dL Calcium (8.4-10.2) mg/dL 10/28/19 10/28/19 10/28/19 Range/Units 07:15 07:15 11:07 RBC 3.07 L (3.80-5.40) m/uL Hgb 8.5 L (11.4-16.0) gm/dL Hct 28.6 L (34.0-46.0) % MCHC 29.7 L (31.0-37.0) g/dL RDW 18.0 H (11.5-15.5) % Lymphocytes # 0.6 L (1.0-4.8) k/uL Chloride 109 H (98-107) mmol/L BUN 3 L (7-17) mg/dL Glucose 102 H (74-99) mg/dL POC Glucose (mg/dL) 141 H (75-99) mg/dL Calcium 8.2 L (8.4-10.2) mg/dL
[2019-10-28] MEDS: FOLIC ACID 1 MG TAB PO SCH (16:00)
[2019-10-28] MEDS: MULTIVITAMINS, THERA 1 EACH TAB PO SCH (16:00)
[2019-10-28] MEDS: FLUoxetine HCL 20 MG CAP PO SCH (16:00)
[2019-10-28] MEDS: ASPIRIN 81 MG PO SCH (16:00)
[2019-10-28] MEDS: SODIUM CHLORIDE 0.9% 500 ML 500 ML IV SCH (16:06)
[2019-10-28 17:16] LABS: Glucose,Whole Blood 119 mg/dL (75-99)
[2019-10-28] MEDS: TAMSULOSIN 0.4 MG CAP.ER.24H PO SCH (17:41)
[2019-10-28 20:05] LABS: Glucose,Whole Blood 170 mg/dL (75-99)
--- NOTE | 2019-10-28 20:21 | P.PN ---
Progress Note - Text Progress Note Date: 10/28/19 Chief Complaint: Anemia History of presenting complaint: This is a very pleasant 84-year-old patient of Dr. Coles. Resident of [facility]. Chronic stable medical conditions include atrial fibrillation on eliquis,, hyperlipidemia, hypertension, Guillain-Preciado syndrome with lower extremity weakness, hypothyroid, CHF with EF of 50-55%, recent stroke with the weakness in the left arm. Sent in from the [facility] because of hemoglobin 6.3. Patient has been feeling a bit tired. She was recently found to have heme-positive stool. Patient denies any dark stools. Has a bowel movement daily. No nausea vomiting. Does feel a bit tired. Patient was transfused 1 unit of blood.EGD-colonoscopic suggestive gastritis, cecal angiectasia, with ablation, flat cecal polyp removed, 2 ascending colon masses were 3.5 cm-biopsied. On October 25 underwent right hem icolectomy by Dr. Colin. Ascending colon polyp biopsy came back showing moderately differentiated adenocarcinoma. Today-so this morning. Feeling better. Tolerating a liquid diet. Does not rep ort a bowel movement. Pain well controlled. No nausea vomiting. Review of systems: Was done for constitutional, cardiovascular, GI, pulmonary. relevant finding as above Active Medications Acetaminophen (Tylenol Tab) 650 mg PO Q6HR PRN PRN Reason: Pain Alvimopan (Entereg) 12 mg PO BID [facility] Stop: 11/02/19 21:01 Last Admin: 10/28/19 08:46 Dose: 12 mg Documented by: Artificial Tears (Artificial Tear Drops) 1 drops BOTH EYES TID@0800,1200,1700 [facility] Last Admin: 10/28/19 16:01 Dose: 1 drops Documented by: Aspirin (Aspirin) 162 mg PO DAILY@1700 [facility] Last Admin: 10/28/19 16:00 Dose: 162 mg Documented by: Carvedilol (Coreg) 25 mg PO BID@0800,1700 [facility] Last Admin: 10/28/19 16:00 Dose: 25 mg Documented by: Clotrimazole (Lotrimin Cream) 1 applic TOPICAL BID [facility] Last Admin: 10/28/19 08:46 Dose: 1 applic Documented by: Diltiazem HCl (Cardizem Oral) 60 mg PO TID@0600,1400,2100 [facility] Last Admin: 10/28/19 16:02 Dose: 60 mg Documented by: Ferrous Sulfate (Feosol) 325 mg PO BID@0800,2100 [facility] Last Admin: 10/28/19 08:43 Dose: 325 mg Documented by: Fluoxetine HCl (Prozac) 40 mg PO DAILY@1700 [facility] Last Admin: 10/28/19 16:00 Dose: 40 mg Documented by: Folic Acid (Folic Acid) 1 mg PO DAILY@1700 [facility] Last Admin: 10/28/19 16:00 Dose: 1 mg Documented by: Gabapentin (Neurontin) 300 mg PO QID [facility] Last Admin: 10/28/19 17:41 Dose: 300 mg Documented by: Heparin Sodium (Porcine) (Heparin) 5,000 unit SQ Q8HR [facility] Last Admin: 10/28/19 16:02 Dose: 5,000 unit Documented by: Hydromorphone HCl (Dilaudid) 1 mg IVP Q3HR PRN PRN Reason: Severe Pain Piperacillin Sod/Tazobactam (Sod 3.375 gm/ Sodium Chloride) 100 mls @ 25 mls/hr IVPB Q8H [facility] Last Admin: 10/28/19 16:01 Dose: 25 mls/hr Documented by: Sodium Chloride (Saline 0.9%) 500 mls @ 20 mls/hr IV .Q24H [facility] Last Admin: 10/28/19 16:06 Dose: 20 mls/hr Documented by: Insulin Aspart (Novolog) 0 unit SQ ACHS [facility]; Protocol Last Admin: 10/28/19 17:33 Dose: Not Given Documented by: Lactic Acid (Ammonium Lactate) 1 applic TOPICAL DAILY PRN PRN Reason: dry skin on feet Levothyroxine Sodium (Synthroid) 100 mcg PO HS@2100 [facility] Last Admin: 10/27/19 21:41 Dose: 100 mcg Documented by: Lidocaine HCl (.Xylocaine 1% Inj (10mg/Ml) For Iv Start) 0.1 ml INTRADERMA PER PROTOCOL PRN PRN Reason: IV Start Lisinopril (Zestril) 10 mg PO DAILY@2100 [facility] Last Admin: 10/27/19 21:41 Dose: 10 mg Documented by: Miscellaneous Information (Potassium Per Protocol) 1 each MISCELLANE DAILY PRN; Protocol PRN Reason: Per Protocol Miscellaneous Information (Potassium Per Protocol) 1 each MISCELLANE DAILY PRN; Protocol PRN Reason: Per Protocol Multivitamins (Theragran) 1 each PO DAILY@1700 [facility] Last Admin: 10/28/19 16:00 Dose: 1 each Documented by: Naloxone HCl (Narcan) 0.2 mg IV Q2M PRN PRN Reason: Opioid Reversal Ondansetron HCl (Zofran) 4 mg IVP Q8HR PRN PRN Reason: Nausea And Vomiting Pantoprazole Sodium (Protonix) 40 mg PO BID@0800,1700 [facility] Last Admin: 10/28/19 16:00 Dose: 40 mg Documented by: Pravastatin Sodium (Pravachol) 80 mg PO HS@2100 [facility] Last Admin: 10/27/19 21:41 Dose: 80 mg Documented by: Primidone (Mysoline) 100 mg PO HS@2100 [facility] Last Admin: 10/27/19 21:41 Dose: 100 mg Documented by: Primidone (Mysoline) 25 mg PO DAILY@0800 [facility] Last Admin: 10/28/19 08:49 Dose: 25 mg Documented by: Tamsulosin HCl (Flomax) 0.4 mg PO PC-SUPPER [facility] Last Admin: 10/28/19 17:41 Dose: 0.4 mg Documented by: Thiamine HCl (Vitamin B-1) 100 mg PO DAILY@1200 [facility] Last Admin: 10/28/19 08:48 Dose: 100 mg Documented by: Tramadol HCl (Ultram) 50 mg PO Q8H PRN PRN Reason: Pain Last Admin: 10/27/19 23:52 Dose: 50 mg Documented by: Tramadol HCl (Ultram) 50 mg PO QID [facility] Last Admin: 10/28/19 17:41 Dose: 50 mg Documented by: Physical examination: VITAL SIGNS: 97.5, 69, 18, 111/57, 95% on 2 L GENERAL: Propped up in bed, but tired EYES: Pupils equal. Conjunctiva pale HEENT: External appearance of nose and ears normal, oral cavity grossly normal. NECK: JVD not raised; masses not palpable. HEART: Irregular heart sounds; no edema. LUNGS: Respiratory rate normal, decreased breath sounds. ABDOMEN: Soft, tender, abdominal binder in place with a midline dressing, no masses palpable. PSYCH: Answering questions NEUROLOGICAL: [Cranial nerves grossly intact; no facial asymmetry, weakness of both lower extremities., Weakness of the left arm. INVESTIGATIONS, reviewed in the clinical context: White count 6.4 hemoglobin 8.5 potassium 3.7 creatinine 0.5 to Presenting labs: White count 4.7 hemoglobin 6.8 platelets 206 potassium 5.6 creatinine 0.83 Stool occult blood positive, COVID 19 PCR-not detected Previous labs: Hemoglobin 7.6 on October 13 EGD/Colonoscopy suggestive gastritis, cecal angiectasia, with goal prohibition, flat cecal polyp removed, 2 ascending colon masses were 3.5 cm-biopsied. Assessment: -Acute symptomatic anemia with positive occult blood in a patient was getting antiplatelet agents-symptomatic-,-given one unit of blood -Right hemicolectomy on October [address] Colin for chronic masses -Left arm weakness from a prior stroke -chronic congestive heart failure exacerbation from diastolic dysfunction EF 50- 55%. 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 Ascending colon polyp showed moderately differentiated adenocarcinoma -DO NOT RESUSCITATE Plan: -Continue current medication treatment plan. Diet advance to regular for supper tonight by surgery. Hopefully DC to [facility] of okay with surgery.
[2019-10-28] MEDS: PRIMIDONE 50 MG TAB PO SCH (20:48)
[2019-10-28] MEDS: PRAVASTATIN SODIUM 80 MG TAB PO SCH (20:48)
[2019-10-28] MEDS: LISINOPRIL 10 MG TAB PO SCH (20:49)
[2019-10-28] MEDS: LEVOTHYROXINE 100 MCG TAB PO SCH (20:50)
[2019-10-28] MEDS ORDERED: HEPARIN SODIUM,PORCINE 5,000 UNIT/ML 1 ML VIAL ONE (23:30)
[2019-10-29] MEDS: HEPARIN SODIUM,PORCINE 5,000 UNIT/ML 1 ML VIAL SQ SCH (04:31)
[2019-10-29] MEDS: PIPERACILLIN-TAZOBACTAM 3.375 GM in SODIUM CHLORIDE 0.9% 100 ML IVPB SCH ×3 (04:31→17:42)
[2019-10-29] MEDS: DILTIAZEM ORAL 60 MG TAB PO SCH ×3 (05:13→21:01)
[2019-10-29 07:12] LABS: Glucose,Whole Blood 113 mg/dL (75-99)
[2019-10-29] MEDS: INSULIN ASPART (NovoLOG) 100 UNIT/ML VIAL SQ SCH ×4 (07:25→21:01)
[2019-10-29 07:48] LABS: Anisocytosis Slight; Basophils % (A) 1 %; Eosinophils # (A) 0.2 k/uL (0-0.7); Eosinophils % (A) 3 %; HCT 27.8 % (34.0-46.0); HGB 8.3 gm/dL (11.4-16.0); Hypochromasia Marked; Lymphocytes # (A) 0.6 k/uL (1.0-4.8); Lymphocytes % (A) 11 %; MCH 28.3 pg (25.0-35.0); MCHC 29.9 g/dL (31.0-37.0); MCV 94.7 fL (80.0-100.0); Mean Platelet Volume 7.7; Monocytes # (A) 0.4 k/uL (0-1.0); Monocytes % (A) 8 %; Neutrophils # (A) 4.3 k/uL (1.3-7.7); Neutrophils % (A) 75 %; Platelet Count 194 k/uL (150-450); Poikilocytosis Slight; RBC 2.94 m/uL (3.80-5.40); RDW 17.3 % (11.5-15.5); WBC 5.7 k/uL (3.8-10.6)
[2019-10-29 07:54] LABS: African American GFR (CKD) >90 (>60 ml/min/1.73 sqM); Anion Gap 4 mmol/L; Blood Urea Nitrogen 4 mg/dL (7-17); Carbon Dioxide 25 mmol/L (22-30); Chloride 110 mmol/L (98-107); Glucose 98 mg/dL (74-99); Non-African American GFR(CKD) 87 (>60 ml/min/1.73 sqM); Potassium 3.6 mmol/L (3.5-5.1); Sodium 139 mmol/L (137-145)
[2019-10-29] MEDS: GABAPENTIN 300 MG CAP PO SCH ×3 (09:06→17:42)
[2019-10-29] MEDS: PANTOPRAZOLE 40 MG TABLET PO SCH ×2 (09:07→17:42)
[2019-10-29] MEDS: traMADol 50 MG TAB PO SCH ×4 (09:07→23:03)
[2019-10-29] MEDS: CARVEDILOL 12.5 MG TAB PO SCH ×2 (09:07→17:39)
[2019-10-29] MEDS: FERROUS SULFATE 325 MG TAB PO SCH ×2 (09:07→21:01)
[2019-10-29] MEDS: ALVIMOPAN 12 MG CAPSULE PO SCH ×2 (09:13→21:00)
[2019-10-29] MEDS: CLOTRIMAZOLE 1% CREAM 15 GM TUBE TOPICAL SCH ×2 (09:14→21:02)
[2019-10-29] MEDS: ARTIFICIAL TEARS-HYPROMELLOSE DROPS 15 ML BTL BOTH EYES SCH ×3 (09:14→17:42)
[2019-10-29] MEDS: PRIMIDONE 25 MG TAB PO SCH (09:14)
--- NOTE | 2019-10-29 09:44 | P.PN ---
<Trish Roach Brenda - Last Filed: 10/29/19 09:40> Subjective Progress Note Date: 10/29/19 CHIEF COMPLAINT: Colon cancer HISTORY OF PRESENT ILLNESS: 84-year-old female who is status post open extended right hemicolectomy. Postop day #3. Patient examined at the bedside. Patient states her pain is tolerable. She is tolerating diet. Denies nausea or vomiting. Denies passing flatus this morning but states she was passing flatus yesterday. No BM thus far. Vital signs are stable. She is afebrile. WBC 5.7. Hemoglobin 8.3. PHYSICAL EXAM: VITAL SIGNS: Reviewed GENERAL: Well-developed in no acute distress. HEENT: No sclera icterus. Extraocular movements grossly intact. Moist buccal mucosa. Head is atraumatic, normocephalic. Hears conversational speech. No nasal drainage. NECK: Supple without lymphadenopathy. CHEST: Non-labored respirations and equal bilateral excursions. CARDIOVASCULAR: Irregular rhythm. Palpable 2+ radial pulses. ABDOMEN: Soft. Nondistended. Appropriate surgical tenderness. PREVENA wound vac noted. MUSCULOSKELETAL: No clubbing or cyanosis. NEUROLOGIC: No focal or lateralizing signs. Cranial nerves II through XII grossly intact. PSYCH: Appropriate affect. Alert and oriented x 1-2. SKIN: Well perfused. Good skin turgor. ASSESSMENT: 1. Ascending colon cancer 2. Acute anemia status post blood transfusions 3. Telangiectasias of the cecum 4. Iron deficiency anemia 5. History of cerebrovascular accident with sequela 6. History of ovarian cancer status post hysterectomy 7. Ischemic cardiomyopathy 8. Chronic atrial fibrillation 9. Moderate severe pulmonary hypertension 10. Bladder atony, urinary retention 11. Hypothyroidism 12. Chronic anticoagulant use 13. Neuropathy 14. Diabetes type 2, insulin-dependent 15. Congestive heart failure with left ventricular dysfunction 16. Depressive disorder 17. Hyperlipidemia 18. History of aortic valvular replacement PLAN: -Continue diet as tolerated -Resume Eliquis today. Repeat hemoglobin tomorrow -Cardiology following -Incentive spirometer -Activity as tolerated. PT/OT on consult. -Discontinue benitez catheter -Optifoam dressing ordered. May discontinue PREVENA prior to discharge -Recommend holding discharge until at least tomorrow to repeat hemoglobin and ensure patient has a bowel movement prior to discharge Nurse practitioner note has been reviewed by physician. Signing provider agrees with the documented findings, assessment, and plan of care. Objective - Vital Signs Vital signs: Vital Signs Temp 98.2 F 10/29/19 04:17 Pulse 83 10/29/19 08:00 Resp 16 10/29/19 08:00 BP 126/72 10/29/19 04:17 Pulse Ox 97 10/29/19 04:17 Intake & Output 10/28/19 10/29/19 10/29/19 18:59 06:59 18:59 Output Total 725 Balance -725 Weight 84.368 kg Output: Urine 725 Other: Voiding Method Indwelling Catheter Indwelling Catheter Indwelling Catheter - Labs CBC & Chem 7: 10/29/19 07:09 10/29/19 07:09 Labs: Abnormal Lab Results - Last 24 Hours (Table) 10/28/19 10/28/19 10/28/19 Range/Units 11:07 17:14 20:02 RBC (3.80-5.40) m/uL Hgb (11.4-16.0) gm/dL Hct (34.0-46.0) % MCHC (31.0-37.0) g/dL RDW (11.5-15.5) % Lymphocytes # (1.0-4.8) k/uL Chloride (98-107) mmol/L BUN (7-17) mg/dL POC Glucose (mg/dL) 141 H 119 H 170 H (75-99) mg/dL Calcium (8.4-10.2) mg/dL 10/29/19 10/29/19 10/29/19 Range/Units 07:09 07:09 07:10 RBC 2.94 L (3.80-5.40) m/uL Hgb 8.3 L (11.4-16.0) gm/dL Hct 27.8 L (34.0-46.0) % MCHC 29.9 L (31.0-37.0) g/dL RDW 17.3 H (11.5-15.5) % Lymphocytes # 0.6 L (1.0-4.8) k/uL Chloride 110 H (98-107) mmol/L BUN 4 L (7-17) mg/dL POC Glucose (mg/dL) 113 H (75-99) mg/dL Calcium 8.0 L (8.4-10.2) mg/dL <CaitReema N - Last Filed: 10/29/19 23:04> Subjective Patient seen and evaluated with nurse practitioner. Patient reports no passage of flatus. She denies any bowel movements this morning. She reports that her abdominal cramps are improving. Hemoglobin remains over 8.0. Recommend change abdominal dressing. Full liquid diet. Recheck hemoglobin in 24 hrs after restarting anticoagulant. Discontinue Benitez catheter as patient is on Flomax. Objective - Vital Signs Vital signs: Vital Signs Temp 98.3 F 10/29/19 20:30 Pulse 85 10/29/19 20:30 Resp 16 10/29/19 20:30 BP 129/75 10/29/19 20:30 Pulse Ox 95 10/29/19 20:30 Intake & Output 10/29/19 10/29/19 10/30/19 06:59 18:59 06:59 Output Total 725 375 Balance -725 -375 Output: Urine 725 375 Other: Voiding Method Indwelling Catheter Indwelling Catheter - Labs CBC & Chem 7: 10/29/19 07:09 10/29/19 07:09 Labs: Abnormal Lab Results - Last 24 Hours (Table) 10/29/19 10/29/19 10/29/19 Range/Units 07:09 07:09 07:10 RBC 2.94 L (3.80-5.40) m/uL Hgb 8.3 L (11.4-16.0) gm/dL Hct 27.8 L (34.0-46.0) % MCHC 29.9 L (31.0-37.0) g/dL RDW 17.3 H (11.5-15.5) % Lymphocytes # 0.6 L (1.0-4.8) k/uL Chloride 110 H (98-107) mmol/L BUN 4 L (7-17) mg/dL POC Glucose (mg/dL) 113 H (75-99) mg/dL Calcium 8.0 L (8.4-10.2) mg/dL 10/29/19 10/29/19 10/29/19 Range/Units 11:25 17:43 20:35 RBC (3.80-5.40) m/uL Hgb (11.4-16.0) gm/dL Hct (34.0-46.0) % MCHC (31.0-37.0) g/dL RDW (11.5-15.5) % Lymphocytes # (1.0-4.8) k/uL Chloride (98-107) mmol/L BUN (7-17) mg/dL POC Glucose (mg/dL) 114 H 141 H 149 H (75-99) mg/dL Calcium (8.4-10.2) mg/dL Assessment and Plan (1) Ascending colon malignant neoplasm Current Visit: Yes Status: Acute Code(s): C18.2 - MALIGNANT NEOPLASM OF ASCENDING COLON SNOMED Code(s): 166032610 (2) Iron deficiency anemia Current Visit: Yes Status: Acute Code(s): D50.9 - IRON DEFICIENCY ANEMIA, UNSPECIFIED SNOMED Code(s): 33162978 (3) CVA (cerebral vascular accident) Current Visit: No Status: Acute Code(s): I63.9 - CEREBRAL INFARCTION, UNSPECIFIED SNOMED Code(s): 606019180 (4) History of atrial fibrillation Current Visit: No Status: Acute Code(s): Z86.79 - PERSONAL HISTORY OF OTHER DISEASES OF THE CIRCULATORY SYSTEM SNOMED Code(s): 844686520 (5) Generalized weakness Current Visit: No Status: Acute Code(s): R53.1 - WEAKNESS SNOMED Code(s): 22487255
[2019-10-29 11:27] LABS: Glucose,Whole Blood 114 mg/dL (75-99)
--- NOTE | 2019-10-29 12:26 | P.PN ---
Subjective This is a pleasant 84-year-old female past medical history significant for valvular heart disease s/p prostheic aortic valve replacement, persistent atrial fibrillation on [employer] anti-coagulation, CVA, hypertension, dyslipidemia, cardiomyopathy and diabetes mellitus. She follows with Dr. Shay. She is POD#3 right hemicolectomy with wound vac placement. She is seen and examined sitting up in bed eating breakfast. She is complaining of abdominal discomfort and low back pain. She has no chest pain, shortness of breath, dizziness or palpitation s. Blood pressure 126/72 heart rate 82 afebrile and maintaining oxygen saturation on nasal cannula. Laboratory data reviewed, WBC 5.7, hgb 8.3, plt 194, sodium 139, potassium 3.6, creatinine 0.52. GENERAL: Well-appearing, well-nourished and in no acute distress. NECK: Supple without JVD or thyromegaly. LUNGS: Breath sounds clear to auscultation bilaterally. Respiration equal and unlabored. No wheezes, rales or rhonchi. HEART: Irregular rate and rhythm with systolic ejection murmur at the base, no rubs or gallops. S1 and S2 heard. EXTREMITIES: Normal range of motion, no edema. No clubbing or cyanosis. Peripheral pulses intact. ASSESSMENT Acute blood loss anemia Right joanne-colectomy, POD#3 secondary to colonic mass Chronic persistent atrial fibrillation Valvular heart disease s/p prosthetic aortic valve replacement Hypertension Dyslipidemia Diabetes mellitus Peripheral vascular disease, carotid artery disease. Exact details unavailable. CVA, maintained on aspirin per neurology. Recommend decreasing to 81 mg daily while on [employer] anti-coagulation. PLAN Continue current medical regimen. Resume anti-coagulation when appropriate and safe per surgery team. We will continue to follow as needed, please call with further questions or concerns. Follow up with her primary composite worker in [place] upon discharge. Nurse Practitioner note has been reviewed, I agree with a documented findings and plan of care. Patient was seen and examined. Objective - Vital Signs Vital signs: Vital Signs Temp 98.2 F 10/29/19 04:17 Pulse 83 10/29/19 08:00 Resp 16 10/29/19 08:00 BP 126/72 10/29/19 04:17 Pulse Ox 97 10/29/19 04:17 Intake & Output 10/28/19 10/29/19 10/29/19 18:59 06:59 18:59 Output Total 725 Balance -725 Weight 84.368 kg Output: Urine 725 Other: Voiding Method Indwelling Catheter Indwelling Catheter Indwelling Catheter - Labs CBC & Chem 7: 10/29/19 07:09 10/29/19 07:09 Labs: Abnormal Lab Results - Last 24 Hours (Table) 10/28/19 10/28/19 10/28/19 Range/Units 11:07 17:14 20:02 RBC (3.80-5.40) m/uL Hgb (11.4-16.0) gm/dL Hct (34.0-46.0) % MCHC (31.0-37.0) g/dL RDW (11.5-15.5) % Lymphocytes # (1.0-4.8) k/uL Chloride (98-107) mmol/L BUN (7-17) mg/dL POC Glucose (mg/dL) 141 H 119 H 170 H (75-99) mg/dL Calcium (8.4-10.2) mg/dL 10/29/19 10/29/19 10/29/19 Range/Units 07:09 07:09 07:10 RBC 2.94 L (3.80-5.40) m/uL Hgb 8.3 L (11.4-16.0) gm/dL Hct 27.8 L (34.0-46.0) % MCHC 29.9 L (31.0-37.0) g/dL RDW 17.3 H (11.5-15.5) % Lymphocytes # 0.6 L (1.0-4.8) k/uL Chloride 110 H (98-107) mmol/L BUN 4 L (7-17) mg/dL POC Glucose (mg/dL) 113 H (75-99) mg/dL Calcium 8.0 L (8.4-10.2) mg/dL
[2019-10-29] MEDS: THIAMINE 100 MG TAB PO SCH (13:11)
[2019-10-29] MEDS: APIXABAN 2.5 MG TABLET PO SCH ×2 (13:12→17:50)
[2019-10-29] MEDS: SODIUM CHLORIDE 0.9% 500 ML 500 ML IV SCH (13:14)
[2019-10-29] MEDS: FOLIC ACID 1 MG TAB PO SCH (17:39)
[2019-10-29] MEDS: ASPIRIN 81 MG PO SCH (17:39)
[2019-10-29] MEDS: FLUoxetine HCL 20 MG CAP PO SCH (17:39)
[2019-10-29] MEDS: MULTIVITAMINS, THERA 1 EACH TAB PO SCH (17:42)
[2019-10-29] MEDS: TAMSULOSIN 0.4 MG CAP.ER.24H PO SCH (17:42)
[2019-10-29 17:47] LABS: Glucose,Whole Blood 141 mg/dL (75-99)
[2019-10-29 20:54] LABS: Glucose,Whole Blood 149 mg/dL (75-99)
[2019-10-29] MEDS: PRAVASTATIN SODIUM 80 MG TAB PO SCH (21:00)
[2019-10-29] MEDS: LEVOTHYROXINE 100 MCG TAB PO SCH (21:00)
[2019-10-29] MEDS: PRIMIDONE 50 MG TAB PO SCH (21:01)
[2019-10-29] MEDS: LISINOPRIL 10 MG TAB PO SCH (21:01)
--- NOTE | 2019-10-29 21:30 | P.PN ---
Progress Note - Text Progress Note Date: 10/29/19 Chief Complaint: Anemia History of presenting complaint: This is a very pleasant 84-year-old patient of Dr. Coles. Resident of [facility]. Chronic stable medical conditions include atrial fibrillation on eliquis,, hyperlipidemia, hypertension, Guillain-Preciado syndrome with lower extremity weakness, hypothyroid, CHF with EF of 50-55%, recent stroke with the weakness in the left arm. Sent in from the [facility] because of hemoglobin 6.3. Patient has been feeling a bit tired. She was recently found to have heme-positive stool. Patient denies any dark stools. Has a bowel movement daily. No nausea vomiting. Does feel a bit tired. Patient was transfused 1 unit of blood.EGD-colonoscopic suggestive gastritis, cecal angiectasia, with ablation, flat cecal polyp removed, 2 ascending colon masses were 3.5 cm-biopsied. On October 25 underwent right hem icolectomy by Dr. Colin. Ascending colon polyp biopsy came back showing moderately differentiated adenocarcinoma. Today-eating 50% of her breakfast. Slight abdominal pain. No bowel movement. Occasionally confused. Review of systems: Was done for constitutional, cardiovascular, GI, pulmonary. relevant finding as above Active Medications Acetaminophen (Tylenol Tab) 650 mg PO Q6HR PRN PRN Reason: Pain Alvimopan (Entereg) 12 mg PO BID [facility] Stop: 11/02/19 21:01 Last Admin: 10/29/19 21:00 Dose: 12 mg Documented by: Apixaban (Eliquis) 2.5 mg PO BID@0800,1700 [facility] Last Admin: 10/29/19 17:50 Dose: 2.5 mg Documented by: Artificial Tears (Artificial Tear Drops) 1 drops BOTH EYES TID@0800,1200,1700 [facility] Last Admin: 10/29/19 17:42 Dose: 1 drops Documented by: Aspirin (Aspirin) 162 mg PO DAILY@1700 [facility] Last Admin: 10/29/19 17:39 Dose: 162 mg Documented by: Carvedilol (Coreg) 25 mg PO BID@0800,1700 [facility] Last Admin: 10/29/19 17:39 Dose: 25 mg Documented by: Clotrimazole (Lotrimin Cream) 1 applic TOPICAL BID [facility] Last Admin: 10/29/19 21:02 Dose: 1 applic Documented by: Diltiazem HCl (Cardizem Oral) 60 mg PO TID@0600,1400,2100 [facility] Last Admin: 10/29/19 21:01 Dose: 60 mg Documented by: Ferrous Sulfate (Feosol) 325 mg PO BID@0800,2100 [facility] Last Admin: 10/29/19 21:01 Dose: 325 mg Documented by: Fluoxetine HCl (Prozac) 40 mg PO DAILY@1700 [facility] Last Admin: 10/29/19 17:39 Dose: 40 mg Documented by: Folic Acid (Folic Acid) 1 mg PO DAILY@1700 [facility] Last Admin: 10/29/19 17:39 Dose: 1 mg Documented by: Gabapentin (Neurontin) 300 mg PO QID [facility] Last Admin: 10/29/19 17:42 Dose: 300 mg Documented by: Hydromorphone HCl (Dilaudid) 1 mg IVP Q3HR PRN PRN Reason: Severe Pain Piperacillin Sod/Tazobactam (Sod 3.375 gm/ Sodium Chloride) 100 mls @ 25 mls/hr IVPB Q8H [facility] Last Admin: 10/29/19 17:42 Dose: 25 mls/hr Documented by: Sodium Chloride (Saline 0.9%) 500 mls @ 20 mls/hr IV .Q24H [facility] Last Admin: 10/29/19 13:14 Dose: Not Given Documented by: Insulin Aspart (Novolog) 0 unit SQ [facility]; Protocol Last Admin: 10/29/19 21:01 Dose: 1 unit Documented by: Lactic Acid (Ammonium Lactate) 1 applic TOPICAL DAILY PRN PRN Reason: dry skin on feet Levothyroxine Sodium (Synthroid) 100 mcg PO HS@2099 [facility] Last Admin: 10/29/19 21:00 Dose: 100 mcg Documented by: Lidocaine HCl (.Xylocaine 1% Inj (10mg/Ml) For Iv Start) 0.1 ml INTRADERMA PER PROTOCOL PRN PRN Reason: IV Start Lisinopril (Zestril) 10 mg PO DAILY@2099 [facility] Last Admin: 10/29/19 21:01 Dose: 10 mg Documented by: Miscellaneous Information (Potassium Per Protocol) 1 each MISCELLANE DAILY PRN; Protocol PRN Reason: Per Protocol Miscellaneous Information (Potassium Per Protocol) 1 each MISCELLANE DAILY PRN; Protocol PRN Reason: Per Protocol Multivitamins (Theragran) 1 each PO DAILY@1700 [facility] Last Admin: 10/29/19 17:42 Dose: 1 each Documented by: Naloxone HCl (Narcan) 0.2 mg IV Q2M PRN PRN Reason: Opioid Reversal Ondansetron HCl (Zofran) 4 mg IVP Q8HR PRN PRN Reason: Nausea And Vomiting Pantoprazole Sodium (Protonix) 40 mg PO BID@0800,1700 [facility] Last Admin: 10/29/19 17:42 Dose: 40 mg Documented by: Pravastatin Sodium (Pravachol) 80 mg PO HS@2100 [facility] Last Admin: 10/29/19 21:00 Dose: 80 mg Documented by: Primidone (Mysoline) 100 mg PO HS@2100 [facility] Last Admin: 10/29/19 21:01 Dose: 100 mg Documented by: Primidone (Mysoline) 25 mg PO DAILY@0800 [facility] Last Admin: 10/29/19 09:14 Dose: 25 mg Documented by: Tamsulosin HCl (Flomax) 0.4 mg PO PC-SUPPER [facility] Last Admin: 10/29/19 17:42 Dose: 0.4 mg Documented by: Thiamine HCl (Vitamin B-1) 100 mg PO DAILY@1200 [facility] Last Admin: 10/29/19 13:11 Dose: 100 mg Documented by: Tramadol HCl (Ultram) 50 mg PO Q8H PRN PRN Reason: Pain Last Admin: 10/27/19 23:52 Dose: 50 mg Documented by: Tramadol HCl (Ultram) 50 mg PO QID [facility] Last Admin: 10/29/19 17:39 Dose: 50 mg Documented by: Physical examination: VITAL SIGNS: 98, 92, 15, 147/80, 92% room air GENERAL: Propped up in bed, slightly confused EYES: Pupils equal. Conjunctiva pale HEENT: External appearance of nose and ears normal, oral cavity grossly normal. NECK: JVD not raised; masses not palpable. HEART: Irregular heart sounds; no edema. LUNGS: Respiratory rate normal, decreased breath sounds. ABDOMEN: Soft, tender, abdominal binder in place with a midline dressing, no masses palpable. PSYCH: Answering questions occasionally, slightly confused NEUROLOGICAL: [Cranial nerves grossly intact; no facial asymmetry, weakness of both lower extremities., Weakness of the left arm. INVESTIGATIONS, reviewed in the clinical context: White count 5.7 hemoglobin 8.3 potassium 3.6 creatinine 0.5 to Presenting labs: White count 4.7 hemoglobin 6.8 platelets 206 potassium 5.6 creatinine 0.83 Stool occult blood positive, COVID 19 PCR-not detected Previous labs: Hemoglobin 7.6 on October 13 EGD/Colonoscopy suggestive gastritis, cecal angiectasia, with goal prohibition, flat cecal polyp removed, 2 ascending colon masses were 3.5 cm-biopsied. Assessment: -Acute symptomatic anemia with positive occult blood in a patient was getting antiplatelet agents-symptomatic-,-given one unit of blood -Right hemicolectomy on October [address] Colin for colonic masses-showing moderately differentiated adenocarcinoma with resected margins negative -Left arm weakness from a prior stroke -chronic congestive heart failure exacerbation from diastolic dysfunction EF 50- 55%. 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 Ascending colon polyp showed moderately differentiated adenocarcinoma -DO NOT RESUSCITATE -Acute delirium multifactorial. Plan: -DC Dilaudid. Cut back the dose of Neurontin. Other medications to continue. Patient also on entereg
[2019-10-29 21:34] VITALS: RESP 16
[2019-10-30] MEDS: PIPERACILLIN-TAZOBACTAM 3.375 GM in SODIUM CHLORIDE 0.9% 100 ML IVPB SCH ×2 (00:15→09:18)
[2019-10-30] MEDS: DILTIAZEM ORAL 60 MG TAB PO SCH ×2 (06:24→13:22)
[2019-10-30 06:35] VITALS: BP 112/53; TEMP 98.6
[2019-10-30 07:15] LABS: Anisocytosis Slight; Basophils % (A) 1 %; Eosinophils # (A) 0.1 k/uL (0-0.7); Eosinophils % (A) 3 %; HCT 28.5 % (34.0-46.0); HGB 8.6 gm/dL (11.4-16.0); Hypochromasia Marked; Lymphocytes # (A) 0.8 k/uL (1.0-4.8); Lymphocytes % (A) 15 %; MCH 28.3 pg (25.0-35.0); MCHC 30.2 g/dL (31.0-37.0); MCV 93.9 fL (80.0-100.0); Monocytes # (A) 0.4 k/uL (0-1.0); Monocytes % (A) 7 %; Neutrophils # (A) 3.6 k/uL (1.3-7.7); Neutrophils % (A) 72 %; Platelet Count 203 k/uL (150-450); Poikilocytosis Slight; RBC 3.03 m/uL (3.80-5.40); RDW 17.2 % (11.5-15.5)
[2019-10-30 07:30] LABS: Glucose,Whole Blood 105 mg/dL (75-99)
[2019-10-30] MEDS: INSULIN ASPART (NovoLOG) 100 UNIT/ML VIAL SQ SCH ×2 (08:24→12:36)
[2019-10-30] MEDS: PANTOPRAZOLE 40 MG TABLET PO SCH (09:16)
[2019-10-30] MEDS: THIAMINE 100 MG TAB PO SCH (09:16)
[2019-10-30] MEDS: ALVIMOPAN 12 MG CAPSULE PO SCH (09:16)
[2019-10-30] MEDS: PRIMIDONE 25 MG TAB PO SCH (09:16)
[2019-10-30] MEDS: APIXABAN 2.5 MG TABLET PO SCH (09:17)
[2019-10-30] MEDS: CARVEDILOL 12.5 MG TAB PO SCH (09:17)
[2019-10-30] MEDS: traMADol 50 MG TAB PO SCH ×2 (09:17→13:20)
[2019-10-30] MEDS: FERROUS SULFATE 325 MG TAB PO SCH (09:17)
[2019-10-30] MEDS: GABAPENTIN 300 MG CAP PO SCH ×2 (09:17→09:23)
[2019-10-30] MEDS: ARTIFICIAL TEARS-HYPROMELLOSE DROPS 15 ML BTL BOTH EYES SCH ×2 (09:20→13:23)
[2019-10-30] MEDS: CLOTRIMAZOLE 1% CREAM 15 GM TUBE TOPICAL SCH (09:22)
--- NOTE | 2019-10-30 10:15 | P.PN ---
<Trish Roach Brenda - Last Filed: 10/30/19 10:12> Subjective Progress Note Date: 10/30/19 CHIEF COMPLAINT: Colon cancer HISTORY OF PRESENT ILLNESS: 84-year-old female who is status post open extended right hemicolectomy. Postop day #4. Patient examined at the bedside. Patient states her pain is tolerable. She is tolerating diet. Denies nausea or vomiting. She reports passing flatus and having a bowel movement. WBC 5.0. Hemoglobin 8.6. PHYSICAL EXAM: VITAL SIGNS: Reviewed GENERAL: Well-developed in no acute distress. HEENT: No sclera icterus. Extraocular movements grossly intact. Moist buccal mucosa. Head is atraumatic, normocephalic. Hears conversational speech. No nasal drainage. NECK: Supple without lymphadenopathy. CHEST: Non-labored respirations and equal bilateral excursions. CARDIOVASCULAR: Irregular rhythm. Palpable 2+ radial pulses. ABDOMEN: Soft. Nondistended. Appropriate surgical tenderness. PREVENA wound vac noted. MUSCULOSKELETAL: No clubbing or cyanosis. NEUROLOGIC: No focal or lateralizing signs. Cranial nerves II through XII grossly intact. PSYCH: Appropriate affect. Alert and oriented x 2. SKIN: Well perfused. Good skin turgor. ASSESSMENT: 1. Ascending colon cancer 2. Acute anemia status post blood transfusions 3. Telangiectasias of the cecum 4. Iron deficiency anemia 5. History of cerebrovascular accident with sequela 6. History of ovarian cancer status post hysterectomy 7. Ischemic cardiomyopathy 8. Chronic atrial fibrillation 9. Moderate severe pulmonary hypertension 10. Bladder atony, urinary retention 11. Hypothyroidism 12. Chronic anticoagulant use 13. Neuropathy 14. Diabetes type 2, insulin-dependent 15. Congestive heart failure with left ventricular dysfunction 16. Depressive disorder 17. Hyperlipidemia 18. History of aortic valvular replacement PLAN: -Continue diet as tolerated -Incentive spirometer -Activity as tolerated. PT/OT on consult. -Adorno catheter discontinued -PREVENA discontinued. Optifoam dressing applied -Stable for discharge today from a surgical standpoint. Will defer to internal medicine Nurse practitioner note has been reviewed by physician. Signing provider agrees with the documented findings, assessment, and plan of care. Objective - Vital Signs Vital signs: Vital Signs Temp 98.6 F 10/30/19 05:22 Pulse 77 10/30/19 05:22 Resp 16 10/30/19 05:22 BP 112/53 10/30/19 05:22 Pulse Ox 95 10/30/19 05:22 Intake & Output 10/29/19 10/30/19 10/30/19 18:59 06:59 18:59 Intake Total 400 Output Total 375 825 Balance -375 -425 Intake: Intake, IV Titration 280 Amount Piperacillin-Tazobactam 3 100 .375 gm In Sodium Chloride 0.9% 100 ml @ 25 mls/hr IVPB Q8H [facility] Rx#: [id number] Sodium Chloride 0.9% 500 180 ml 500 ml @ 20 mls/hr IV .Q24H [facility] Rx#:[id number] Oral 120 Output: Urine 375 825 Other: Voiding Method Indwelling Catheter Indwelling Catheter # Bowel Movements 1 - Labs CBC & Chem 7: 10/30/19 07:00 10/29/19 07:09 Labs: Abnormal Lab Results - Last 24 Hours (Table) 10/29/19 10/29/19 10/29/19 Range/Units 11:25 17:43 20:35 RBC (3.80-5.40) m/uL Hgb (11.4-16.0) gm/dL Hct (34.0-46.0) % MCHC (31.0-37.0) g/dL RDW (11.5-15.5) % Lymphocytes # (1.0-4.8) k/uL POC Glucose (mg/dL) 114 H 141 H 149 H (75-99) mg/dL 10/30/19 10/30/19 Range/Units 07:00 07:28 RBC 3.03 L (3.80-5.40) m/uL Hgb 8.6 L (11.4-16.0) gm/dL Hct 28.5 L (34.0-46.0) % MCHC 30.2 L (31.0-37.0) g/dL RDW 17.2 H (11.5-15.5) % Lymphocytes # 0.8 L (1.0-4.8) k/uL POC Glucose (mg/dL) 105 H (75-99) mg/dL <Reema Chavira N - Last Filed: 10/30/19 14:32> Subjective Patient seen and evaluated with nurse practitioner. Agree with above. At bedside, midline dressing discontinued. Additionally Adorno discontinued by the surgical team. Patient's tolerating diet and passing flatus and has bowel movements. Hemoglobin has been stable. Recommend follow-up in the office in 1- 2 weeks. Mild area of epidermal lysis along umbilicus expected to develop with eschar. No signs of infection. No cellulitis or midline incision. Objective - Vital Signs Vital signs: Vital Signs Temp 98.6 F 10/30/19 05:22 Pulse 80 10/30/19 08:00 Resp 16 10/30/19 08:00 BP 112/53 10/30/19 05:22 Pulse Ox 95 10/30/19 05:22 Intake & Output 10/29/19 10/30/19 10/30/19 18:59 06:59 18:59 Intake Total 400 1080 Output Total 375 825 825 Balance -375 -425 255 Intake: Intake, IV Titration 280 Amount Piperacillin-Tazobactam 3 100 .375 gm In Sodium Chloride 0.9% 100 ml @ 25 mls/hr IVPB Q8H [facility] Rx#: [id number] Sodium Chloride 0.9% 500 180 ml 500 ml @ 20 mls/hr IV .Q24H [facility] Rx#:[id number] Oral 120 1080 Output: Urine 375 825 825 Other: Voiding Method Indwelling Catheter Indwelling Catheter # Voids 2 # Bowel Movements 1 1 - Labs CBC & Chem 7: 10/30/19 07:00 10/29/19 07:09 Labs: Abnormal Lab Results - Last 24 Hours (Table) 10/29/19 10/29/19 10/30/19 Range/Units 17:43 20:35 07:00 RBC 3.03 L (3.80-5.40) m/uL Hgb 8.6 L (11.4-16.0) gm/dL Hct 28.5 L (34.0-46.0) % MCHC 30.2 L (31.0-37.0) g/dL RDW 17.2 H (11.5-15.5) % Lymphocytes # 0.8 L (1.0-4.8) k/uL POC Glucose (mg/dL) 141 H 149 H (75-99) mg/dL 10/30/19 10/30/19 Range/Units 07:28 12:05 RBC (3.80-5.40) m/uL Hgb (11.4-16.0) gm/dL Hct (34.0-46.0) % MCHC (31.0-37.0) g/dL RDW (11.5-15.5) % Lymphocytes # (1.0-4.8) k/uL POC Glucose (mg/dL) 105 H 130 H (75-99) mg/dL Assessment and Plan (1) Ascending colon malignant neoplasm Status: Acute Code(s): C18.2 - MALIGNANT NEOPLASM OF ASCENDING COLON SNOMED Code(s): 910740421 (2) Iron deficiency anemia Status: Acute Code(s): D50.9 - IRON DEFICIENCY ANEMIA, UNSPECIFIED SNOMED Code(s): 76530438 (3) CVA (cerebral vascular accident) Status: Acute Code(s): I63.9 - CEREBRAL INFARCTION, UNSPECIFIED SNOMED Code(s): 004972811 (4) History of atrial fibrillation Status: Acute Code(s): Z86.79 - PERSONAL HISTORY OF OTHER DISEASES OF THE CIRCULATORY SYSTEM SNOMED Code(s): 901340976 (5) Generalized weakness Status: Acute Code(s): R53.1 - WEAKNESS SNOMED Code(s): 67095560
[2019-10-30 12:07] LABS: Glucose,Whole Blood 130 mg/dL (75-99)
[2019-10-30] MEDS: SODIUM CHLORIDE 0.9% 500 ML 500 ML IV SCH (12:35)
--- NOTE | 2019-10-30 13:44 | P.CONS ---
History of Present Illness - Reason for Consult Consult date: 10/29/19 New colon cancer diagnosis Requesting physician: Reema Chavira - Chief Complaint Anemia, GI bleed - History of Present Illness Mrs. Montenegro is a very pleasant 84-year-old female patient who we've been asked to see status post surgical intervention for colon mass. 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 She denies any weight loss, no recent changes in her bowel habits or stool consistency. She is doing well postoperatively, pain is managed. Review of Systems 10 point review of systems is as stated in HPI, patient has some mild confusion Past Medical History Past Medical History: Atrial Fibrillation, Cancer, Diabetes Mellitus, GI Bleed, Hyperlipidemia, Hypertension, Neurologic Disorder, Thyroid Disorder Additional Past Medical History / Comment(s): guillain-barre syndrome. ovarian cancer with hysterectomy 1972. anemia History of Any Multi-Drug Resistant Organisms: None Reported Past Surgical History: Hysterectomy, Orthopedic Surgery Additional Past Surgical History / Comment(s): bilateral knee surgery , right rotor cuff surgery, Past Anesthesia/Blood Transfusion Reactions: No Reported Reaction Past Psychological History: Depression Smoking Status: Former smoker Past Alcohol Use History: None Reported Additional Past Alcohol Use History / Comment(s): Patient quit smoking prior to 05/23/2019 hospital admission Past Drug Use History: None Reported - Past Family History Sister(s) Family Medical History: Cancer Medications and Allergies Home Medications Medication Instructions Recorded Confirmed Type Carvedilol [Coreg] 25 mg PO BID@0800,17002/15/19 10/19/19 History FLUoxetine HCL [PROzac] 40 mg PO DAILY@169902/15/19 10/19/19 History Levothyroxine Sodium [Synthroid] 100 mcg PO HS@209902/15/19 10/19/19 History Pantoprazole [Protonix] 40 mg PO BID@0800,169902/15/19 10/19/19 History Primidone [Mysoline] 100 mg PO HS@209902/15/19 10/19/19 History metFORMIN HCL 500 mg PO BID@0800,169902/15/19 10/19/19 History Artificial Tears-Hypromellose 1 drops BOTH EYES 05/23/19 10/19/19 History [Artificial Tear Drops] TID@0800,1200,2099 Pravastatin Sodium [Pravachol] 80 mg PO HS@209905/23/19 10/19/19 History Thiamine [Vitamin B-1] 100 mg PO DAILY@1200 tab 05/28/19 10/19/19 Rx Bisacodyl 10 mg RECTAL DAILY PRN 06/19/19 10/19/19 History Ferrous Sulfate [Feosol] 325 mg PO BID@0800,1700 06/19/19 10/19/19 History Folic Acid 1 mg PO DAILY@169906/19/19 10/19/19 History Ammonium Lactate Cream [Lac-Hydrin 1 applic TOPICAL DAILY PRN 08/28/19 10/19/19 History 12% Cream] Acetaminophen Tab [Tylenol] 650 mg PO Q6HR PRN 09/20/19 10/19/19 History Apixaban [Eliquis] 2.5 mg PO BID@0800,169909/20/19 10/19/19 History Diltiazem Oral [Cardizem*] 60 mg PO TID@0600,1400,209909/20/19 10/19/19 History Econazole 1% Cream [Spectazole] 1 applic TOPICAL BID 09/20/19 10/19/19 History Magnesium Hydroxide [Milk of 7,200 mg PO DAILY PRN 09/20/19 10/19/19 History Magnesia Concentrate] Multivitamins, Thera [Multivitamin 1 tab PO DAILY@169909/20/19 10/19/19 History (formulary)] Aspirin 162 mg PO DAILY@169910/19/19 10/19/19 History INSULIN ASPART (NovoLOG) [NovoLOG See Protocol SQ ACHS 10/19/19 10/19/19 History (formulary)] Lisinopril [Zestril] 10 mg PO DAILY@209910/19/19 10/19/19 History Primidone [Mysoline] 25 mg PO DAILY@0800 10/19/19 10/19/19 History Gabapentin [Neurontin] 300 mg PO TID #9 cap 10/30/19 Rx Tamsulosin [Flomax] 0.4 mg PO PC-SUPPER cap.er.24h 10/30/19 Rx traMADol HCL [Ultram] 50 mg PO Q6HR PRN 3 Days #12 tab 10/30/19 Rx Allergies Allergy/AdvReac Type Severity Reaction Status Date / Time adhesive tape Allergy Rash/Hives Verified 10/19/19 20:49 influenza virus vaccine, Allergy Unknown Verified 10/19/19 20:49 specific Physical Exam Vitals: Vital Signs Temp Pulse Pulse Resp BP Pulse Ox 10/29/19 08:00 83 82 16 10/29/19 04:17 98.2 F 82 16 126/72 97 10/28/19 20:34 98.1 F 80 16 118/62 98 10/28/19 16:00 83 69 10/28/19 11:30 97.5 F L 69 18 111/57 95 Intake and Output 10/28/19 10/29/19 10/29/19 22:59 06:59 14:59 Output Total 500 225 Balance -500 -225 Output: Urine 500 225 Other: Voiding Method Indwelling Catheter Indwelling Catheter Weight 84.368 kg - Constitutional General appearance: cooperative, no acute distress, obese - EENT Eyes: anicteric sclerae ENT: hearing grossly normal, normal oropharynx - Neck Neck: no lymphadenopathy - Respiratory Respiratory: bilateral: CTA - Cardiovascular Rhythm: regular Heart sounds: normal: S1, S2 Abnormal Heart Sounds: no systolic murmur, no diastolic murmur, no rub, no S3 Gallop, no S4 Gallop, no click, no other leg Peripheral Edema: bilateral: None - Gastrointestinal General gastrointestinal: no absent bowel sounds, decreased bowel sounds, no distended, no hepatomegaly, no hyperactive bowel sounds, no normal bowel sounds, no organomegaly, no rigid, no scaphoid, soft, no splenomegaly, no tenderness, no umbilical hernia, no ventral hernia - Integumentary Integumentary: pale - Neurologic No gross focal or motor or neuro deficits - Musculoskeletal Musculoskeletal: generalized weakness - Psychiatric Some mild confusion, stated that 2009 but, answered all other questions appropriately. Psychiatric: A&O x's 3, appropriate affect, intact judgment & insight Results CBC & Chem 7: 10/30/19 07:00 10/29/19 07:09 Labs: Abnormal Lab Results - Last 24 Hours (Table) 10/28/19 10/28/19 10/28/19 Range/Units 11:07 17:14 20:02 RBC (3.80-5.40) m/uL Hgb (11.4-16.0) gm/dL Hct (34.0-46.0) % MCHC (31.0-37.0) g/dL RDW (11.5-15.5) % Lymphocytes # (1.0-4.8) k/uL Chloride (98-107) mmol/L BUN (7-17) mg/dL POC Glucose (mg/dL) 141 H 119 H 170 H (75-99) mg/dL Calcium (8.4-10.2) mg/dL 10/29/19 10/29/19 10/29/19 Range/Units 07:09 07:09 07:10 RBC 2.94 L (3.80-5.40) m/uL Hgb 8.3 L (11.4-16.0) gm/dL Hct 27.8 L (34.0-46.0) % MCHC 29.9 L (31.0-37.0) g/dL RDW 17.3 H (11.5-15.5) % Lymphocytes # 0.6 L (1.0-4.8) k/uL Chloride 110 H (98-107) mmol/L BUN 4 L (7-17) mg/dL POC Glucose (mg/dL) 113 H (75-99) mg/dL Calcium 8.0 L (8.4-10.2) mg/dL CT scan - abdomen: report reviewed CT scan - pelvis: report reviewed Assessment and Plan (1) Colon adenocarcinoma Narrative/Plan: Final path reveals 1.3 cm tumor, grade 2, penetrating through the muscularis propria, no perforation, clear margins, 0 out of 7 lymph nodes for a final pathological stage of T2 N0, CT of the abdomen and pelvis did not reveal any metastatic disease. AJCC staging, stage I, Martin staging IA-5 year survival greater than 90%. Typically adjuvant chemotherapy in stage I colon cancer would not be recommended. However, staging accuracy may be diminished with less then 12 lymph node sampling. It is unlikely that this would affect clinical mgmt but, it is considered. Factors to consider when deciding on treatment include pt poor PS and residing in an extended care facility. Dr. Muhammad will discuss pathology, prognosis, risk of recurrence and recommendations 4-6 weeks post op. Current Visit: Yes Status: Acute Priority: High Code(s): C18.9 - MALIGNANT NEOPLASM OF COLON, UNSPECIFIED SNOMED Code(s): 318003543 Plan: Thank you very much for the consultation. Doctor attests: I performed a history and physical examination of this patient, developed impression and plan of care. Discussed with dictator. I agree with dictators note, documented as a scribe.
[2019-10-30 14:11] VITALS: PULSE 80
--- NOTE | 2019-10-30 14:43 | P.DS ---
Providers Date of admission: 10/19/19 17:29 Expected date of discharge: 10/30/19 Attending physician: Esvin Paz Consults: 10/22/19 14:54 Consult Physician Routine Consulting Provider: Reema Chavira Consult Reason/Comments: Ascending colon mass Do you want consulting provider notified?: Yes 10/23/19 12:23 Consult Physician Routine Consulting Provider: Jl Lund Consult Reason/Comments: cardiac clearance for surgery Do you want consulting provider notified?: Yes 10/28/19 12:48 Consult Physician Routine Consulting Provider: Marc Muhammad Consult Reason/Comments: Colon cancer, new diagnosis Do you want consulting provider notified?: Yes Primary care physician: [facility] Course: Chief Complaint: Anemia History of presenting complaint: This is a very pleasant 84-year-old patient of Dr. Coles. Resident of [facility]. Chronic stable medical conditions include atrial fibrillation on eliquis,, hyperlipidemia, hypertension, Guillain-Preciado syndrome with lower extremity weakness, hypothyroid, CHF with EF of 50-55%, recent stroke with the weakness in the left arm. Sent in from the [facility] because of hemoglobin 6.3. Patient has been feeling a bit tired. She was recently found to have heme-positive stool. Patient denies any dark stools. Has a bowel movement daily. No nausea vomiting. Does feel a bit tired. Patient was transfused 1 unit of blood.EGD-colonoscopic suggestive gastritis, cecal angiectasia, ablation, flat cecal polyp removed, 2 ascending colon masses were 3.5 cm-biopsied. On October 25 underwent right hemicolectomy by Dr. Colin. Ascending colon polyp biopsy came back showing moderately differentiated adenocarcinoma. Today-delirium improved. Doing much better. Eating better. Cleared by surgery for discharge. Patient answering questions normally. Incision VAC removed. Ultram to be used when necessary. Discussed with [employer] from surgery. Follow up with oncology in 4-5 weeks Discussion and discharge planning more than 35 minutes Consultation: Dr. Colin from general surgery Dr. Muhammad from oncology Dr. Arian Edwards from cardiology Dr. Kohler from GI Physical examination: VITAL SIGNS: 98.6, 77, 16, 112/53, 95% on room air GENERAL: Propped up in bed, awake, EYES: Pupils equal. Conjunctiva pale HEENT: External appearance of nose and ears normal, oral cavity grossly normal. NECK: JVD not raised; masses not palpable. HEART: Irregular heart sounds; no edema. LUNGS: Respiratory rate normal, decreased breath sounds. ABDOMEN: Soft, minimal tenderness, abdominal binder in place with a midline dressing, no masses palpable. PSYCH: Answering questions appropriately NEUROLOGICAL: [Cranial nerves grossly intact; no facial asymmetry, weakness of both lower extremities., Weakness of the left arm. INVESTIGATIONS, reviewed in the clinical context: White count 5 hemoglobin 8.6 Presenting labs: White count 4.7 hemoglobin 6.8 platelets 206 potassium 5.6 creatinine 0.83 Stool occult blood positive, COVID 19 PCR-not detected Previous labs: Hemoglobin 7.6 on October 13 EGD/Colonoscopy suggestive gastritis, cecal angiectasia, with goal prohibition, flat cecal polyp removed, 2 ascending colon masses were 3.5 cm-biopsied. Assessment: -Acute symptomatic anemia with positive occult blood in a patient was getting antiplatelet agents-symptomatic-,-given one unit of blood -Right hemicolectomy on October [address] Colin for colonic masses-showing moderately differentiated adenocarcinoma with resected margins negative -Left arm weakness from a prior stroke -chronic congestive heart failure exacerbation from diastolic dysfunction EF 50- 55%. 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 Ascending colon polyp showed moderately differentiated adenocarcinoma -DO NOT RESUSCITATE -Acute delirium multifactorial.-Improved with cutting back on pain medications. Disposition: [facility] Patient Condition at Discharge: Stable Plan - Discharge Summary New Discharge Prescriptions: New traMADol HCL [Ultram] 50 mg PO Q6HR PRN 3 Days #12 tab PRN Reason: Pain Tamsulosin [Flomax] 0.4 mg PO PC-SUPPER cap.er.24h Gabapentin [Neurontin] 300 mg PO TID #9 cap Continue Primidone [Mysoline] 100 mg PO HS@2100 metFORMIN HCL 500 mg PO BID@0800,1700 Pantoprazole [Protonix] 40 mg PO BID@0800,1700 Levothyroxine Sodium [Synthroid] 100 mcg PO HS@2100 FLUoxetine HCL [PROzac] 40 mg PO DAILY@1700 Carvedilol [Coreg] 25 mg PO BID@0800,1700 Pravastatin Sodium [Pravachol] 80 mg PO HS@2100 Artificial Tears-Hypromellose [Artificial Tear Drops] 1 drops BOTH EYES TID@0800,1200,2100 Thiamine [Vitamin B-1] 100 mg PO DAILY@1200 tab Bisacodyl 10 mg RECTAL DAILY PRN PRN Reason: Constipation Ferrous Sulfate [Feosol] 325 mg PO BID@0800,1700 Folic Acid 1 mg PO DAILY@1700 Ammonium Lactate Cream [Lac-Hydrin 12% Cream] 1 applic TOPICAL DAILY PRN PRN Reason: dry skin on feet Apixaban [Eliquis] 2.5 mg PO BID@0800,1700 Econazole 1% Cream [Spectazole] 1 applic TOPICAL BID Magnesium Hydroxide [Milk of Magnesia Concentrate] 7,200 mg PO DAILY PRN PRN Reason: Constipation Diltiazem Oral [Cardizem*] 60 mg PO TID@0600,1400,2100 Multivitamins, Thera [Multivitamin (formulary)] 1 tab PO DAILY@1700 Acetaminophen Tab [Tylenol] 650 mg PO Q6HR PRN PRN Reason: Pain INSULIN ASPART (NovoLOG) [NovoLOG (formulary)] See Protocol SQ ACHS Primidone [Mysoline] 25 mg PO DAILY@0800 Lisinopril [Zestril] 10 mg PO DAILY@2100 Aspirin 162 mg PO DAILY@1700 Discontinued Na Phos,M-B/Na Phos,Di-Ba [Fleet Adult] 133 ml RECTAL DAILY PRN PRN Reason: Constipation traMADol HCL 50 mg PO Q8H PRN #10 tab PRN Reason: Pain Gabapentin [Neurontin] 400 mg PO TID@0600,1400,2200 Furosemide [Lasix] 20 mg PO DAILY@0800 Discharge Medication List Carvedilol [Coreg] 25 mg PO BID@0800,1700 02/15/19 [History] FLUoxetine HCL [PROzac] 40 mg PO DAILY@1700 02/15/19 [History] Levothyroxine Sodium [Synthroid] 100 mcg PO HS@2100 02/15/19 [History] Pantoprazole [Protonix] 40 mg PO BID@0800,169902/15/19 [History] Primidone [Mysoline] 100 mg PO HS@209902/15/19 [History] metFORMIN HCL 500 mg PO BID@0800,169902/15/19 [History] Artificial Tears-Hypromellose [Artificial Tear Drops] 1 drops BOTH EYES TID@0800,1200,209905/23/19 [History] Pravastatin Sodium [Pravachol] 80 mg PO HS@209905/23/19 [History] Thiamine [Vitamin B-1] 100 mg PO DAILY@1200 tab 05/28/19 [Rx] Bisacodyl 10 mg RECTAL DAILY PRN 06/19/19 [History] Ferrous Sulfate [Feosol] 325 mg PO BID@0800,169906/19/19 [History] Folic Acid 1 mg PO DAILY@169906/19/19 [History] Ammonium Lactate Cream [Lac-Hydrin 12% Cream] 1 applic TOPICAL DAILY PRN 08/28/19 [History] Acetaminophen Tab [Tylenol] 650 mg PO Q6HR PRN 09/20/19 [History] Apixaban [Eliquis] 2.5 mg PO BID@0800,169909/20/19 [History] Diltiazem Oral [Cardizem*] 60 mg PO TID@0600,1400,209909/20/19 [History] Econazole 1% Cream [Spectazole] 1 applic TOPICAL BID 09/20/19 [History] Magnesium Hydroxide [Milk of Magnesia Concentrate] 7,200 mg PO DAILY PRN 09/20/19 [History] Multivitamins, Thera [Multivitamin (formulary)] 1 tab PO DAILY@169909/20/19 [History] Aspirin 162 mg PO DAILY@169910/19/19 [History] INSULIN ASPART (NovoLOG) [NovoLOG (formulary)] See Protocol SQ ACHS 10/19/19 [History] Lisinopril [Zestril] 10 mg PO DAILY@209910/19/19 [History] Primidone [Mysoline] 25 mg PO DAILY@0800 10/19/19 [History] Gabapentin [Neurontin] 300 mg PO TID #9 cap 10/30/19 [Rx] Tamsulosin [Flomax] 0.4 mg PO PC-SUPPER cap.er.24h 10/30/19 [Rx] traMADol HCL [Ultram] 50 mg PO Q6HR PRN 3 Days #12 tab 10/30/19 [Rx] Follow up Appointment(s)/Referral(s): Marc Muhammad MD [STAFF PHYSICIAN] - 12/08/19 10:30 am Victor Hugo Coles DO [Primary Care Provider] - 1-2 days Reema Chavira MD [STAFF PHYSICIAN] - 11/03/19 Patient Instructions/Handouts: Colectomy (DC), Colectomy Diet (DC) Discharge Disposition: TRANSFER TO SNF/ECF
== END 2019-10-30 14:21 | DRG 329 ==
LOC: EC 14:04 → 5NMEDONC 17:29
PROVIDERS: ADMIT Hospitalist; ATTEND Hospitalist
PROC: 30233N1 Transfusion of Nonautologous Red Blood Cells into Peripheral Vein, Percutaneous Approach (ICD-10-PCS; 2019-10-19)
PROC: 0DBK8ZX Excision of Ascending Colon, Via Natural or Artificial Opening Endoscopic, Diagnostic (ICD-10-PCS; 2019-10-22 13:05)
PROC: 0DB78ZX Excision of Stomach, Pylorus, Via Natural or Artificial Opening Endoscopic, Diagnostic (ICD-10-PCS; 2019-10-22 13:05)
PROC: 0DB98ZX Excision of Duodenum, Via Natural or Artificial Opening Endoscopic, Diagnostic (ICD-10-PCS; 2019-10-22 13:05)
PROC: 0DBH8ZX Excision of Cecum, Via Natural or Artificial Opening Endoscopic, Diagnostic (ICD-10-PCS; 2019-10-22 13:05)
PROC: 0DBB0ZZ Excision of Ileum, Open Approach (ICD-10-PCS; principal; 2019-10-26 07:30)
PROC: 0DTF0ZZ Resection of Right Large Intestine, Open Approach (ICD-10-PCS; principal; 2019-10-26 07:30)
DX: C18.2 Malignant neoplasm of ascending colon (principal); I50.33 Acute on chronic diastolic (congestive) heart failure; I48.19 Other persistent atrial fibrillation; R18.8 Other ascites; D62 Acute posthemorrhagic anemia; F05 Delirium due to known physiological condition; I69.349 Monoplegia of lower limb following cerebral infarction affecting unspecified side; K29.70 Gastritis, unspecified, without bleeding; M19.91 Primary osteoarthritis, unspecified site; N31.2 Flaccid neuropathic bladder, not elsewhere classified; I11.0 Hypertensive heart disease with heart failure; I25.5 Ischemic cardiomyopathy; I27.20 Pulmonary hypertension, unspecified; Z66 Do not resuscitate; Z79.01 Long term (current) use of anticoagulants; E03.9 Hypothyroidism, unspecified; E11.51 Type 2 diabetes mellitus with diabetic peripheral angiopathy without gangrene; E78.5 Hyperlipidemia, unspecified; E87.5 Hyperkalemia; G83.10 Monoplegia of lower limb affecting unspecified side; G65.0 Sequelae of Guillain-Barre syndrome; R91.1 Solitary pulmonary nodule; G62.9 Polyneuropathy, unspecified; Z79.4 Long term (current) use of insulin; Z11.59 Encounter for screening for other viral diseases; Z79.82 Long term (current) use of aspirin; Z79.890 Hormone replacement therapy; Z79.899 Other long term (current) drug therapy; Z85.43 Personal history of malignant neoplasm of ovary; Z87.891 Personal history of nicotine dependence; Z90.710 Acquired absence of both cervix and uterus; Z95.2 Presence of prosthetic heart valve; K63.5 Polyp of colon; D50.9 Iron deficiency anemia, unspecified; F32.9 Major depressive disorder, single episode, unspecified
CPT/HCPCS: 36415; 36430; 43239; 45380; 45381; 45388; 74177; 80048; 80053; 82272; 82378; 82607; 82728; 82746; 83540; 83550; 85025; 85027; 85045; 85610; 85730; 86301; 86850; 86870; 86880; 86900; 86901; 86920; 88305; 88309; 88342; 99285

== ENCOUNTER 2021-10-16 13:23 | Emergency (ER) | payer MEDICARE, OTHER ==
[2021-10-16 13:29] VITALS: BP 141/89; PULSE 79; RESP 18
--- NOTE | 2021-10-16 13:51 | XR ---
EXAMINATION TYPE: XR chest 2V DATE OF EXAM: 10/16/2021 COMPARISON: 09/22/2019 INDICATION: Cough, pain TECHNIQUE: Frontal and lateral views of the chest are obtained. FINDINGS: The heart size is upper limits of normal. The pulmonary vasculature is normal. The lungs are clear. Sternotomy wires are present IMPRESSION: 1. No acute pulmonary process.
--- NOTE | 2021-10-16 14:49 | ED ---
General Adult HPI - General Chief complaint: ENT Stated complaint: airway obstruction Time Seen by Provider: 10/16/21 13:25 Source: patient, EMS Mode of arrival: EMS Limitations: no limitations - History of Present Illness Initial comments: 78-year-old female presented to the emergency room and from [facility]. She was eating lunch when she subsequent she choked on a piece of lettuce. She was able to clear some from her airway however continued to have a partial dissection therefore EMS was called. En route to the hospital the patient was able to cl ear the lettuce from her throat. Arrives denying any shortness of breath or difficulty swallowing. Denies chronic issues with eating. Denies any chest pain. No other alleviating, precipitating or modifying factors - Related Data Home Medications Medication Instructions Recorded Confirmed Carvedilol [Coreg] 25 mg PO BID@0800,169902/15/19 10/19/19 FLUoxetine HCL [PROzac] 40 mg PO DAILY@169902/15/19 10/19/19 Levothyroxine Sodium [Synthroid] 100 mcg PO HS@209902/15/19 10/19/19 Pantoprazole [Protonix] 40 mg PO BID@0800,169902/15/19 10/19/19 Primidone [Mysoline] 100 mg PO HS@209902/15/19 10/19/19 metFORMIN HCL 500 mg PO BID@0800,169902/15/19 10/19/19 Artificial Tears-Hypromellose 1 drops BOTH EYES 05/23/19 10/19/19 [Artificial Tear Drops] TID@0800,1200,2100 Pravastatin Sodium [Pravachol] 80 mg PO HS@209905/23/19 10/19/19 Ferrous Sulfate [Feosol] 325 mg PO BID@0800,169906/19/19 10/19/19 Folic Acid 1 mg PO DAILY@169906/19/19 10/19/19 bisacodyL 10 mg RECTAL DAILY PRN 06/19/19 10/19/19 Ammonium Lactate Cream [Lac-Hydrin 1 applic TOPICAL DAILY PRN 08/28/19 10/19/19 12% Cream] Acetaminophen Tab [Tylenol] 650 mg PO Q6HR PRN 09/20/19 10/19/19 Apixaban [Eliquis] 2.5 mg PO BID@0800,1700 09/20/19 10/19/19 Diltiazem Oral [Cardizem*] 60 mg PO TID@0600,1400,2100 09/20/19 10/19/19 Econazole 1% Cream [Spectazole] 1 applic TOPICAL BID 09/20/19 10/19/19 Magnesium Hydroxide [Milk of 7,200 mg PO DAILY PRN 09/20/19 10/19/19 Magnesia Concentrate] Multivitamins, Thera [Multivitamin 1 tab PO DAILY@1700 09/20/19 10/19/19 (formulary)] Aspirin 162 mg PO DAILY@1700 10/19/19 10/19/19 INSULIN ASPART (NovoLOG) [NovoLOG See Protocol SQ ACHS 10/19/19 10/19/19 (formulary)] Primidone [Mysoline] 25 mg PO DAILY@0800 10/19/19 10/19/19 lisinopriL [Zestril] 10 mg PO DAILY@2100 10/19/19 10/19/19 Previous Rx's Medication Instructions Recorded Thiamine [Vitamin B-1] 100 mg PO DAILY@1200 tab 05/28/19 Gabapentin [Neurontin] 300 mg PO TID #9 cap 10/30/19 Tamsulosin [Flomax] 0.4 mg PO PC-SUPPER cap.er.24h 10/30/19 traMADol HCL [Ultram] 50 mg PO Q6HR PRN 3 Days #12 tab 10/30/19 Allergies Allergy/AdvReac Type Severity Reaction Status Date / Time adhesive tape Allergy Rash/Hives Verified 10/19/19 20:49 influenza virus vaccine, Allergy Unknown Verified 10/19/19 20:49 specific Review of Systems ROS Statement: Those systems with pertinent positive or pertinent negative responses have been documented in the HPI. ROS Other: All systems not noted in ROS Statement are negative. Past Medical History Past Medical History: Atrial Fibrillation, Cancer, Diabetes Mellitus, GI Bleed, Hyperlipidemia, Hypertension, Neurologic Disorder, Thyroid Disorder Additional Past Medical History / Comment(s): guillain-barre syndrome. ovarian cancer with hysterectomy 1972. anemia History of Any Multi-Drug Resistant Organisms: ESBL Date of last positivie culture/infection: 07/20/20 ESBL-E.coli MDRO Source:: Urine Past Surgical History: Hysterectomy, Orthopedic Surgery Additional Past Surgical History / Comment(s): bilateral knee surgery , right rotor cuff surgery, Past Anesthesia/Blood Transfusion Reactions: No Reported Reaction Past Psychological History: Depression Smoking Status: Never smoker Past Alcohol Use History: None Reported Past Drug Use History: None Reported - Past Family History Sister(s) Family Medical History: Cancer General Exam Limitations: no limitations General appearance: alert, in no apparent distress Head exam: Present: atraumatic, normocephalic, normal inspection Eye exam: Present: normal appearance, PERRL, EOMI. Absent: scleral icterus, conjunctival injection, periorbital swelling ENT exam: Present: normal exam, mucous membranes moist Neck exam: Present: normal inspection. Absent: tenderness, meningismus, lymphadenopathy Respiratory exam: Present: normal lung sounds bilaterally. Absent: respiratory distress, wheezes, rales, rhonchi, stridor Cardiovascular Exam: Present: regular rate, normal rhythm, normal heart sounds. Absent: systolic murmur, diastolic murmur, rubs, gallop, clicks GI/Abdominal exam: Present: soft, normal bowel sounds. Absent: distended, tenderness, guarding, rebound, rigid Extremities exam: Present: normal inspection, full ROM, normal capillary refill. Absent: tenderness, pedal edema, joint swelling, calf tenderness Back exam: Present: normal inspection Neurological exam: Present: alert, oriented X3, CN II-XII intact Psychiatric exam: Present: normal affect, normal mood Skin exam: Present: warm, dry, intact, normal color. Absent: rash Course Vital Signs 10/16/21 13:25 Pulse Rate 79 Respiratory 18 Rate Blood Pressure 141/89 O2 Sat by Pulse 97 Oximetry Medical Decision Making - Medical Decision Making Upon arrival patient is placed into room 6. A thorough history and physical exam was performed. Posterior pharynx is clear. Patient has normal voice. No signs of respiratory distress. X-rays performed which demonstrates no acute process. She is able to water rest comfortably in bed. She is watched for an hour in the emergency room and without consultation. Patient stable for discharge back to her facility at this time. EMS was called and patient is discharged in stable condition Disposition Clinical Impression: Choking episode Disposition: HOME SELF-CARE Condition: Stable Instructions (If sedation given, give patient instructions): Foreign Body in Pharynx (ED) Is patient prescribed a controlled substance at d/c from ED?: No Referrals: Victor Hugo Coles DO [Primary Care Provider] - 1-2 days
== END 2021-10-16 15:10 | disposition home or self-care (01) ==
LOC: EC 13:23
DX: R09.89 Other specified symptoms and signs involving the circulatory and respiratory systems (principal); E11.9 Type 2 diabetes mellitus without complications; E78.5 Hyperlipidemia, unspecified; I10 Essential (primary) hypertension; E07.9 Disorder of thyroid, unspecified; I48.91 Unspecified atrial fibrillation; Z91.09 Other allergy status, other than to drugs and biological substances; Z88.7 Allergy status to serum and vaccine; Z79.84 Long term (current) use of oral hypoglycemic drugs; Z79.4 Long term (current) use of insulin; Z79.02 Long term (current) use of antithrombotics/antiplatelets; Z79.82 Long term (current) use of aspirin; Z79.899 Other long term (current) drug therapy; Z79.890 Hormone replacement therapy
CPT/HCPCS: 71046; 99283